=== PATIENT | male | born 2000 | race Caucasian/White ===

== ENCOUNTER 2023-07-07 13:43 | Emergency (ER) | payer OTHER, SELFPAY ==
[2023-07-07 13:48] VITALS: BP 140/71; PULSE 85; RESP 16; TEMP 36.4; O2SAT 100
[2023-07-07 15:01] LABS: Appearance Urine Clear (Clear); Bacteria Urine None Seen /hpf; Bilirubin Urine Negative (Negative); Blood Urine Trace (Negative); Color Urine Yellow (Yellow); Glucose Urine UA Negative (Negative); Ketones Urine Trace mg/dL (Negative); Leukocyte Esterase Ur Negative LEU/UL (Negative); Nitrate Urine Negative (Negative); Non Pathogenic Casts 0-2; Protein Urine Negative (Negative); RBC Urine 0-2 /hpf (0-2); Specific Grav Ur 1.027 (1.001-1.035); Squamous Epithelial Cell Urine None seen /hpf (Few); Urobilinogen Urine 0.2 mg/dL (<2.0); WBC Urine 0-5 /hpf; pH Urine 5.5 (5.0-9.0)
[2023-07-07 15:03] LABS: Basophils Percent Auto 0.3 % (0.2-1.2); Eosinophils Absolute Auto 0.2 K/mm3 (0-0.3); Eosinophils Percent Auto 2.4 % (0-4.4); Hematocrit 49.1 % (42.0-52.0); Immature Granulocyte Absolute 0.03 K/mm3 (0.00-0.031); Immature Granulocyte Percent A 0.4 % (0-0.5); Lymphocytes Percent Auto 8.1 % (18.3-44.2); Mean Corpuscular HGB Conc 34.6 g/dl (32-36); Mean Corpuscular Hemoglobin 30.5 pg (26-34); Mean Platelet Volume 9.9 fl (7.4-10.4); Monocytes Absolute Auto 0.5 K/mm3 (0.1-0.6); Monocytes Percent Auto 7.3 % (2.6-8.5); Neutrophils Absolute Auto 6.1 K/mm3 (1.3-6.7); Neutrophils Percent Auto 81.5 % (45.5-73.1); Platelet Count Result 226 k/mm3 (150-375); Red Blood Count 5.58 M/mm3 (4.6-6.20); Red Cell Distribution Width 11.9 % (11.5-14.5); White Blood Count 7.4 K/mm3 (4.5-10.0)
[2023-07-07] MEDS: ONDANSETRON INJ 4 MG/2 ML VIAL IV PUSH (15:17)
[2023-07-07] MEDS: SODIUM CHLORIDE 0.9% IV 1,000 ML 999 ML IV CONT (15:17)
[2023-07-07 15:18] LABS: Add Urine Microscopic? YES
[2023-07-07 15:32] LABS: Alanine Aminotransferase 21 U/L (6-50); Albumin Level 4.4 g/dL (3.5-5.1); Alkaline Phosphatase 59 U/L (38-126); Anion Gap 8 mmol/L (8-16); Aspartate Amino Transferase 33 U/L (17-59); Bilirubin,Total 0.6 mg/dL (0.2-1.3); Blood Urea Nitrogen 14 mg/dL (9-20); Calcium 8.9 mg/dL (8.4-10.2); Carbon Dioxide 26 mmol/L (22-30); Chloride 104 mmol/L (98-107); Estimated CRCL calculation 137 ml/min; Estimated Glomerular Filt Rate > 60; Glucose 94 mg/dL (65-110); Lipase 71 U/L (23-300); Potassium 4.6 mmol/L (3.4-5.0); Sodium 138 mmol/L (137-145)
--- NOTE | 2023-07-07 16:40 | ED.GENADULT ---
HPI - General Adult General Chief complaint: Nausea/Vomiting/Diarrhea Stated complaint: nausea & vomiting Time Seen by Provider: 07/07/23 14:32 History of Present Illness HPI narrative: Patient is a 23-year-old male who presents ER with nausea vomiting and diarrhea. He has been having nausea and vomiting for last 3 days the morning when he wakes up. He gets upper abdominal cramping and discomfort. He has also had 5 loose stools a day. No known sick contacts. No fevers or chills or sweats. Symptoms worsened with eating and drinking. No alleviating factors. Related Data Allergies Allergy/AdvReac Type Severity Reaction Status Date / Time No Known Allergies Allergy Unknown Verified 07/07/23 13:44 Review of Systems Review of Systems: All systems reviewed & are unremarkable except as noted in HPI and below Constitutional: Constitutional: Reports no additional constitutional complaints ENT: Reports system reviewed and no additional complaints, except as documented Cardiovascular: Cardiovascular: Reports no additional cardiovascular complaints Respiratory: Respiratory: Reports no additional respiratory complaints Gastrointestinal: Gastrointestinal: Reports abdominal pain, Reports diarrhea, Reports nausea and Reports vomiting Genitourinary: Genitourinary: Reports no additional male genitourinary complaints [facility] Past Medical History Medical History (Updated 07/07/23 @ 16:44 by Peter Urban MD) Healthy adult male Surgical History Surgical History (Updated 07/07/23 @ 16:42 by Peter Urban MD) No history of previous surgery Exam Narrative: GENERAL: Well-appearing, well-nourished, and in no acute distress. HEAD: Normocephalic, atraumatic. ENT: Mucous membranes moist. CHEST: Clear to auscultation. No respiratory distress. HEART: Regular rate and rhythm. Normal peripheral pulses. ABDOMEN: Soft, nontender, nondistended. EXTREMITIES: Normal range of motion. No edema. SKIN: Warm, dry, no rash. NEURO: Alert and oriented x3. PSYCH: Normal mood and affect. Course Course Emergency Course: patient resting comfortably. Hydrated. Informed of results. Discharge home. Vital Signs Vital signs: Vital Signs Temperature 97.5 F L 07/07/23 13:48 Pulse Rate 85 07/07/23 13:48 Respiratory Rate 16 07/07/23 13:48 Blood Pressure 140/71 07/07/23 13:48 Pulse Oximetry 100 07/07/23 13:48 Temperature 97.5 F L 07/07/23 13:48 Pulse Rate 85 07/07/23 13:48 Respiratory Rate 16 07/07/23 13:48 Blood Pressure 140/71 07/07/23 13:48 Pulse Oximetry 07/07/23 13:48 Medical Decision Making Vital Signs Vital Signs: Vital Signs Temperature 97.5 F L 07/07/23 13:48 Pulse Rate 85 07/07/23 13:48 Respiratory Rate 16 07/07/23 13:48 Blood Pressure 140/71 07/07/23 13:48 Pulse Oximetry 07/07/23 13:48 Temperature 97.5 F L 07/07/23 13:48 Pulse Rate 85 07/07/23 13:48 Respiratory Rate 16 07/07/23 13:48 Blood Pressure 140/71 07/07/23 13:48 Pulse Oximetry 07/07/23 13:48 Lab Data 07/07/23 14:38 07/07/23 15:12 Labs: Lab Results 07/07/23 07/07/23 Range/Units 14:38 15:12 WBC 7.4 (4.5-10.0) K/mm3 RBC 5.58 (4.6-6.20) M/mm3 Hgb 17.0 (14.0-18.0) g/dL Hct 49.1 (42.0-52.0) % MCV 88.0 (80-100) fl MCH 30.5 (26-34) pg MCHC 34.6 (32-36) g/dl RDW 11.9 (11.5-14.5) % Plt Count 226 (150-375) k/mm3 MPV 9.9 (7.4-10.4) fl Immature Gran % (Auto) 0.4 (0-0.5) % Neut % (Auto) 81.5 H (45.5-73.1) % Lymph % (Auto) 8.1 L (18.3-44.2) % [place] % (Auto) 7.3 (2.6-8.5) % Eos % (Auto) 2.4 (0-4.4) % Baso % (Auto) 0.3 (0.2-1.2) % Lymph # (Auto) 0.60 L (0.9-3.2) K/mm3 Radford # (Auto) 0.5 (0.1-0.6) K/mm3 Eos # (Auto) 0.2 (0-0.3) K/mm3 Baso # (Auto) 0.0 (0.0-0.1) K/mm3 Abs Immat Gran (auto) 0.03 (0.00-0.031) K/mm3 Absolute Neuts (auto) 6.1 (
[2023-07-07 16:59] VITALS: BP 111/69; PULSE 68; RESP 18; TEMP 36.5; O2SAT 98
== END 2023-07-07 17:02 | disposition home or self-care (01) ==
PROVIDERS: Emergency Provider Emergency Medicine
DX: K52.9 Noninfective gastroenteritis and colitis, unspecified (principal)
CPT/HCPCS: 36415; 80053; 81001; 83690; 85025; 96361; 96374; 99284; J2405; J7030

== ENCOUNTER 2024-06-28 11:16 | Emergency (ER) | payer SELFPAY ==
--- NOTE | ~2024-06-28 | XR_ITS ---
EXAMINATION: XR sacrum coccyx min 2V DATE: 06/28/2024 14:13 INDICATION: Sacrococcygeal pain. Fall. TECHNIQUE: 3 views of the sacrum and coccyx were obtained. COMPARISON: None. FINDINGS: Alignment is normal. No fracture. The sacroiliac joints are normal. IMPRESSION: 1. No fracture. Reviewed, dictated and finalized at location B. TESTING TECHNICIAN IMPRESSION: 1. No fracture.
--- NOTE | ~2024-06-28 | XR_ITS ---
EXAMINATION: XR lumbar spine 2-3V DATE: 06/28/2024 14:13 INDICATION: Low back pain. Fall. TECHNIQUE: 3 views of lumbar spine were obtained. COMPARISON: None. FINDINGS: Alignment is normal. There is mild chronic anterior wedging of T12 vertebral body. Interver tebral disc heights are normal. The facet joints are unremarkable. IMPRESSION: 1. Normal lumbar spine. Reviewed, dictated and finalized at location B. FACTURING PLANT MANAGER IMPRESSION: 1. Normal lumbar spine.
--- NOTE | ~2024-06-28 | XR_ITS ---
EXAMINATION: XR thoracic spine 3V DATE: 06/28/2024 14:14 INDICATION: Back pain. Fall. TECHNIQUE: 3 views of thoracic spine on 4 radiographs were obtained. COMPARISON: None. FINDINGS: There is 8 degrees dextrocurvature of thoracic spine. Vertebral body heights and interverte bral disc heights are normal. There are endplate osteophytes at multiple levels. IMPRESSION: 1. No fracture. Reviewed, dictated and finalized at location B. TENANCE SCHEDULER IMPRESSION: 1. No fracture.
[2024-06-28 11:28] VITALS: BP 141/102; PULSE 83; RESP 18; TEMP 36.2; O2SAT 98
--- NOTE | 2024-06-28 13:22 | ED.BACK ---
HPI - Back Pain/Injury General Chief Complaint: Back Pain/Injury Stated Complaint: recent fall,lower back pain Time Seen by Provider: 06/28/24 13:19 Source: patient Mode of arrival: ambulatory Limitations: no limitations History of Present Illness HPI Narrative: PATIENT WAS IN STANDING POSITION AT THE SIDE OF THE BED ON THE FLOOR HAVING 6 ACCIDENTALLY FELL ON HIS BOTTOM 2 DAYS AGO, COMPLAINING OF SEVERE PAIN ACROSS THE LUMBAR AREA. DENIES OTHER INJURIES. DENIES TINGLING NUMBNESS OR WEAKNESS OF THE LOWER EXTREMITIES. NO RADIATION OF PAIN. Related Data Allergies Allergy/AdvReac Type Severity Reaction Status Date / Time ibuprofen AdvReac Unknown Verified 06/28/24 11:17 Review of Systems Review of Systems: All systems reviewed & are unremarkable except as noted in HPI and below PMFSH Past Medical History Medical History Healthy adult male Surgical History Surgical History No history of previous surgery Exam Narrative: GENERAL APPEARANCE: WELL-DEVELOPED, WELL-NOURISHED SKIN: NORMAL COLOR HEAD: NORMOCEPHALIC, NONTRAUMATIC EYES: CLEAR CONJUNCTIVA NECK: SUPPLE, NONTENDER CHEST AND RESPIRATORY: AIRWAY PATENT, NO RESPIRATORY DISTRESS, NO ACCESSORY MUSCLE USE HEART: REGULAR RATE/RHYTHM VASCULAR: NORMAL PERIPHERAL PULSES, NORMAL CAPILLARY REFILL. MUSCULOSKELETAL: DIFFUSE TENDERNESS ALONG THE LUMBAR AREA, NO BRUISES, NO SWELLING OR RASH, SEVERE LIMITED RANGE OF MOTION OF THE LUMBAR AREA. NEUROLOGIC: ALERT AND ORIENTED ?3, EMPLOYMENT SERVICES DIRECTOR IS NORMAL TESTED, NO GROSS MOTOR DEFICIT Course Vital Signs Vital signs: Vital Signs Temperature 36.2 C L 06/28/24 11:28 Pulse Rate 83 06/28/24 11:28 Respiratory Rate 18 06/28/24 11:28 Blood Pressure 141/102 H 06/28/24 11:28 Pulse Oximetry 98 06/28/24 11:28 Oxygen Delivery Room Air 06/28/24 11:28 Temperature 36.2 C L 06/28/24 11:28 Pulse Rate 71 06/28/24 14:20 Respiratory Rate 15 06/28/24 14:20 Blood Pressure 143/85 H 06/28/24 14:20 Pulse Oximetry 98 06/28/24 14:20 Oxygen Delivery Room Air 06/28/24 11:28 MDM - Back Pain/Injury Imaging Data Radiologist's impression: Impressions Lumbar Spine X-Ray 06/28/24 14:21 IMPRESSION: 1. Normal lumbar spine. Sacrum and Coccyx X-Ray 06/28/24 14:22 IMPRESSION: 1. No fracture. Thoracic Spine X-Ray 06/28/24 14:23 IMPRESSION: 1. No fracture. Discharge Plan Discharge Clinical Impression: Lower back pain Patient Disposition: Home, Self-Care Condition: Stable Instructions: Acute Low Back Pain (ED) Additional Instructions: RETURN IF SYMPTOMS ARE WORSENING , CALL YOUR FAMILY PHYSICIAN FOR APPOINTMENT, TAKE TYLENOL, IBUPROFEN NEEDED FOR ACHES AND PAIN, CONTINUE HOME MEDICATIONS. Patient Language: Lao Prescriptions: New cyclobenzaprine 10 mg tablet 10 mg PO TID PRN (Reason: muscle spasm) Qty: 20 0RF No Action simethicone 125 mg capsule 125 mg PO QID Qty: 20 0RF Rx Instructions: administer after meals and at bedtime ondansetron 4 mg tablet,disintegrating 4 mg PO Q6H PRN (Reason: nausea and vomiting) Qty: 10 0RF Follow-up/Referrals: Nesha,Sarai Li MD [Non-Staff] - Renard Durant MD [Physician] - 07/03/24 UNKNOWN,DOCTOR [Primary Care Provider] - Stand Alone Forms: Work/School Release IP
[2024-06-28] MEDS: HYDROcodone/acetaminophen (*CRX) 5-325 MG TABLET 1 TAB PO (14:18)
[2024-06-28 14:20] VITALS: BP 143/85; PULSE 71; RESP 15; O2SAT 98
--- OUTSIDE RECORDS SUMMARY | 2024-06-29 04:29 | XMS_ITS | Clinical Summary ---
Author Organization [facility] Address [address] [place] [address] Phone Care Team Providers Care Mechanic/Welder Name Role Phone Unavailable Unavailable Unavailable Reason for Visit and Chief Complaint [Patient Encounter] Problems Includes: Problems addressed during this encounter and other active Problems All Visits Onset Date Resolved Date Provider Condition S tatus Depression 08/04/2020 Active Last Documented On 3 5:53PM ; [facility] Bipolar I Disorder 07/03/2020 Active Last Documented On 3 5:53PM ; [facility] Generalized Anxiety Disorder 07/03/2020 Active Last Documented On 3 5:53PM ; [facility] Psychophysiological Insomnia 07/03/2020 Active Last Documented On 3 5:53PM ; [facility] Major Depression 07/03/2020 Active Last Documented On 3 5:53PM ; [facility] Plan of Treatment No Plan of Treatment Recorded Assessments Includes: Assessments from this encounter No Assessments Recorded Medical Equipment - Implanted Devices Includes: Current Devices No Medical Equipment Recorded Medications Includes: Medications discussed during this encounter and other current Medications Current Medications (continue as prescribed) SEROquel XR 200 MG OR TB24 10/03/2020 Provider: ANNI CORTES MD Diagnosis: Bipolar disorder , unspecified as directed -- 1 tab at bedtime Last Documented On 10/02/2022 5:39PM By Fifi Cortes MD ; [facility] LORazepam 0.5 MG TABS 09/22/2020 Provider: BHAVANA CORTES MD Diagnosis: Panic disorder [ episodic paroxysmal anxiety] as directed -- 1 tab a day a s needed for anxiety Last Documented On 10/02/2022 5:39PM By Fifi Cortes MD ; [facility] QUEtiapine Fumarate 100 MG OR TABS 08/08/2020 Provider: ANNI CORTES MD Diagnosis: Bipolar disorder , unspecified as directed -- 1 tab at bedtime Last Documented On 10/02/2022 5:39PM By Fifi Cortes MD ; [facility] QUEtiapine Fumarate 25 MG OR TABS 08/08/2020 Provider: ANNI CORTES MD Diagnosis: Generalized anxi ety disorder as directed -- 1 tab in am a nd 1 tab at noon for anxiety Last Documented On 10/02/2022 5:39PM By Fifi Cortes MD ; [facility] QUEtiapine Fumarate 50 MG OR TABS 07/03/2020 Provider: ANNI CORTES MD Diagnosis: Bipolar disorder , unspecified One tablet at bed time Last Documented On 10/02/2022 5:39PM By Fifi Cortes MD ; [facility] Albuterol Sulfate HFA 108 (90 Base) MCG/ACT IN AERS Provider: Diagnosis: 1 -2 puffs q 4-6 hours allison Tilley NP Last Documented On 10/02/2022 5:39PM By DIANE BOWENS ; [facility] Medications Administered Includes: Administered Medications from this encounter No Administered Medications Recorded Vital Signs Includes: Vital Signs from this encounter Vital Name 07/03/2020 02:32P Blood Pressure Sitting (mmHg) 114/70 BP Cuff Size Regular Pulse Rate-Sitting (bpm) 84 Pulse Rhythm Regular Temp-Oral (F) 98.1 Height (in) 71 Weight (lb) 217 Body Mass Index (kg/m2) 30.3 Body Surface Area (m2) 2.2 Last Documented: On 10/02/2022 5:58PM ; [facility] Results Includes: Results discussed during this encounter No Results Recorded For Specified Dates History of Present Illness Includes: History of Present Illness from this encounter No History of Present Illness Recorded Social History No Social History Recorded - Smoking Status Unknown Medical History Includes: Medical History addressed during this encounter No Medical History Recorded Family History Includes: Family History addressed during this encounter No Family History Recorded Review of Systems Includes: Review of Systems from this encounter No Review of Systems Recorded Mental Status Includes: Mental Status from this encounter No Mental Status Recorded Functional Status Includes: Functional Status from this encounter No Functional Status Recorded Physical Exam Includes: Physical Exam from this encounter No Physical Exam Recorded Allergies Includes: Active Allergies Substance Type Reaction Onset Date Resolved Date Statu s NSAIDs Allergy kidney failure 07/03/2020 Acti ve Last Documented On 10/02/2022 5:39PM ; [facility] Note: Imported from external source. Encounters Encounter Provider Location Date Check-In Time Check-Out Time Diagnosis [Patient Encounter] 07/03/2020 12:00AM 11:59PM Insurance Includes: Active Insurance Policies Plan Name Member ID Group # Subscriber Relationship Effect kathy Dates 1 - [facility] [id number] PATRICIA MORALES JR Self Clinical Notes Includes: Clinical Notes from this encounter No Clinical Notes Recorded
--- OUTSIDE RECORDS SUMMARY | 2024-06-29 04:29 | XMS_ITS | Clinical Summary ---
Author Organization [facility] Address [address] [place] [address] Phone Care Team Providers Care Film And Video Editor Name Role Phone Unavailable Unavailable Unavailable Reason for Visit and Chief Complaint [Patient Encounter] Problems Includes: Problems addressed during this encounter and other active Problems All Visits Onset Date Resolved Date Provider Condition S tatus Depression 08/04/2020 Active Last Documented On 3 5:53PM ; [facility] Bipolar I Disorder 07/03/2020 Active Last Documented On 3 5:53PM ; [facility] Generalized Anxiety Disorder 07/03/2020 Active Last Documented On 3 5:53PM ; [facility] Psychophysiological Insomnia 07/03/2020 Active Last Documented On 3 5:53PM ; [facility] Major Depression 07/03/2020 Active Last Documented On 3 5:53PM ; [facility] Plan of Treatment No Plan of Treatment Recorded Assessments Includes: Assessments from this encounter No Assessments Recorded Medical Equipment - Implanted Devices Includes: Current Devices No Medical Equipment Recorded Medications Includes: Medications discussed during this encounter and other current Medications Discontinued / Stopped on this date on 06/20/2020 Escitalopram Oxalate 10 MG OR TABS Provid er: Diagnosis: Last Documented On 10/02/2022 5:39PM By DIANE BOWENS ; [facility] Current Medications (continue as prescribed) SEROquel XR 200 MG OR TB24 10/03/2020 Provider: ANNI CORTES MD Diagnosis: Bipolar disorder , unspecified as directed -- 1 tab at bedtime Last Documented On 10/02/2022 5:39PM By Fifi Cortes MD ; [facility] LORazepam 0.5 MG TABS 09/22/2020 Provider: BHAVANA CORTES MD Diagnosis: Panic disorder [ episodic paroxysmal anxiety] as directed -- 1 tab a day a s needed for anxiety Last Documented On 10/02/2022 5:39PM By Fifi Cortes MD ; [facility] QUEtiapine Fumarate 100 MG OR TABS 08/08/2020 Provider: ANNI CORTES MD Diagnosis: Bipolar disorder , unspecified as directed -- 1 tab at bedtime Last Documented On 10/02/2022 5:39PM By Fifi Cortes MD ; [facility] QUEtiapine Fumarate 25 MG OR TABS 08/08/2020 Provider: ANNI CORTES MD Diagnosis: Generalized anxi ety disorder as directed -- 1 tab in am a nd 1 tab at noon for anxiety Last Documented On 10/02/2022 5:39PM By Fifi Cortes MD ; [facility] QUEtiapine Fumarate 50 MG OR TABS 07/03/2020 Provider: ANNI CORTES MD Diagnosis: Bipolar disorder , unspecified One tablet at bed time Last Documented On 10/02/2022 5:39PM By Fifi Cortes MD ; [facility] Albuterol Sulfate HFA 108 (90 Base) MCG/ACT IN AERS Provider: Diagnosis: 1 -2 puffs q 4-6 hours allison Tilley NP Last Documented On 10/02/2022 5:39PM By DIANE BOWENS ; [facility] Medications Administered Includes: Administered Medications from this encounter No Administered Medications Recorded Vital Signs Includes: Vital Signs from this encounter Vital Name 10/03/2020 09:21A Blood Pressure Sitting (mmHg) 116/80 BP Cuff Size Regular Pulse Rate-Sitting (bpm) 71 Pulse Rhythm Regular Height (in) 71 Weight (lb) 220 Body Mass Index (kg/m2) 30.7 Body Surface Area (m2) 2.2 Last Documented: On 10/02/2022 5:58PM ; [facility] Results Includes: Results discussed during this encounter [...] ve Last Documented On 10/02/2022 5:39PM ; [facility] Note: Imported from external source. Encounters Encounter Provider Location Date Check-In Time Check-Out Time Diagnosis [Patient Encounter] 10/03/2020 12:00AM 11:59PM Insurance Includes: Active Insurance Policies Plan Name Member ID Group # Subscriber Relationship Effect kathy Dates - [facility] [id number] PATRICIA MORALES JR Self Clinical Notes Includes: Clinical Notes from this encounter No Clinical Notes Recorded
--- OUTSIDE RECORDS SUMMARY | 2024-06-29 04:29 | XMS_ITS ---
Care Plan - [facility] Created on: June 29, 2024 PATRICIA MORALES JR : 2000 Sex: Male Author Organization [facility] Address [address] [place] [address] Phone Care Team Providers Care Principal Engineer Name Role Phone Unavailable Unavailable Unavailable
--- OUTSIDE RECORDS SUMMARY | 2024-06-29 04:29 | XMS_ITS ---
Author Organization [facility] Address [address] [place] [address] Phone Care Team Providers Care Site Leasing Agent Name Role Phone Unavailable Unavailable Unavailable Problems Includes: Active, inactive, and resolved Problems All Visits Onset Date Resolved Date Provider Condition S tatus Depression 08/04/2020 Active Last Documented On 3 5:53PM ; [facility] Bipolar I Disorder 07/03/2020 Active Last Documented On 3 5:53PM ; [facility] Generalized Anxiety Disorder 07/03/2020 Active Last Documented On 3 5:53PM ; [facility] Psychophysiological Insomnia 07/03/2020 Active Last Documented On 3 5:53PM ; [facility] Major Depression 07/03/2020 Active Last Documented On 3 5:53PM ; [facility] Plan of Treatment No Plan of Treatment Recorded Assessments Includes: Assessments for all patient encounters No Assessments Recorded Medical Equipment - Implanted Devices Includes: Current and historical Devices No Medical Equipment Recorded Medications Includes: Current and historical Medications Current Medications (continue as prescribed) SEROquel XR 200 MG OR TB24 10/03/2020 Provider: ANNI CORTES MD Diagnosis: Bipolar disorder , unspecified as directed -- 1 tab at bedtime Last Documented On 10/02/2022 5:39PM By Fifi Cortes MD ; [facility] LORazepam 0.5 MG TABS 09/22/2020 Provider: BHAVANA CORTES MD Diagnosis: Panic disorder [ episodic paroxysmal anxiety] as directed -- 1 tab a day a s needed for anxiety Last Documented On 10/02/2022 5:39PM By Fifi Cortes MD ; [facility] QUEtiapine Fumarate 100 MG OR TABS 08/08/2020 Provider: ANNI CORTES MD Diagnosis: Bipolar disorder , unspecified as directed -- 1 tab at bedtime Last Documented On 10/02/2022 5:39PM By Fifi Cortes MD ; [facility] QUEtiapine Fumarate 25 MG OR TABS 08/08/2020 Provider: ANNI CORTES MD Diagnosis: Generalized anxi ety disorder as directed -- 1 tab in am a nd 1 tab at noon for anxiety Last Documented On 10/02/2022 5:39PM By Fifi Cortes MD ; [facility] QUEtiapine Fumarate 50 MG OR TABS 07/03/2020 Provider: ANNI CORTES MD Diagnosis: Bipolar disorder , unspecified One tablet at bed time Last Documented On 10/02/2022 5:39PM By Fifi Cortes MD ; [facility] Albuterol Sulfate HFA 108 (90 Base) MCG/ACT IN AERS Provider: Diagnosis: 1 -2 puffs q 4-6 hours allison Tilley NP Last Documented On 10/02/2022 5:39PM By DIANE BOWENS ; [facility] Past Medications on file Focalin 10 MG OR TABS 10/03/2020 - 11/02/2020 Provider: ANNI CORTES MD Diagnosis: Attention-defici t hyperactivity disorder, combined type 1 tablet every morning Last Documented On 10/02/2022 5:39PM By Fifi Cortes MD ; [facility] LORazepam 0.5 MG TABS 08/11/2020 - 09/22/2020 Provider: ANNI CORTES MD Diagnosis: Panic disorder [episodic paroxysmal anxiety] as directed -- 1 tab a day a s needed for anxiety Last Documented On 10/02/2022 5:39PM By Fifi Cortes MD ; [facility] Escitalopram Oxalate 10 MG OR TABS 06/20/2020 - 2020 Provider: Diagnosis: 1 tab daily Xin Tilley NP Last Documented On 10/02/2022 5:39PM By DIANE BOWENS ; [facility] Medications Administered Includes: Administered Medications in patient's chart No Administered Medications Recorded Results Includes: Results from 06/29/2023 through 06/29/2024 No Results Recorded For Specified Dates History of Present Illness History of Present Illness not supported for this document type No History of Present Illness Recorded Social History No Social History Recorded - Smoking Status Unknown Medical History Includes: Medical History in patient's chart No Medical History Recorded Family History Includes: Family History in patient's chart No Family History Recorded Review of Systems Review of Systems not supported for this document type No Review of Systems Recorded Mental Status No Mental Status Recorded Functional Status No Functional Status Recorded Physical Exam Physical Exam not supported for this document type No Physical Exam Recorded Allergies Includes: Active, inactive, and resolved Allergies Substance Type Reaction Onset Date Resolved Date Statu s NSAIDs Allergy kidney failure 07/03/2020 Acti ve Last Documented On 10/02/2022 5:39PM ; [facility] Note: Imported from external source. Insurance Includes: Active Insurance Policies Plan Name Member ID Group # Subscriber Relationship Effect kathy Dates 1 - [facility] [id number] PATRICIA MORALES JR Self Clinical Notes Includes: Signed Clinical Notes starting from 06/25/2022 No Clinical Notes Recorded
--- OUTSIDE RECORDS SUMMARY | 2024-06-29 04:30 | XMS_ITS ---
Care Plan - [facility] Created on: June 29, 2024 PATRICIA MORALES JR : 2000 Sex: Male Author Organization [facility] Address [address] [place] [phone] Phone Care Team Providers Care Local Government Legislator Name Role Phone Unavailable Unavailable Unavailable
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
--- OUTSIDE RECORDS SUMMARY | 2024-06-29 04:30 | XMS_ITS | Clinical Summary ---
Author Organization [facility] Address [address] [place] [phone] Phone Care Team Providers Care Wire Frame Lampshade Maker Name Role Phone Unavailable Unavailable Unavailable Reason for Visit and Chief Complaint NO SHOW Problems Includes: Problems addressed during this encounter and other active Problems All Visits Onset Date Resolved Date Provider Condition S tatus Depression 08/04/2020 ANNI CORTES MD Ac tive Last Documented On 1 8:56AM ; [facility] Bipolar I Disorder 07/03/2020 ANNI ABEBE MD Active Last Documented On 1 2:16PM ; [facility] Generalized Anxiety Disorder 07/03/2020 ANNI CORTES MD Active Last Documented On 1 2:16PM ; [facility] Psychophysiological Insomnia 07/03/2020 ANNI CORTES MD Active Last Documented On 1 2:17PM ; [facility] Major Depression 07/03/2020 ANNI CORTES MD Active Last Documented On 1 2:16PM ; [facility] Plan of Treatment No Plan of Treatment [...] 10/03/2020 9:49AM By Fifi Cortes MD ; [facility] LORazepam 0.5 MG Oral Tablet 09/22/2020 Provider: ANNI CORTES MD Diagnosis: Panic disorder [ episodic paroxysmal anxiety] as directed -- 1 tab a day a s needed for anxiety Last Documented On 09/22/2020 6:31PM By Fifi Cortes MD ; [facility] QUEtiapine Fumarate 100 MG Oral Tablet 08/08/2020 Provider: ANNI CORTES MD Diagnosis: Bipolar disorder , unspecified as directed -- 1 tab at bedtime Last Documented On 1 10:36AM By Fifi Cortes MD ; [facility] QUEtiapine Fumarate 25 MG Oral Tablet 08/08/2020 Provider: ANNI CORTES MD Diagnosis: Generalized anxi ety disorder as directed -- 1 tab in am a nd 1 tab at noon for anxiety Last Documented On 10:44AM By Fifi Cortes MD ; [facility] QUEtiapine Fumarate 50 MG Oral Tablet 07/03/2020 Provider: ANNI CORTES MD Diagnosis: Bipolar disorder , unspecified One tablet at bed time Last Documented On 07/03/2020 3:17PM By Fifi Cortes MD ; [facility] Albuterol Sulfate HFA 108 (9 0 Base) MCG/ACT Inhalation Aerosol Solution 06/20/2020 Provider: Diagnosis: 1 -2 puffs q 4-6 hours allison Tilley NP Last Documented On 07/03/2020 1:52PM By DIANE BOWENS ; [facility] Medications Administered Includes: Administered Medications from this encounter No Administered Medications Recorded Results Includes: Results discussed during this encounter [...] ve Last Documented On 10/02/2022 5:39PM ; [facility] Note: Imported from external source. Encounters Encounter Provider Location Date Check-In Time Check-Out Time Diagnosis NO SHOW ANNI CORTES MD [facility] 11/14/2020 3:30PM 11:59PM Insurance Includes: Active Insurance Policies Plan Name Member ID Group # Subscriber Relationship Effect kathy Dates 1 - [facility] [id number] PATRICIA MORALES Self Clinical Notes Includes: Clinical Notes from this encounter No Clinical Notes Recorded
--- OUTSIDE RECORDS SUMMARY | 2024-06-29 04:30 | XMS_ITS | Clinical Summary ---
Author Organization [facility] Address [address] [place] [phone] Phone Care Team Providers Care Junior Business Analyst Name Role Phone Unavailable Unavailable Unavailable Reason for Visit and Chief Complaint NO SHOW Problems Includes: Problems addressed during this encounter and other active Problems All Visits Onset Date Resolved Date Provider Condition S tatus Depression 08/04/2020 ANNI CORTES MD Ac tive Last Documented On 1 8:56AM ; [facility] Bipolar I Disorder 07/03/2020 ANNI ABEBE MD Active Last Documented On 1 2:16PM ; [facility] Generalized Anxiety Disorder 07/03/2020 ANNI CORTES MD Active Last Documented On 1 2:16PM ; [facility] Psychophysiological Insomnia 07/03/2020 ANNI CORTES MD Active Last Documented On 1 2:17PM ; [facility] Major Depression 07/03/2020 ANNI CORTES MD Active Last Documented On 1 2:16PM ; [facility] Plan of Treatment No Plan of Treatment [...] 10/03/2020 9:49AM By Fifi Cortes MD ; [facility] LORazepam 0.5 MG Oral Tablet 09/22/2020 Provider: ANNI CORTES MD Diagnosis: Panic disorder [ episodic paroxysmal anxiety] as directed -- 1 tab a day a s needed for anxiety Last Documented On 09/22/2020 6:31PM By Fifi Cortes MD ; [facility] QUEtiapine Fumarate 100 MG Oral Tablet 08/08/2020 Provider: ANNI CORTES MD Diagnosis: Bipolar disorder , unspecified as directed -- 1 tab at bedtime Last Documented On 1 10:36AM By Fifi Cortes MD ; [facility] QUEtiapine Fumarate 25 MG Oral Tablet 08/08/2020 Provider: ANNI CORTES MD Diagnosis: Generalized anxi ety disorder as directed -- 1 tab in am a nd 1 tab at noon for anxiety Last Documented On 10:44AM By Fifi Cortes MD ; [facility] QUEtiapine Fumarate 50 MG Oral Tablet 07/03/2020 Provider: ANNI CORTES MD Diagnosis: Bipolar disorder , unspecified One tablet at bed time Last Documented On 07/03/2020 3:17PM By Fifi Cortes MD ; [facility] Albuterol Sulfate HFA 108 (9 0 Base) MCG/ACT Inhalation Aerosol Solution 06/20/2020 Provider: Diagnosis: 1 -2 puffs q 4-6 hours allison Tilley NP Last Documented On 07/03/2020 1:52PM By DIANE BOWENS ; [facility] Medications Administered Includes: Administered Medications from this [...] ve Last Documented On 10/02/2022 5:39PM ; [facility] Note: Imported from external source. Encounters Encounter Provider Location Date Check-In Time Check-Out Time Diagnosis NO SHOW ANNI CORTES MD [facility] 01/16/2021 2:30PM 11:59PM Insurance Includes: Active Insurance Policies Plan Name Member ID Group # Subscriber Relationship Effect kathy Dates 1 - [facility] [id number] PATRICIA MORALES Self Clinical Notes Includes: Clinical Notes from this encounter No Clinical Notes Recorded
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
--- OUTSIDE RECORDS SUMMARY | 2024-06-29 04:31 | XMS_ITS | Clinical Summary ---
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 would like to discuss switching medication Problems Includes: Problems addressed during this encounter and other active Problems Current Visit Onset Date Resolved Date Provider Conditio n Status Generalized Anxiety Disorder 04/27/2022 EARLENE CASTELLANO PA-C Active Last Documented On 04/27/2022 8:42PM ; [facility] Note: Unchanged Past Visits Onset Date Resolved Date Provider Condition Status Asthma Mild Intermittent with Exacerbation 04/27/2022 EARLENE CASTELLANO PA-C Active Last Documented On 04/27/2022 8:42PM ; [facility] Note: Unchanged Plan of Treatment - Return to the clinic if condition worsens or new symptoms arise - Last Documented On 05/23/2023 9:28AM ; [facility] - Follow-up visit in 1 month - Last Documented On 05/23/2023 9:28AM ; [facility] Assessments Includes: Assessments from this encounter Findings - [F39 - Unspecified mood [affective] disorder] Mood disorders, NOS --possible dx, will continue to monitor - Last Documented On 05/23/2023 9:28AM ; [facility] - [F32.A - Depression, unspecified] Depression - Last Documented On 05/23/2023 9:28AM ; [facility] - [G47.00 - Insomnia, unspecified] Insomnia due to stress - Last Documented On 05/23/2023 9:28AM ; [facility] - [F41.1 - Generalized anxiety disorder] Generalized anxiety disorder - Last Documented On 05/23/2023 9:28AM ; [facility] - [F41.0 - Panic disorder [episodic paroxysmal anxiety]] Panic disorder - Last Documented On 05/23/2023 9:28AM ; [facility] - [F43.10 - Post-traumatic stress disorder, unspecified] Post-traumatic stress disorder - Last Documented On 05/23/2023 9:28AM ; [facility] Medical Equipment - Implanted Devices Includes: Current Devices No Medical Equipment Recorded Medications Includes: Medications discussed during this encounter and other current Medications Discontinued / Stopped on this date AYDE RASCON [facility] on 04/05/2023 QUEtiapine Fumarate ER 50 MG Oral Tablet Extended Release 24 Hour Provider: AYDE RASCON [facility]- Diagnosis: Generalized anxi ety disorder Last Documented On 3 9:17AM By AYDE RASCON [facility] ; [facility] Sertraline HCl 100 MG Oral Tablet Provider: AYDE RASCON [facility]- Diagnosis: Post-traumatic s tress disorder, unspecified Last Documented On 3 9:17AM By AYDE RASCON [facility] ; [facility] New / Renewed during this visit AYDE RASCON [facility]- on 05/23/2023 QUEtiapine Fumarate 100 MG Oral Tablet Provider: AYDE RASCON [facility]- 30 day supply: 30 tablet, 1 refills Diagnosis: Insomnia, unspecified One tablet daily---dose increase Pharmacy: [facility] [id number] [facility], [address] - Last Documented On 06/01/2023 2:06PM By VICENTE BOWENS ; [facility] Wellbutrin XL 150 MG Oral Tablet Extended Release 24 Hour Provider: AYDE RASCON [facility]- 30 day supply: 30 tablet, 1 refills Diagnosis: Depression, unspecified One tablet daily Pharmacy: [facility] [facility], [address] - Last Documented On 06/21/2023 10:01AM By VICENTE BOWENS ; [facility] Current Medications (continue as prescribed) Albuterol Sulfate HFA 108 (9 0 Base) MCG/ACT Inhalation Aerosol Solution 06/02/2023 Provider: CHARLIE CASTELLANO PA-C Diagnosis: INHALE 2 PUFFS BY MOUTH EVERY 4 HOURS NEEDED Last Documented On 3 2:42PM By Earlene Castellano PA-C ; [facility] Advair Diskus 250-50 MCG/ACT Inhalation Aerosol Powder Breath Activated 06/22/2022 Provider: EARLENE Luque Diagnosis: Mild intermitten t asthma with (acute) exacerbation INHALE 1 PUFF BY MOUTH TWICE DAILY. RINSE MOUTH AFTER USE Last Documented On 3 8:11AM By Earlene Castellano PA-C ; [facility] Past Medications on file Sertraline HCl 100 MG Oral Tablet 06/28/2023 - 09/26/2023 Provider: AYDE VIDES [facility]- Diagnosis: Take 2 tabs PO daily (200mg) dose Last Documented On 4 12:06PM By AYDE RASCON [facility] ; [facility] Wellbutrin XL 300 MG Oral Tablet Extended Release 24 Hour 06/28/2023 - 08/27/2023 Provider: AYDE RASCON [facility] Diagnosis: Depression, unspecified One tablet daily--dose increase Last Documented On 4 12:06PM By AYDE RASCON [facility] ; [facility] hydrOXYzine Pamoate 25 MG Oral Capsule 06/28/2023 - 07/28/2023 Provider: AYDE RASCON [facility] Diagnosis: Panic disorder [episodic paroxysmal anxiety] 1 capsule PO TID PRN anxiety Last Documented On 4 12:06PM By AYDE RASCON [facility] ; [facility] QUEtiapine Fumarate 150 MG Oral Tablet 06/28/2023 - 08/27/2023 Provider: AYDE RASCON [facility] Diagnosis: Insomnia, unspec ified One tablet daily--dose increase Last Documented On 4 12:06PM By AYDE RASCON [facility] ; [facility] Medications Administered Includes: Administered Medications from this encounter No Administered Medications Recorded Results Includes: Results discussed during this encounter No Results Recorded For Specified Dates History of Present Illness Includes: History of Present Illness from this encounter VICENTE MORALES is a 23 year old male. - Allergy list reviewed - Allergy list reviewed - Feeling bad about yourself or you are a failure. - Problem list reviewed - Medication reconciliation performed - Medication list reviewed - Medication list reviewed - Does not [...] behavior - Fidgety, unable to sit still One month f/u since increasing sertraline to 200mg daily and starting Quetiapine 50mg at night. He reports that his sleep has improved. He continues to feel anxious but does feel that it is improving. Still has trouble relaxing at times. Issues with concentrating when anxious is severe. When anxious will get really red, face will start sweating, will start stuttering. When in social setting he reports that he is still awkward but he doesn't feel like everyone is staring at him anymore. He feels like he is not as worried that something bad is going to happen and has noticed that he doesn't always have an escape plan anymore. He continues to only like even numbers such as TV volume but this is not as big of an issue anymore. He also is not as bothered/scared by touching door knobs, being around someone that sneezes, or getting AIDS, Hepatitis C, and STD's. He doesn't feel as irritable. Racing thoughts have improved. Anger is better. Other day he was wrapping presents and someone told him how to do it and he didn't ask for help which upset him and he walked off otherwise he has not had any physical or verbal outbursts. He reports that others have noticed that he has not been getting mad like he use to. He denies feeling depressed. He is not feeling as bad about himself. He has more motivation. Has not been sleeping more. Has not been struggling to get out of bed. Denies any issues with hygiene. Denies any issues with appetite. Using edibles before bed instead of smoking but has cut back. He has not drank alcohol in 4 months. Denies any urges to drink alcohol. He continues going to anger management at [facility] which he finds helpful. He also is in parenting classes on Tuesdays. He hasn't been able to see his daughter as he has to file an appear for order of protection but plans on doing that soon. Denies SI, SH, HI, A/VH, delusions, or paranoia. Childhood: Was held back Sophomore year. Dropped out 11th grade. When your mother was with you, were there any complications during the , or developmental in the first few years of life: Denies Childhood temperament: Hyperactive Important family events (/separation/divorce/adoption): Father when he was age 13. Grandmother Ramya when he was age 16. Cultural/Restoration Influences: Denies Past psych DX: LYNDSEY, MDD, Bipolar, PTSD Psych HX: Inpatient HX for mental health: Denies Previous PHP/IOP: Denies ER visits HX for mental health: [facility] ER 01/2023 anxiety Rehab HX: Denies Outpatient Psychiatrist/PMHNP HX: Dr. Cortes in the past Counseling HX: Yudith Pierre in the past but not currently. Is in anger management at [facility] in [place] and parenting classes currently. Previous psych meds: [...] an addict and in and out of care home. Father when he was age 13. His father had just gotten out of fdc but was still using drugs. Father said [...] Living Arrangements: Lives with Friend Chance in [place] and his 4-year-old daughter Marital status: Single. Children: Daughter Shayy (04/21/21) Education HX: 11th grade Occupation: Currently unemployed. Hx: Denies Access to Weapons: Denies Legal HX: Arrested carrying a pistol and didn't have a conceal and carry-is currently on probation for this. Family psych HX: Maternal grandmother-attempted suicide after grandfather Father- AURY-heroin Maternal grandfather-AUD. Paternal grandfather-AURY heroin This visit today was conducted with the use of interactive audio and video telecommunication system with real time communication between the patient and the provider. Patient consent for virtual visit obtained when scheduled. Originating site: [facility] Distant Site: Patient's Home Visit included: Ayde Rascon SLIP COVER SEWER-BC, PMHNP-BC and patient Vital signs self-reported by patient: None Social History Description Last Updated 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 11/18/2022 Last Documented On 3 9:03AM ; [facility] Not recovering from substance abuse 11/04 Last Documented On 3 9:03AM ; [facility] Tobacco non-user 10/25/2022 Last Documented On 3 9:03AM ; [facility] Using marijuana 02/22/2022 Last Documented On 3 9:03AM ; [facility] Alcohol 07/20/2021 Last Documented On 3 9:03AM ; [facility] Amount of alcohol per day: N ot everyday but about 5 to 7 shots when i drink 07/20/2021 Last Documented On 3 9:03AM ; [facility] Drug use 07/20/2021 Last Documented On 3 9:03AM ; [facility] Frequency: Most days 07/20/2021 Last Documented On 3 9:03AM ; [facility] Type: Marijuana 07/20/2021 Last Documented On 3 9:03AM ; [facility] Smoking Status Unknown Procedures and Surgical History Includes: Procedures from this encounter Procedures Code Diagnosis Performing Provider Service L ocation Service Date regular exercise Last Documented On 3 9:03AM ; [facility] standardized depression screening: negative for symptoms 3351F Last Documented On 3 8:54AM ; [facility] review of medications documented 1160F Last Documented On 3 9:03AM ; [facility] assessment of suicide risk performed Last Documented On 3 8:54AM ; [facility] screening for adult depression: impressi on and score five Last Documented On 3 8:54AM ; [facility] Clinical summary provided to patient Last Documented On 3 9:03AM ; [facility] Medical History Includes: Medical History addressed during this encounter Description Last Updated No Vaccine history 01/04/2023 Last Documented On 3 9:03AM ; [facility] Not taking OTC medications 10/25/2022 Last Documented On 3 9:03AM ; [facility] Family History Includes: Family History addressed during this encounter Description Last Updated Maternal grandfather's history of alcoho lism 04/06/2023 Last Documented On 3 9:03AM ; [facility] Maternal grandmother's history of depres nathan 04/06/2023 Last Documented On 3 9:03AM ; [facility] Maternal grandfather's history of alcoho l use 04/06/2023 Last Documented On 3 9:03AM ; [facility] Paternal grandfather's history of substa nce use disorders 04/06/2023 Last Documented On 3 9:03AM ; [facility] Paternal history of substance use disord ers 04/06/2023 Last Documented On 3 9:03AM ; [facility] Maternal history of substance use disord ers 04/06/2023 Last Documented On 3 9:03AM ; [facility] Family history of stroke/paralysis 07/20 Last Documented On 3 9:03AM ; [facility] Maternal history of Arthritis 07/20/2021 Last Documented On 3 9:03AM ; [facility] Review of Systems Includes: Review of Systems [...] Location Date Check-In Time Check-Out Time Diagnosis TELEHEALTH AYDE RASCON PMHNP-BC [facility] 05/23/20 23 8:53AM 9:22AM Generalized Anxiety Disorder,Depre ssion,Insomnia Due To Stress,Post-tr aumatic Stress Disorder,Panic Disorder,Mood Disorders, Nos Insurance Includes: Active Insurance Policies Plan Name Member ID Group # Subscriber Relationship Effect kathy Dates 1 - [facility] [id number] PATRICIA MORALES JR Self Clinical Notes Includes: Clinical Notes from this encounter * Progress note Date Encounter Last Documented by 05/23/2023 TELEHEALTH Last documented on 05/23/2023; 9:28 AM, AYDE RASCON PMHNP-BC [facility]; [facility] Active Problems & Conditions - J45.21 - Asthma Mild Intermittent with Exacerbation - F41.1 - Generalized Anxiety Disorder Chief Complaint The Chief Complaint is: Medication check up. would like to discuss switching medication. History of Present Illness PATRICIA MORALES is a 23 year old male. - Allergy list reviewed - Allergy list reviewed - Feeling bad about yourself or you are a failure. - Problem list reviewed - Medication reconciliation performed - Medication list reviewed - Medication list reviewed - Does not [...] behavior - Fidgety, unable to sit still One month f/u since increasing sertraline to 200mg daily and starting Quetiapine 50mg at night. He reports that his sleep has improved. He continues to feel anxious but does feel that it is improving. Still has trouble relaxing at times. Issues with concentrating when anxious is severe. When anxious will get really red, face will start sweating, will start stuttering. When in social setting he reports that he is still awkward but he doesn't feel like everyone is staring at him anymore. He feels like he is not as worried that something bad is going to happen and has noticed that he doesn't always have an escape plan anymore. He continues to only like even numbers such as TV volume but this is not as big of an issue anymore. He also is not as bothered/scared by touching door knobs, being around someone that sneezes, or getting AIDS, Hepatitis C, and STD's. He doesn't feel as irritable. Racing thoughts have improved. Anger is better. Other day he was wrapping presents and someone told him how to do it and he didn't ask for help which upset him and he walked off otherwise he has not had any physical or verbal outbursts. He reports that others have noticed that he has not been getting mad like he use to. He denies feeling depressed. He is not feeling as bad about himself. He has more motivation. Has not been sleeping more. Has not been struggling to get out of bed. Denies any issues with hygiene. Denies any issues with appetite. Using edibles before bed instead of smoking but has cut back. He has not drank alcohol in 4 months. Denies any urges to drink alcohol. He continues going to anger management at [facility] which he finds helpful. He also is in parenting classes on Tuesdays. He hasn't been able to see his daughter as he has to file an appear for order of protection but plans on doing that soon. Denies SI, SH, HI, A/VH, delusions, or paranoia. Childhood: Was held back Sophomore year. Dropped out 11th grade. When your mother was with you, were there any complications during the , or developmental in the first few years of life: Denies Childhood temperament: Hyperactive Important family events (/separation/divorce/adoption): Father when he was age 13. Grandmother Ramya when he was age 16. Cultural/Restoration Influences: Denies Past psych DX: LYNDSEY, MDD, Bipolar, PTSD Psych HX: Inpatient HX for mental health: Denies Previous PHP/IOP: Denies ER visits HX for mental health: [facility] ER 01/2023 anxiety Rehab HX: Denies Outpatient Psychiatrist/PMHNP HX: Dr. Cortes in the past Counseling HX: Yudith Pierre in the past but not currently. Is in anger management at [facility] in [place] and parenting classes currently. Previous psych meds: [...] an addict and in and out of care home. Father when he was age 13. His father had just gotten out of fdc but was still using drugs. Father said [...] Living Arrangements: Lives with Friend Chance in [place] and his 4-year-old daughter Marital status: Single. Children: Daughter Shayy (04/21/21) Education HX: 11th grade Occupation: Currently unemployed. Hx: Denies Access to Weapons: Denies Legal HX: Arrested carrying a pistol and didn't have a conceal and carry-is currently on probation for this. Family psych HX: Maternal grandmother-attempted suicide after grandfather Father- AURY-heroin Maternal grandfather-AUD. Paternal grandfather-AURY heroin This visit today was conducted with the use of interactive audio and video telecommunication system with real time communication between the patient and the provider. Patient consent for virtual visit obtained when scheduled. Originating site: [facility] Distant Site: Patient's Home Visit included: Ayde Rascon SLIP COVER SEWER-BC, PMHNP-BC and patient Vital signs self-reported by patient: None Current Medication - Advair Diskus 250-50 MCG/ACT [...] 4 HOURS NEEDED, 16 days, 5 refills - Sertraline HCl 100 MG Oral Tablet Take 2 tabs PO daily (200mg) dose, 90 days, 0 refills Past Medical/Surgical History Reported: Medical: No Vaccine history. Medications: Not taking OTC medications. Social History Behavioral: Amount of alcohol per day: Not everyday but about 5 to 7 shots when i drink. Tobacco use: Tobacco non-user. Alcohol: Alcohol. Not [...] No dizziness. Skin: No rash. Physical Findings General Appearance: - Well developed. - Well [...] was normal. Psychiatric: Psychiatric: Value PHQ9 score: 5 LYNDSEY 7 score: 16 - Mood normal. Appearance: - Normal. - [...] General appearance was normal. - No rash. Assessment - [F39 - Unspecified mood [affective] [...] stress disorder Therapy - Regular exercise. - Assessment of suicide risk performed - Clinical summary provided to patient. Vaccinations - Did not receive dose of influenza virus vaccine - Did not receive dose of pneumococcal vaccine Discussed Due to the COVID 19 public health emergency, this visit was a two-way video telehealth with audio. The HPI was self reported by the patient. Certain physical exam findings were exemt/not assessed during this visit due to COVID 19 pandemic. Medication can increase thoughts of suicidal/homicidal ideation. [...] Prevention Lifeline Call/Text 988 Available 24 hours Continue Sertraline 200mg daily INCREASE Quetiapine 100mg at night START Wellbutrin XL 150mg daily Discussed ongoing cannabis use and explained alf effect that psychoactive drugs have on brain [...] pressure, sweating, and tachycardia. Plan StartCited - Depression, unspecified Wellbutrin XL 150 MG tablet One tablet daily, 30 days, 1 refills EndCited StartCited - Insomnia, unspecified QUEtiapine Fumarate 100 MG tablet One tablet daily---dose increase, 30 days, 1 refills EndCited - Return to the clinic if condition worsens or new symptoms arise - Follow-up visit in 1 month Practice Management Review of medications documented; Standardized depression screening: negative for symptoms and for adult impression and score five. Collective Time Spent caring for patient today: I personally spent a total of 30 minutes in medical discussion, documentation, and/or chart review as described in this note.
--- OUTSIDE RECORDS SUMMARY | 2024-06-29 04:31 | XMS_ITS ---
Care Plan - [facility] Created on: June 29, 2024 PATRICIA MORALES JR : [id number] Sex: Male Author Organization [facility] Address [address] [place] [address] Phone Care Team Providers Care Director Cpg Name Role Phone VIRGINIE CARDONA MD Primary Care Provider
--- OUTSIDE RECORDS SUMMARY | 2024-06-29 04:31 | XMS_ITS | Clinical Summary ---
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 Name Role Phone VIRGINIE CARDONA MD Primary Care Provider Reason for Visit and Chief Complaint NO SHOW Problems Includes: Problems addressed during this encounter and other active Problems All Visits Onset Date Resolved Date Provider Condition S tatus Asthma Mild Intermittent with Exacerbation 04/27/2022 PAPI CASTELLANO PA-C Active Last Documented On 04/27/2022 8:42PM ; [facility] Note: Unchanged Generalized Anxiety Disorder 04/27/2022 PAPI CASTELLANO PA-C Active Last Documented On 04/27/2022 8:42PM ; [facility] Note: Unchanged Plan of Treatment No Plan of Treatment Recorded Assessments Includes: Assessments from this encounter No Assessments Recorded Medical Equipment - Implanted Devices Includes: Current Devices No Medical Equipment Recorded Medications Includes: Medications discussed during this encounter and other current Medications Current Medications (continue as prescribed) Albuterol Sulfate HFA 108 (9 0 Base) MCG/ACT Inhalation Aerosol Solution 06/02/2023 Provider: CHARLIE CASTELLANO PA-C Diagnosis: INHALE 2 PUFFS BY MOUTH EVERY 4 HOURS NEEDED Last Documented On 3 2:42PM By Papi Castellano PA-C ; [facility] Advair Diskus 250-50 MCG/ACT Inhalation Aerosol Powder Breath Activated 06/22/2022 Provider: PAPI Luque Diagnosis: Mild intermitten t asthma with (acute) exacerbation INHALE 1 PUFF BY MOUTH TWICE DAILY. RINSE MOUTH AFTER USE Last Documented On 3 8:11AM By Papi Castellano PA-C ; [facility] Medications Administered Includes: Administered Medications [...] Physical Exam Recorded Allergies Includes: Active Allergies No Known Allergies Encounters Encounter Provider Location Date Check-In Time Check-Out Time Diagnosis NO SHOW FARTUN GIL [facility] 4 11:30AM 11:59PM Insurance Includes: Active Insurance Policies Plan Name Member ID Group # Subscriber Relationship Effect kathy Dates 1 - [facility] [id number] PATRICIA MORALES Self Clinical Notes Includes: Clinical Notes from this encounter No Clinical Notes Recorded
--- OUTSIDE RECORDS SUMMARY | 2024-06-29 04:31 | XMS_ITS | Clinical Summary ---
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 Name Role Phone VIRGINIE CARDONA MD Primary Care Provider Reason for Visit and Chief Complaint The Chief Complaint is: Pt states that he has been in the ER 3 times in the last 2 weeks due to panic attacks that lead to asthma attacks and trouble breathing Problems Includes: Problems addressed during this encounter and other active Problems Current Visit Onset Date Resolved Date Provider Milagros armijo Status Asthma Mild Intermittent with Exacerbation 04/27/2022 EARLENE CASTELLANO PA-C Active Last Documented On 04/27/2022 8:42PM ; [facility] Note: Unchanged Generalized Anxiety Disorder 04/27/2022 EARLENE CASTELLANO PA-C Active Last Documented On 04/27/2022 8:42PM ; [facility] Note: Unchanged Plan of Treatment Increase zoloft to 100mg daily. Monitor for side effects. Will also refer to psych as patient has extensive medication history. Continue current asthma regimen. Adding zpak today due to wheezing. RTC 6 months, sooner if needed. - Last Documented On 01/05/2023 8:42AM ; [facility] Pending Tests Order Diagnosis Results Due Ordering [facility] THYROID PANEL (TSH & FREE T4) 11/13/22 EARLENE Luque Last Documented On 4 3:18PM ; [facility] Lab VITAMIN B12 11/13/22 EARLENE JI PA-C Last Documented On 4 3:18PM ; [facility] Lab LIPID PANEL 11/13/22 EARLENE JI PA-C Last Documented On 4 3:18PM ; [facility] Lab CMP 11/13/22 EARLENE LU PA-C Last Documented On 4 3:18PM ; [facility] Lab CBC WITH DIFF 11/13/22 EARLENE DODGE PA-C Last Documented On 4 3:18PM ; [facility] Referrals To Diagnosis Psychiatrist FARTUN GIL [facility] [employer]- Generalized anxiety disorder Note: panic attacks triggeri ng asthma attacks Last Documented On 3 4:15PM ; [facility] Instructions to patient Intervention and counseling on cessation of tobacco use Last Documented On 3 2:31PM ; [facility] Assessments Includes: Assessments from this encounter Findings - [J45.21 - Mild intermittent asthma with (acute) exacerbation] Mild intermittent asthma with exacerbation - Last Documented On 01/05/2023 8:42AM ; [facility] - [F41.1 - Generalized anxiety disorder] Generalized anxiety disorder - Last Documented On 01/05/2023 8:42AM ; [facility] Instructions Includes: Instructions from this encounter Instructions to patient Intervention and counseling on cessation of tobacco use Last Documented On 3 2:31PM ; [facility] Medical Equipment - Implanted Devices Includes: Current Devices No Medical Equipment Recorded Medications Includes: Medications discussed during this encounter and other current Medications New / Renewed during this visit EARLENE CATSELLANO PA-C on 01/04/2023 Sertraline HCl 100 MG Oral Tablet Provider: EARLENE Luque 30 day supply: 30 tablet, 0 refills Diagnosis: Generalized anxiety disorder One tablet daily Pharmacy: [address], [id number] - Last Documented On 3 8:03AM By Earlene Castellano PA-C ; [facility] Azithromycin 250 MG Oral Tablet Provider: EARLENE CASTELLANO PA-C 5 day supply: 6 tablet, 0 refills Diagnosis: Mild intermittent asthma with (acute) exacerbation take 2 tablets on day 1, the n 1 tablet on days 2-5 Pharmacy: [address], [id number] - Last Documented On 04/05/2023 2:52PM By DANIEL BOWENS ; [facility] Current Medications (continue as prescribed) Albuterol Sulfate HFA 108 (9 0 Base) MCG/ACT Inhalation Aerosol Solution 06/02/2023 Provider: CHARLIE CASTELLANO PA-C Diagnosis: INHALE 2 PUFFS BY MOUTH EVERY 4 HOURS NEEDED Last Documented On 3 2:42PM By Earlene Castellano PA-C ; [facility] Advair Diskus 250-50 MCG/ACT Inhalation Aerosol Powder Breath Activated 06/22/2022 Provider: EARLENE Luque Diagnosis: Mild intermitten t asthma with (acute) exacerbation INHALE 1 PUFF BY MOUTH TWICE DAILY. RINSE MOUTH AFTER USE Last Documented On 3 8:11AM By Earlene Castellano PA-C ; [facility] Past Medications on file Sertraline HCl 100 MG Oral Tablet 06/28/2023 - 09/26/2023 Provider: FARTUN VIDES [facility]- Diagnosis: Take 2 tabs PO daily (200mg) dose Last Documented On 4 12:06PM By FARTUN GIL [facility] ; [facility] Wellbutrin XL 300 MG Oral Tablet Extended Release 24 Hour 06/28/2023 - 08/27/2023 Provider: FARTUN GIL [facility] Diagnosis: Depression, unspecified One tablet daily--dose increase Last Documented On 4 12:06PM By FARTUN GIL [facility] ; [facility] hydrOXYzine Pamoate 25 MG Oral Capsule 06/28/2023 - 07/28/2023 Provider: FARTUN GIL [facility] Diagnosis: Panic disorder [episodic paroxysmal anxiety] 1 capsule PO TID PRN anxiety Last Documented On 4 12:06PM By FARTUN GIL [facility] ; [facility] QUEtiapine Fumarate 150 MG Oral Tablet 06/28/2023 - 08/27/2023 Provider: FARTUN GIL [facility] Diagnosis: Insomnia, unspec ified One tablet daily--dose increase Last Documented On 4 12:06PM By FARTUN SUN ; [facility] Medications Administered Includes: Administered Medications from this encounter No Administered Medications Recorded Vital Signs Includes: Vital Signs from this encounter Vital Name 01/04/2023 02:22P Blood Pressure Sitting L 110/80 Pulse Rate-Sitting (bpm) 74 Respiration Rate (breaths/min) 18 Height (in) 71.25 Weight (lb) 201 Body Mass Index 27.8 Body Surface Area 2.1 Oxygen Saturation (%) 99 Last Documented: On 01/04/2023 2:30PM ; [facility] Results Includes: Results discussed during this encounter No Results Recorded For Specified Dates History of Present Illness Includes: History of Present Illness from this encounter VICENTE MORALES is a 22 year old male. - Allergy list reviewed - Medication list reviewed - No systemic symptoms - No head symptoms - No otolaryngeal symptoms - No cardiovascular symptoms - Pulmonary symptoms - No gastrointestinal symptoms - No genitourinary symptoms - No musculoskeletal symptoms - Psychological symptoms Patient in clinic for problem visit. He has been to the ER 3 times in the past 2 weeks due to panic attacks causing him to have asthma attacks. Visits to the ER are typically at or around midnight. He states he wakes up in middle of night in panic. Overall his asthma is controlled with advair and albuterol, until he has panic. Patient currently taking zoloft 50mg daily and does not feel it is working for his anxiety. Has been seen by Dr. Cortes in the past and has been on many different meds. He does not recall any really helping. Patient is willing to see psych again. He denies tobacco use and no more alcohol use. Patient does occasionally smoke weed to help with anxiety. Social History Description Last Updated Tobacco non-user 10/25/2022 Last Documented On 3 2:20PM ; [facility] Using marijuana 02/22/2022 Last Documented On 3 2:20PM ; [facility] [PHQ-2] Patient Health Questionnaire 2 i tem total score: 1 (Scale: 0-6) 07/20/2021 Last Documented On 3 2:20PM ; [facility] Alcohol 07/20/2021 Last Documented On 3 2:20PM ; [facility] Drug use 07/20/2021 Last Documented On 3 2:20PM ; [facility] Type: Marijuana 07/20/2021 Last Documented On 3 2:20PM ; [facility] Smoking Status Unknown Procedures and Surgical History Includes: Procedures from this encounter Procedures Code Diagnosis Performing Provider Service L ocation Service Date intervention and counseling on cessation of tobacco use 4000F Last Documented On 3 2:31PM ; [facility] use of tobacco assessment performed 1000F Last Documented On 3 2:31PM ; [facility] review of medications documented 1160F Last Documented On 3 2:31PM ; [facility] Medical History Includes: Medical History addressed during this encounter Description Last Updated No Vaccine history 01/04/2023 Last Documented On 3 8:42AM ; [facility] Exercise 07/20/2021 Last Documented On 3 2:20PM ; [facility] Family History Includes: Family History addressed during this encounter Description Last Updated Family history of stroke/paralysis 07/20 Last Documented On 3 2:20PM ; [facility] Maternal history of Arthritis 07/20/2021 Last Documented On 3 2:20PM ; [facility] Review of Systems Includes: Review of Systems from this encounter Systemic: No fever, no chills, and no recent weight change. Head: No headache and no sinus pain. Neck: No neck pain. Otolaryngeal: No earache, no nasal discharge, and no sore throat. Cardiovascular: No chest pain or discomfort and no palpitations. Pulmonary: Dyspnea. No cough. Gastrointestinal: No nausea, no vomiting, no abdominal pain, and no melena. No diarrhea. Musculoskeletal: No localized joint pain. Neurological: No dizziness. Psychological: Anxiety. No depression. Mental Status Includes: Mental Status from this encounter Description Anxiety Functional Status Includes: Functional Status from this encounter No Functional Status Recorded Physical Exam Includes: Physical Exam from this encounter Allergies Includes: Active Allergies No Known Allergies Encounters Encounter Provider Location Date Check-In Time Check-Out Time Diagnosis PROBLEM VISIT EARLENE CASTELLANO PA-C [facility] 01/05/20 23 2:00PM 2:51PM Generalized Anxiety Disorder,Asthma Mild Intermittent with Exacerbation Insurance Includes: Active Insurance Policies Plan Name Member ID Group # Subscriber Relationship Effect kathy Dates 1 - [facility] [id number] PATRICIA MORALES JR Self Clinical Notes Includes: Clinical Notes from this encounter * Progress note Date Encounter Last Documented by 01/04/2023 PROBLEM VISIT Last documented on 01/05/2023; 8:42 AM, EARLENE CASTELLANO PA-C; [facility] Active Problems & Conditions - J45.21 - Asthma Mild Intermittent with Exacerbation - F41.1 - Generalized Anxiety Disorder Chief Complaint The Chief Complaint is: Pt states that he has been in the ER 3 times in the last 2 weeks due to panic attacks that lead to asthma attacks and trouble breathing. History of Present Illness PATRICIA MORALES is a 22 year old male. - Allergy list reviewed - Medication list reviewed - No systemic symptoms - No head symptoms - No otolaryngeal symptoms - No cardiovascular symptoms - Pulmonary symptoms - No gastrointestinal symptoms - No genitourinary symptoms - No musculoskeletal symptoms - Psychological symptoms Patient in clinic for problem visit. He has been to the ER 3 times in the past 2 weeks due to panic attacks causing him to have asthma attacks. Visits to the ER are typically at or around midnight. He states he wakes up in middle of night in panic. Overall his asthma is controlled with advair and albuterol, until he has panic. Patient currently taking zoloft 50mg daily and does not feel it is working for his anxiety. Has been seen by Dr. Cortes in the past and has been on many different meds. He does not recall any really helping. Patient is willing to see psych again. He denies tobacco use and no more alcohol use. Patient does occasionally smoke weed to help with anxiety. Current Medication - Advair Diskus 250-50 MCG/ACT Inhalation Aerosol Powder Breath Activated INHALE 1 PUFF BY MOUTH TWICE DAILY. RINSE MOUTH AFTER USE, 30 days, 5 refills - Albuterol Sulfate HFA 108 (90 Base) MCG/ACT Inhalation Aerosol Solution INHALE 1 TO 2 PUFFS BY MOUTH EVERY 4 TO 6 HOURS NEEDED, 30 days, 11 refills - Sertraline HCl 50 MG Oral Tablet One tablet daily, 30 days, 2 refills Past Medical/Surgical History Reported: Exercise. Medical: No Vaccine history. Social History Tobacco use: Tobacco non-user. Alcohol: Alcohol. Drug Use: Drug use using marijuana and Type: Marijuana. Functional: [PHQ-2] Patient Health Questionnaire 2 item total score: 1 (Scale: 0-6). Allergies - No Known Allergies Family History Stroke/paralysis Maternal: Arthritis Review Of Systems Systemic: No fever, no chills, and no recent weight change. Head: No headache and no sinus pain. Neck: No neck pain. Otolaryngeal: No earache, no nasal discharge, and no sore throat. Cardiovascular: No chest pain or discomfort and no palpitations. Pulmonary: Dyspnea. No cough. Gastrointestinal: No nausea, no vomiting, no abdominal pain, and no melena. No diarrhea. Musculoskeletal: No localized joint pain. Neurological: No dizziness. Psychological: Anxiety. No depression. Physical Findings - Vitals taken 01/04/2023 02:22 pm BP-Sitting L 110/80 mmHg Pulse Rate-Sitting 74 bpm Respiration Rate 18 per min Height 71.25 in Weight 201 lbs Body Mass Index 27.8 kg/m2 Body Surface Area 2.1 m2 Oxygen Saturation 99 % General Appearance: - Well developed. - Well nourished. - In no acute distress. Ears: General/bilateral: External Auditory Canal: - External auditory meatus normal. Tympanic Membrane: - Normal. Nose: General/bilateral: Discharge: - No nasal discharge. Sinus Tenderness: - No sinus tenderness. Pharynx: Oropharynx: - Normal. - Tonsils showed no abnormalities. Lungs: - Wheezing was heard diffuse wheezing in right lung lujan. - Normal breath sounds/voice sounds. Cardiovascular: Heart Rate And Rhythm: - Normal. Murmurs: - No murmurs were heard. Abdomen: Auscultation: - Bowel sounds were normal. Palpation: - Abdominal non-tender. Psychiatric: Psychiatric: Value PHQ9 score: 5 Assessment - [J45.21 - Mild intermittent asthma with (acute) exacerbation] Mild intermittent asthma with exacerbation - [F41.1 - Generalized anxiety disorder] Generalized anxiety disorder Therapy - Intervention and counseling on cessation of tobacco use. Vaccinations - Did not receive dose of influenza virus vaccine - Did not receive dose of pneumococcal vaccine Plan StartCited - Generalized anxiety disorder Referral: Psychiatrist Instructions: panic attacks triggering asthma attacks Sertraline HCl 100 MG tablet One tablet daily, 30 days, 0 refills EndCited StartCited - Mild intermittent asthma with (acute) exacerbation Azithromycin 250 MG tablet take 2 tablets on day 1, then 1 tablet on days 2-5, 5 days, 0 refills EndCited Increase zoloft to 100mg daily. Monitor for side effects. Will also refer to psych as patient has extensive medication history. Continue current asthma regimen. Adding zpak today due to wheezing. RTC 6 months, sooner if needed. Practice Management Use of tobacco assessment performed Review of medications documented. Health Reminders - Assess BMI satisfied 01/04/2023. - Assess Tobacco Use satisfied 01/04/2023. - Follow up plan for Depression Screening satisfied 01/04/2023.
--- OUTSIDE RECORDS SUMMARY | 2024-06-29 04:31 | XMS_ITS | Clinical Summary ---
Author Organization [facility] Address [address] [place] [address] Phone Care Team Providers Care Analytics Specialist Name Role Phone VIRGINIE CARDONA MD Primary Care Provider Reason for Visit and Chief Complaint The Chief Complaint is: medication check up. states everything is getting better, states he got to see his daughter yesterday and he has not seen her in about 4 months. states his anxiety is still anissue Problems Includes: Problems addressed during this encounter and other active Problems Current Visit Onset Date Resolved Date Provider Milagros n Status Generalized Anxiety Disorder 04/27/2022 EARLENE CASTELLANO PA-C Active Last Documented On 04/27/2022 8:42PM ; [facility] Note: Unchanged Past Visits Onset Date Resolved Date Provider Condition Status Asthma Mild Intermittent with Exacerbation 04/27/2022 EARLENE CASTELLANO PA-C Active Last Documented On 04/27/2022 8:42PM ; [facility] Note: Unchanged Plan of Treatment - Return to the clinic if condition worsens or new symptoms arise - Last Documented On 06/28/2023 12:07PM ; [facility] - Follow-up visit in 1 month - Last Documented On 06/28/2023 12:07PM ; [facility] Assessments Includes: Assessments from this encounter Findings - [F39 - Unspecified mood [affective] disorder] Mood disorders, NOS --possible dx, will continue to monitor - Last Documented On 06/28/2023 12:07PM ; [facility] - [F32.A - Depression, unspecified] Depression - Last Documented On 06/28/2023 12:07PM ; [facility] - [G47.00 - Insomnia, unspecified] Insomnia due to stress - Last Documented On 06/28/2023 12:07PM ; [facility] - [F41.1 - Generalized anxiety disorder] Generalized anxiety disorder - Last Documented On 06/28/2023 12:07PM ; [facility] - [F41.0 - Panic disorder [episodic paroxysmal anxiety]] Panic disorder - Last Documented On 06/28/2023 12:07PM ; [facility] - [F43.10 - Post-traumatic stress disorder, unspecified] Post-traumatic stress disorder - Last Documented On 06/28/2023 12:07PM ; [facility] Medical Equipment - Implanted Devices Includes: Current Devices No Medical Equipment Recorded Medications Includes: Medications discussed during this encounter and other current Medications Discontinued / Stopped on this date AYDE RASCON [facility]- on 06/21/2023 Wellbutrin XL 150 MG Oral Tablet Extended Release 24 Hour [facility] Diagnosis: Depression, unsp ecified Last Documented On 4 11:56AM By AYDE RASCON [facility] ; [facility] QUEtiapine Fumarate 100 MG Oral Tablet Provider: AYDE RASCON [facility]- Diagnosis: Insomnia, unspec ified Last Documented On 4 11:59AM By AYDE RASCON [facility] ; [facility] Sertraline HCl 100 MG Oral Tablet [facility] r[facility] Diagnosis: Last Documented On 4 11:44AM By AYDE STUARTPMARY ; [facility] New / Renewed during this visit AYDE RASCON [facility]- on 06/28/2023 Sertraline HCl 100 MG Oral Tablet Provider: AYDE RASCON [facility] 90 day supply: 180 tablet, 0 refills Diagnosis: Take 2 tabs PO daily (200mg) dose Pharmacy: [facility] - [address] [facility], [id number] - Last Documented On 4 12:06PM By AYDE RASCON [facility] ; [facility] Wellbutrin XL 300 MG Oral Tablet Extended Release 24 Hour Provider: AYDE RASCON [facility] 30 day supply: 30 tablet, 1 refills Diagnosis: Depression, unspecified One tablet daily--dose increase Pharmacy: [facility]) - [address] [address], [id number] - Last Documented On 4 12:06PM By AYDE RASCON [facility] ; [facility] hydrOXYzine Pamoate 25 MG Oral Capsule Provider: AYDE RASCON [facility] 30 day supply: 45 capsule, 0 refills Diagnosis: Panic disorder [episodic paroxysmal anxiety] 1 capsule PO TID PRN anxiety Pharmacy: [facility]) - [address] [address], [id number] - Last Documented On 4 12:06PM By AYDE RASCON [facility] ; [facility] QUEtiapine Fumarate 150 MG Oral Tablet Provider: AYDE RASCON [facility] 30 day supply: 30 tablet, 1 refills Diagnosis: Insomnia, unspecified One tablet daily--dose increase Pharmacy: [facility]) - [address] [facility], [id number] - Last Documented On 4 12:06PM By AYDE RASCON [facility] ; [facility] Current Medications (continue as prescribed) Albuterol Sulfate HFA 108 (9 0 Base) MCG/ACT Inhalation Aerosol Solution 06/02/2023 Provider: CHARLIE CASTELLANO PA-C Diagnosis: INHALE 2 PUFFS BY MOUTH EVERY 4 HOURS NEEDED Last Documented On 3 2:42PM By Earlene Castellano PA-C ; [facility] Advair Diskus 250-50 MCG/ACT Inhalation Aerosol Powder Breath Activated 06/22/2022 Provider: EARLENE Luque Diagnosis: Mild intermitten t asthma with (acute) exacerbation INHALE 1 PUFF BY MOUTH TWICE DAILY. RINSE MOUTH AFTER USE Last Documented On 3 8:11AM By Earlene Castellano PA-C ; [facility] Medications Administered Includes: Administered [...] sit still One month f/u since increasing quetiapine to 100mg at HS, starting wellbutrin XL 150mg daily, and continuing sertraline 200mg daily. He reports that depression is better but anxiety is still an issue. He reports that he will get anxiety and panic attacks out of no where while at work (started working at [employer]). Overwhelming when interacting with a bunch of people. 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 He reports that when his anxiety is severe he feels that everyone is staring at him. When anxious will get really red, face will start sweating, will start stuttering. Still has trouble relaxing at times. Issues with concentrating when anxious is severe. He feels like he is not as worried that something bad is going to happen and has noticed that he doesn't always have an escape plan anymore. When anxious he is more anxious about numbers being even such as TV volume. He also is not as bothered/scared by touching door knobs, being around someone that sneezes, or getting AIDS, Hepatitis C, and STD's. He doesn't feel as irritable or angry. No longer has racing thoughts. Is able to let things go easier. Has not had any physical or verbal outbursts. He continues going to anger management at [facility] which he finds helpful. He also is in parenting classes on Tuesdays and mesha is his last class. Had his daughter Shayy for 4 days as her mother dropped the OP and had not seen her for 4 months. He reports that seeing her was awesome. He is not feeling as bad about himself. Denies any issues with motivation or energy. Denies any issues with sleep and is now sleeping through the night. Has not been struggling to get out of bed. Denies any issues with hygiene. Denies any issues with appetite. Using edibles before bed instead of smoking but has cut back. He has not drank alcohol in 5 months. Denies any urges to drink alcohol. Denies SI, SH, HI, A/VH, delusions, or paranoia. Childhood: Was held back Sophomore year. Dropped out 11th grade. When your mother was with you, were there any complications during the , or developmental in the first few years of life: Denies Childhood temperament: Hyperactive Important family events (/separation/divorce/adoption): Father when he was age 13. Grandmother Ramya when he was age 16. Cultural/Hoahaoism Influences: Denies Past psych DX: LYNDSEY, MDD, Bipolar, PTSD Psych HX: Inpatient HX for mental health: Denies Previous PHP/IOP: Denies ER visits HX for mental health: [facility] ER 01/2023 anxiety Rehab HX: Denies Outpatient Psychiatrist/PMHNP HX: Dr. Cortes in the past Counseling HX: Yudith Pierre in the past but not currently. Is in anger management at [facility] in [place] and parenting classes currently. Previous psych meds: Sertraline, Buspirone, Lexapro, Prozac, Seroquel, hydroxyzine, Wellbutrin Substance HX: Started using THC age 14 [...] an addict and in and out of long term. Father when he was age 13. His father had just gotten out of senior living but was still using drugs. Father said [...] Living Arrangements: Lives with Friend Chance in [place] and his 4-year-old daughter Marital status: Single. Children: Daughter Shayy (04/21/21) Education HX: 11th grade Occupation: Working at [employer] in [place] [employer] Hx: Denies Access to Weapons: Denies Legal [...] virtual visit obtained when scheduled. 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 11/18/2022 Last Documented On 4 11:28AM ; [facility] Not recovering from substance abuse 11/04 Last Documented On 4 11:28AM ; [facility] Tobacco non-user 10/25/2022 Last Documented On 4 11:28AM ; [facility] Using marijuana 02/22/2022 Last Documented On 4 11:28AM ; [facility] Alcohol 07/20/2021 Last Documented On 4 11:28AM ; [facility] Amount of alcohol per day: N ot everyday but about 5 to 7 shots when i drink 07/20/2021 Last Documented On 4 11:28AM ; [facility] Drug use 07/20/2021 Last Documented On 4 11:28AM ; [facility] Frequency: Most days 07/20/2021 Last Documented On 4 11:28AM ; [facility] Type: Marijuana 07/20/2021 Last Documented On 4 11:28AM ; [facility] Smoking Status Unknown Procedures and Surgical History Includes: Procedures from this encounter Procedures Code Diagnosis Performing Provider Service L ocation Service Date regular exercise Last Documented On 4 11:40AM ; [facility] standardized depression screening: negative for symptoms 3351F Last Documented On 4 11:40AM ; [facility] review of medications documented 1160F Last Documented On 4 11:40AM ; [facility] assessment of suicide risk performed Last Documented On 4 11:28AM ; [facility] screening for adult depression: impressi on and score five Last Documented On 4 11:28AM ; [facility] standardized depression screening: posit kathy for symptoms Last Documented On 4 11:28AM ; [facility] Clinical summary provided to patient Last Documented On 4 11:40AM ; [facility] Medical History Includes: Medical History addressed during this encounter Description Last Updated No Vaccine history 01/04/2023 Last Documented On 4 11:28AM ; [facility] Not taking OTC medications 10/25/2022 Last Documented On 4 11:28AM ; [facility] Family History Includes: Family History addressed during this encounter Description Last Updated Maternal grandfather's history of alcoho lism 04/06/2023 Last Documented On 4 11:28AM ; [facility] Maternal grandmother's history of depres nathan 04/06/2023 Last Documented On 4 11:28AM ; [facility] Maternal grandfather's history of alcoho l use 04/06/2023 Last Documented On 4 11:28AM ; [facility] Paternal grandfather's history of substa nce use disorders 04/06/2023 Last Documented On 4 11:28AM ; [facility] Paternal history of substance use disord ers 04/06/2023 Last Documented On 4 11:28AM ; [facility] Maternal history of substance use disord ers 04/06/2023 Last Documented On 4 11:28AM ; [facility] Family history of stroke/paralysis 07/20 Last Documented On 4 11:28AM ; [facility] Maternal history of Arthritis 07/20/2021 Last Documented On 4 11:28AM ; [facility] Review of Systems Includes: Review of [...] Time Check-Out Time Diagnosis TELEHEALTH AYDE RASCON [facility] 06/28/19 24 11:26AM 12:10PM Generalized Anxiety Disorder,Depre ssion,Insomnia Due To Stress,Post-tr aumatic Stress Disorder,Panic Disorder,Mood Disorders, Nos Insurance Includes: Active Insurance Policies Plan Name Member ID Group # Subscriber Relationship Effect kathy Dates 1 - [facility] [id number] PATRICIA MORALES JR Self Clinical Notes Includes: Clinical Notes from this encounter * Progress note Date Encounter Last Documented by 06/28/2023 TELEHEALTH Last documented on 06/28/2023; 12:07 PM, AYDE RASCON PMHNP- [employer]ADER-; [facility] Active Problems & Conditions - J45.21 - Asthma Mild Intermittent with Exacerbation - F41.1 - Generalized Anxiety Disorder Chief Complaint The Chief Complaint is: Medication check up. states everything is getting better, states he got to see his daughter yesterday and he has not seen her in about 4 months. states his anxiety is still an issue. History of Present Illness PATRICIA MORALES is [...] sit still One month f/u since increasing quetiapine to 100mg at HS, starting wellbutrin XL 150mg daily, and continuing sertraline 200mg daily. He reports that depression is better but anxiety is still an issue. He reports that he will get anxiety and panic attacks out of no where while at work (started working at [employer]). Overwhelming when interacting with a bunch of people. 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 He reports that when his anxiety is severe he feels that everyone is staring at him. When anxious will get really red, face will start sweating, will start stuttering. Still has trouble relaxing at times. Issues with concentrating when anxious is severe. He feels like he is not as worried that something bad is going to happen and has noticed that he doesn't always have an escape plan anymore. When anxious he is more anxious about numbers being even such as TV volume. He also is not as bothered/scared by touching door knobs, being around someone that sneezes, or getting AIDS, Hepatitis C, and STD's. He doesn't feel as irritable or angry. No longer has racing thoughts. Is able to let things go easier. Has not had any physical or verbal outbursts. He continues going to anger management at [facility] which he finds helpful. He also is in parenting classes on Tuesdays and mesha is his last class. Had his daughter Shayy for 4 days as her mother dropped the OP and had not seen her for 4 months. He reports that seeing her was awesome. He is not feeling as bad about himself. Denies any issues with motivation or energy. Denies any issues with sleep and is now sleeping through the night. Has not been struggling to get out of bed. Denies any issues with hygiene. Denies any issues with appetite. Using edibles before bed instead of smoking but has cut back. He has not drank alcohol in 5 months. Denies any urges to drink alcohol. Denies SI, SH, HI, A/VH, delusions, or paranoia. Childhood: Was held back Sophomore year. Dropped out 11th grade. When your mother was with you, were there any complications during the , or developmental in the first few years of life: Denies Childhood temperament: Hyperactive Important family events (/separation/divorce/adoption): Father when he was age 13. Grandmother Ramya when he was age 16. Cultural/Hoahaoism Influences: Denies Past psych DX: LYNDSEY, MDD, Bipolar, PTSD Psych HX: Inpatient HX for mental health: Denies Previous PHP/IOP: Denies ER visits HX for mental health: [facility] ER 01/2023 anxiety Rehab HX: Denies Outpatient Psychiatrist/PMHNP HX: Dr. Cortes in the past Counseling HX: Yudith Pierre in the past but not currently. Is in anger management at [facility] in [place] and parenting classes currently. Previous psych meds: Sertraline, Buspirone, Lexapro, Prozac, Seroquel, hydroxyzine, Wellbutrin Substance HX: Started using THC age 14 [...] an addict and in and out of long term. Father when he was age 13. His father had just gotten out of senior living but was still using drugs. Father said [...] Living Arrangements: Lives with Friend Chance in [place] and his 4-year-old daughter Marital status: Single. Children: Daughter Shayy (04/21/21) Education HX: 11th grade Occupation: Working at [employer] in [place] Hx: Denies Access to Weapons: Denies Legal [...] virtual visit obtained when scheduled. Originating site: [facility] Distant Site: Patient's Home Visit included: Ayde Rascon [employer] GRADER-BC, PMHNP-BC and patient Vital signs self-reported by [...] performed - Clinical summary provided to patient. Discussed Due to the COVID 19 public [...] hours Continue Sertraline 200mg daily INCREASE Quetiapine 150mg at night INCREASE Wellbutrin XL 300mg daily START hydroxyzine 25mg---take up to three times per day as needed for anxiety Discussed ongoing cannabis use and explained snf effect that psychoactive drugs have on brain [...] Plan StartCited - Depression, unspecified Wellbutrin XL 300 MG tablet One tablet daily--dose increase, 30 days, 1 refills Wellbutrin XL 300 MG tablet One tablet daily--dose increase, 30 days, 1 refills EndCited StartCited - Insomnia, unspecified QUEtiapine Fumarate 150 MG tablet One tablet daily--dose increase, 30 days, 1 refills QUEtiapine Fumarate 150 MG tablet One tablet daily--dose increase, 30 days, 1 refills EndCited StartCited - Other Sertraline HCl 100 MG tablet Take 2 tabs PO daily (200mg) dose, 90 days, 0 refills EndCited StartCited - Panic disorder [episodic paroxysmal anxiety] hydrOXYzine Pamoate 25 MG capsule 1 capsule PO TID PRN anxiety, 30 days, 0 refills hydrOXYzine Pamoate 25 MG capsule 1 capsule PO TID PRN anxiety, 30 days, 0 refills EndCited - Return to the clinic if condition worsens or new symptoms arise - Follow-up visit in 1 month Practice Management Review of medications documented; Standardized depression screening: negative for symptoms, positive for symptoms, and for adult impression and score five. Collective Time Spent caring for patient today: I personally spent a total of 30 minutes in medical discussion, documentation, and/or chart review as described in this note.
--- OUTSIDE RECORDS SUMMARY | 2024-06-29 04:31 | XMS_ITS ---
Author Organization [facility] Address [address] [place] [address] Phone Care Team Providers Care [employer] Name Role Phone VIRGINIE CARDONA MD Primary Care Provider Problems Includes: Active, inactive, and resolved Problems All Visits Onset Date Resolved Date Provider Condition S tatus Asthma Mild Intermittent with Exacerbation 04/27/2022 EARLENE MIKE PA-C Active Last Documented On 04/27/2022 8:42PM ; [facility] Note: Unchanged Generalized Anxiety Disorder 04/27/2022 EARLENE BROWNINGC Active Last Documented On 04/27/2022 8:42PM ; [facility] Note: Unchanged Plan of Treatment Findings Encounter Date Ordered follow-up visit in 1 month TELE EALTH with FARTUN GIL PMHNP-BC AVAYA ENGINEER-BC 06/28/2023 Last Documented On 4 12:07PM ; [facility] Ordered return to the clinic if condition worsens or new symptoms arise TELEHEALTH with FARTUN GIL PMHNP-BC AVAYA ENGINEER-BC 06/28/2023 Last Documented On 4 12:07PM ; [facility] Ordered follow-up visit in 1 month TELE EALTH with FARTUN GIL PMHNP-BC AVAYA ENGINEER-BC 05/23/2023 Last Documented On 3 9:28AM ; [facility] Ordered return to the clinic if condition worsens or new symptoms arise TELEHEALTH with FARTUN GIL PMHNP-BC AVAYA ENGINEER-BC 05/23/2023 Last Documented On 3 9:28AM ; [facility] Ordered follow-up visit in 1 month PSYCH NEW PATIENT EXAM 18 YEARS AND OLDER with FARTUN GIL PMHNP-BC AVAYA ENGINEER-BC 04/05/2023 Last Documented On 3 9:35AM ; [facility] Ordered return to the clinic if condition worsens or new symptoms arise PSYCH NEW PATIENT EXAM 18 YEARS AND OLDER with FARTUN GIL PMHNP-BC AVAYA ENGINEER-BC 04/05/2023 Last Documented On 3 9:35AM ; [facility] Pt to use prescription as or dered. Purpose of and use of medication discussed. COVID SICK VISIT- ESTABLISHED PATIENT with MERCED COOPER AVAYA ENGINEER-C 10/25/2022 Last Documented On 3 7:18PM ; [facility] The options include close observation CO VID SICK VISIT- ESTABLISHED PATIENT with MERCED COOPER AVAYA ENGINEER-C 10/25/2022 Last Documented On 3 7:18PM ; [facility] Watch for signs/symptoms of infection, return to the clinic if seen COVID SICK VISIT- ESTABLISHED PATIENT with MERCED COOPER AVAYA ENGINEER-C 10/25/2022 Last Documented On 3 7:18PM ; [facility] Ordered follow-up visit in 1 -2 weeks with an office visit or sooner if symptoms persist or worsen COVID SICK VISIT- ESTABLISHED PATIENT with CARLOS A MANRIQUE AVAYA ENGINEER-BC 10/08/2022 Last Documented On 3 11:46AM ; [facility] Ordered patient to call if p roblem develops COVID SICK VISIT- ESTABLISHED PATIENT with CARLOS A MANRIQUE AVAYA ENGINEER-BC 10/08/2022 Last Documented On 3 11:46AM ; [facility] Ordered return to the clinic if condition worsens or new symptoms arise COVID SICK VISIT- ESTABLISHED PATIENT with CARLOS A MANRIQUE AVAYA ENGINEER-BC 10/08/2022 Last Documented On 3 11:46AM ; [facility] Pending Tests Order Diagnosis Results Due Ordering [facility] THYROID PANEL (TSH & FREE T4) 11/13/22 EARLENE Luque Last Documented On 4 3:18PM ; [facility] Lab VITAMIN B12 11/13/[address] VELY PA-C Last Documented On 4 3:18PM ; [facility] Lab LIPID PANEL 11/13/22 EARLENE SHERMAN VELY PA-C Last Documented On 4 3:18PM ; [facility] Lab CMP 11/13/22 EARLENE AHMADI ALY PA-C Last Documented On 4 3:18PM ; [facility] Lab CBC WITH DIFF 11/13/22 EARLENE LUNAELY PA-C Last Documented On 4 3:18PM ; [facility] Referrals To Diagnosis Psychiatrist [facility] [place] depressive disorder, recurrent, mild Last Documented On 3 2:06PM ; [facility] Counselor DELICIA RAY [employer] Generalize tejinder anxiety disorder Last Documented On 2 2:28PM ; [facility] Psychiatrist FARTUN GIL PMHNP-BC AVAYA ENGINEER-BC Generalized anxiety disorder Note: panic attacks triggeri ng asthma attacks Last Documented On 3 4:15PM ; [facility] Instructions to patient Intervention and counseling on cessation of tobacco use Last Documented On 3 2:31PM ; [facility] Intervention and counseling on cessation of tobacco use Last Documented On 3 1:23PM ; [facility] Watch for signs/symptoms of infection, return to the clinic if seen Last Documented On 3 7:17PM ; [facility] Intervention and counseling on cessation of tobacco use Last Documented On 3 2:21PM ; [facility] Go to the emergency room if condition worsens Last Documented On 3 11:41AM ; [facility] Watch for signs/symptoms of infection Last Documented On 3 11:41AM ; [facility] Watch for signs/symptoms of infection, return to the clinic if seen Last Documented On 3 11:41AM ; [facility] Intervention and counseling on cessation of tobacco use Last Documented On 2 1:34PM ; [facility] Intervention and counseling on cessation of tobacco use Last Documented On 2 1:25PM ; [facility] Education and Decision Aids were provided during visit for: Patient education about anti biotics: need to finish even if feeling better Last Documented On 3 11:41AM ; [facility] Assessments Includes: Assessments for all patient encounters Findings Encounter Date [F39 - Unspecified mood [aff ective] disorder] mood disorders, NOS --possible dx, will continue to monitor TELEHEALTH with FARTUN Andrea ARCHERJEFFERY PMHNP-BC AVAYA ENGINEER-BC 06/28/2023 Last Documented On 4 12:07PM ; [facility] Depression TELEHEALTH with FARTUN Andrea [address] PMHNP-BC AVAYA ENGINEER-BC 06/28/2023 Last Documented On 4 12:07PM ; [facility] Generalized anxiety disorder TELEHEALTH with FARTUN A JEFFERY PMHNP-BC AVAYA ENGINEER-BC 06/28/2023 Last Documented On 4 12:07PM ; [facility] Insomnia due to stress TELEHEALTH with FARTUN Andrea JEFFERY PMHNP-BC AVAYA ENGINEER-BC 06/28/2023 Last Documented On 4 12:07PM ; [facility] Panic disorder TELEHEALTH with FARTUN Andrea [address] PMHNP-BC AVAYA ENGINEER-BC 06/28/2023 Last Documented On 4 12:07PM ; [facility] Post-traumatic stress disorder TELEHEALT H with FARTUN Andrea JEFFERY PMHNP-BC AVAYA ENGINEER-BC 06/28/2023 Last Documented On 4 12:07PM ; [facility] [F39 - Unspecified mood [aff ective] disorder] mood disorders, NOS --possible dx, will continue to monitor TELEHEALTH with FARTUN Andrea JEFFERY PMHNP-BC AVAYA ENGINEER-BC 05/23/2023 Last Documented On 3 9:28AM ; [facility] Depression TELEHEALTH with FARTUN Andrea [address] PMHNP-BC AVAYA ENGINEER-BC 05/23/2023 Last Documented On 3 9:28AM ; [facility] Generalized anxiety disorder TELEHEALTH with FARTUN A JEFFERY PMHNP-BC AVAYA ENGINEER-BC 05/23/2023 Last Documented On 3 9:28AM ; [facility] Insomnia due to stress TELEHEALTH with FARTUN GIL PMHNP-BC AVAYA ENGINEER-BC 05/23/2023 Last Documented On 3 9:28AM ; [facility] Panic disorder TELEHEALTH with FARTUN VIDES PMHNP-BC AVAYA ENGINEER- 05/23/2023 Last Documented On 3 9:28AM ; [facility] Post-traumatic stress disorder TELEHEALT H with FARTUN GIL PMHNP-BC [facility]- 05/23/2023 Last Documented On 3 9:28AM ; [facility] [F39 - Unspecified mood [aff ective] disorder] mood disorders, NOS --possible dx, will continue to monitor PSYCH NEW PATIENT EXAM 18 YEARS AND OLDER with FARTUN ARCHERGRAVE PMHNP-BC [facility] 04/05/2023 Last Documented On 3 9:35AM ; [facility] Depression PSYCH NEW PATIENT EX AM 18 YEARS AND OLDER with FARTUN ARCHERGRAVE PMHNP-BC [facility]- 04/05/2023 Last Documented On 3 9:35AM ; [facility] Generalized anxiety disorder PSYCH NEW P ATIENT EXAM 18 YEARS AND OLDER with FARTUN ARCHERGRAVE PMHNP-BC [facility]-BC 04/05/2023 Last Documented On 3 9:35AM ; [facility] Insomnia due to stress PSYCH NEW PATIENT EXAM 18 YEARS AND OLDER with FARTUN Mendez JEFFERY PMHNP-BC [facility]- 04/05/2023 Last Documented On 3 9:35AM ; [facility] Panic disorder PSYCH NEW PATIENT EX AM 18 YEARS AND OLDER with FARTUN Mendez JEFFERY PMHNP-BC [facility]- 04/05/2023 Last Documented On 3 9:35AM ; [facility] Post-traumatic stress disorder PSYCH NEW PATIENT EXAM 18 YEARS AND OLDER with FARTUN Andrea JEFFERY PMHNP-BC [facility]-BC 04/05/2023 Last Documented On 3 9:35AM ; [facility] Generalized anxiety disorder PROBLEM VISIT with EARLENE MIKE PA-C 01/04/2023 Last Documented On 3 8:42AM ; [facility] Mild intermittent asthma wit h exacerbation PROBLEM VISIT with EARLENE MIKE PA-C 01/04/2023 Last Documented On 3 8:42AM ; [facility] Generalized anxiety disorder CHECK UP with SHAE MIKE PA-C 11/18/2022 Last Documented On 3 1:39PM ; [facility] Mild intermittent asthma wit h exacerbation CHECK UP with EARLENE MIKE PA-C 11/18/2022 Last Documented On 3 1:39PM ; [facility] [S01.81XA - Laceration witho ut foreign body of other part of head, initial encounter] laceration of head without foreign body WALK IN PATIENT - ESTABLISHED PT with MAYA JACOBS [facility] 10/26/2022 Last Documented On 3 3:56PM ; [facility] [Viral intestinal infection, unspecified] gastroenteritis COVID SICK VISIT- ESTABLISHED PATIENT with MERCED COOPER AVAYA ENGINEER-C 10/25/2022 Last Documented On 3 7:18PM ; [facility] Generalized anxiety disorder CHECK UP with SHAE MIKE PA-C 10/14/2022 Last Documented On 3 4:25PM ; [facility] Mild intermittent asthma wit h exacerbation CHECK UP with EARLENE MIKE PA-C 10/14/2022 Last Documented On 3 4:25PM ; [facility] Bronchitis COVID SICK VISIT- ES TABLISHED PATIENT with CARLOS A MANRIQUE [facility] 10/08/2022 Last Documented On 3 11:46AM ; [facility] [Other specified anxiety dis orders] depression with anxiety [facility] FOLLOW UP with DELICIA RAY LCSW 04/22/2022 Last Documented On 2 2:45PM ; [facility] Generalized anxiety disorder CHECK UP with SHAE MIKE PA-C 04/21/2022 Last Documented On 2 8:43PM ; [facility] Mild intermittent asthma wit h exacerbation CHECK UP with EARLENE MIKE PA-C 04/21/2022 Last Documented On 2 8:43PM ; [facility] [Other specified anxiety dis orders] depression with anxiety [facility] ESTABLISHED with DELICIA RAY LCSW 03/31/2022 Last Documented On 2 2:09PM ; [facility] Instructions Includes: Instructions for all patient encounters Instructions to patient Intervention and counseling on cessation of tobacco use Last Documented On 3 2:31PM ; [facility] Intervention and counseling on cessation of tobacco use Last Documented On 3 1:23PM ; [facility] Watch for signs/symptoms of infection, return to the clinic if seen Last Documented On 3 7:17PM ; [facility] Intervention and counseling on cessation of tobacco use Last Documented On 3 2:21PM ; [facility] Go to the emergency room if condition worsens Last Documented On 3 11:41AM ; [facility] Watch for signs/symptoms of infection Last Documented On 3 11:41AM ; [facility] Watch for signs/symptoms of infection, return to the clinic if seen Last Documented On 3 11:41AM ; [facility] Intervention and counseling on cessation of tobacco use Last Documented On 2 1:34PM ; [facility] Intervention and counseling on cessation of tobacco use Last Documented On 2 1:25PM ; [facility] Education and Decision Aids were provided during visit for: Patient education about anti biotics: need to finish even if feeling better Last Documented On 3 11:41AM ; [facility] Medical Equipment - Implanted Devices Includes: Current and historical Devices No Medical Equipment Recorded Medications Includes: Current and historical Medications Current Medications (continue as prescribed) Albuterol Sulfate HFA 108 (9 0 Base) MCG/ACT Inhalation Aerosol Solution 06/02/2023 Provider: CHARLIE MIKE PA-C Diagnosis: INHALE 2 PUFFS BY MOUTH EVERY 4 HOURS NEEDED Last Documented On 3 2:42PM By Earlene Mike PA-C ; [facility] Advair Diskus 250-50 MCG/ACT Inhalation Aerosol Powder Breath Activated 06/22/2022 Provider: EARLENE Luque Diagnosis: Mild intermitten t asthma with (acute) exacerbation INHALE 1 PUFF BY MOUTH TWICE DAILY. RINSE MOUTH AFTER USE Last Documented On 3 8:11AM By Earlene Mike PA-C ; [facility] Past Medications on file hydrOXYzine Pamoate 25 MG Oral Capsule 06/28/2023 - 06/28/2023 Provider: FARTUN GIL [facility] Diagnosis: Panic disorder [episodic paroxysmal anxiety] 1 capsule PO TID PRN anxiety Last Documented On 4 12:00PM By FARTUN GIL [facility] ; [facility] Wellbutrin XL 300 MG Oral Tablet Extended Release 24 Hour 06/28/2023 - 06/28/2023 Provider: FARTUN GIL [facility] Diagnosis: Depression, unspecified One tablet daily--dose increase Last Documented On 4 12:00PM By FARTUN GIL [facility] ; [facility] Sertraline HCl 100 MG Oral Tablet 06/28/2023 - 09/26/2023 Provider: FARTUN VIDES [facility] Diagnosis: Take 2 tabs PO daily (200mg) dose Last Documented On 4 12:06PM By FARTUN GIL [facility] ; [facility] Wellbutrin XL 300 MG Oral Tablet Extended Release 24 Hour 06/28/2023 - 08/27/2023 Provider: FARTUN GIL [facility] Diagnosis: Depression, unspecified One tablet daily--dose increase Last Documented On 4 12:06PM By FARTUN GIL [facility] ; [facility] hydrOXYzine Pamoate 25 MG Oral Capsule 06/28/2023 - 07/28/2023 Provider: FARTUN GIL [facility] Diagnosis: Panic disorder [episodic paroxysmal anxiety] 1 capsule PO TID PRN anxiety Last Documented On 4 12:06PM By FARTUN GIL [facility] ; [facility] QUEtiapine Fumarate 150 MG Oral Tablet 06/28/2023 - 08/27/2023 Provider: FARTUN GIL [facility] Diagnosis: Insomnia, unspec ified One tablet daily--dose increase Last Documented On 4 12:06PM By FARTUN GIL [facility] ; [facility] QUEtiapine Fumarate 150 MG Oral Tablet 06/28/2023 - 06/28/2023 Provider: FARTUN GIL [facility]- Diagnosis: Insomnia, unspec ified One tablet daily--dose increase Last Documented On 4 12:00PM By FARTUN GIL [facility] ; [facility] Wellbutrin XL 150 MG Oral Tablet Extended Release 24 Hour 06/21/2023 - 06/28/2023 Provider: FARTUN GIL [facility]- Diagnosis: Depression, unspecified One tablet daily Last Documented On 4 11:56AM By FARTUN GIL [facility] ; [facility] QUEtiapine Fumarate 100 MG Oral Tablet 06/01/2023 - 06/28/2023 Provider: FARTUN GIL [facility]- Diagnosis: Insomnia, unspec ified One tablet daily Last Documented On 4 11:59AM By FARTUN GIL [facility] ; [facility] Sertraline HCl 100 MG Oral Tablet 06/01/2023 - 06/28/2023 Provider: FARTUN VIDES [facility]- Diagnosis: TAKE 1 TABLET BY MOUTH DAILY Last Documented On 4 11:44AM By FARTUN GIL [facility] ; [facility] QUEtiapine Fumarate 100 MG Oral Tablet 05/23/2023 - 06/01/2023 Provider: FARTUN GIL [facility]- Diagnosis: Insomnia, unspec ified One tablet daily---dose increase Last Documented On 06/01/2023 2:06PM By VICENTE BOWENS ; [facility] Wellbutrin XL 150 MG Oral Tablet Extended Release 24 Hour 05/23/2023 - 06/21/2023 Provider: FARTUN GIL [facility]- Diagnosis: Depression, unspecified One tablet daily Last Documented On 06/21/2023 10:01AM By VICENTE BOWENS ; [facility] Sertraline HCl 100 MG Oral Tablet 05/04/2023 - 06/28/2023 Provider: FARTUN VIDES [facility] Diagnosis: Take 2 tabs PO daily (200mg) dose Last Documented On 4 11:59AM By FARTUN GIL [facility] ; [facility] QUEtiapine Fumarate ER 50 MG Oral Tablet Extended Release 24 Hour 04/05/2023 - 05/23/2023 Provider: FARTUN GIL [facility] Diagnosis: Generalized anxi ety disorder One tablet at bed time Last Documented On 3 9:17AM By FARTUN GIL [facility] ; [facility] Sertraline HCl 100 MG Oral Tablet 04/05/2023 - 05/23/2023 Provider: FARTUN GIL [facility] Diagnosis: Post-traumatic s tress disorder, unspecified Take 2 tabs PO once daily (2 00mg dose)---dose increase Last Documented On 3 9:17AM By FARTUN GIL [facility] ; [facility] Albuterol Sulfate HFA 108 (90 Base) MCG/ACT Inhalation Aerosol Solution 03/21/2023 - 06/02/2023 Provider: EARLENE Walker PA-C Diagnosis: INHALE 2 PUFFS BY MOUTH EVERY 4 HOURS NEEDED Last Documented On 3 2:36PM By Earlene Mike PA-C ; [facility] Sertraline HCl 100 MG Oral Tablet 01/05/2023 - 04/05/2023 Provider: EARLENE MIKE PA-C Diagnosis: Generalized anxi ety disorder TAKE 1 TABLET BY MOUTH DAILY Last Documented On 3 3:48PM By FARTUN GIL [facility] ; [facility] Sertraline HCl 100 MG Oral Tablet 01/04/2023 - 01/05/2023 Provider: EARLENE MIKE PA-C Diagnosis: Generalized anxi ety disorder One tablet daily Last Documented On 3 8:03AM By Earlene Mike PA-C ; [facility] Azithromycin 250 MG Oral Tablet 01/04/2023 - 04/05/2023 Provider: EARLENE MIKE PA-C Diagnosis: Mild intermitten t asthma with (acute) exacerbation take 2 tablets on day 1, the n 1 tablet on days 2-5 Last Documented On 04/05/2023 2:52PM By DANIEL BOWENS ; [facility] Sertraline HCl 50 MG Oral Tablet 11/18/2022 - 04/05/2023 Provider: EARLENE MIKE PA-C Diagnosis: Generalized anxi ety disorder One tablet daily Last Documented On 3 2:56PM By FARTUN GIL [facility] ; [facility] Ondansetron 4 MG Oral Tablet Disintegrating 10/25/2022 - 11/18/2022 Provider: MERCED SUNC Diagnosis: Viral intestinal infection, unspecified 1 every 6 hours as needed Last Documented On 3 1:37PM By Earlene Mike PA-C ; [facility] Sertraline HCl 25 MG Oral Tablet 10/14/2022 - 11/18/2022 Provider: EARLENE MIKE PA-C Diagnosis: Generalized anxi ety disorder One tablet daily Last Documented On 3 1:37PM By Earlene Mike PA-C ; [facility] Medrol 4 MG Oral Tablet Therapy Pack 10/08/2022 - 10/14/2022 Provider: CARLOS A MANRIQUE [facility] Diagnosis: Acute bronchitis , unspecified as directed Last Documented On 10/14/2022 2:16PM By Samantha BOWENS ; [facility] Zithromax Z-Valente 250 MG Oral Tablet 10/08/2022 - 10/14/2022 Provider: CARLOS A MANRIQUE [facility] Diagnosis: Acute bronchitis , unspecified as directed Last Documented On 10/14/2022 2:16PM By Samantha BOWENS ; [facility] Albuterol Sulfate HFA 108 (90 Base) MCG/ACT Inhalation Aerosol Solution 08/17/2022 - 06/02/2023 Provider: EARLENE MIKE PA-C Diagnosis: Mild intermitten t asthma with (acute) exacerbation INHALE 1 TO 2 PUFFS BY MOUTH EVERY 4 TO 6 HOURS NEEDED Last Documented On 06/02/2023 2:31PM By Kayla BOWENS ; [facility] Albuterol Sulfate HFA 108 (90 Base) MCG/ACT Inhalation Aerosol Solution 05/31/2022 - 08/17/2022 Provider: EARLENE MIKE PA-C Diagnosis: Mild intermitten t asthma with (acute) exacerbation INHALE 1 TO 2 PUFFS BY MOUTH EVERY 4 TO 6 HOURS NEEDED Last Documented On 08/17/2022 4:39PM By Mahendra BOWENS ; [facility] Lexapro 5 MG Oral Tablet 04/21/2022 - 10/14/2022 Provider: EARLENE Walker PA-C Diagnosis: Generalized anxi ety disorder One tablet daily Last Documented On 10/14/2022 2:20PM By Samantha BOWENS ; [facility] Advair Diskus 250-50 MCG/ACT Inhalation Aerosol Powder Breath Activated 04/21/2022 - 06/22/2022 Provider: EARLENE MIKE PA-C Diagnosis: Mild intermitten t asthma with (acute) exacerbation 1 inhalation twice daily. rinse mouth after Last Documented On 3 8:10AM By Earlene Mike PA-C ; [facility] busPIRone HCl 5 MG Oral Tablet 04/21/2022 - 10/14/2022 Provider: EARLENE MIKE PA-C Diagnosis: Generalized anxi ety disorder 1 tab twice daily Last Documented On 10/14/2022 2:20PM By Samantha BOWENS ; [facility] busPIRone HCl 5 MG Oral Tablet 03/24/2022 - 04/21/2022 Provider: EARLENE MIKE PA-C Diagnosis: Generalized anxi ety disorder 1 tab twice daily Last Documented On 2 4:34PM By Earlene Mike PA-C ; [facility] Albuterol Sulfate HFA 108 (90 Base) MCG/ACT Inhalation Aerosol Solution 03/24/2022 - 05/31/2022 Provider: EARLENE MIKE PA-C Diagnosis: Mild intermitten t asthma with (acute) exacerbation INHALE 1 TO 2 PUFFS BY MOUTH EVERY 4 TO 6 HOURS NEEDED Last Documented On 2 11:00PM By Earlene Mike PA-C ; [facility] Sertraline HCl 25 MG Oral Tablet 03/22/2022 - 03/24/2022 Provider: EARLENE MIKE PA-C Diagnosis: Generalized anxi ety disorder TAKE 1 TABLET BY MOUTH DAILY Last Documented On 2 1:29PM By Earlene Mike PA-C ; [facility] Sertraline HCl 25 MG Oral Tablet 02/22/2022 - 03/22/2022 Provider: EARLENE MIKE PA-C Diagnosis: Generalized anxi ety disorder One tablet daily Last Documented On 2 8:24AM By Earlene Mike PA-C ; [facility] Advair Diskus 250-50 MCG/ACT Inhalation Aerosol Powder Breath Activated 02/22/2022 - 04/21/2022 Provider: EARLENE MIKE PA-C Diagnosis: Mild intermitten t asthma with (acute) exacerbation 1 inhalation twice daily. rinse mouth after Last Documented On 2 4:34PM By Earlene Mike PA-C ; [facility] Azithromycin 250 MG Oral Tablet 02/22/2022 - 03/24/2022 Provider: EARLENE MIKE PA-C Diagnosis: Mild intermitten t asthma with (acute) exacerbation take 2 tablets on day 1, the n 1 tablet on days 2-5 Last Documented On 03/24/2022 1:16PM By Camila BOWENS ; [facility] Albuterol Sulfate (2.5 MG/3ML) 0.083% Inhalation Nebulization solution 02/22/2022 - 10/14/2022 Provider: EARLENE MIKE PA-C Diagnosis: Mild intermitten t asthma with (acute) exacerbation 3mL every 4-6 hours as needed Last Documented On 10/14/2022 2:16PM By Samantha BOWENS ; [facility] Albuterol Sulfate HFA 108 (90 Base) MCG/ACT Inhalation Aerosol Solution 02/22/2022 - 03/24/2022 Provider: EARLENE MIKE PA-C Diagnosis: Mild intermitten t asthma with (acute) exacerbation INHALE 1 TO 2 PUFFS BY MOUTH EVERY 4 TO 6 HOURS NEEDED Last Documented On 2 1:34PM By Earlene Mike PA-C ; [facility] Albuterol Sulfate HFA 108 (90 Base) MCG/ACT Inhalation Aerosol Solution 01/26/2022 - 02/22/2022 Provider: EARLENE MIKE PA-C Diagnosis: Mild intermitten t asthma with (acute) exacerbation INHALE 1 TO 2 PUFFS BY MOUTH EVERY 4 TO 6 HOURS NEEDED Last Documented On 2 1:49PM By Earlene Mike PA-C ; [facility] Albuterol Sulfate HFA 108 (90 Base) MCG/ACT Inhalation Aerosol Solution 11/24/2021 - 01/26/2022 Provider: CARLOS A TALBERT Diagnosis: Mild intermitten t asthma with (acute) exacerbation INHALE 1 TO 2 PUFFS BY MOUTH EVERY 4 TO 6 HOURS NEEDED Last Documented On 2 1:09PM By Earlene Mike PA-C ; [facility] Albuterol Sulfate HFA 108 (90 Base) MCG/ACT Inhalation Aerosol Solution 07/20/2021 - 11/24/2021 Provider: EARLENE MIKE PA-C Diagnosis: Mild intermitten t asthma with (acute) exacerbation inhale 1-2 puffs every 4-6 hours as needed Last Documented On 2 6:38AM By Carlos A TALBERT ; [facility] Medications Administered Includes: Administered Medications in patient's chart No Administered Medications Recorded Results Includes: Results from 06/29/2023 through 06/29/2024 No Results Recorded For Specified Dates History of Present Illness History of Present Illness not supported for this document type No History of Present Illness Recorded Social History Description Last Updated 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 11/18/2022 Last Documented On 3 1:39PM ; [facility] Not recovering from substance abuse 11/04 Last Documented On 3 1:39PM ; [facility] Tobacco non-user 10/25/2022 Last Documented On 3 7:18PM ; [facility] Using marijuana 02/22/2022 Last Documented On 2 3:39PM ; [facility] Alcohol 07/20/2021 Last Documented On 2 10:30AM ; [facility] Amount of alcohol per day: N ot everyday but about 5 to 7 shots when i drink 07/20/2021 Last Documented On 2 10:30AM ; [facility] Drug use 07/20/2021 Last Documented On 2 10:30AM ; [facility] Frequency: Most days 07/20/2021 Last Documented On 2 10:30AM ; [facility] Type: Marijuana 07/20/2021 Last Documented On 2 10:30AM ; [facility] Smoking Status Unknown Medical History Includes: Medical History in patient's chart Description Last Updated No Vaccine history 01/04/2023 Last Documented On 3 8:42AM ; [facility] Not taking OTC medications 10/25/2022 Last Documented On 3 7:18PM ; [facility] Family History Includes: Family History in patient's chart Description Last Updated Maternal grandfather's history of alcoho lism 04/06/2023 Last Documented On 3 9:35AM ; [facility] Maternal grandmother's history of depres nathan 04/06/2023 Last Documented On 3 9:35AM ; [facility] Maternal grandfather's history of alcoho l use 04/06/2023 Last Documented On 3 9:35AM ; [facility] Paternal grandfather's history of substa nce use disorders 04/06/2023 Last Documented On 3 9:35AM ; [facility] Paternal history of substance use disord ers 04/06/2023 Last Documented On 3 9:35AM ; [facility] Maternal history of substance use disord ers 04/06/2023 Last Documented On 3 9:35AM ; [facility] Family history of stroke/paralysis 07/20 Last Documented On 2 10:30AM ; [facility] Maternal history of Arthritis 07/20/2021 Last Documented On 2 10:30AM ; [facility] Review of Systems Review of Systems not supported for this document type No Review of Systems Recorded Mental Status No Mental Status Recorded Functional Status No Functional Status Recorded Physical Exam Physical Exam not supported for this document type No Physical Exam Recorded Allergies Includes: Active, inactive, and resolved Allergies No Known Allergies Encounters Includes: Encounters from 06/29/2023 through 06/29/2024 Encounter Provider Location Date Check-In Time Check-Out Time Diagnosis NO SHOW FARTUN ARCHERGRAVE PMHNP-BC [facility] 4 06/28/2023 11:30AM 06/28/2023 11:59PM Insurance Includes: Active Insurance Policies Plan Name Member ID Group # Subscriber Relationship Effect kathy Dates 1 - [facility] [id number] PATRICIA MORALES Self Clinical Notes Includes: Signed Clinical Notes starting from 06/25/2022 No Clinical Notes Recorded
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
--- OUTSIDE RECORDS SUMMARY | 2024-06-29 05:15 | XMS_ITS ---
Care Plan - [facility] Created on: June 29, 2024 PATRICIA MORALES JR : 2000 Sex: Male Author Organization [facility] Address [address] [place] [phone] Phone Care Team Providers Care Airport Ramp Agent Name Role Phone Unavailable Unavailable Unavailable
--- OUTSIDE RECORDS SUMMARY | 2024-06-29 05:15 | XMS_ITS ---
Care Plan - [facility] Created on: June 29, 2024 PATRICIA MORALES JR : 2000 Sex: Male Author Organization [facility] Address [address] [place] [phone] Phone Care Team Providers Care Nuclear Monitoring Technician Name Role Phone Unavailable Unavailable Unavailable
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
--- OUTSIDE RECORDS SUMMARY | 2024-06-29 05:15 | XMS_ITS | Clinical Summary ---
Author Organization [facility] Address [address] [place] [address] Phone Care Team Providers Care Millinery Designer Name Role Phone Unavailable Unavailable Unavailable Reason for Visit and Chief Complaint [Patient Encounter] Problems Includes: Problems addressed during this encounter and other active Problems All Visits Onset Date Resolved Date Provider Condition S tatus Depression 08/04/2020 Active Last Documented On 3 5:53PM ; [facility] Bipolar I Disorder 07/03/2020 Active Last Documented On 3 5:53PM ; [facility] Generalized Anxiety Disorder 07/03/2020 Active Last Documented On 3 5:53PM ; [facility] Psychophysiological Insomnia 07/03/2020 Active Last Documented On 3 5:53PM ; [facility] Major Depression 07/03/2020 Active Last Documented On 3 5:53PM ; [facility] Plan of Treatment No Plan of [...] 10/02/2022 5:39PM By Fifi Cortes MD ; [facility] LORazepam 0.5 MG TABS 09/22/2020 Provider: BHAVANA CORTES MD Diagnosis: Panic disorder [ episodic paroxysmal anxiety] as directed -- 1 tab a day a s needed for anxiety Last Documented On 10/02/2022 5:39PM By Fifi Cortes MD ; [facility] QUEtiapine Fumarate 100 MG OR TABS 08/08/2020 Provider: ANNI CORTES MD Diagnosis: Bipolar disorder , unspecified as directed -- 1 tab at bedtime Last Documented On 10/02/2022 5:39PM By Fifi Cortes MD ; [facility] QUEtiapine Fumarate 25 MG OR TABS 08/08/2020 Provider: ANNI CORTES MD Diagnosis: Generalized anxi ety disorder as directed -- 1 tab in am a nd 1 tab at noon for anxiety Last Documented On 10/02/2022 5:39PM By Fifi Cortes MD ; [facility] QUEtiapine Fumarate 50 MG OR TABS 07/03/2020 Provider: ANNI CORTES MD Diagnosis: Bipolar disorder , unspecified One tablet at bed time Last Documented On 10/02/2022 5:39PM By Fifi Cortes MD ; [facility] Albuterol Sulfate HFA 108 (90 Base) MCG/ACT IN AERS Provider: Diagnosis: 1 -2 puffs q 4-6 hours allison Tilley NP Last Documented On 10/02/2022 5:39PM By DIANE BOWENS ; [facility] Medications Administered Includes: Administered Medications from this encounter No Administered Medications Recorded Vital Signs Includes: Vital Signs from this encounter Vital Name 08/08/2020 09:31A Blood Pressure Sitting (mmHg) 116/64 BP Cuff Size Regular Pulse Rate-Sitting (bpm) 75 Pulse Rhythm Regular Temp-Oral (F) 97.2 Height (in) 71 Weight (lb) 217 Body Mass Index (kg/m2) 30.3 Body Surface Area (m2) 2.2 Last Documented: On 10/02/2022 5:58PM ; [facility] Results Includes: Results discussed during this [...] ve Last Documented On 10/02/2022 5:39PM ; [facility] Note: Imported from external source. Encounters Encounter Provider Location Date Check-In Time Check-Out Time Diagnosis [Patient Encounter] 08/08/2020 12:00AM 11:59PM Insurance Includes: Active Insurance Policies Plan Name Member ID Group # Subscriber Relationship Effect kathy Dates 1 - [facility] [id number] PATRICIA MORALES JR Self Clinical Notes Includes: Clinical Notes from this encounter No Clinical Notes Recorded
--- OUTSIDE RECORDS SUMMARY | 2024-06-29 05:15 | XMS_ITS | Clinical Summary ---
Author Organization [facility] Address [address] [place] [phone] Phone Care Team Providers Care Transcript Evaluator Name Role Phone Unavailable Unavailable Unavailable Reason for Visit and Chief Complaint NO SHOW Problems Includes: Problems addressed during this encounter and other active Problems All Visits Onset Date Resolved Date Provider Condition S tatus Depression 08/04/2020 ANNI CORTES MD Ac tive Last Documented On 1 8:56AM ; [facility] Bipolar I Disorder 07/03/2020 ANNI ABEBE MD Active Last Documented On 1 2:16PM ; [facility] Generalized Anxiety Disorder 07/03/2020 ANNI CORTES MD Active Last Documented On 1 2:16PM ; [facility] Psychophysiological Insomnia 07/03/2020 ANNI CORTES MD Active Last Documented On 1 2:17PM ; [facility] Major Depression 07/03/2020 ANNI CORTES MD Active Last Documented On 1 2:16PM ; [facility] Plan of Treatment No Plan of Treatment [...] 10/03/2020 9:49AM By Fifi Cortes MD ; [facility] LORazepam 0.5 MG Oral Tablet 09/22/2020 Provider: ANNI CORTES MD Diagnosis: Panic disorder [ episodic paroxysmal anxiety] as directed -- 1 tab a day a s needed for anxiety Last Documented On 09/22/2020 6:31PM By Fifi Cortes MD ; [facility] QUEtiapine Fumarate 100 MG Oral Tablet 08/08/2020 Provider: ANNI CORTES MD Diagnosis: Bipolar disorder , unspecified as directed -- 1 tab at bedtime Last Documented On 1 10:36AM By Fifi Cortes MD ; [facility] QUEtiapine Fumarate 25 MG Oral Tablet 08/08/2020 Provider: ANNI CORTES MD Diagnosis: Generalized anxi ety disorder as directed -- 1 tab in am a nd 1 tab at noon for anxiety Last Documented On 10:44AM By Fifi Cortes MD ; [facility] QUEtiapine Fumarate 50 MG Oral Tablet 07/03/2020 Provider: ANNI CORTES MD Diagnosis: Bipolar disorder , unspecified One tablet at bed time Last Documented On 07/03/2020 3:17PM By Fifi Cortes MD ; [facility] Albuterol Sulfate HFA 108 (9 0 Base) MCG/ACT Inhalation Aerosol Solution 06/20/2020 Provider: Diagnosis: 1 -2 puffs q 4-6 hours allison Tilley NP Last Documented On 07/03/2020 1:52PM By DIANE BOWENS ; [facility] Medications Administered Includes: Administered Medications from [...] ve Last Documented On 10/02/2022 5:39PM ; [facility] Note: Imported from external source. Encounters Encounter Provider Location Date Check-In Time Check-Out Time Diagnosis NO SHOW ANNI CORTES MD [facility] 01/16/2021 2:30PM 11:59PM Insurance Includes: Active Insurance Policies Plan Name Member ID Group # Subscriber Relationship Effect kathy Dates 1 - [facility] [id number] PATRICIA MORALES Self Clinical Notes Includes: Clinical Notes from this encounter No Clinical Notes Recorded
--- OUTSIDE RECORDS SUMMARY | 2024-06-29 05:15 | XMS_ITS | Clinical Summary ---
Author Organization [facility] Address [address] [place] [address] Phone Care Team Providers Care Basin Finish Operator Tig Welder Name Role Phone Unavailable Unavailable Unavailable Reason for Visit and Chief Complaint [Patient Encounter] Problems Includes: Problems addressed during this encounter and other active Problems All Visits Onset Date Resolved Date Provider Condition S tatus Depression 08/04/2020 Active Last Documented On 3 5:53PM ; [facility] Bipolar I Disorder 07/03/2020 Active Last Documented On 3 5:53PM ; [facility] Generalized Anxiety Disorder 07/03/2020 Active Last Documented On 3 5:53PM ; [facility] Psychophysiological Insomnia 07/03/2020 Active Last Documented On 3 5:53PM ; [facility] Major Depression 07/03/2020 Active Last Documented On 3 5:53PM ; [facility] Plan of Treatment No Plan of Treatment [...] On 10/02/2022 5:39PM By DIANE BOWENS ; [facility] Current Medications (continue as prescribed) SEROquel XR [...] 10/02/2022 5:39PM By Fifi Cortes MD ; [facility] QUEtiapine Fumarate 100 MG OR TABS 08/08/2020 Provider: ANNI CORTES MD Diagnosis: Bipolar disorder , unspecified as directed -- 1 tab at bedtime Last Documented On 10/02/2022 5:39PM By Fifi Cortes MD ; [facility] QUEtiapine Fumarate 25 MG OR TABS 08/08/2020 Provider: ANNI CORTES MD Diagnosis: Generalized anxi ety disorder as directed -- 1 tab in am a nd 1 tab at noon for anxiety Last Documented On 10/02/2022 5:39PM By Fifi Cortes MD ; [facility] QUEtiapine Fumarate 50 MG OR TABS 07/03/2020 Provider: ANNI CORTES MD Diagnosis: Bipolar disorder , unspecified One tablet at bed time Last Documented On 10/02/2022 5:39PM By Fifi Cortes MD ; [facility] Albuterol Sulfate HFA 108 (90 Base) MCG/ACT IN AERS Provider: Diagnosis: 1 -2 puffs q 4-6 hours allison Tilley NP Last Documented On 10/02/2022 5:39PM By DIANE BOWENS ; [facility] Medications Administered Includes: Administered Medications from this encounter No Administered Medications Recorded Vital Signs Includes: Vital Signs from this encounter Vital Name 10/03/2020 09:21A Blood Pressure Sitting (mmHg) 116/80 BP Cuff Size Regular Pulse Rate-Sitting (bpm) 71 Pulse Rhythm Regular Height (in) 71 Weight (lb) 220 Body Mass Index (kg/m2) 30.7 Body Surface Area (m2) 2.2 Last Documented: On 10/02/2022 5:58PM ; [facility] Results Includes: Results discussed during this encounter [...] ve Last Documented On 10/02/2022 5:39PM ; [facility] Note: Imported from external source. Encounters Encounter Provider Location Date Check-In Time Check-Out Time Diagnosis [Patient Encounter] 10/03/2020 12:00AM 11:59PM Insurance Includes: Active Insurance Policies Plan Name Member ID Group # Subscriber Relationship Effect kathy Dates - [facility] [id number] PATRICIA MORALES JR Self Clinical Notes Includes: Clinical Notes from this encounter No Clinical Notes Recorded
--- OUTSIDE RECORDS SUMMARY | 2024-06-29 05:15 | XMS_ITS | Clinical Summary ---
Author Organization [facility] Address [address] [place] [address] Phone Care Team Providers Care Bpo Specialist Name Role Phone Unavailable Unavailable Unavailable Reason for Visit and Chief Complaint [Patient Encounter] Problems Includes: Problems addressed during this encounter and other active Problems All Visits Onset Date Resolved Date Provider Condition S tatus Depression 08/04/2020 Active Last Documented On 3 5:53PM ; [facility] Bipolar I Disorder 07/03/2020 Active Last Documented On 3 5:53PM ; [facility] Generalized Anxiety Disorder 07/03/2020 Active Last Documented On 3 5:53PM ; [facility] Psychophysiological Insomnia 07/03/2020 Active Last Documented On 3 5:53PM ; [facility] Major Depression 07/03/2020 Active Last Documented On 3 5:53PM ; [facility] Plan of Treatment No Plan [...] 10/02/2022 5:39PM By Fifi Cortes MD ; [facility] LORazepam 0.5 MG TABS 09/22/2020 Provider: BHAVANA CORTES MD Diagnosis: Panic disorder [ episodic paroxysmal anxiety] as directed -- 1 tab a day a s needed for anxiety Last Documented On 10/02/2022 5:39PM By Fifi Cortes MD ; [facility] QUEtiapine Fumarate 100 MG OR TABS 08/08/2020 Provider: ANNI CORTES MD Diagnosis: Bipolar disorder , unspecified as directed -- 1 tab at bedtime Last Documented On 10/02/2022 5:39PM By Fifi Cortes MD ; [facility] QUEtiapine Fumarate 25 MG OR TABS 08/08/2020 Provider: ANNI CORTES MD Diagnosis: Generalized anxi ety disorder as directed -- 1 tab in am a nd 1 tab at noon for anxiety Last Documented On 10/02/2022 5:39PM By Fifi Cortes MD ; [facility] QUEtiapine Fumarate 50 MG OR TABS 07/03/2020 Provider: ANNI CORTES MD Diagnosis: Bipolar disorder , unspecified One tablet at bed time Last Documented On 10/02/2022 5:39PM By Fifi Cortes MD ; [facility] Albuterol Sulfate HFA 108 (90 Base) MCG/ACT IN AERS Provider: Diagnosis: 1 -2 puffs q 4-6 hours allison Tilley NP Last Documented On 10/02/2022 5:39PM By DIANE BOWENS ; [facility] Medications Administered Includes: Administered Medications [...] 2.2 Last Documented: On 10/02/2022 5:58PM ; [facility] Results Includes: Results discussed [...] ve Last Documented On 10/02/2022 5:39PM ; [facility] Note: Imported from external source. Encounters Encounter Provider Location Date Check-In Time Check-Out Time Diagnosis [Patient Encounter] 07/03/2020 12:00AM 11:59PM Insurance Includes: Active Insurance Policies Plan Name Member ID Group # Subscriber Relationship Effect kathy Dates 1 - [facility] [id number] PATRICIA MORALES JR Self Clinical Notes Includes: Clinical Notes from this encounter No Clinical Notes Recorded
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
--- OUTSIDE RECORDS SUMMARY | 2024-06-29 05:15 | XMS_ITS ---
Author Organization [facility] Address [address] [place] [address] Phone Care Team Providers Care Clearance Rep Name Role Phone Unavailable Unavailable Unavailable Problems Includes: Active, inactive, and resolved Problems All Visits Onset Date Resolved Date Provider Condition S tatus Depression 08/04/2020 Active Last Documented On 3 5:53PM ; [facility] Bipolar I Disorder 07/03/2020 Active Last Documented On 3 5:53PM ; [facility] Generalized Anxiety Disorder 07/03/2020 Active Last Documented On 3 5:53PM ; [facility] Psychophysiological Insomnia 07/03/2020 Active Last Documented On 3 5:53PM ; [facility] Major Depression 07/03/2020 Active Last Documented On 3 5:53PM ; [facility] Plan of Treatment No Plan of Treatment [...] By Fifi Cortes MD ; [facility] LORazepam 0.5 MG TABS 09/22/2020 Provider: BHAVANA CORTES MD Diagnosis: Panic disorder [ episodic paroxysmal anxiety] as directed -- 1 tab a day a s needed for anxiety Last Documented On 10/02/2022 5:39PM By Fifi Cortes MD ; [facility] QUEtiapine Fumarate 100 MG OR TABS 08/08/2020 Provider: ANNI CORTES MD Diagnosis: Bipolar disorder , unspecified as directed -- 1 tab at bedtime Last Documented On 10/02/2022 5:39PM By Fifi Cortes MD ; [facility] QUEtiapine Fumarate 25 MG OR TABS 08/08/2020 Provider: ANNI CORTES MD Diagnosis: Generalized anxi ety disorder as directed -- 1 tab in am a nd 1 tab at noon for anxiety Last Documented On 10/02/2022 5:39PM By Fifi Cortes MD ; [facility] QUEtiapine Fumarate 50 MG OR TABS 07/03/2020 Provider: ANNI CORTES MD Diagnosis: Bipolar disorder , unspecified One tablet at bed time Last Documented On 10/02/2022 5:39PM By Fifi Cortes MD ; [facility] Albuterol Sulfate HFA 108 (90 Base) MCG/ACT IN AERS Provider: Diagnosis: 1 -2 puffs q 4-6 hours allison Tilley NP Last Documented On 10/02/2022 5:39PM By DIANE BOWENS ; [facility] Past Medications on file Focalin 10 MG OR TABS 10/03/2020 - 11/02/2020 Provider: ANNI CORTES MD Diagnosis: Attention-defici t hyperactivity disorder, combined type 1 tablet every morning Last Documented On 10/02/2022 5:39PM By Fifi Cortes MD ; [facility] LORazepam 0.5 MG TABS 08/11/2020 - 09/22/2020 Provider: ANNI CORTES MD Diagnosis: Panic disorder [episodic paroxysmal anxiety] as directed -- 1 tab a day a s needed for anxiety Last Documented On 10/02/2022 5:39PM By Fifi Cortes MD ; [facility] Escitalopram Oxalate 10 MG OR TABS 06/20/2020 - 2020 Provider: Diagnosis: 1 tab daily Xin Tilley NP Last Documented On 10/02/2022 5:39PM By DIANE BOWENS ; [facility] Medications Administered Includes: Administered Medications in patient's [...] ve Last Documented On 10/02/2022 5:39PM ; [facility] Note: Imported from external source. Insurance Includes: Active Insurance Policies Plan Name Member ID Group # Subscriber Relationship Effect kathy Dates 1 - [facility] [id number] PATRICIA MORALES JR Self Clinical Notes Includes: Signed Clinical Notes starting from 06/25/2022 No Clinical Notes Recorded
--- OUTSIDE RECORDS SUMMARY | 2024-06-29 05:15 | XMS_ITS | Clinical Summary ---
Author Organization [facility] Address [address] [place] [phone] Phone Care Team Providers Care Refuge Worker Name Role Phone Unavailable Unavailable Unavailable Reason for Visit and Chief Complaint NO SHOW Problems Includes: Problems addressed during this encounter and other active Problems All Visits Onset Date Resolved Date Provider Condition S tatus Depression 08/04/2020 ANNI CORTES MD Ac tive Last Documented On 1 8:56AM ; [facility] Bipolar I Disorder 07/03/2020 ANNI ABEBE MD Active Last Documented On 1 2:16PM ; [facility] Generalized Anxiety Disorder 07/03/2020 ANNI CORTES MD Active Last Documented On 1 2:16PM ; [facility] Psychophysiological Insomnia 07/03/2020 ANNI CORTES MD Active Last Documented On 1 2:17PM ; [facility] Major Depression 07/03/2020 ANNI CORTES MD Active Last Documented On 1 2:16PM ; [facility] Plan of Treatment No Plan [...] 10/03/2020 9:49AM By Fifi Cortes MD ; [facility] LORazepam 0.5 MG Oral Tablet 09/22/2020 Provider: ANNI CORTES MD Diagnosis: Panic disorder [ episodic paroxysmal anxiety] as directed -- 1 tab a day a s needed for anxiety Last Documented On 09/22/2020 6:31PM By Fifi Cortes MD ; [facility] QUEtiapine Fumarate 100 MG Oral Tablet 08/08/2020 Provider: ANNI CORTES MD Diagnosis: Bipolar disorder , unspecified as directed -- 1 tab at bedtime Last Documented On 1 10:36AM By Fifi Cortes MD ; [facility] QUEtiapine Fumarate 25 MG Oral Tablet 08/08/2020 Provider: ANNI CORTES MD Diagnosis: Generalized anxi ety disorder as directed -- 1 tab in am a nd 1 tab at noon for anxiety Last Documented On 10:44AM By Fifi Cortes MD ; [facility] QUEtiapine Fumarate 50 MG Oral Tablet 07/03/2020 Provider: ANNI CORTES MD Diagnosis: Bipolar disorder , unspecified One tablet at bed time Last Documented On 07/03/2020 3:17PM By Fifi Cortes MD ; [facility] Albuterol Sulfate HFA 108 (9 0 Base) MCG/ACT Inhalation Aerosol Solution 06/20/2020 Provider: Diagnosis: 1 -2 puffs q 4-6 hours allison Tilley NP Last Documented On 07/03/2020 1:52PM By DIANE BOWENS ; [facility] Medications Administered Includes: Administered Medications [...] ve Last Documented On 10/02/2022 5:39PM ; [facility] Note: Imported from external source. Encounters Encounter Provider Location Date Check-In Time Check-Out Time Diagnosis NO SHOW ANNI CORTES MD [facility] 11/14/2020 3:30PM 11:59PM Insurance Includes: Active Insurance Policies Plan Name Member ID Group # Subscriber Relationship Effect kathy Dates 1 - [facility] [id number] PATRICIA MORALES Self Clinical Notes Includes: Clinical Notes from this encounter No Clinical Notes Recorded
--- OUTSIDE RECORDS SUMMARY | 2024-06-29 05:16 | XMS_ITS | Clinical Summary ---
Author Organization [facility] Address [address] [place] [address] Phone Care Team Providers Care Wellhead Pumper Name Role Phone VIRGINIE CARDONA MD Primary Care Provider Reason for Visit and Chief Complaint NO SHOW Problems Includes: Problems addressed during this encounter and other active Problems All Visits Onset Date Resolved Date Provider Condition S tatus Asthma Mild Intermittent with Exacerbation 04/27/2022 PAPI CASTELLANO PA-C Active Last Documented On 04/27/2022 8:42PM ; [facility] Note: Unchanged Generalized Anxiety Disorder 04/27/2022 PAPI CASTELLANO PA-C Active Last Documented On 04/27/2022 8:42PM ; [facility] Note: Unchanged Plan of Treatment No Plan [...] 3 2:42PM By Papi Castellano PA-C ; [facility] Advair Diskus 250-50 MCG/ACT Inhalation Aerosol Powder Breath Activated 06/22/2022 Provider: PAPI Luque Diagnosis: Mild intermitten t asthma with (acute) exacerbation INHALE 1 PUFF BY MOUTH TWICE DAILY. RINSE MOUTH AFTER USE Last Documented On 3 8:11AM By Papi Castellano PA-C ; [facility] Medications Administered Includes: Administered [...] Time Check-Out Time Diagnosis NO SHOW FARTUN GLI HN-BC POST FORM [facility]OVER[facility] 4 11:30AM 11:59PM Insurance Includes: Active Insurance Policies Plan Name Member ID Group # Subscriber Relationship Effect kathy Dates 1 - [facility] [id number] PATRICIA MORALES Self Clinical Notes Includes: Clinical Notes from this encounter No Clinical Notes Recorded
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
--- OUTSIDE RECORDS SUMMARY | 2024-06-29 05:16 | XMS_ITS | Clinical Summary ---
Author Organization [facility] Address [address] [place] [address] Phone Care Team Providers Care Nursing Clinical Director Name Role Phone VIRGINIE CARDONA MD Primary [...] Active Last Documented On 04/27/2022 8:42PM ; [facility] Note: Unchanged Past Visits Onset Date Resolved Date Provider Condition Status Asthma Mild Intermittent with Exacerbation 04/27/2022 EARLENE CASTELLANO PA-C Active Last Documented On 04/27/2022 8:42PM ; [facility] Note: Unchanged Plan of Treatment - Return to the clinic if condition worsens or new symptoms arise - Last Documented On 06/28/2023 12:07PM ; [facility] - Follow-up visit in 1 month - Last Documented On 06/28/2023 12:07PM ; [facility] Assessments Includes: Assessments from this encounter Findings - [F39 - Unspecified mood [affective] disorder] Mood disorders, NOS --possible dx, will continue to monitor - Last Documented On 06/28/2023 12:07PM ; [facility] - [F32.A - Depression, unspecified] Depression - Last Documented On 06/28/2023 12:07PM ; [facility] - [G47.00 - Insomnia, unspecified] Insomnia due to stress - Last Documented On 06/28/2023 12:07PM ; [facility] - [F41.1 - Generalized anxiety disorder] Generalized anxiety disorder - Last Documented On 06/28/2023 12:07PM ; [facility] - [F41.0 - Panic disorder [episodic paroxysmal anxiety]] Panic disorder - Last Documented On 06/28/2023 12:07PM ; [facility] - [F43.10 - Post-traumatic stress disorder, unspecified] Post-traumatic stress disorder - Last Documented On 06/28/2023 12:07PM ; [facility] Medical Equipment - Implanted Devices Includes: Current Devices No Medical Equipment Recorded Medications Includes: Medications discussed during this encounter and other current Medications Discontinued / Stopped on this date AYDE RASCON [facility]- on 06/21/2023 Wellbutrin XL 150 MG Oral Tablet Extended Release 24 Hour [facility] Diagnosis: Depression, unsp ecified Last Documented On 4 11:56AM By AYDE RASCON [facility] ; [facility] QUEtiapine Fumarate 100 MG Oral Tablet Provider: AYDE RASCON [facility]- Diagnosis: Insomnia, unspec ified Last Documented On 4 11:59AM By AYDE RASCON [facility] ; [facility] Sertraline HCl 100 MG Oral Tablet [facility] r: [facility] Diagnosis: Last Documented On 4 11:44AM By AYDE STUARTPMARY ; [facility] New / Renewed during this visit AYDE RASCON [facility]- on 06/28/2023 Sertraline HCl 100 MG Oral Tablet Provider: AYDE RASCON [facility] 90 day supply: 180 tablet, 0 refills Diagnosis: Take 2 tabs PO daily (200mg) dose Pharmacy: [facility] - [address] [facility], [id number] - Last Documented On 4 12:06PM By AYDE RASCON [facility] ; [facility] Wellbutrin XL 300 MG Oral Tablet Extended Release 24 Hour Provider: AYDE RASCON [facility] 30 day supply: 30 tablet, 1 refills Diagnosis: Depression, unspecified One tablet daily--dose increase Pharmacy: [facility]) - [address] [facility], [id number] - Last Documented On 4 12:06PM By AYDE RASCON [facility] ; [facility] hydrOXYzine Pamoate 25 MG Oral Capsule Provider: AYDE RASCON [facility] 30 day supply: 45 capsule, 0 refills Diagnosis: Panic disorder [episodic paroxysmal anxiety] 1 capsule PO TID PRN anxiety Pharmacy: [facility]) - [address] [facility], [id number] - Last Documented On 4 12:06PM By AYDE RASCON [facility] ; [facility] QUEtiapine Fumarate 150 MG Oral Tablet Provider: AYDE RASCON [facility] 30 day supply: 30 tablet, 1 refills Diagnosis: Insomnia, unspecified One tablet daily--dose increase Pharmacy: [facility]) - [address] [facility], [id number] - Last Documented On 4 12:06PM By AYDE RASCON [facility] ; [facility] Current Medications (continue as prescribed) Albuterol Sulfate HFA 108 (9 0 Base) MCG/ACT Inhalation Aerosol Solution 06/02/2023 Provider: CHARLIE CASTELLANO PA-C Diagnosis: INHALE 2 PUFFS BY MOUTH EVERY 4 HOURS NEEDED Last Documented On 3 2:42PM By Earlene Castellano PA-C ; [facility] Advair Diskus 250-50 MCG/ACT Inhalation Aerosol Powder Breath Activated 06/22/2022 Provider: EARLENE Luque Diagnosis: Mild intermitten t asthma with (acute) exacerbation INHALE 1 PUFF BY MOUTH TWICE DAILY. RINSE MOUTH AFTER USE Last Documented On 3 8:11AM By Earlene Castellano PA-C ; [facility] Medications Administered Includes: Administered Medications [...] where while at work (started working at [employer]). Overwhelming when interacting with a bunch of [...] He continues going to anger management at [facility] which he finds helpful. He also [...] Grandmother Ramya when he was age 16. Cultural/Sabianist Influences: Denies Past psych DX: LYNDSEY, MDD, Bipolar, PTSD Psych HX: Inpatient HX for mental health: Denies Previous PHP/IOP: Denies ER visits HX for mental health: [facility] ER 01/2023 anxiety Rehab HX: Denies Outpatient Psychiatrist/PMHNP HX: Dr. Cortes in the past Counseling HX: Yudith Pierre in the past but not currently. Is in anger management at [facility] in [place] and parenting classes currently. Previous psych meds: [...] an addict and in and out of assisted. Father when he was age 13. His father had just gotten out of fpc but was still using drugs. Father said [...] Living Arrangements: Lives with Friend Chance in [place] and his 4-year-old daughter Marital status: Single. Children: Daughter Shayy (04/21/21) Education HX: 11th grade Occupation: Working at [employer] in [place] Hx: Denies Access to Weapons: Denies Legal [...] virtual visit obtained when scheduled. 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 11/18/2022 Last Documented On 4 11:28AM ; [facility] Not recovering from substance abuse 11/04 Last Documented On 4 11:28AM ; [facility] Tobacco non-user 10/25/2022 Last Documented On 4 11:28AM ; [facility] Using marijuana 02/22/2022 Last Documented On 4 11:28AM ; [facility] Alcohol 07/20/2021 Last Documented On 4 11:28AM ; [facility] Amount of alcohol per day: N ot everyday but about 5 to 7 shots when i drink 07/20/2021 Last Documented On 4 11:28AM ; [facility] Drug use 07/20/2021 Last Documented On 4 11:28AM ; [facility] Frequency: Most days 07/20/2021 Last Documented On 4 11:28AM ; [facility] Type: Marijuana 07/20/2021 Last Documented On 4 11:28AM ; [facility] Smoking Status Unknown Procedures and Surgical History Includes: Procedures from this encounter Procedures Code Diagnosis Performing Provider Service L ocation Service Date regular exercise Last Documented On 4 11:40AM ; [facility] standardized depression screening: negative for symptoms 3351F Last Documented On 4 11:40AM ; [facility] review of medications documented 1160F Last Documented On 4 11:40AM ; [facility] assessment of suicide risk performed Last Documented On 4 11:28AM ; [facility] screening for adult depression: impressi on and score five Last Documented On 4 11:28AM ; [facility] standardized depression screening: posit kathy for symptoms Last Documented On 4 11:28AM ; [facility] Clinical summary provided to patient Last Documented On 4 11:40AM ; [facility] Medical History Includes: Medical History addressed during this encounter Description Last Updated No Vaccine history 01/04/2023 Last Documented On 4 11:28AM ; [facility] Not taking OTC medications 10/25/2022 Last Documented On 4 11:28AM ; [facility] Family History Includes: Family History addressed during this encounter Description Last Updated Maternal grandfather's history of alcoho lism 04/06/2023 Last Documented On 4 11:28AM ; [facility] Maternal grandmother's history of depres nathan 04/06/2023 Last Documented On 4 11:28AM ; [facility] Maternal grandfather's history of alcoho l use 04/06/2023 Last Documented On 4 11:28AM ; [facility] Paternal grandfather's history of substa nce use disorders 04/06/2023 Last Documented On 4 11:28AM ; [facility] Paternal history of substance use disord ers 04/06/2023 Last Documented On 4 11:28AM ; [facility] Maternal history of substance use disord ers 04/06/2023 Last Documented On 4 11:28AM ; [facility] Family history of stroke/paralysis 07/20 Last Documented On 4 11:28AM ; [facility] Maternal history of Arthritis 07/20/2021 Last Documented On 4 11:28AM ; [facility] Review of Systems Includes: Review of Systems [...] Time Check-Out Time Diagnosis TELEHEALTH AYDE RASCON [facility] 06/28/19 24 11:26AM 12:10PM Generalized Anxiety Disorder,Depre ssion,Insomnia Due To Stress,Post-tr aumatic Stress Disorder,Panic Disorder,Mood Disorders, Nos Insurance Includes: Active Insurance Policies Plan Name Member ID Group # Subscriber Relationship Effect kathy Dates 1 - [facility] [id number] PATRICIA MORALES JR Self Clinical Notes Includes: Clinical Notes from this encounter * Progress note Date Encounter Last Documented by 06/28/2023 TELEHEALTH Last documented on 06/28/2023; 12:07 PM, AYDE RASCON PMHNP- CLAY PREPARATION SUPERVISOR-; [facility] Active Problems & Conditions - [...] where while at work (started working at [employer]). Overwhelming when interacting with a bunch of [...] He continues going to anger management at [facility] which he finds helpful. He also [...] Grandmother Ramya when he was age 16. Cultural/Sabianist Influences: Denies Past psych DX: LYNDSEY, MDD, Bipolar, PTSD Psych HX: Inpatient HX for mental health: Denies Previous PHP/IOP: Denies ER visits HX for mental health: [facility] ER 01/2023 anxiety Rehab HX: Denies Outpatient Psychiatrist/PMHNP HX: Dr. Cortes in the past Counseling HX: Yudith Pierre in the past but not currently. Is in anger management at [facility] in [place] and parenting classes currently. Previous psych meds: [...] an addict and in and out of assisted. Father when he was age 13. His father had just gotten out of fpc but was still using drugs. Father said [...] Living Arrangements: Lives with Friend Chance in [place] and his 4-year-old daughter Marital status: Single. Children: Daughter Shayy (04/21/21) Education HX: 11th grade Occupation: Working at [employer] in [place] Hx: Denies Access to Weapons: Denies Legal [...] virtual visit obtained when scheduled. Originating site: [facility] Distant Site: Patient's Home Visit included: Ayde Rascon CLAY PREPARATION SUPERVISOR-BC, PMHNP-BC and patient Vital signs self-reported by [...] anxiety Discussed ongoing cannabis use and explained intermediate effect that psychoactive drugs have on brain [...]
--- OUTSIDE RECORDS SUMMARY | 2024-06-29 05:16 | XMS_ITS | Clinical Summary ---
Author Organization [facility] Address [address] [place] [address] Phone Care Team Providers Care Ordnance Engineering Technician Name Role Phone VIRGINIE CARDONA MD Primary [...] Active Last Documented On 04/27/2022 8:42PM ; [facility] Note: Unchanged Generalized Anxiety Disorder 04/27/2022 EARLENE CASTELLANO PA-C Active Last Documented On 04/27/2022 8:42PM ; [facility] Note: Unchanged Plan of Treatment Increase zoloft to 100mg daily. Monitor for side effects. Will also refer to psych as patient has extensive medication history. Continue current asthma regimen. Adding zpak today due to wheezing. RTC 6 months, sooner if needed. - Last Documented On 01/05/2023 8:42AM ; [facility] Pending Tests Order Diagnosis Results Due Ordering [facility] THYROID PANEL (TSH & FREE T4) 11/13/22 EARLENE Luque Last Documented On 4 3:18PM ; [facility] Lab VITAMIN B12 11/13/22 EARLENE JI PA-C Last Documented On 4 3:18PM ; [facility] Lab LIPID PANEL 11/13/22 EARLENE JI PA-C Last Documented On 4 3:18PM ; [facility] Lab CMP 11/13/22 EARLENE LU PA-C Last Documented On 4 3:18PM ; [facility] Lab CBC WITH DIFF 11/13/22 EARLENE DODGE PA-C Last Documented On 4 3:18PM ; [facility] Referrals To Diagnosis Psychiatrist FARTUN GIL [facility]- Generalized anxiety disorder Note: panic attacks triggeri ng asthma attacks Last Documented On 3 4:15PM ; [facility] Instructions to patient Intervention and counseling on cessation of tobacco use Last Documented On 3 2:31PM ; [facility] Assessments Includes: Assessments from this encounter Findings - [J45.21 - Mild intermittent asthma with (acute) exacerbation] Mild intermittent asthma with exacerbation - Last Documented On 01/05/2023 8:42AM ; [facility] - [F41.1 - Generalized anxiety disorder] Generalized anxiety disorder - Last Documented On 01/05/2023 8:42AM ; [facility] Instructions Includes: Instructions from this encounter Instructions to patient Intervention and counseling on cessation of tobacco use Last Documented On 3 2:31PM ; [facility] Medical Equipment - Implanted Devices Includes: Current Devices No Medical Equipment Recorded Medications Includes: Medications discussed during this encounter and other current Medications New / Renewed during this visit EARLENE CASTELLANO PA-C on 01/04/2023 Sertraline HCl 100 MG Oral Tablet Provider: EARLENE Luque 30 day supply: 30 tablet, 0 refills Diagnosis: Generalized anxiety disorder One tablet daily Pharmacy: [address], [id number] - Last Documented On 3 8:03AM By Earlene Castellano PA-C ; [facility] Azithromycin 250 MG Oral Tablet Provider: EARLENE CASTELLANO PA-C 5 day supply: 6 tablet, 0 refills Diagnosis: Mild intermittent asthma with (acute) exacerbation take 2 tablets on day 1, the n 1 tablet on days 2-5 Pharmacy: [address], [id number] - Last Documented On 04/05/2023 2:52PM By DANIEL BOWENS ; [facility] Current Medications (continue as prescribed) Albuterol Sulfate HFA 108 (9 0 Base) MCG/ACT Inhalation Aerosol Solution 06/02/2023 Provider: CHARLIE CASTELLANO PA-C Diagnosis: INHALE 2 PUFFS BY MOUTH EVERY 4 HOURS NEEDED Last Documented On 3 2:42PM By Earlene Castellano PA-C ; [facility] Advair Diskus 250-50 MCG/ACT Inhalation Aerosol Powder Breath Activated 06/22/2022 Provider: EARLENE Luque Diagnosis: Mild intermitten t asthma with (acute) exacerbation INHALE 1 PUFF BY MOUTH TWICE DAILY. RINSE MOUTH AFTER USE Last Documented On 3 8:11AM By Earlene Castellano PA-C ; [facility] Past Medications on file Sertraline HCl 100 MG Oral Tablet 06/28/2023 - 09/26/2023 Provider: FARTUN VIDES [facility]- Diagnosis: Take 2 tabs PO daily (200mg) dose Last Documented On 4 12:06PM By FARTUN [facility] ; [facility] Wellbutrin XL 300 MG Oral Tablet Extended Release 24 Hour 06/28/2023 - 08/27/2023 Provider: FARTUN GIL [facility] Diagnosis: Depression, unspecified One tablet daily--dose increase Last Documented On 4 12:06PM By F[facility]UN [facility] ; [facility] hydrOXYzine Pamoate 25 MG Oral Capsule 06/28/2023 - 07/28/2023 Provider: FARTUN GIL [facility] Diagnosis: Panic disorder [episodic paroxysmal anxiety] 1 capsule PO TID PRN anxiety Last Documented On 4 12:06PM By FARTUN [facility]IL [facility] ; [facility] QUEtiapine Fumarate 150 MG Oral Tablet 06/28/2023 - 08/27/2023 Provider: FARTUN GIL [facility] Diagnosis: Insomnia, unspec ified One tablet daily--dose increase Last Documented On 4 12:06PM By FARTUN SUN ; [facility] Medications Administered Includes: Administered [...] 99 Last Documented: On 01/04/2023 2:30PM ; [facility] Results Includes: Results discussed [...] 10/25/2022 Last Documented On 3 2:20PM ; [facility] Using marijuana 02/22/2022 Last Documented On 3 2:20PM ; [facility] [PHQ-2] Patient Health Questionnaire 2 i tem total score: 1 (Scale: 0-6) 07/20/2021 Last Documented On 3 2:20PM ; [facility] Alcohol 07/20/2021 Last Documented On 3 2:20PM ; [facility] Drug use 07/20/2021 Last Documented On 3 2:20PM ; [facility] Type: Marijuana 07/20/2021 Last Documented On 3 2:20PM ; [facility] Smoking Status Unknown Procedures and Surgical History Includes: Procedures from this encounter Procedures Code Diagnosis Performing Provider Service L ocation Service Date intervention and counseling on cessation of tobacco use 4000F Last Documented On 3 2:31PM ; [facility] use of tobacco assessment performed 1000F Last Documented On 3 2:31PM ; [facility] review of medications documented 1160F Last Documented On 3 2:31PM ; [facility] Medical History Includes: Medical History addressed during this encounter Description Last Updated No Vaccine history 01/04/2023 Last Documented On 3 8:42AM ; [facility] Exercise 07/20/2021 Last Documented On 3 2:20PM ; [facility] Family History Includes: Family History addressed during this encounter Description Last Updated Family history of stroke/paralysis 07/20 Last Documented On 3 2:20PM ; [facility] Maternal history of Arthritis 07/20/2021 Last Documented On 3 2:20PM ; [facility] Review of Systems Includes: Review [...] Time Diagnosis PROBLEM VISIT EARLENE CASTELLANO PA-C [facility] 01[facility] 23 2:00PM 2:51PM Generalized Anxiety Disorder,Asthma Mild Intermittent with Exacerbation Insurance Includes: Active Insurance Policies Plan Name Member ID Group # Subscriber Relationship Effect kathy Dates 1 - [facility] [id number] PATRICIA MORALES JR Self Clinical Notes Includes: Clinical Notes from this encounter * Progress note Date Encounter Last Documented by 01/04/2023 PROBLEM VISIT Last documented on 01/05/2023; 8:42 AM, EARLENE CASTELLANO PA-C; [facility] Active Problems & Conditions [...]
--- OUTSIDE RECORDS SUMMARY | 2024-06-29 05:16 | XMS_ITS | Clinical Summary ---
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 would like to discuss switching medication Problems Includes: Problems addressed during this encounter and other active Problems Current Visit Onset Date Resolved Date Provider Conditio n Status Generalized Anxiety Disorder 04/27/2022 EARLENE CASTELLANO PA-C Active Last Documented On 04/27/2022 8:42PM ; [facility] Note: Unchanged Past Visits Onset Date Resolved Date Provider Condition Status Asthma Mild Intermittent with Exacerbation 04/27/2022 EARLENE CASTELLANO PA-C Active Last Documented On 04/27/2022 8:42PM ; [facility] Note: Unchanged Plan of Treatment - Return to the clinic if condition worsens or new symptoms arise - Last Documented On 05/23/2023 9:28AM ; [facility] - Follow-up visit in 1 month - Last Documented On 05/23/2023 9:28AM ; [facility] Assessments Includes: Assessments from this encounter Findings - [F39 - Unspecified mood [affective] disorder] Mood disorders, NOS --possible dx, will continue to monitor - Last Documented On 05/23/2023 9:28AM ; [facility] - [F32.A - Depression, unspecified] Depression - Last Documented On 05/23/2023 9:28AM ; [facility] - [G47.00 - Insomnia, unspecified] Insomnia due to stress - Last Documented On 05/23/2023 9:28AM ; [facility] - [F41.1 - Generalized anxiety disorder] Generalized anxiety disorder - Last Documented On 05/23/2023 9:28AM ; [facility] - [F41.0 - Panic disorder [episodic paroxysmal anxiety]] Panic disorder - Last Documented On 05/23/2023 9:28AM ; [facility] - [F43.10 - Post-traumatic stress disorder, unspecified] Post-traumatic stress disorder - Last Documented On 05/23/2023 9:28AM ; [facility] Medical Equipment - Implanted Devices Includes: Current Devices No Medical Equipment Recorded Medications Includes: Medications discussed during this encounter and other current Medications Discontinued / Stopped on this date AYDE RASCON [facility] on 04/05/2023 QUEtiapine Fumarate ER 50 MG Oral Tablet Extended Release 24 Hour Provider: AYDE RASCON [facility]- Diagnosis: Generalized anxi ety disorder Last Documented On 3 9:17AM By AYDE RASCON [facility] ; [facility] Sertraline HCl 100 MG Oral Tablet Provider: AYDE RASCON [facility]- Diagnosis: Post-traumatic s tress disorder, unspecified Last Documented On 3 9:17AM By AYDE RASCON [facility] ; [facility] New / Renewed during this visit AYDE RASCON [facility]- on 05/23/2023 QUEtiapine Fumarate 100 MG Oral Tablet Provider: AYDE RASCON [facility]- 30 day supply: 30 tablet, 1 refills Diagnosis: Insomnia, unspecified One tablet daily---dose increase Pharmacy: [facility] [id number] [facility], [address] - Last Documented On 06/01/2023 2:06PM By VICENTE BOWENS ; [facility] Wellbutrin XL 150 MG Oral Tablet Extended Release 24 Hour Provider: AYDE RASCON [facility]- 30 day supply: 30 tablet, 1 refills Diagnosis: Depression, unspecified One tablet daily Pharmacy: [facility] [facility], [address] - Last Documented On 06/21/2023 10:01AM By VICENTE BOWENS ; [facility] Current Medications (continue as prescribed) Albuterol Sulfate HFA 108 (9 0 Base) MCG/ACT Inhalation Aerosol Solution 06/02/2023 Provider: CHARLIE CASTELLANO PA-C Diagnosis: INHALE 2 PUFFS BY MOUTH EVERY 4 HOURS NEEDED Last Documented On 3 2:42PM By Earlene Castellano PA-C ; [facility] Advair Diskus 250-50 MCG/ACT Inhalation Aerosol Powder Breath Activated 06/22/2022 Provider: EARLENE Luque Diagnosis: Mild intermitten t asthma with (acute) exacerbation INHALE 1 PUFF BY MOUTH TWICE DAILY. RINSE MOUTH AFTER USE Last Documented On 3 8:11AM By Earlene Castellano PA-C ; [facility] Past Medications on file Sertraline HCl 100 MG Oral Tablet 06/28/2023 - 09/26/2023 Provider: AYDE VIDES [facility]- Diagnosis: Take 2 tabs PO daily (200mg) dose Last Documented On 4 12:06PM By AYDE RASCON [facility] ; [facility] Wellbutrin XL 300 MG Oral Tablet Extended Release 24 Hour 06/28/2023 - 08/27/2023 Provider: AYDE RASCON [facility] Diagnosis: Depression, unspecified One tablet daily--dose increase Last Documented On 4 12:06PM By AYDE RASCON [facility] ; [facility] hydrOXYzine Pamoate 25 MG Oral Capsule 06/28/2023 - 07/28/2023 Provider: AYDE RASCON [facility] Diagnosis: Panic disorder [episodic paroxysmal anxiety] 1 capsule PO TID PRN anxiety Last Documented On 4 12:06PM By AYDE RASCON [facility] ; [facility] QUEtiapine Fumarate 150 MG Oral Tablet 06/28/2023 - 08/27/2023 Provider: AYDE RASCON [facility] Diagnosis: Insomnia, unspec ified One tablet daily--dose increase Last Documented On 4 12:06PM By AYDE RASCON [facility] ; [facility] Medications Administered Includes: [...] He continues going to anger management at [facility] which he finds helpful. He also [...] Grandmother Ramya when he was age 16. Cultural/Judaism Influences: Denies Past psych DX: LYNDSEY, MDD, Bipolar, PTSD Psych HX: Inpatient HX for mental health: Denies Previous PHP/IOP: Denies ER visits HX for mental health: [facility] ER 01/2023 anxiety Rehab HX: Denies Outpatient Psychiatrist/PMHNP HX: Dr. Cortes in the past Counseling HX: Yudith Pierre in the past but not currently. Is in anger management at [facility] in [place] and parenting classes currently. Previous psych meds: [...] Living Arrangements: Lives with Friend Chance in [place] and his 4-year-old daughter Marital status: Single. [...] virtual visit obtained when scheduled. 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 11/18/2022 Last Documented On 3 9:03AM ; [facility] Not recovering from substance abuse 11/04 Last Documented On 3 9:03AM ; [facility] Tobacco non-user 10/25/2022 Last Documented On 3 9:03AM ; [facility] Using marijuana 02/22/2022 Last Documented On 3 9:03AM ; [facility] Alcohol 07/20/2021 Last Documented On 3 9:03AM ; [facility] Amount of alcohol per day: N ot everyday but about 5 to 7 shots when i drink 07/20/2021 Last Documented On 3 9:03AM ; [facility] Drug use 07/20/2021 Last Documented On 3 9:03AM ; [facility] Frequency: Most days 07/20/2021 Last Documented On 3 9:03AM ; [facility] Type: Marijuana 07/20/2021 Last Documented On 3 9:03AM ; [facility] Smoking Status Unknown Procedures and Surgical History Includes: Procedures from this encounter Procedures Code Diagnosis Performing Provider Service L ocation Service Date regular exercise Last Documented On 3 9:03AM ; [facility] standardized depression screening: negative for symptoms 3351F Last Documented On 3 8:54AM ; [facility] review of medications documented 1160F Last Documented On 3 9:03AM ; [facility] assessment of suicide risk performed Last Documented On 3 8:54AM ; [facility] screening for adult depression: impressi on and score five Last Documented On 3 8:54AM ; [facility] Clinical summary provided to patient Last Documented On 3 9:03AM ; [facility] Medical History Includes: Medical History addressed during this encounter Description Last Updated No Vaccine history 01/04/2023 Last Documented On 3 9:03AM ; [facility] Not taking OTC medications 10/25/2022 Last Documented On 3 9:03AM ; [facility] Family History Includes: Family History addressed during this encounter Description Last Updated Maternal grandfather's history of alcoho lism 04/06/2023 Last Documented On 3 9:03AM ; [facility] Maternal grandmother's history of depres nathan 04/06/2023 Last Documented On 3 9:03AM ; [facility] Maternal grandfather's history of alcoho l use 04/06/2023 Last Documented On 3 9:03AM ; [facility] Paternal grandfather's history of substa nce use disorders 04/06/2023 Last Documented On 3 9:03AM ; [facility] Paternal history of substance use disord ers 04/06/2023 Last Documented On 3 9:03AM ; [facility] Maternal history of substance use disord ers 04/06/2023 Last Documented On 3 9:03AM ; [facility] Family history of stroke/paralysis 07/20 Last Documented On 3 9:03AM ; [facility] Maternal history of Arthritis 07/20/2021 Last Documented On 3 9:03AM ; [facility] Review of Systems Includes: Review [...] Check-Out Time Diagnosis [employer]LE[employer] AYDE RASCON PMHNP-BC [facility] 05/23/20 23 8:53AM 9:22AM Generalized Anxiety Disorder,Depre ssion,Insomnia Due To Stress,Post-tr aumatic Stress Disorder,Panic Disorder,Mood Disorders, Nos Insurance Includes: Active Insurance Policies Plan Name Member ID Group # Subscriber Relationship Effect kathy Dates 1 - [facility] [id number] PATRICIA MORALES JR Self Clinical Notes Includes: Clinical Notes from this encounter * Progress note Date Encounter Last Documented by 05/23/2023 TELEHEALTH Last documented on 05/23/2023; 9:28 AM, AYDE RASCON PMHNP-[facility]; [facility] Active Problems & [...] He continues going to anger management at [facility] which he finds helpful. He also [...] Grandmother Ramya when he was age 16. Cultural/Judaism Influences: Denies Past psych DX: LYNDSEY, MDD, Bipolar, PTSD Psych HX: Inpatient HX for mental health: Denies Previous PHP/IOP: Denies ER visits HX for mental health: [facility] ER 01/2023 anxiety Rehab HX: Denies Outpatient Psychiatrist/PMHNP HX: Dr. Cortes in the past Counseling HX: Yudith Pierre in the past but not currently. Is in anger management at [facility] in [place] and parenting classes currently. Previous psych meds: [...] Living Arrangements: Lives with Friend Chance in [place] and his 4-year-old daughter Marital status: Single. [...] virtual visit obtained when scheduled. Originating site: [facility] Site: Patient's Home Visit included: Ayde Rascon [facility], PMHNP-BC and patient Vital signs self-reported by [...] daily Discussed ongoing cannabis use and explained intermediate [...]
--- OUTSIDE RECORDS SUMMARY | 2024-06-29 05:16 | XMS_ITS | Clinical Summary ---
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 Name Role Phone VIRGINIE CARDONA MD Primary [...] Active Last Documented On 04/27/2022 8:42PM ; [facility] Note: Unchanged Past Visits Onset Date Resolved Date Provider Condition Status Asthma Mild Intermittent with Exacerbation 04/27/2022 EARLENE CASTELLANO PA-C Active Last Documented On 04/27/2022 8:42PM ; [facility] Note: Unchanged Plan of Treatment - Return to the clinic if condition worsens or new symptoms arise - Last Documented On 04/06/2023 9:35AM ; [facility] - Follow-up visit in 1 month - Last Documented On 04/06/2023 9:35AM ; [facility] Collective Time Spent caring for patient today: I personally spent a total of 70 minutes in medical discussion, documentation, and/or chart review as described in this note. - Last Documented On 04/06/2023 9:35AM ; [facility] Pending Tests Order Diagnosis Results Due Ordering Mc gutierrez In office procedures - *Clia Waived Labs Urine Drug Screen Encounter for therapeutic drug level monitoring 04/19/23 FARTUN GIL PMHNP-BC SLAB TRIPPER-BC Last Documented On 9:35AM ; [facility] Assessments Includes: Assessments from this encounter Findings - [F39 - Unspecified mood [affective] disorder] Mood disorders, NOS --possible dx, will continue to monitor - Last Documented On 04/06/2023 9:35AM ; [facility] - [F32.A - Depression, unspecified] Depression - Last Documented On 04/06/2023 9:35AM ; [facility] - [G47.00 - Insomnia, unspecified] Insomnia due to stress - Last Documented On 04/06/2023 9:35AM ; [facility] - [F41.1 - Generalized anxiety disorder] Generalized anxiety disorder - Last Documented On 04/06/2023 9:35AM ; [facility] - [F41.0 - Panic disorder [episodic paroxysmal anxiety]] Panic disorder - Last Documented On 04/06/2023 9:35AM ; [facility] - [F43.10 - Post-traumatic stress disorder, unspecified] Post-traumatic stress disorder - Last Documented On 04/06/2023 9:35AM ; [facility] Medical Equipment - Implanted Devices Includes: Current Devices No Medical Equipment Recorded Medications Includes: Medications discussed during this encounter and other current Medications Discontinued / Stopped on this date EARLENE CASTELLANO PA-C on 01/05/2023 Sertraline HCl 100 MG Oral Tablet Provider: EARLENE Luque Diagnosis: Generalized anxi ety disorder Last Documented On 3 3:48PM By FARTUN ARIASROWENA ; [facility] Azithromycin 250 MG Oral Tablet Provider: EARLENE CASTELLANO PA-C Diagnosis: Mild intermitten t asthma with (acute) exacerbation Last Documented On 04/05/2023 2:52PM By DANIEL BOWENS ; [facility] Sertraline HCl 50 MG Oral Tablet Provider: EARLENE Luque Diagnosis: Generalized anxi ety disorder Last Documented On 3 2:56PM By FARTUN GUARDADO ; [facility] New / Renewed during this visit FARTUN GIL [facility] on 04/05/2023 QUEtiapine Fumarate ER 50 MG Oral Tablet Extended Release 24 Hour Provider: FARTUN LAZAROROWENA [facility] 30 day supply: 30 tablet, 1 refills Diagnosis: Generalized anxiety disorder One tablet at bed time Pharmacy: [facility] [place] [facility] - [address] , [facility], [phone] - Last Documented On 3 9:17AM By FARTUN ARIAS-ROWENA ; [facility] Sertraline HCl 100 MG Oral Tablet Provider: FARTUN KAT [facility]- 30 day supply: 60 tablet, 1 refills Diagnosis: Post-traumatic stress disorder, unspecified Take 2 tabs PO once daily (2 00mg dose)---dose increase Pharmacy: [facility] [place] - [address] , [facility], [address] - Last Documented On 3 9:17AM By FARTUN GUARDADO ; [facility] Current Medications (continue as prescribed) Albuterol Sulfate HFA 108 (9 0 Base) MCG/ACT Inhalation Aerosol Solution 06/02/2023 Provider: CHARLIE CASTELLANO PA-C Diagnosis: INHALE 2 PUFFS BY MOUTH EVERY 4 HOURS NEEDED Last Documented On 3 2:42PM By Earlene Castellano PA-C ; [facility] Advair Diskus 250-50 MCG/ACT Inhalation Aerosol Powder Breath Activated 06/22/2022 Provider: EARLENE Luque Diagnosis: Mild intermitten t asthma with (acute) exacerbation INHALE 1 PUFF BY MOUTH TWICE DAILY. RINSE MOUTH AFTER USE Last Documented On 3 8:11AM By Earlene Castellano PA-C ; [facility] Past Medications on file Sertraline HCl 100 MG Oral Tablet 06/28/2023 - 09/26/2023 Provider: FARTUN VIDES [facility]- [facility]- Diagnosis: Take 2 tabs PO daily (200mg) dose Last Documented On 4 12:06PM By FARTUN ARIAS-ROWENA ; [facility] Wellbutrin XL 300 MG Oral Tablet Extended Release 24 Hour 06/28/2023 - 08/27/2023 Provider: FARTUN KAT [facility]-BC Diagnosis: Depression, unspecified One tablet daily--dose increase Last Documented On 4 12:06PM By FARTUN GIL [facility] ; [facility] hydrOXYzine Pamoate 25 MG Oral Capsule 06/28/2023 - 07/28/2023 Provider: FARTUN GIL [facility] Diagnosis: Panic disorder [episodic paroxysmal anxiety] 1 capsule PO TID PRN anxiety Last Documented On 4 12:06PM By FARTUN JEFFERY [facility] ; [facility] QUEtiapine Fumarate 150 MG Oral Tablet 06/28/2023 - 08/27/2023 Provider: FARTUN GIL [facility] Diagnosis: Insomnia, unspec ified One tablet daily--dose increase Last Documented On 4 12:06PM By FARTUN JEFFERY [facility] ; [facility] Medications Administered Includes: Administered Medications [...] 100 Last Documented: On 04/05/2023 2:55PM ; [facility] Results Includes: Results discussed during this encounter Drugs of abuse screen [facility] Ordered by FARTUN GIL [facility] on 04/05/2023 Collected: Reported: 04/05/2023 15:11 Last Documented On 3 3:12PM ; [facility] Reviewed on 04/05/2023; All test results are final unless otherwise noted. Internal QC Acceptable YES N (Normal) Last Documented On 3 3:12PM ; [facility] Lot # & Exp. Date [id number] 04-27-24 N (Normal) Last Documented On 3 3:12PM ; [facility] Amphetamines NEGATIVE (NEG) N (Normal) Last Documented On 3 3:12PM ; [facility] Barbiturates NEGATIVE (neg) N (Normal) Last Documented On 3 3:12PM ; [facility] Benzodiazepines NEGATIVE (neg) N (Normal) Last Documented On 3 3:12PM ; [facility] Cocaine NEGATIVE (neg) N (Normal) Last Documented On 3 3:12PM ; [facility] Ecstasy NEGATIVE (Neg) N (Normal) Last Documented On 3 3:12PM ; [facility] Methamphetamines NEGATIVE (neg) N (Normal) Last Documented On 3 3:12PM ; [facility] Methadone NEGATIVE (Neg) N (Normal) Last Documented On 3 3:12PM ; [facility] Morphine NEGATIVE (Neg) N (Normal) Last Documented On 3 3:12PM ; [facility] Oxycodone NEGATIVE (Neg) N (Normal) Last Documented On 3 3:12PM ; [facility] Phencyclidine NEGATIVE (NEG) N (Normal) Last Documented On 3 3:12PM ; [facility] TCA/Tricyclic Antidepressants NEGATIVE (neg) N (Normal) Last Documented On 3 3:12PM ; [facility] Cannabis POSITIVE (neg) A (Abnormal) Last Documented On 3 3:12PM ; [facility] History of Present Illness Includes: History [...] a tissue to use 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 Father when he was age 13. His father had just gotten out of longterm but was still using drugs. Father said [...] Grandmother Ramya when he was age 16. Cultural/Pentecostalism Influences: Denies Past psych DX: LYNDSEY, MDD, Bipolar, PTSD Psych HX: Inpatient HX for mental health: Denies Previous PHP/IOP: Denies ER visits HX for mental health: [facility] ER 01/2023 anxiety Rehab HX: Denies Outpatient Psychiatrist/PMHNP HX: Dr. Cortes in the past Counseling HX: Yudith Pierre in the past but not currently. Is in anger management at [facility] in [place] and parenting classes currently. Previous psych meds: [...] an addict and in and out of long-term. Father when he was age 13. His father had just gotten out of longterm but was still using drugs. Father said [...] Living Arrangements: Lives with Friend Chance in [place] and his 4-year-old daughter Marital status: Single. [...] 11/18/2022 Last Documented On 3 2:47PM ; [facility] Not recovering from substance abuse 11/04 Last Documented On 3 2:47PM ; [facility] Tobacco non-user 10/25/2022 Last Documented On 3 2:47PM ; [facility] Using marijuana 02/22/2022 Last Documented On 3 2:47PM ; [facility] Alcohol 07/20/2021 Last Documented On 3 2:47PM ; [facility] Drug use 07/20/2021 Last Documented On 3 2:47PM ; [facility] Frequency: Most days 07/20/2021 Last Documented On 3 2:47PM ; [facility] Type: Marijuana 07/20/2021 Last Documented On 3 2:47PM ; [facility] Smoking Status Unknown Procedures and Surgical History Includes: Procedures from this encounter Procedures Code Diagnosis Performing Provider Service L ocation Service Date regular exercise Last Documented On 3 2:57PM ; [facility] review of medications documented 1160F Last Documented On 3 2:55PM ; [facility] Clinical summary provided to patient Last Documented On 3 2:57PM ; [facility] Mood Disorder Questionnaire -NEGATIVE 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 Last Documented On 3 4:13PM ; [facility] Medical History Includes: Medical History addressed during this encounter Description Last Updated Not taking OTC medications 10/25/2022 Last Documented On 3 2:47PM ; [facility] Family History Includes: Family History addressed during this encounter Description Last Updated Maternal grandfather's history of alcoho lism 04/06/2023 Last Documented On 3 9:35AM ; [facility] Maternal grandmother's history of depres nathan 04/06/2023 Last Documented On 3 9:35AM ; [facility] Maternal grandfather's history of alcoho l use 04/06/2023 Last Documented On 3 9:35AM ; [facility] Paternal grandfather's history of substa nce use disorders 04/06/2023 Last Documented On 3 9:35AM ; [facility] Paternal history of substance use disord ers 04/06/2023 Last Documented On 3 9:35AM ; [facility] Maternal history of substance use disord ers 04/06/2023 Last Documented On 3 9:35AM ; [facility] Family history of stroke/paralysis 07/20 Last Documented On 3 2:47PM ; [facility] Maternal history of Arthritis 07/20/2021 Last Documented On 3 2:47PM ; [facility] Review of Systems Includes: Review of [...] EXAM 18 YEARS AND OLDER FARTUN GIL [facility] 04/05/20 23 2:35PM 3:56PM Generalized Anxiety Disorder,Depre ssion,Post-tra umatic Stress Disorder,Mood Disorders, Nos,Panic Disorder,Insom sheron Due To Stress Insurance Includes: Active Insurance Policies Plan Name Member ID Group # Subscriber Relationship Effect kathy Dates 1 - [facility] [id number] PATRICIA MORALES Self Clinical Notes Includes: Clinical Notes from this encounter * Progress note Date Encounter Last Documented by 04/05/2023 PSYCH NEW PATIENT EX AM 18 YEARS AND OLDER Last documented on 04/06/2023; 9:35 AM, FARTUN GIL [facility]; [facility] Active Problems & [...] a tissue to use 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 Father when he was age 13. His father had just gotten out of longterm but was still using drugs. Father said [...] Grandmother Ramya when he was age 16. Cultural/Pentecostalism Influences: Denies Past psych DX: LYNDSEY, MDD, Bipolar, PTSD Psych HX: Inpatient HX for mental health: Denies Previous PHP/IOP: Denies ER visits HX for mental health: [facility] ER 01/2023 anxiety Rehab HX: Denies Outpatient Psychiatrist/PMHNP HX: Dr. Cortes in the past Counseling HX: Yudith Pierre in the past but not currently. Is in anger management at [facility] in [place] and parenting classes currently. Previous psych meds: [...] an addict and in and out of long-term. Father when he was age 13. His father had just gotten out of longterm but was still using drugs. Father said [...] Living Arrangements: Lives with Friend Chance in [place] and his 4-year-old daughter Marital status: Single. [...] YES Normal Lot # & Exp. 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
--- OUTSIDE RECORDS SUMMARY | 2024-06-29 05:16 | XMS_ITS ---
Care Plan - [facility] Created on: June 29, 2024 PATRICIA MORALES JR : [id number] Sex: Male Author Organization [facility] Address [address] [place] [address] Phone Care Team Providers Care Professor Of Communication And Writing Name Role Phone VIRGINIE CARDONA MD Primary Care Provider
--- OUTSIDE RECORDS SUMMARY | 2024-06-29 05:16 | XMS_ITS ---
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 Financial Analyst Name Role Phone VIRGINIE CARDONA MD Primary Care Provider Problems Includes: Active, inactive, and resolved Problems All Visits Onset Date Resolved Date Provider Condition S tatus Asthma Mild Intermittent with Exacerbation 04/27/2022 EARLENE MIKE PA-C Active Last Documented On 04/27/2022 8:42PM ; [facility] Note: Unchanged Generalized Anxiety Disorder 04/27/2022 EARLENE BROWNINGC Active Last Documented On 04/27/2022 8:42PM ; [facility] Note: Unchanged Plan of Treatment Findings Encounter Date Ordered follow-up visit in 1 month TELE EALTH with FARTUN GIL PMHNP-BC CHEFS-BC 06/28/2023 Last Documented On 4 12:07PM ; [facility] Ordered return to the clinic if condition worsens or new symptoms arise TELEHEALTH with FARTUN GIL PMHNP-BC CHEFS-BC 06/28/2023 Last Documented On 4 12:07PM ; [facility] Ordered follow-up visit in 1 month TELE EALTH with FARTUN GIL PMHNP-BC CHEFS-BC 05/23/2023 Last Documented On 3 9:28AM ; [facility] Ordered return to the clinic if condition worsens or new symptoms arise TELEHEALTH with FARTUN GIL PMHNP-BC CHEFS-BC 05/23/2023 Last Documented On 3 9:28AM ; [facility] Ordered follow-up visit in 1 month PSYCH NEW PATIENT EXAM 18 YEARS AND OLDER with FARTUN GIL PMHNP-BC CHEFS-BC 04/05/2023 Last Documented On 3 9:35AM ; [facility] Ordered return to the clinic if condition worsens or new symptoms arise PSYCH NEW PATIENT EXAM 18 YEARS AND OLDER with FARTUN GIL PMHNP-BC CHEFS-BC 04/05/2023 Last Documented On 3 9:35AM ; [facility] Pt to use prescription as or dered. Purpose of and use of medication discussed. COVID SICK VISIT- ESTABLISHED PATIENT with MERCED COOPER CHEFS-C 10/25/2022 Last Documented On 3 7:18PM ; [facility] The options include close observation CO VID SICK VISIT- ESTABLISHED PATIENT with MERCED COOPER CHEFS-C 10/25/2022 Last Documented On 3 7:18PM ; [facility] Watch for signs/symptoms of infection, return to the clinic if seen COVID SICK VISIT- ESTABLISHED PATIENT with MERCED COOPER CHEFS-C 10/25/2022 Last Documented On 3 7:18PM ; [facility] Ordered follow-up visit in 1 -2 weeks with an office visit or sooner if symptoms persist or worsen COVID SICK VISIT- ESTABLISHED PATIENT with CARLOS A MANRIQUE CHEFS-BC 10/08/2022 Last Documented On 3 11:46AM ; [facility] Ordered patient to call if p roblem develops COVID SICK VISIT- ESTABLISHED PATIENT with CARLOS A MANRIQUE CHEFS-BC 10/08/2022 Last Documented On 3 11:46AM ; [facility] Ordered return to the clinic if condition worsens or new symptoms arise COVID SICK VISIT- ESTABLISHED PATIENT with CARLOS A MANRIQUE CHEFS-BC 10/08/2022 Last Documented On 3 11:46AM ; [facility] Pending Tests Order Diagnosis Results Due Ordering [facility] THYROID PANEL (TSH & FREE T4) 11/13/22 EARLENE Luque Last Documented On 4 3:18PM ; [facility] Lab VITAMIN B12 11/13/[address] V[address] PA-C Last Documented On 4 3:18PM ; [facility] Lab LIPID PANEL 11/13/22 EARLENE SHERMAN VELY PA-C Last Documented On 4 3:18PM ; [facility] Lab CMP 11/13/22 EARLENE AHMADI ALY PA-C Last Documented On 4 3:18PM ; [facility] Lab CBC WITH DIFF 11/13/22 EARLENE LUNAELY PA-C Last Documented On 4 3:18PM ; [facility] Referrals To Diagnosis Psychiatrist [facility] [place] depressive disorder, recurrent, mild Last Documented On 3 2:06PM ; [facility] Counselor DELICIA RAY SALVAGE ENGINEER Generalize tejinder anxiety disorder Last Documented On 2 2:28PM ; [facility] Psychiatrist FARTUN GIL PMHNP-BC CHEFS-BC Generalized anxiety disorder Note: panic attacks triggeri ng asthma attacks Last Documented On 3 4:15PM ; [facility] Instructions to patient Intervention and counseling on cessation of tobacco use Last Documented On 3 2:31PM ; [facility] Intervention and counseling on cessation of tobacco use Last Documented On 3 1:23PM ; [facility] Watch for signs/symptoms of infection, return to the clinic if seen Last Documented On 3 7:17PM ; [facility] Intervention and counseling on cessation of tobacco use Last Documented On 3 2:21PM ; [facility] Go to the emergency room if condition worsens Last Documented On 3 11:41AM ; [facility] Watch for signs/symptoms of infection Last Documented On 3 11:41AM ; [facility] Watch for signs/symptoms of infection, return to the clinic if seen Last Documented On 3 11:41AM ; [facility] Intervention and counseling on cessation of tobacco use Last Documented On 2 1:34PM ; [facility] Intervention and counseling on cessation of tobacco use Last Documented On 2 1:25PM ; [facility] Education and Decision Aids were provided during visit for: Patient education about anti biotics: need to finish even if feeling better Last Documented On 3 11:41AM ; [facility] Assessments Includes: Assessments for all patient encounters Findings Encounter Date [F39 - Unspecified mood [aff ective] disorder] mood disorders, NOS --possible dx, will continue to monitor TELEHEALTH with FARTUN Andrea ARCHERJEFFERY PMHNP-BC CHEFS-BC 06/28/2023 Last Documented On 4 12:07PM ; [facility] Depression TELEHEALTH with FARTUN Andrea [address] PMHNP-BC CHEFS-BC 06/28/2023 Last Documented On 4 12:07PM ; [facility] Generalized anxiety disorder TELEHEALTH with FARTUN A JEFFERY PMHNP-BC CHEFS-BC 06/28/2023 Last Documented On 4 12:07PM ; [facility] Insomnia due to stress TELEHEALTH with FARTUN Andrea JEFFERY PMHNP-BC CHEFS-BC 06/28/2023 Last Documented On 4 12:07PM ; [facility] Panic disorder TELEHEALTH with FARTUN Andrea [address] PMHNP-BC CHEFS-BC 06/28/2023 Last Documented On 4 12:07PM ; [facility] Post-traumatic stress disorder TELEHEALT H with FARTUN Andrea JEFFERY PMHNP-BC CHEFS-BC 06/28/2023 Last Documented On 4 12:07PM ; [facility] [F39 - Unspecified mood [aff ective] disorder] mood disorders, NOS --possible dx, will continue to monitor TELEHEALTH with FARTUN Andrea JEFFERY PMHNP-BC CHEFS-BC 05/23/2023 Last Documented On 3 9:28AM ; [facility] Depression TELEHEALTH with FARTUN Andrea [address] PMHNP-BC CHEFS-BC 05/23/2023 Last Documented On 3 9:28AM ; [facility] Generalized anxiety disorder TELEHEALTH with FARTUN A JEFFERY PMHNP-BC CHEFS-BC 05/23/2023 Last Documented On 3 9:28AM ; [facility] Insomnia due to stress TELEHEALTH with FARTUN GIL PMHNP-BC CHEFS-BC 05/23/2023 Last Documented On 3 9:28AM ; [facility] Panic disorder TELEHEALTH with FARTUN VIDES PMHNP-BC CHEFS- 05/23/2023 Last Documented On 3 9:28AM ; [facility] Post-traumatic stress disorder TELEHEALT H with FARTUN GIL PMHNP-BC [facility]- 05/23/2023 Last Documented On 3 9:28AM ; [facility] [F39 - Unspecified mood [aff ective] disorder] mood disorders, NOS --possible dx, will continue to monitor PSYCH NEW PATIENT EXAM 18 YEARS AND OLDER with FARTUN ARCHERGRAVE PMHNP-BC [facility]-BC 04/05/2023 Last Documented On 3 9:35AM ; [facility] Depression PSYCH NEW PATIENT EX AM 18 YEARS AND OLDER with FARTUN ARCHERGRAVE PMHNP-BC [facility]- 04/05/2023 Last Documented On 3 9:35AM ; [facility] Generalized anxiety disorder PSYCH NEW P ATIENT EXAM 18 YEARS AND OLDER with FARTUN ARCHERGRAVE PMHNP-BC [facility]-BC 04/05/2023 Last Documented On 3 9:35AM ; [facility] Insomnia due to stress PSYCH NEW PATIENT EXAM 18 YEARS AND OLDER with FARTUN Mendez JEFFERY PMHNP-BC [facility]- 04/05/2023 Last Documented On 3 9:35AM ; [facility] Panic disorder PSYCH NEW PATIENT EX AM 18 YEARS AND OLDER with FARTUN Mendez JEFFERY PMHNP-BC [facility]- 04/05/2023 Last Documented On 3 9:35AM ; [facility] Post-traumatic stress disorder PSYCH NEW PATIENT EXAM 18 YEARS AND OLDER with FARTUN Andrea JEFFERY PMHNP-BC [facility]-BC 04/05/2023 Last Documented On 3 9:35AM ; [facility] Generalized anxiety disorder PROBLEM VISIT with EARLENE MIKE PA-C 01/04/2023 Last Documented On 3 8:42AM ; [facility] Mild intermittent asthma wit h exacerbation PROBLEM VISIT with EARLENE MIKE PA-C 01/04/2023 Last Documented On 3 8:42AM ; [facility] Generalized anxiety disorder CHECK UP with SHAE MIKE PA-C 11/18/2022 Last Documented On 3 1:39PM ; [facility] Mild intermittent asthma wit h exacerbation CHECK UP with EARLENE MIKE PA-C 11/18/2022 Last Documented On 3 1:39PM ; [facility] [S01.81XA - Laceration witho ut foreign body of other part of head, initial encounter] laceration of head without foreign body WALK IN PATIENT - ESTABLISHED PT with MAYA JACOBS [facility]-BC 10/26/2022 Last Documented On 3 3:56PM ; [facility] [Viral intestinal infection, unspecified] gastroenteritis COVID SICK VISIT- ESTABLISHED PATIENT with MERCED COOPER CHEFS-C 10/25/2022 Last Documented On 3 7:18PM ; [facility] Generalized anxiety disorder CHECK UP with SHAE MIKE PA-C 10/14/2022 Last Documented On 3 4:25PM ; [facility] Mild intermittent asthma wit h exacerbation CHECK UP with EARLENE MIKE PA-C 10/14/2022 Last Documented On 3 4:25PM ; [facility] Bronchitis COVID SICK VISIT- ES TABLISHED PATIENT with CARLOS A MANRIQUE [facility]-BC 10/08/2022 Last Documented On 3 11:46AM ; [facility] [Other specified anxiety dis orders] depression with anxiety [facility] FOLLOW UP with DELICIA RAY LCSW 04/22/2022 Last Documented On 2 2:45PM ; [facility] Generalized anxiety disorder CHECK UP with SHAE MIKE PA-C 04/21/2022 Last Documented On 2 8:43PM ; [facility] Mild intermittent asthma wit h exacerbation CHECK UP with EARLENE MIKE PA-C 04/21/2022 Last Documented On 2 8:43PM ; [facility] [Other specified anxiety dis orders] depression with anxiety [facility] ESTABLISHED with DELICIA RAY LCSW 03/31/2022 Last Documented On 2 2:09PM ; [facility] Instructions Includes: Instructions for all patient encounters Instructions to patient Intervention and counseling on cessation of tobacco use Last Documented On 3 2:31PM ; [facility] Intervention and counseling on cessation of tobacco use Last Documented On 3 1:23PM ; [facility] Watch for signs/symptoms of infection, return to the clinic if seen Last Documented On 3 7:17PM ; [facility] Intervention and counseling on cessation of tobacco use Last Documented On 3 2:21PM ; [facility] Go to the emergency room if condition worsens Last Documented On 3 11:41AM ; [facility] Watch for signs/symptoms of infection Last Documented On 3 11:41AM ; [facility] Watch for signs/symptoms of infection, return to the clinic if seen Last Documented On 3 11:41AM ; [facility] Intervention and counseling on cessation of tobacco use Last Documented On 2 1:34PM ; [facility] Intervention and counseling on cessation of tobacco use Last Documented On 2 1:25PM ; [facility] Education and Decision Aids were provided during visit for: Patient education about anti biotics: need to finish even if feeling better Last Documented On 3 11:41AM ; [facility] Medical Equipment - Implanted Devices Includes: Current and historical Devices No Medical Equipment Recorded Medications Includes: Current and historical Medications Current Medications (continue as prescribed) Albuterol Sulfate HFA 108 (9 0 Base) MCG/ACT Inhalation Aerosol Solution 06/02/2023 Provider: CHARLIE MIKE PA-C Diagnosis: INHALE 2 PUFFS BY MOUTH EVERY 4 HOURS NEEDED Last Documented On 3 2:42PM By Earlene Mike PA-C ; [facility] Advair Diskus 250-50 MCG/ACT Inhalation Aerosol Powder Breath Activated 06/22/2022 Provider: EARLENE Luque Diagnosis: Mild intermitten t asthma with (acute) exacerbation INHALE 1 PUFF BY MOUTH TWICE DAILY. RINSE MOUTH AFTER USE Last Documented On 3 8:11AM By Earlene Mike PA-C ; [facility] Past Medications on file hydrOXYzine Pamoate 25 MG Oral Capsule 06/28/2023 - 06/28/2023 Provider: FARTUN GIL [facility] Diagnosis: Panic disorder [episodic paroxysmal anxiety] 1 capsule PO TID PRN anxiety Last Documented On 4 12:00PM By FARTUN GIL [facility] ; [facility] Wellbutrin XL 300 MG Oral Tablet Extended Release 24 Hour 06/28/2023 - 06/28/2023 Provider: FARTUN GIL [facility] Diagnosis: Depression, unspecified One tablet daily--dose increase Last Documented On 4 12:00PM By FARTUN GIL [facility] ; [facility] Sertraline HCl 100 MG Oral Tablet 06/28/2023 - 09/26/2023 Provider: FARTUN VIDES [facility] Diagnosis: Take 2 tabs PO daily (200mg) dose Last Documented On 4 12:06PM By FARTUN GIL [facility] ; [facility] Wellbutrin XL 300 MG Oral Tablet Extended Release 24 Hour 06/28/2023 - 08/27/2023 Provider: FARTUN GIL [facility] Diagnosis: Depression, unspecified One tablet daily--dose increase Last Documented On 4 12:06PM By FARTUN GIL [facility] ; [facility] hydrOXYzine Pamoate 25 MG Oral Capsule 06/28/2023 - 07/28/2023 Provider: FARTUN GIL [facility] Diagnosis: Panic disorder [episodic paroxysmal anxiety] 1 capsule PO TID PRN anxiety Last Documented On 4 12:06PM By FARTUN GIL [facility] ; [facility] QUEtiapine Fumarate 150 MG Oral Tablet 06/28/2023 - 08/27/2023 Provider: FARTUN GIL [facility] Diagnosis: Insomnia, unspec ified One tablet daily--dose increase Last Documented On 4 12:06PM By FARTUN GIL [facility] ; [facility] QUEtiapine Fumarate 150 MG Oral Tablet 06/28/2023 - 06/28/2023 Provider: FARTUN GIL [facility]- Diagnosis: Insomnia, unspec ified One tablet daily--dose increase Last Documented On 4 12:00PM By FARTUN GIL [facility] ; [facility] Wellbutrin XL 150 MG Oral Tablet Extended Release 24 Hour 06/21/2023 - 06/28/2023 Provider: FARTUN GIL [facility]- Diagnosis: Depression, unspecified One tablet daily Last Documented On 4 11:56AM By FARTUN GIL [facility] ; [facility] QUEtiapine Fumarate 100 MG Oral Tablet 06/01/2023 - 06/28/2023 Provider: FARTUN GIL [facility]- Diagnosis: Insomnia, unspec ified One tablet daily Last Documented On 4 11:59AM By FARTUN GIL [facility] ; [facility] Sertraline HCl 100 MG Oral Tablet 06/01/2023 - 06/28/2023 Provider: FARTUN VIDES [facility]- Diagnosis: TAKE 1 TABLET BY MOUTH DAILY Last Documented On 4 11:44AM By FARTUN GIL [facility] ; [facility] QUEtiapine Fumarate 100 MG Oral Tablet 05/23/2023 - 06/01/2023 Provider: FARTUN GIL [facility]- Diagnosis: Insomnia, unspec ified One tablet daily---dose increase Last Documented On 06/01/2023 2:06PM By VICENTE BOWENS ; [facility] Wellbutrin XL 150 MG Oral Tablet Extended Release 24 Hour 05/23/2023 - 06/21/2023 Provider: FARTUN GIL [facility]- Diagnosis: Depression, unspecified One tablet daily Last Documented On 06/21/2023 10:01AM By VICENTE BOWENS ; [facility] Sertraline HCl 100 MG Oral Tablet 05/04/2023 - 06/28/2023 Provider: FARTUN VIDES [facility] Diagnosis: Take 2 tabs PO daily (200mg) dose Last Documented On 4 11:59AM By FARTUN GIL [facility] ; [facility] QUEtiapine Fumarate ER 50 MG Oral Tablet Extended Release 24 Hour 04/05/2023 - 05/23/2023 Provider: FARTUN GIL [facility] Diagnosis: Generalized anxi ety disorder One tablet at bed time Last Documented On 3 9:17AM By FARTUN GIL [facility] ; [facility] Sertraline HCl 100 MG Oral Tablet 04/05/2023 - 05/23/2023 Provider: FARTUN GIL [facility] Diagnosis: Post-traumatic s tress disorder, unspecified Take 2 tabs PO once daily (2 00mg dose)---dose increase Last Documented On 3 9:17AM By FARTUN GIL [facility] ; [facility] Albuterol Sulfate HFA 108 (90 Base) MCG/ACT Inhalation Aerosol Solution 03/21/2023 - 06/02/2023 Provider: EARLENE Walker PA-C Diagnosis: INHALE 2 PUFFS BY MOUTH EVERY 4 HOURS NEEDED Last Documented On 3 2:36PM By Earlene Mike PA-C ; [facility] Sertraline HCl 100 MG Oral Tablet 01/05/2023 - 04/05/2023 Provider: EARLENE MIKE PA-C Diagnosis: Generalized anxi ety disorder TAKE 1 TABLET BY MOUTH DAILY Last Documented On 3 3:48PM By FARTUN GIL [facility] ; [facility] Sertraline HCl 100 MG Oral Tablet 01/04/2023 - 01/05/2023 Provider: EARLENE MIKE PA-C Diagnosis: Generalized anxi ety disorder One tablet daily Last Documented On 3 8:03AM By Earlene Mike PA-C ; [facility] Azithromycin 250 MG Oral Tablet 01/04/2023 - 04/05/2023 Provider: EARLENE MIKE PA-C Diagnosis: Mild intermitten t asthma with (acute) exacerbation take 2 tablets on day 1, the n 1 tablet on days 2-5 Last Documented On 04/05/2023 2:52PM By DANIEL BOWENS ; [facility] Sertraline HCl 50 MG Oral Tablet 11/18/2022 - 04/05/2023 Provider: EARLENE MIKE PA-C Diagnosis: Generalized anxi ety disorder One tablet daily Last Documented On 3 2:56PM By FARTUN GIL [facility] ; [facility] Ondansetron 4 MG Oral Tablet Disintegrating 10/25/2022 - 11/18/2022 Provider: MERCED SUNC Diagnosis: Viral intestinal infection, unspecified 1 every 6 hours as needed Last Documented On 3 1:37PM By Earlene Mike PA-C ; [facility] Sertraline HCl 25 MG Oral Tablet 10/14/2022 - 11/18/2022 Provider: EARLENE MIKE PA-C Diagnosis: Generalized anxi ety disorder One tablet daily Last Documented On 3 1:37PM By Earlene Mike PA-C ; [facility] Medrol 4 MG Oral Tablet Therapy Pack 10/08/2022 - 10/14/2022 Provider: CARLOS A MANRIQUE [facility] Diagnosis: Acute bronchitis , unspecified as directed Last Documented On 10/14/2022 2:16PM By Samantha BOWENS ; [facility] Zithromax Z-Valente 250 MG Oral Tablet 10/08/2022 - 10/14/2022 Provider: CARLOS A MANRIQUE [facility] Diagnosis: Acute bronchitis , unspecified as directed Last Documented On 10/14/2022 2:16PM By Samantha BOWENS ; [facility] Albuterol Sulfate HFA 108 (90 Base) MCG/ACT Inhalation Aerosol Solution 08/17/2022 - 06/02/2023 Provider: EARLENE MIKE PA-C Diagnosis: Mild intermitten t asthma with (acute) exacerbation INHALE 1 TO 2 PUFFS BY MOUTH EVERY 4 TO 6 HOURS NEEDED Last Documented On 06/02/2023 2:31PM By Kayla BOWENS ; [facility] Albuterol Sulfate HFA 108 (90 Base) MCG/ACT Inhalation Aerosol Solution 05/31/2022 - 08/17/2022 Provider: EARLENE MIKE PA-C Diagnosis: Mild intermitten t asthma with (acute) exacerbation INHALE 1 TO 2 PUFFS BY MOUTH EVERY 4 TO 6 HOURS NEEDED Last Documented On 08/17/2022 4:39PM By Mahendra BOWENS ; [facility] Lexapro 5 MG Oral Tablet 04/21/2022 - 10/14/2022 Provider: EARLENE Walker PA-C Diagnosis: Generalized anxi ety disorder One tablet daily Last Documented On 10/14/2022 2:20PM By Samantha BOWENS ; [facility] Advair Diskus 250-50 MCG/ACT Inhalation Aerosol Powder Breath Activated 04/21/2022 - 06/22/2022 Provider: EARLENE MIKE PA-C Diagnosis: Mild intermitten t asthma with (acute) exacerbation 1 inhalation twice daily. rinse mouth after Last Documented On 3 8:10AM By Earlene iMke PA-C ; [facility] busPIRone HCl 5 MG Oral Tablet 04/21/2022 - 10/14/2022 Provider: EARLENE MIKE PA-C Diagnosis: Generalized anxi ety disorder 1 tab twice daily Last Documented On 10/14/2022 2:20PM By Samantha BOWENS ; [facility] busPIRone HCl 5 MG Oral Tablet 03/24/2022 - 04/21/2022 Provider: EARLENE MIKE PA-C Diagnosis: Generalized anxi ety disorder 1 tab twice daily Last Documented On 2 4:34PM By Earlene Mike PA-C ; [facility] Albuterol Sulfate HFA 108 (90 Base) MCG/ACT Inhalation Aerosol Solution 03/24/2022 - 05/31/2022 Provider: EARLENE MIKE PA-C Diagnosis: Mild intermitten t asthma with (acute) exacerbation INHALE 1 TO 2 PUFFS BY MOUTH EVERY 4 TO 6 HOURS NEEDED Last Documented On 2 11:00PM By Earlene Mike PA-C ; [facility] Sertraline HCl 25 MG Oral Tablet 03/22/2022 - 03/24/2022 Provider: EARLENE MIKE PA-C Diagnosis: Generalized anxi ety disorder TAKE 1 TABLET BY MOUTH DAILY Last Documented On 2 1:29PM By Earlene Mike PA-C ; [facility] Sertraline HCl 25 MG Oral Tablet 02/22/2022 - 03/22/2022 Provider: EARLENE MIKE PA-C Diagnosis: Generalized anxi ety disorder One tablet daily Last Documented On 2 8:24AM By Earlene Mike PA-C ; [facility] Advair Diskus 250-50 MCG/ACT Inhalation Aerosol Powder Breath Activated 02/22/2022 - 04/21/2022 Provider: EARLENE MIKE PA-C Diagnosis: Mild intermitten t asthma with (acute) exacerbation 1 inhalation twice daily. rinse mouth after Last Documented On 2 4:34PM By Earlene Mike PA-C ; [facility] Azithromycin 250 MG Oral Tablet 02/22/2022 - 03/24/2022 Provider: EARLENE MIKE PA-C Diagnosis: Mild intermitten t asthma with (acute) exacerbation take 2 tablets on day 1, the n 1 tablet on days 2-5 Last Documented On 03/24/2022 1:16PM By Camila BOWENS ; [facility] Albuterol Sulfate (2.5 MG/3ML) 0.083% Inhalation Nebulization solution 02/22/2022 - 10/14/2022 Provider: EARLENE MIKE PA-C Diagnosis: Mild intermitten t asthma with (acute) exacerbation 3mL every 4-6 hours as needed Last Documented On 10/14/2022 2:16PM By Samantha BOWENS ; [facility] Albuterol Sulfate HFA 108 (90 Base) MCG/ACT Inhalation Aerosol Solution 02/22/2022 - 03/24/2022 Provider: EARLENE MIKE PA-C Diagnosis: Mild intermitten t asthma with (acute) exacerbation INHALE 1 TO 2 PUFFS BY MOUTH EVERY 4 TO 6 HOURS NEEDED Last Documented On 2 1:34PM By Earlene Mike PA-C ; [facility] Albuterol Sulfate HFA 108 (90 Base) MCG/ACT Inhalation Aerosol Solution 01/26/2022 - 02/22/2022 Provider: EARLENE MIKE PA-C Diagnosis: Mild intermitten t asthma with (acute) exacerbation INHALE 1 TO 2 PUFFS BY MOUTH EVERY 4 TO 6 HOURS NEEDED Last Documented On 2 1:49PM By Earlene Mike PA-C ; [facility] Albuterol Sulfate HFA 108 (90 Base) MCG/ACT Inhalation Aerosol Solution 11/24/2021 - 01/26/2022 Provider: CARLOS A TALBERT Diagnosis: Mild intermitten t asthma with (acute) exacerbation INHALE 1 TO 2 PUFFS BY MOUTH EVERY 4 TO 6 HOURS NEEDED Last Documented On 2 1:09PM By Earlene Mike PA-C ; [facility] Albuterol Sulfate HFA 108 (90 Base) MCG/ACT Inhalation Aerosol Solution 07/20/2021 - 11/24/2021 Provider: EARLENE MIKE PA-C Diagnosis: Mild intermitten t asthma with (acute) exacerbation inhale 1-2 puffs every 4-6 hours as needed Last Documented On 2 6:38AM By Carlos A TALBERT ; [facility] [...] 11/18/2022 Last Documented On 3 1:39PM ; [facility] Not recovering from substance abuse 11/04 Last Documented On 3 1:39PM ; [facility] Tobacco non-user 10/25/2022 Last Documented On 3 7:18PM ; [facility] Using marijuana 02/22/2022 Last Documented On 2 3:39PM ; [facility] Alcohol 07/20/2021 Last Documented On 2 10:30AM ; [facility] Amount of alcohol per day: N ot everyday but about 5 to 7 shots when i drink 07/20/2021 Last Documented On 2 10:30AM ; [facility] Drug use 07/20/2021 Last Documented On 2 10:30AM ; [facility] Frequency: Most days 07/20/2021 Last Documented On 2 10:30AM ; [facility] Type: Marijuana 07/20/2021 Last Documented On 2 10:30AM ; [facility] Smoking Status Unknown Medical History Includes: Medical History in patient's chart Description Last Updated No Vaccine history 01/04/2023 Last Documented On 3 8:42AM ; [facility] Not taking OTC medications 10/25/2022 Last Documented On 3 7:18PM ; [facility] Family History Includes: Family History in patient's chart Description Last Updated Maternal grandfather's history of alcoho lism 04/06/2023 Last Documented On 3 9:35AM ; [facility] Maternal grandmother's history of depres nathan 04/06/2023 Last Documented On 3 9:35AM ; [facility] Maternal grandfather's history of alcoho l use 04/06/2023 Last Documented On 3 9:35AM ; [facility] Paternal grandfather's history of substa nce use disorders 04/06/2023 Last Documented On 3 9:35AM ; [facility] Paternal history of substance use disord ers 04/06/2023 Last Documented On 3 9:35AM ; [facility] Maternal history of substance use disord ers 04/06/2023 Last Documented On 3 9:35AM ; [facility] Family history of stroke/paralysis 07/20 Last Documented On 2 10:30AM ; [facility] Maternal history of Arthritis 07/20/2021 Last Documented On 2 10:30AM ; [facility] Review of Systems Review of Systems not [...] Time Diagnosis NO SHOW FARTUN ARCHERGRAVE PMHNP-BC [facility] 4 06/28/2023 11:30AM 06/28/2023 11:59PM Insurance Includes: Active Insurance Policies Plan Name Member ID Group # Subscriber Relationship Effect kathy Dates 1 - [facility] [id number] PATRICIA MORALES Self Clinical Notes Includes: Signed Clinical Notes starting from 06/25/2022 No Clinical Notes Recorded
== END 2024-06-28 14:58 | disposition home or self-care (01) ==
PROVIDERS: Emergency Provider Emergency Medicine
DX: M54.50 Low back pain, unspecified (principal); W19.XXXA Unspecified fall, initial encounter
CPT/HCPCS: 72072; 72100; 72220; 99284; A9270

== ENCOUNTER 2024-07-10 15:39 | Emergency (ER) | payer SELFPAY ==
--- OUTSIDE RECORDS SUMMARY | 2024-07-10 15:42 | XMS_ITS | Clinical Summary ---
Author Organization [facility] Address [address] [place] [address] Phone Care Team Providers Care Database Marketing Analyst Name Role Phone VIRGINIE CARDONA MD [...] Active Last Documented On 04/27/2022 8:42PM ; [facility] Note: Unchanged Past Visits Onset Date Resolved Date Provider Condition Status Asthma Mild Intermittent with Exacerbation 04/27/2022 EARLENE CASTELLANO PA-C Active Last Documented On 04/27/2022 8:42PM ; [facility] Note: Unchanged Plan of Treatment - Return to the clinic if condition worsens or new symptoms arise - Last Documented On 06/28/2023 12:07PM ; [facility] - Follow-up visit in 1 month - Last Documented On 06/28/2023 12:07PM ; [facility] Assessments Includes: Assessments from this encounter Findings - [F39 - Unspecified mood [affective] disorder] Mood disorders, NOS --possible dx, will continue to monitor - Last Documented On 06/28/2023 12:07PM ; [facility] - [F32.A - Depression, unspecified] Depression - Last Documented On 06/28/2023 12:07PM ; [facility] - [G47.00 - Insomnia, unspecified] Insomnia due to stress - Last Documented On 06/28/2023 12:07PM ; [facility] - [F41.1 - Generalized anxiety disorder] Generalized anxiety disorder - Last Documented On 06/28/2023 12:07PM ; [facility] - [F41.0 - Panic disorder [episodic paroxysmal anxiety]] Panic disorder - Last Documented On 06/28/2023 12:07PM ; [facility] - [F43.10 - Post-traumatic stress disorder, unspecified] Post-traumatic stress disorder - Last Documented On 06/28/2023 12:07PM ; [facility] Medical Equipment - Implanted Devices Includes: Current Devices No Medical Equipment Recorded Medications Includes: Medications discussed during this encounter and other current Medications Discontinued / Stopped on this date AYDE RASCON [facility]- on 06/21/2023 Wellbutrin XL 150 MG Oral Tablet Extended Release 24 Hour [facility] Diagnosis: Depression, unsp ecified Last Documented On 4 11:56AM By AYDE RASCON [facility] ; [facility] QUEtiapine Fumarate 100 MG Oral Tablet Provider: AYDE RASCON [facility]- Diagnosis: Insomnia, unspec ified Last Documented On 4 11:59AM By AYDE RASCON [facility] ; [facility] Sertraline HCl 100 MG Oral Tablet [facility]ide r: [facility] Diagnosis: Last Documented On 4 11:44AM By AYDE STUARTPMARY ; [facility] New / Renewed during this visit AYDE RASCON [facility]- on 06/28/2023 Sertraline HCl 100 MG Oral Tablet Provider: AYDE RASCON [facility] 90 day supply: 180 tablet, 0 refills Diagnosis: Take 2 tabs PO daily (200mg) dose Pharmacy: [facility] - [address] [facility], [id number] - Last Documented On 4 12:06PM By AYDE RASCON [facility] ; [facility] Wellbutrin XL 300 MG Oral Tablet Extended Release 24 Hour Provider: AYDE RASCON [facility] 30 day supply: 30 tablet, 1 refills Diagnosis: Depression, unspecified One tablet daily--dose increase Pharmacy: [facility]) - [address] [facility] [facility], [id number] - Last Documented On 4 12:06PM By AYDE RASCON [facility] ; [facility] hydrOXYzine Pamoate 25 MG Oral Capsule Provider: AYDE RASCON [facility] 30 day supply: 45 capsule, 0 refills Diagnosis: Panic disorder [episodic paroxysmal anxiety] 1 capsule PO TID PRN anxiety Pharmacy: [facility]) - [address] [facility], [id number] - Last Documented On 4 12:06PM By AYDE RASCON [facility] ; [facility] QUEtiapine Fumarate 150 MG Oral Tablet Provider: AYDE RASCON [facility] 30 day supply: 30 tablet, 1 refills Diagnosis: Insomnia, unspecified One tablet daily--dose increase Pharmacy: [facility]) - [address] [facility], [id number] - Last Documented On 4 12:06PM By AYDE RASCON [facility] ; [facility] Current Medications (continue as prescribed) Albuterol Sulfate HFA 108 (9 0 Base) MCG/ACT Inhalation Aerosol Solution 06/02/2023 Provider: CHARLIE CASTELLANO PA-C Diagnosis: INHALE 2 PUFFS BY MOUTH EVERY 4 HOURS NEEDED Last Documented On 3 2:42PM By Earlene Castellano PA-C ; [facility] Advair Diskus 250-50 MCG/ACT Inhalation Aerosol Powder Breath Activated 06/22/2022 Provider: EARLENE Luque Diagnosis: Mild intermitten t asthma with (acute) exacerbation INHALE 1 PUFF BY MOUTH TWICE DAILY. RINSE MOUTH AFTER USE Last Documented On 3 8:11AM By Earlene Castellano PA-C ; [facility] Medications Administered Includes: [...] where while at work (started working at [employer]). Overwhelming when interacting with a bunch of [...] He continues going to anger management at [facility] which he finds helpful. He also [...] Grandmother Ramya when he was age 16. Cultural/Lutheran Influences: Denies Past psych DX: LYNDSEY, MDD, Bipolar, PTSD Psych HX: Inpatient HX for mental health: Denies Previous PHP/IOP: Denies ER visits HX for mental health: [facility] ER 01/2023 anxiety Rehab HX: Denies Outpatient Psychiatrist/PMHNP HX: Dr. Cortes in the past Counseling HX: Yudith Pierre in the past but not currently. Is in anger management at [facility] in [place] and parenting classes currently. Previous psych meds: [...] an addict and in and out of detention. Father when he was age 13. His father had just gotten out of half-way but was still using drugs. Father said [...] Living Arrangements: Lives with Friend Chance in [place] and his 4-year-old daughter Marital status: Single. Children: Daughter Shayy (04/21/21) Education HX: 11th grade Occupation: Working at [employer] in [place] Hx: Denies Access to Weapons: Denies Legal [...] virtual visit obtained when scheduled. 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 11/18/2022 Last Documented On 4 11:28AM ; [facility] Not recovering from substance abuse 11/04 Last Documented On 4 11:28AM ; [facility] Tobacco non-user 10/25/2022 Last Documented On 4 11:28AM ; [facility] Using marijuana 02/22/2022 Last Documented On 4 11:28AM ; [facility] Alcohol 07/20/2021 Last Documented On 4 11:28AM ; [facility] Amount of alcohol per day: N ot everyday but about 5 to 7 shots when i drink 07/20/2021 Last Documented On 4 11:28AM ; [facility] Drug use 07/20/2021 Last Documented On 4 11:28AM ; [facility] Frequency: Most days 07/20/2021 Last Documented On 4 11:28AM ; [facility] Type: Marijuana 07/20/2021 Last Documented On 4 11:28AM ; [facility] Smoking Status Unknown Procedures and Surgical History Includes: Procedures from this encounter Procedures Code Diagnosis Performing Provider Service L ocation Service Date regular exercise Last Documented On 4 11:40AM ; [facility] standardized depression screening: negative for symptoms 3351F Last Documented On 4 11:40AM ; [facility] review of medications documented [id number] Last Documented On 4 11:40AM ; [facility] assessment of suicide risk performed Last Documented On 4 11:28AM ; [facility] screening for adult depression: impressi on and score five Last Documented On 4 11:28AM ; [facility] standardized depression screening: posit kathy for symptoms Last Documented On 4 11:28AM ; [facility] Clinical summary provided to patient Last Documented On 4 11:40AM ; [facility] Medical History Includes: Medical History addressed during this encounter Description Last Updated No Vaccine history 01/04/2023 Last Documented On 4 11:28AM ; [facility] Not taking OTC medications 10/25/2022 Last Documented On 4 11:28AM ; [facility] Family History Includes: Family History addressed during this encounter Description Last Updated Maternal grandfather's history of alcoho lism 04/06/2023 Last Documented On 4 11:28AM ; [facility] Maternal grandmother's history of depres nathan 04/06/2023 Last Documented On 4 11:28AM ; [facility] Maternal grandfather's history of alcoho l use 04/06/2023 Last Documented On 4 11:28AM ; [facility] Paternal grandfather's history of substa nce use disorders 04/06/2023 Last Documented On 4 11:28AM ; [facility] Paternal history of substance use disord ers 04/06/2023 Last Documented On 4 11:28AM ; [facility] Maternal history of substance use disord ers 04/06/2023 Last Documented On 4 11:28AM ; [facility] Family history of stroke/paralysis 07/20 Last Documented On 4 11:28AM ; [facility] Maternal history of Arthritis 07/20/2021 Last Documented On 4 11:28AM ; [facility] Review of Systems Includes: Review of [...] Time Check-Out Time Diagnosis TELEHEALTH AYDE RASCON [facility] 06/28/19 24 11:26AM 12:10PM Generalized Anxiety Disorder,Depre ssion,Insomnia Due To Stress,Post-tr aumatic Stress Disorder,Panic Disorder,Mood Disorders, Nos Insurance Includes: Active Insurance Policies Plan Name Member ID Group # Subscriber Relationship Effect kathy Dates 1 - [facility] [id number] PATRICIA MORALES JR Self Clinical Notes Includes: Clinical Notes from this encounter * Progress note Date Encounter Last Documented by 06/28/2023 TELEHEALTH Last documented on 06/28/2023; 12:07 PM, AYDE RASCON PMHNP- [employer]-; [facility] Active Problems & [...] where while at work (started working at [employer]). Overwhelming when interacting with a bunch of [...] He continues going to anger management at [facility] which he finds helpful. He also [...] Grandmother Ramya when he was age 16. Cultural/Lutheran Influences: Denies Past psych DX: LYNDSEY, MDD, Bipolar, PTSD Psych HX: Inpatient HX for mental health: Denies Previous PHP/IOP: Denies ER visits HX for mental health: [facility] ER 01/2023 anxiety Rehab HX: Denies Outpatient Psychiatrist/PMHNP HX: Dr. Cortes in the past Counseling HX: Yudith Pierre in the past but not currently. Is in anger management at [facility] in [place] and parenting classes currently. Previous psych meds: [...] an addict and in and out of detention. Father when he was age 13. His father had just gotten out of half-way but was still using drugs. Father said [...] Living Arrangements: Lives with Friend Chance in [place] and his 4-year-old daughter Marital status: Single. Children: Daughter Shayy (04/21/21) Education HX: 11th grade Occupation: Working at [employer] in [place] Hx: Denies Access to Weapons: Denies Legal [...] virtual visit obtained when scheduled. Originating site: [facility] Distant Site: Patient's Home Visit included: Ayde Rascon [employer]-BC, PMHNP-BC and patient Vital signs self-reported by [...] anxiety Discussed ongoing cannabis use and explained senior living effect that psychoactive drugs have on brain [...]
--- OUTSIDE RECORDS SUMMARY | 2024-07-10 15:42 | XMS_ITS | Clinical Summary ---
Author Organization [facility] Address [address] [place] [id number] Phone Care Team Providers Care Hand Clerical Verifier Name Role Phone Unavailable Unavailable Unavailable Reason for Visit and Chief Complaint The Chief Complaint is: follow up for depression, anxiety, PTSD Problems Includes: Problems addressed during this encounter and other active Problems Current Visit Onset Date Resolved Date Provider Condmastero n Status Depression 08/04/2020 ANNI CORTES MD Ac tive Last Documented On 1 8:56AM ; [facility] Bipolar I Disorder 07/03/2020 ANNI ABEBE MD Active Last Documented On 1 2:16PM ; [facility] Generalized Anxiety Disorder 07/03/2020 ANNI CORTES MD Active Last Documented On 1 2:16PM ; [facility] Psychophysiological Insomnia 07/03/2020 ANNI CORTES MD Active Last Documented On 1 2:17PM ; [facility] Major Depression 07/03/2020 ANNI CORTES MD Active Last Documented On 1 2:16PM ; [facility] Plan of Treatment Instructions to patient Lose weight Last Documented On 1 9:28AM ; [facility] Education and Decision Aids were provided during visit for: Patient education about medi cation --- I educated patient on medication(s) and diagnosis. I reviewed the risks, benefits and side effects of patient's medications Last Documented On 1 9:06AM ; [facility] Discussed calming techniques such as breathing exercises and other relaxation techniques Last Documented On 9:06AM ; [facility] Counseling for nutrition/daniel ght management provided Last Documented On 9:28AM ; [facility] Assessments Includes: Assessments from this encounter Findings - Bipolar I disorder - Last Documented On 09/15/2020 8:57AM ; [facility] - Depression - Last Documented On 09/15/2020 8:57AM ; [facility] - Major depressive disorder - Last Documented On 09/15/2020 8:57AM ; [facility] - Psychophysiological insomnia - Last Documented On 09/15/2020 8:57AM ; [facility] - Generalized anxiety disorder - Last Documented On 09/15/2020 8:57AM ; [facility] Instructions Includes: Instructions from this encounter Instructions to patient Lose weight Last Documented On 9:28AM ; [facility] Education and Decision Aids were provided during visit for: Patient education about medi cation --- I educated patient on medication(s) and diagnosis. I reviewed the risks, benefits and side effects of patient's medications Last Documented On 9:06AM ; [facility] Discussed calming techniques such as breathing exercises and other relaxation techniques Last Documented On 9:06AM ; [facility] Counseling for nutrition/daniel ght management provided Last Documented On 9:28AM ; [facility] Medical Equipment - Implanted Devices Includes: [...] directed -- 1 tab at bedtime Pharmacy: [facility] - [address] [facility] [facility] [address] , [facility], [id number] - Last Documented On 10:36AM By Fifi Cortes MD ; [facility] QUEtiapine Fumarate 25 MG Oral Tablet Provider: ANNI CORTES MD 30 day supply: 60 tablet, 3 refills Diagnosis: Generalized anxiety disorder as directed -- 1 tab in am a nd 1 tab at noon for anxiety Pharmacy: [facility] - [address] [facility] [facility], [id number] - Last Documented On 10:44AM By Fifi Cortes MD ; [facility] Current Medications (continue as prescribed) SEROquel XR 200 MG Oral Tablet Extended Release 24 Hour 10/03/2020 Provider: ANNI CORTES MD Diagnosis: Bipolar disorder , unspecified as directed -- 1 tab at bedtime Last Documented On 10/03/2020 9:49AM By Fifi Cortes MD ; [facility] LORazepam 0.5 MG Oral Tablet 09/22/2020 Provider: ANNI CORTES MD Diagnosis: Panic disorder [ episodic paroxysmal anxiety] as directed -- 1 tab a day a s needed for anxiety Last Documented On 09/22/2020 6:31PM By Fifi Cortes MD ; [facility] QUEtiapine Fumarate 50 MG Oral Tablet 07/03/2020 Provider: ANNI CORTES MD Diagnosis: Bipolar disorder , unspecified One tablet at bed time Last Documented On 07/03/2020 3:17PM By Fifi Cortes MD ; [facility] Albuterol Sulfate HFA 108 (9 0 Base) MCG/ACT Inhalation Aerosol Solution 06/20/2020 Provider: Diagnosis: 1 -2 puffs q 4-6 hours allison Tilley NP Last Documented On 07/03/2020 1:52PM By DIANE BOWENS ; [facility] Past Medications on file Focalin 10 MG Oral Tablet 10/03/2020 - 11/02/2020 Provider: ANNI CORTES MD Diagnosis: Attention-defici t hyperactivity disorder, combined type 1 tablet every morning Last Documented On 10:32AM By Fifi Cortes MD ; [facility] Medications Administered Includes: Administered Medications from [...] 2.2 Last Documented: On 08/08/2020 9:31AM ; [facility] Results Includes: [...] 08/08/2020 Last Documented On 1 8:57AM ; [facility] Current nonsmoker 08/08/2020 Last Documented On 1 8:57AM ; [facility] Patient was born and raised in [place], [place]. He reported a complicated relationship with [...] sexual dysfunction. [facility]. He enjoys video games and basketball. He is changing his nutritional habits due to recent kidney failure 07/03/2020 Last Documented On 1 9:05AM ; [facility] Single 07/03/2020 Last Documented On 1 9:05AM ; [facility] Non-smoker 07/03/2020 Last Documented On 1 9:05AM ; [facility] Drug use (Illicit)history of marijuana u se and dropping acid 07/03/2020 Last Documented On 1 9:05AM ; [facility] No tobacco use 07/03/2020 Last Documented On 9:05AM ; [facility] No work history reported - previoiusly w orked for [employer] 07/03/2020 Last Documented On 9:05AM ; [facility] Not using alcohol 07/03/2020 Last Documented On 9:05AM ; [facility] Occupation - currently works in a [employer] use 07/03/2020 Last Documented On 9:05AM ; [facility] The living environment is sa tisfactory - currently lives with [place], An[place], sisters, and his girlfriend, Xin 07/03/2020 Last Documented On 9:05AM ; [facility] Smoking status : Never smoker 07/03/2020 Last Documented On 9:05AM ; [facility] Procedures and Surgical History Includes: Procedures from this encounter Procedures Code Diagnosis Performing Provider Service L ocation Service Date education and instructions Last Documented On 9:06AM ; [facility] I discussed the risks, benef its and side effects of Quetiapine to the patient including the possibility of metabolic and motor side effects such as tardive dyskinesia Last Documented On 9:28AM ; [facility] I explained the rationale fo r [...] treatment plan Last Documented On 9:06AM ; [facility] use of tobacco assessment performed 1000F Last Documented On 9:29AM ; [facility] patient screened for future fall risk - no recen t falls 3288F Last Documented On 9:29AM ; [facility] review of medications documented 1160F Last Documented On 9:28AM ; [facility] assessment of suicide risk performed - n ot suicidal Last Documented On 9:31AM ; [facility] screening for adult depressi on: impression and score - please see above treatment and PHQ score Last Documented On 9:29AM ; [facility] standardized depression screening: posit kathy for symptoms Last Documented On 9:29AM ; [facility] encouragement to exercise Last Documented On 9:28AM ; [facility] Clinical summary provided to patient Last Documented On 9:28AM ; [facility] PHQ-9: total score Last Documented On 9:28AM ; [facility] Surgical History Last Updated History of ear pressure equalization tub e - age 5 07/04/2020 Last Documented On 9:05AM ; [facility] Medical History Includes: Medical History addressed during this encounter Description Last Updated Primary Care Provider: Xin Tilley NP 10/03/2020 Last Documented On 9:05AM ; [facility] History of renal failure - 03/2020 -- du e to excessive use of Ibuprofen 07/04/2020 Last Documented On 9:05AM ; [facility] History of eczema - reaction to metal fr om button on blue jeans 07/03/2020 Last Documented On 9:05AM ; [facility] History of asthma - since age 5 07/03/19 21 Last Documented On 9:05AM ; [facility] Family History Includes: Family History addressed during this encounter Description Last Updated Maternal grandfather's history of combin ed drug and alcohol abuse 07/03/2020 Last Documented On 1 9:05AM ; [facility] Maternal history of drug abuse 1 Last Documented On 1 9:05AM ; [facility] Paternal uncle's history of combined narendra g and alcohol abuse 07/03/2020 Last Documented On 1 9:05AM ; [facility] Paternal aunt's history of combined drug and alcohol abuse 07/03/2020 Last Documented On 1 9:05AM ; [facility] Paternal grandfather's history of combin ed drug and alcohol abuse 07/03/2020 Last Documented On 1 9:05AM ; [facility] Paternal history of drug abuse - father overdosed 07/03/2020 Last Documented On 1 9:05AM ; [facility] Paternal grandfather's history of suicid e attempt 07/03/2020 Last Documented On 1 9:05AM ; [facility] Maternal grandmother's history of suicid e attempt 07/03/2020 Last Documented On 1 9:05AM ; [facility] Maternal grandmother's history of depres nathan 07/03/2020 Last Documented On 1 9:05AM ; [facility] Review of Systems Includes: Review of [...] ve Last Documented On 10/02/2022 5:39PM ; [facility] Note: Imported from external source. Encounters Encounter Provider Location Date Check-In Time Check-Out Time Diagnosis GENERAL OFFICE VISIT ANNI CORTES MD [facility] 08/09/19 21 9:01AM 11:59PM Generalized Anxiety Disorder,Psycho physiological Insomnia,Major Depression,Bipo lar I Disorder,Depres nathan Insurance Includes: Active Insurance Policies Plan Name Member ID Group # Subscriber Relationship Effect kathy Dates - [facility] [id number] JAYSON MORALES JR Self Clinical Notes Includes: Clinical Notes from this encounter No Clinical Notes Recorded
--- OUTSIDE RECORDS SUMMARY | 2024-07-10 15:42 | XMS_ITS ---
Care Plan - [facility] S Created on: July 10, 2024 PATRICIA MORALES JR : [id number] Sex: Male Author Organization [facility] Medical [facility] S Address [address] [place] [phone] Phone Care Team Providers Care Director Of Leadership Development Name Role Phone Unavailable Unavailable Unavailable
--- OUTSIDE RECORDS SUMMARY | 2024-07-10 15:42 | XMS_ITS | Clinical Summary ---
Author Organization [facility] Address [address] [place] [address] Phone Care Team Providers Care Plastic And Reconstructive Surgeon Name Role Phone Unavailable Unavailable Unavailable Reason for Visit and Chief Complaint [Patient Encounter] Problems Includes: Problems addressed during this encounter and other active Problems All Visits Onset Date Resolved Date Provider Condition S tatus Depression 08/04/2020 Active Last Documented On 3 5:53PM ; [facility] Bipolar I Disorder 07/03/2020 Active Last Documented On 3 5:53PM ; [facility] Generalized Anxiety Disorder 07/03/2020 Active Last Documented On 3 5:53PM ; [facility] Psychophysiological Insomnia 07/03/2020 Active Last Documented On 3 5:53PM ; [facility] Major Depression 07/03/2020 Active Last Documented On 3 5:53PM ; [facility] Plan of Treatment No Plan of [...] 10/02/2022 5:39PM By Fifi Cortes MD ; [facility] LORazepam 0.5 MG TABS 09/22/2020 Provider: BHAVANA CORTES MD Diagnosis: Panic disorder [ episodic paroxysmal anxiety] as directed -- 1 tab a day a s needed for anxiety Last Documented On 10/02/2022 5:39PM By Fifi Cortes MD ; [facility] QUEtiapine Fumarate 100 MG OR TABS 08/08/2020 Provider: ANNI CORTES MD Diagnosis: Bipolar disorder , unspecified as directed -- 1 tab at bedtime Last Documented On 10/02/2022 5:39PM By Fifi Cortes MD ; [facility] QUEtiapine Fumarate 25 MG OR TABS 08/08/2020 Provider: ANNI CORTES MD Diagnosis: Generalized anxi ety disorder as directed -- 1 tab in am a nd 1 tab at noon for anxiety Last Documented On 10/02/2022 5:39PM By Fifi Cortes MD ; [facility] QUEtiapine Fumarate 50 MG OR TABS 07/03/2020 Provider: ANNI CORTES MD Diagnosis: Bipolar disorder , unspecified One tablet at bed time Last Documented On 10/02/2022 5:39PM By Fifi Cortes MD ; [facility] Albuterol Sulfate HFA 108 (90 Base) MCG/ACT IN AERS Provider: Diagnosis: 1 -2 puffs q 4-6 hours allison Tilley NP Last Documented On 10/02/2022 5:39PM By DIANE BOWENS ; [facility] Medications Administered Includes: Administered Medications from [...] 2.2 Last Documented: On 10/02/2022 5:58PM ; [facility] Results Includes: Results discussed during this [...] ve Last Documented On 10/02/2022 5:39PM ; [facility] Note: Imported from external source. Encounters Encounter Provider Location Date Check-In Time Check-Out Time Diagnosis [Patient Encounter] 08/08/2020 12:00AM 11:59PM Insurance Includes: Active Insurance Policies Plan Name Member ID Group # Subscriber Relationship Effect kathy Dates 1 - [facility] [id number] PATRICIA MORALES JR Self Clinical Notes Includes: Clinical Notes from this encounter No Clinical Notes Recorded
--- OUTSIDE RECORDS SUMMARY | 2024-07-10 15:42 | XMS_ITS | Clinical Summary ---
Author Organization [facility] Address [address] [place] [address] Phone Care Team Providers Care Res Counselor Name Role Phone VIRGINIE CARDONA MD Primary Care Provider Reason for Visit and Chief Complaint NO SHOW Problems Includes: Problems addressed during this encounter and other active Problems All Visits Onset Date Resolved Date Provider Condition S tatus Asthma Mild Intermittent with Exacerbation 04/27/2022 PAPI CASTELLANO PA-C Active Last Documented On 04/27/2022 8:42PM ; [facility] Note: Unchanged Generalized Anxiety Disorder 04/27/2022 PAPI CASTELLANO PA-C Active Last Documented On 04/27/2022 8:42PM ; [facility] Note: Unchanged Plan of Treatment No Plan [...] 3 2:42PM By Papi Castellano PA-C ; [facility] Advair Diskus 250-50 MCG/ACT Inhalation Aerosol Powder Breath Activated 06/22/2022 Provider: PAPI Luque Diagnosis: Mild intermitten t asthma with (acute) exacerbation INHALE 1 PUFF BY MOUTH TWICE DAILY. RINSE MOUTH AFTER USE Last Documented On 3 8:11AM By Papi Castellano PA-C ; [facility] Medications Administered Includes: Administered [...] Time Diagnosis NO SHOW FARTUN GIL [facility]PA[facility] 4 11:30AM 11:59PM Insurance Includes: Active Insurance Policies Plan Name Member ID Group # Subscriber Relationship Effect kathy Dates 1 - [facility] [id number] PATRICIA MORALES Self Clinical Notes Includes: Clinical Notes from this encounter No Clinical Notes Recorded
--- OUTSIDE RECORDS SUMMARY | 2024-07-10 15:42 | XMS_ITS ---
Author Organization [facility] Address [address] [place] [address] Phone Care Team Providers Care Auto Wash Buffer Name Role Phone Unavailable Unavailable Unavailable Problems Includes: Active, inactive, and resolved Problems All Visits Onset Date Resolved Date Provider Condition S tatus Depression 08/04/2020 Active Last Documented On 3 5:53PM ; [facility] Bipolar I Disorder 07/03/2020 Active Last Documented On 3 5:53PM ; [facility] Generalized Anxiety Disorder 07/03/2020 Active Last Documented On 3 5:53PM ; [facility] Psychophysiological Insomnia 07/03/2020 Active Last Documented On 3 5:53PM ; [facility] Major Depression 07/03/2020 Active Last Documented On 3 5:53PM ; [facility] Plan of Treatment No Plan [...] 10/02/2022 5:39PM By Fifi Cortes MD ; [facility] LORazepam 0.5 MG TABS 09/22/2020 Provider: BHAVANA CORTES MD Diagnosis: Panic disorder [ episodic paroxysmal anxiety] as directed -- 1 tab a day a s needed for anxiety Last Documented On 10/02/2022 5:39PM By Fifi Cortes MD ; [facility] QUEtiapine Fumarate 100 MG OR TABS 08/08/2020 Provider: ANIN CORTES MD Diagnosis: Bipolar disorder , unspecified as directed -- 1 tab at bedtime Last Documented On 10/02/2022 5:39PM By Fifi Cortes MD ; [facility] QUEtiapine Fumarate 25 MG OR TABS 08/08/2020 Provider: ANNI CORTES MD Diagnosis: Generalized anxi ety disorder as directed -- 1 tab in am a nd 1 tab at noon for anxiety Last Documented On 10/02/2022 5:39PM By Fifi Cortes MD ; [facility] QUEtiapine Fumarate 50 MG OR TABS 07/03/2020 Provider: ANNI CORTES MD Diagnosis: Bipolar disorder , unspecified One tablet at bed time Last Documented On 10/02/2022 5:39PM By Fifi Cortes MD ; [facility] Albuterol Sulfate HFA 108 (90 Base) MCG/ACT IN AERS Provider: Diagnosis: 1 -2 puffs q 4-6 hours allison Tilley NP Last Documented On 10/02/2022 5:39PM By DIANE BOWENS ; [facility] Past Medications on file Focalin 10 MG OR TABS 10/03/2020 - 11/02/2020 Provider: ANNI CORTES MD Diagnosis: Attention-defici t hyperactivity disorder, combined type 1 tablet every morning Last Documented On 10/02/2022 5:39PM By Fifi Cortes MD ; [facility] LORazepam 0.5 MG TABS 08/11/2020 - 09/22/2020 Provider: ANNI CORTES MD Diagnosis: Panic disorder [episodic paroxysmal anxiety] as directed -- 1 tab a day a s needed for anxiety Last Documented On 10/02/2022 5:39PM By Fifi Cortes MD ; [facility] Escitalopram Oxalate 10 MG OR TABS 06/20/2020 - 2020 Provider: Diagnosis: 1 tab daily Xin Tilley NP Last Documented On 10/02/2022 5:39PM By DIANE BOWENS ; [facility] Medications Administered Includes: Administered Medications in patient's chart No Administered Medications Recorded Results Includes: Results from 07/10/2023 through 07/10/2024 No Results Recorded For Specified Dates History [...] ve Last Documented On 10/02/2022 5:39PM ; [facility] Note: Imported from external source. Insurance Includes: Active Insurance Policies Plan Name Member ID Group # Subscriber Relationship Effect kathy Dates 1 - [facility] [id number] PATRICIA MORALES JR Self Clinical Notes Includes: Signed Clinical Notes starting from 06/25/2022 No Clinical Notes Recorded
--- OUTSIDE RECORDS SUMMARY | 2024-07-10 15:43 | XMS_ITS | Clinical Summary ---
Author Organization [facility] Address [address] [place] [address] Phone Care Team Providers Care Supervisor Grips Name Role Phone Unavailable Unavailable Unavailable Reason for Visit and Chief Complaint [Patient Encounter] Problems Includes: Problems addressed during this encounter and other active Problems All Visits Onset Date Resolved Date Provider Condition S tatus Depression 08/04/2020 Active Last Documented On 3 5:53PM ; [facility] Bipolar I Disorder 07/03/2020 Active Last Documented On 3 5:53PM ; [facility] Generalized Anxiety Disorder 07/03/2020 Active Last Documented On 3 5:53PM ; [facility] Psychophysiological Insomnia 07/03/2020 Active Last Documented On 3 5:53PM ; [facility] Major Depression 07/03/2020 Active Last Documented On 3 5:53PM ; [facility] Plan of Treatment No Plan [...] 10/02/2022 5:39PM By Fifi Cortes MD ; [facility] LORazepam 0.5 MG TABS 09/22/2020 Provider: BHAVANA CORTES MD Diagnosis: Panic disorder [ episodic paroxysmal anxiety] as directed -- 1 tab a day a s needed for anxiety Last Documented On 10/02/2022 5:39PM By Fifi Cortes MD ; [facility] QUEtiapine Fumarate 100 MG OR TABS 08/08/2020 Provider: ANNI CORTES MD Diagnosis: Bipolar disorder , unspecified as directed -- 1 tab at bedtime Last Documented On 10/02/2022 5:39PM By Fifi Cortes MD ; [facility] QUEtiapine Fumarate 25 MG OR TABS 08/08/2020 Provider: ANNI CORTES MD Diagnosis: Generalized anxi ety disorder as directed -- 1 tab in am a nd 1 tab at noon for anxiety Last Documented On 10/02/2022 5:39PM By Fifi Cortes MD ; [facility] QUEtiapine Fumarate 50 MG OR TABS 07/03/2020 Provider: ANNI CORTES MD Diagnosis: Bipolar disorder , unspecified One tablet at bed time Last Documented On 10/02/2022 5:39PM By Fifi Cortes MD ; [facility] Albuterol Sulfate HFA 108 (90 Base) MCG/ACT IN AERS Provider: Diagnosis: 1 -2 puffs q 4-6 hours allison Tilley NP Last Documented On 10/02/2022 5:39PM By DIANE BOWENS ; [facility] Medications Administered Includes: Administered Medications from [...] 2.2 Last Documented: On 10/02/2022 5:58PM ; [facility] Results Includes: Results discussed during [...] ve Last Documented On 10/02/2022 5:39PM ; [facility] Note: Imported from external source. Encounters Encounter Provider Location Date Check-In Time Check-Out Time Diagnosis [Patient Encounter] 07/03/2020 12:00AM 11:59PM Insurance Includes: Active Insurance Policies Plan Name Member ID Group # Subscriber Relationship Effect kathy Dates 1 - [facility] [id number] PATRICIA MORALES JR Self Clinical Notes Includes: Clinical Notes from this encounter No Clinical Notes Recorded
--- OUTSIDE RECORDS SUMMARY | 2024-07-10 15:43 | XMS_ITS | Clinical Summary ---
Author Organization [facility] Address [address] [place] [phone] Phone Care Team Providers Care Sales And Production Manager Name Role Phone Unavailable Unavailable Unavailable Reason for Visit and Chief Complaint The Chief Complaint is: depression, anxiety, PTSD Problems Includes: Problems addressed during this encounter and other active Problems Current Visit Onset Date Resolved Date Provider Conditio n Status Bipolar I Disorder 07/03/2020 ANNI ABEBE MD Active Last Documented On 1 2:16PM ; [facility] Generalized Anxiety Disorder 07/03/2020 ANNI CORTES MD Active Last Documented On 1 2:16PM ; [facility] Psychophysiological Insomnia 07/03/2020 ANNI CORTES MD Active Last Documented On 1 2:17PM ; [facility] Major Depression 07/03/2020 ANNI CORTES MD Active Last Documented On 1 2:16PM ; [facility] Past Visits Onset Date Resolved Date Provider Condition Status Depression 08/04/2020 ANNI CORTES MD Ac tive Last Documented On 1 8:56AM ; [facility] Plan of Treatment Instructions to patient Lose weight Last Documented On 1 2:31PM ; [facility] Education and Decision Aids were provided during visit for: Patient education about medi cation --- I educated patient on medication(s) and diagnosis. I reviewed the risks, benefits and side effects of patient's medications Last Documented On 1 1:49PM ; [facility] Discussed calming techniques such as breathing exercises and other relaxation techniques Last Documented On 1 1:49PM ; [facility] Counseling for nutrition/daniel ght management provided Last Documented On 1 2:31PM ; [facility] Assessments Includes: Assessments from this encounter Findings - Bipolar I disorder - Last Documented On 07/23/2020 9:10AM ; [facility] - Major depressive disorder - Last Documented On 07/23/2020 9:10AM ; [facility] - Psychophysiological insomnia - Last Documented On 07/23/2020 9:10AM ; [facility] - Generalized anxiety disorder - Last Documented On 07/23/2020 9:10AM ; [facility] AXIS I: Bipolar Disorder, most recent episode depressed, generalized anxiety disorder, panic disorder - Last Documented On 07/23/2020 9:10AM ; [facility] AXIS II: none - Last Documented On 07/23/2020 9:10AM ; [facility] AXIS III: Asthma - Last Documented On 07/23/2020 9:10AM ; [facility] AXIS IV: problems related to social environment - Last Documented On 07/23/2020 9:10AM ; [facility] AXIS V: 50 - Last Documented On 07/23/2020 9:10AM ; [facility] Instructions Includes: Instructions from this encounter Instructions to patient Lose weight Last Documented On 1 2:31PM ; [facility] Education and Decision Aids were provided during visit for: Patient education about medi cation --- I educated patient on medication(s) and diagnosis. I reviewed the risks, benefits and side effects of patient's medications Last Documented On 1 1:49PM ; [facility] Discussed calming techniques such as breathing exercises and other relaxation techniques Last Documented On 1 1:49PM ; [facility] Counseling for nutrition/daniel ght management provided Last Documented On 1 2:31PM ; [facility] Medical Equipment - Implanted Devices Includes: Current Devices No Medical Equipment Recorded Medications Includes: Medications discussed during this encounter and other current Medications New / Renewed during this visit ANNI CORTES MD on 07/03/2020 QUEtiapine Fumarate 50 MG Oral Tablet Provider: ANNI CORTES MD 30 day supply: 30 tablet, 1 refills Diagnosis: Bipolar disorder, unspecified One tablet at bed time [facility] - [id number] [place] [place] [facility], [id number] - Last Documented On 07/03/2020 3:17PM By Fifi Cortes MD ; [facility] Current Medications (continue as prescribed) SEROquel XR 200 MG Oral Tablet Extended Release 24 Hour 10/03/2020 Provider: ANNI CORTES MD Diagnosis: Bipolar disorder , unspecified as directed -- 1 tab at bedtime Last Documented On 10/03/2020 9:49AM By Fifi Cortes MD ; [facility] LORazepam 0.5 MG Oral Tablet 09/22/2020 Provider: ANNI CORTES MD Diagnosis: Panic disorder [ episodic paroxysmal anxiety] as directed -- 1 tab a day a s needed for anxiety Last Documented On 09/22/2020 6:31PM By Fifi oCrtes MD ; [facility] QUEtiapine Fumarate 100 MG Oral Tablet 08/08/2020 Provider: ANNI CORTES MD Diagnosis: Bipolar disorder , unspecified as directed -- 1 tab at bedtime Last Documented On 1 10:36AM By Fifi Cortes MD ; [facility] QUEtiapine Fumarate 25 MG Oral Tablet 08/08/2020 Provider: ANNI CORTES MD Diagnosis: Generalized anxi ety disorder as directed -- 1 tab in am a nd 1 tab at noon for anxiety Last Documented On 1 10:44AM By Fifi Cortes MD ; [facility] Albuterol Sulfate HFA 108 (9 0 Base) MCG/ACT Inhalation Aerosol Solution 06/20/2020 Provider: Diagnosis: 1 -2 puffs q 4-6 hours allison Tilley NP Last Documented On 07/03/2020 1:52PM By DIANE BOWENS ; [facility] Past Medications on file Focalin 10 MG Oral Tablet 10/03/2020 - 11/02/2020 Provider: ANNI CORTES MD Diagnosis: Attention-defici t hyperactivity disorder, combined type 1 tablet every morning Last Documented On 10:32AM By Fifi Cortes MD ; [facility] Medications Administered Includes: Administered Medications [...] 2.2 Last Documented: On 07/03/2020 2:32PM ; [facility] Results Includes: Results discussed during [...] 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 Some type [...] Updated Patient was born and raised in [place], [place]. He reported a complicated relationship with [...] sexual dysfunction. [facility] [place]. He enjoys video games and basketball. He is changing his nutritional habits due to recent kidney failure 07/03/2020 Last Documented On 1 9:10AM ; [facility] Single 07/03/2020 Last Documented On 1 9:10AM ; [facility] Non-smoker 07/03/2020 Last Documented On 1 9:10AM ; [facility] Daily coffee consumption - n o coffee or tea, drinks 40 - 60 oz of soda daily 07/03/2020 Last Documented On 1 9:10AM ; [facility] Drug use (Illicit)history of marijuana u se and dropping acid 07/03/2020 Last Documented On 1 9:10AM ; [facility] No tobacco use 07/03/2020 Last Documented On 1 9:10AM ; [facility] No work history reported - previoiusly w orked for [employer] 07/03/2020 Last Documented On 1 9:10AM ; [facility] Not using alcohol 07/03/2020 Last Documented On 1 9:10AM ; [facility] Occupation - currently works in a [employer] use 07/03/2020 Last Documented On 1 9:10AM ; [facility] The living environment is sa tisfactory - currently lives with stepmamta, Anson, sisters, and his girlfriend, Xin 07/03/2020 Last Documented On 1 9:10AM ; [facility] Smoking status : Never smoker 07/03/2020 Last Documented On 1 9:10AM ; [facility] Procedures and Surgical History Includes: Procedures from this encounter Procedures Code Diagnosis Performing Provider Service L ocation Service Date education and instructions Last Documented On 1 1:49PM ; [facility] I explained the rationale fo r [...] plan Last Documented On 1 1:49PM ; [facility] use of tobacco assessment performed 1000F Last Documented On 1 2:31PM ; [facility] patient screened for future fall risk - no recen t falls 3288F Last Documented On 1 2:31PM ; [facility] review of medications documented 1160F Last Documented On 1 2:31PM ; [facility] screening for adult depressi on: impression and score - please see above for treatment and PHQ score Last Documented On 1 2:31PM ; [facility] standardized depression screening: posit kathy for symptoms Last Documented On 1 2:31PM ; [facility] encouragement to exercise Last Documented On 1 2:31PM ; [facility] Clinical summary provided to patient Last Documented On 1 2:31PM ; [facility] PHQ-9: total score Last Documented On 1 2:31PM ; [facility] Surgical History Last Updated History of ear pressure equalization tub e - age 5 07/04/2020 Last Documented On 1 9:10AM ; [facility] Medical History Includes: Medical History addressed during this encounter Description Last Updated History of renal failure - 03/2020 -- du e to excessive use of Ibuprofen 07/04/2020 Last Documented On 1 9:10AM ; [facility] History of eczema - reaction to metal fr om button on blue jeans 07/03/2020 Last Documented On 1 9:10AM ; [facility] History of asthma - since age 5 07/03/19 21 Last Documented On 1 9:10AM ; [facility] Primary Care Provider: Xin Tilley NP 07/03/2020 Last Documented On 1 9:10AM ; [facility] Family History Includes: Family History addressed during this encounter Description Last Updated Maternal grandfather's history of combin ed drug and alcohol abuse 07/03/2020 Last Documented On 1 9:10AM ; [facility] Maternal history of drug abuse 1 Last Documented On 1 9:10AM ; [facility] Paternal uncle's history of combined narendra g and alcohol abuse 07/03/2020 Last Documented On 1 9:10AM ; [facility] Paternal aunt's history of combined drug and alcohol abuse 07/03/2020 Last Documented On 1 9:10AM ; [facility] Paternal grandfather's history of combin ed drug and alcohol abuse 07/03/2020 Last Documented On 1 9:10AM ; [facility] Paternal history of drug abuse - father overdosed 07/03/2020 Last Documented On 1 9:10AM ; [facility] Paternal grandfather's history of suicid e attempt 07/03/2020 Last Documented On 1 9:10AM ; [facility] Maternal grandmother's history of suicid e attempt 07/03/2020 Last Documented On 1 9:10AM ; [facility] Maternal grandmother's history of depres nathan 07/03/2020 Last Documented On 1 9:10AM ; [facility] Review of Systems Includes: Review of [...] ve Last Documented On 10/02/2022 5:39PM ; [facility] Note: Imported from external source. Encounters Encounter Provider Location Date Check-In Time Check-Out Time Diagnosis NEW PATIENT VISIT ANNI CORTES MD [facility] 07/03/19 21 1:39PM 11:59PM Bipolar I Disorder,Gene ralized Anxiety Disorder,Kierra r Depression,Ps ychophysiolog ical Insomnia Insurance Includes: Active Insurance Policies Plan Name Member ID Group # Subscriber Relationship Effect kathy Dates 1 - [facility] [place] [id number] JAYSON MORALES JR Self Clinical Notes Includes: Clinical Notes from this encounter No Clinical Notes Recorded
--- OUTSIDE RECORDS SUMMARY | 2024-07-10 15:43 | XMS_ITS | Clinical Summary ---
Author Organization [facility] Address [address] [place] [phone] Phone Care Team Providers Care Commercial Sales Consultant Name Role Phone Unavailable Unavailable Unavailable Reason for Visit and Chief Complaint The Chief Complaint is: follow up for depression, anxiety, PTSD Problems Includes: Problems addressed during this encounter and other active Problems Current Visit Onset Date Resolved Date Provider Condmastero n Status Depression 08/04/2020 ANNI CORTES MD Ac tive Last Documented On 1 8:56AM ; [facility] Bipolar I Disorder 07/03/2020 ANNI ABEBE MD Active Last Documented On 1 2:16PM ; [facility] Generalized Anxiety Disorder 07/03/2020 ANNI CORTES MD Active Last Documented On 1 2:16PM ; [facility] Psychophysiological Insomnia 07/03/2020 ANNI CORTES MD Active Last Documented On 1 2:17PM ; [facility] Major Depression 07/03/2020 ANNI CORTES MD Active Last Documented On 1 2:16PM ; [facility] Plan of Treatment Instructions to patient Lose weight Last Documented On 1 9:15AM ; [facility] Education and Decision Aids were provided during visit for: Patient education about medi cation --- I educated patient on medication(s) and diagnosis. I reviewed the risks, benefits and side effects of patient's medications Last Documented On 1 9:05AM ; [facility] Discussed calming techniques such as breathing exercises and other relaxation techniques Last Documented On 9:05AM ; [facility] Counseling for nutrition/daniel ght management provided Last Documented On 9:15AM ; [facility] Discussed good sleep hygiene habits Last Documented On 9:15AM ; [facility] Assessments Includes: Assessments from this encounter Findings - Bipolar I disorder - Last Documented On 10/16/2020 8:33AM ; [facility] - Depression - Last Documented On 10/16/2020 8:33AM ; [facility] - Major depressive disorder - Last Documented On 10/16/2020 8:33AM ; [facility] - Psychophysiological insomnia - Last Documented On 10/16/2020 8:33AM ; [facility] - Generalized anxiety disorder - Last Documented On 10/16/2020 8:33AM ; [facility] Instructions Includes: Instructions from this encounter Instructions to patient Lose weight Last Documented On 9:15AM ; [facility] Education and Decision Aids were provided during visit for: Patient education about medi cation --- I educated patient on medication(s) and diagnosis. I reviewed the risks, benefits and side effects of patient's medications Last Documented On 9:05AM ; [facility] Discussed calming techniques such as breathing exercises and other relaxation techniques Last Documented On 9:05AM ; [facility] Counseling for nutrition/daniel ght management provided Last Documented On 9:15AM ; [facility] Discussed good sleep hygiene habits Last Documented On 9:15AM ; [facility] Medical Equipment - Implanted Devices Includes: Current Devices No Medical Equipment Recorded Medications Includes: Medications discussed during this encounter and other current Medications Discontinued / Stopped on this date on 06/20/2020 Escitalopram Oxalate 10 MG Oral Tablet Pr ovider: Diagnosis: Last Documented On 10/03/2020 7:58PM By Fifi Cortes MD ; [facility] New / Renewed during this visit ANNI CORTES MD on 10/03/2020 SEROquel XR 200 MG Oral Tablet Extended Release 24 Hour Provider: ANNI CORTES MD 30 day supply: 30 tablet, 3 refills Diagnosis: Bipolar disorder, unspecified as directed -- 1 tab at bedtime Pharmacy: [facility] - [address] [facility], [id number] - Last Documented On 10/03/2020 9:49AM By Fifi Cortes MD ; [facility] Focalin 10 MG Oral Tablet Provider: ANNI CORTES MD 30 day supply: 30 tablet, 0 refills Diagnosis: Attention-deficit hyperactivity disorder, combined type 1 tablet every morning Pharmacy: [address], [id number] - Last Documented On 10:32AM By Fifi Cortes MD ; [facility] Current Medications (continue as prescribed) LORazepam 0.5 MG Oral Tablet 09/22/2020 Provider: ANNI CORTES MD Diagnosis: Panic disorder [ episodic paroxysmal anxiety] as directed -- 1 tab a day a s needed for anxiety Last Documented On 09/22/2020 6:31PM By Fifi Cortes MD ; [facility] QUEtiapine Fumarate 100 MG Oral Tablet 08/08/2020 Provider: ANNI CORTES MD Diagnosis: Bipolar disorder , unspecified as directed -- 1 tab at bedtime Last Documented On 10:36AM By Fifi Cortes MD ; [facility] QUEtiapine Fumarate 25 MG Oral Tablet 08/08/2020 Provider: ANNI CORTES MD Diagnosis: Generalized anxi ety disorder as directed -- 1 tab in am a nd 1 tab at noon for anxiety Last Documented On 10:44AM By Fifi Cortes MD ; [facility] QUEtiapine Fumarate 50 MG Oral Tablet 07/03/2020 Provider: ANNI CORTES MD Diagnosis: Bipolar disorder , unspecified One tablet at bed time Last Documented On 07/03/2020 3:17PM By Fifi Cortes MD ; [facility] Albuterol Sulfate HFA 108 (9 0 Base) MCG/ACT Inhalation Aerosol Solution 06/20/2020 Provider: Diagnosis: 1 -2 puffs q 4-6 hours allison Tilley NP Last Documented On 07/03/2020 1:52PM By DIANE BOWENS ; [facility] Medications Administered Includes: [...] 2.2 Last Documented: On 10/03/2020 9:22AM ; [facility] Results Includes: Results [...] with his girlfriend and girlfriend's grandmother in [place]; however, he is in the process of [...] 10/03/2020 Last Documented On 1 8:33AM ; [facility] Current nonsmoker 08/08/2020 Last Documented On 1 9:05AM ; [facility] Patient was born and raised in [place], [place]. He reported a complicated relationship with [...] 07/03/2020 Last Documented On 1 9:05AM ; [facility] Single 07/03/2020 Last Documented On 1 9:05AM ; [facility] Non-smoker 07/03/2020 Last Documented On 1 9:05AM ; [facility] Drug use (Illicit)history of marijuana u se and dropping acid 07/03/2020 Last Documented On 1 9:05AM ; [facility] No tobacco use 07/03/2020 Last Documented On 1 9:05AM ; [facility] No work history reported - previoiusly w orked for [employer] 07/03/2020 Last Documented On 1 9:05AM ; [facility] Not using alcohol 07/03/2020 Last Documented On 9:05AM ; [facility] Occupation - currently works in a [employer] use 07/03/2020 Last Documented On 9:05AM ; [facility] The living environment is sa tisfactory - currently lives with [place], Anson, sisters, and his girlfriend, Xin 07/03/2020 Last Documented On 9:05AM ; [facility] Smoking status : Never smoker 07/03/2020 Last Documented On 9:05AM ; [facility] Procedures and Surgical History Includes: Procedures from this encounter Procedures Code Diagnosis Performing Provider Service L ocation Service Date education and instructions Last Documented On 9:05AM ; [facility] I discussed the risks, benef its and side effects of Quetiapine to the patient including the possibility of metabolic and motor side effects such as tardive dyskinesia Last Documented On 9:15AM ; [facility] I explained the rationale fo r [...] treatment plan Last Documented On 9:05AM ; [facility] use of tobacco assessment performed 1000F Last Documented On 9:15AM ; [facility] patient screened for future fall risk - no recen t falls 3288F Last Documented On 9:15AM ; [facility] review of medications documented 1160F Last Documented On 1 9:15AM ; [facility] assessment of suicide risk performed - n ot suicidal Last Documented On 1 9:21AM ; [facility] screening for adult depressi on: impression and score - please see above treatment and PHQ score Last Documented On 1 9:21AM ; [facility] standardized depression screening: posit kathy for symptoms Last Documented On 1 9:21AM ; [facility] encouragement to exercise Last Documented On 1 9:15AM ; [facility] Clinical summary provided to patient Last Documented On 9:15AM ; [facility] PHQ-9: total score Last Documented On 1 9:15AM ; [facility] Surgical History Last Updated History of ear pressure equalization tub e - age 5 07/04/2020 Last Documented On 1 9:05AM ; [facility] Medical History Includes: Medical History addressed during this encounter Description Last Updated Primary Care Provider: looking for new P CP as of 10/03/20 10/03/2020 Last Documented On 1 8:33AM ; [facility] History of herpes simplex - testing done for HSV I and II pending from 10/02/20 10/03/2020 Last Documented On 1 8:33AM ; [facility] No diagnosis of history of o bstructive sleep apnea - patient has never had a sleep study 10/03/2020 Last Documented On 1 8:33AM ; [facility] History of renal failure - 03/2020 -- du e to excessive use of Ibuprofen 07/04/2020 Last Documented On 1 9:05AM ; [facility] History of eczema - reaction to metal fr om button on blue jeans 07/03/2020 Last Documented On 1 9:05AM ; [facility] History of asthma - since age 5 07/03/19 Last Documented On 1 9:05AM ; [facility] Family History Includes: Family History addressed during this encounter Description Last Updated Maternal grandfather's history of combin ed drug and alcohol abuse 07/03/2020 Last Documented On 1 9:05AM ; [facility] Maternal history of drug abuse 1 Last Documented On 1 9:05AM ; [facility] Paternal uncle's history of combined narendra g and alcohol abuse 07/03/2020 Last Documented On 1 9:05AM ; [facility] Paternal aunt's history of combined drug and alcohol abuse 07/03/2020 Last Documented On 1 9:05AM ; [facility] Paternal grandfather's history of combin ed drug and alcohol abuse 07/03/2020 Last Documented On 1 9:05AM ; [facility] Paternal history of drug abuse - father overdosed 07/03/2020 Last Documented On 1 9:05AM ; [facility] Paternal grandfather's history of suicid e attempt 07/03/2020 Last Documented On 1 9:05AM ; [facility] Maternal grandmother's history of suicid e attempt 07/03/2020 Last Documented On 1 9:05AM ; [facility] Maternal grandmother's history of depres nathan 07/03/2020 Last Documented On 1 9:05AM ; [facility] Review of Systems Includes: Review of [...] ve Last Documented On 10/02/2022 5:39PM ; [facility] Note: Imported from external source. Encounters Encounter Provider Location Date Check-In Time Check-Out Time Diagnosis FOLLOW UP ANNI CORTES MD [facility] 8:51AM 11:59PM Generalized Anxiety Disorder,Depres nathan,Psychophys iological Insomnia,Major Depression,Bipo lar I Disorder Insurance Includes: Active Insurance Policies Plan Name Member ID Group # Subscriber Relationship Effect kathy Dates 1 - [facility] [id number] JAYSON MORALES JR Self Clinical Notes Includes: Clinical Notes from this encounter No Clinical Notes Recorded
--- OUTSIDE RECORDS SUMMARY | 2024-07-10 15:43 | XMS_ITS | Clinical Summary ---
Author Organization [facility] Address [address] [place] [address] Phone Care Team Providers Care Bundle Cutter Name Role Phone VIRGINIE CARDONA MD Primary [...] Active Last Documented On 04/27/2022 8:42PM ; [facility] Note: Unchanged Generalized Anxiety Disorder 04/27/2022 EARLENE CASTELLANO PA-C Active Last Documented On 04/27/2022 8:42PM ; [facility] Note: Unchanged Plan of Treatment Increase zoloft to 100mg daily. Monitor for side effects. Will also refer to psych as patient has extensive medication history. Continue current asthma regimen. Adding zpak today due to wheezing. RTC 6 months, sooner if needed. - Last Documented On 01/05/2023 8:42AM ; [facility] Pending Tests Order Diagnosis Results Due Ordering [facility] THYROID PANEL (TSH & FREE T4) 11/13/22 EARLENE Luque Last Documented On 4 3:18PM ; [facility] Lab VITAMIN B12 11/13/22 EARLENE JI PA-C Last Documented On 4 3:18PM ; [facility] Lab LIPID PANEL 11/13/22 EARLENE JI PA-C Last Documented On 4 3:18PM ; [facility] Lab CMP 11/13/22 EARLENE LU PA-C Last Documented On 4 3:18PM ; [facility] Lab CBC WITH DIFF 11/13/22 EARLENE DODGE PA-C Last Documented On 4 3:18PM ; [facility] Referrals To Diagnosis Psychiatrist FARTUN GIL [facility] [employer]PER[employer]- Generalized anxiety disorder Note: panic attacks triggeri ng asthma attacks Last Documented On 3 4:15PM ; [facility] Instructions to patient Intervention and counseling on cessation of tobacco use Last Documented On 3 2:31PM ; [facility] Assessments Includes: Assessments from this encounter Findings - [J45.21 - Mild intermittent asthma with (acute) exacerbation] Mild intermittent asthma with exacerbation - Last Documented On 01/05/2023 8:42AM ; [facility] - [F41.1 - Generalized anxiety disorder] Generalized anxiety disorder - Last Documented On 01/05/2023 8:42AM ; [facility] Instructions Includes: Instructions from this encounter Instructions to patient Intervention and counseling on cessation of tobacco use Last Documented On 3 2:31PM ; [facility] Medical Equipment - Implanted Devices Includes: Current Devices No Medical Equipment Recorded Medications Includes: Medications discussed during this encounter and other current Medications New / Renewed during this visit EARLENE CASTELLANO PA-C on 01/04/2023 Sertraline HCl 100 MG Oral Tablet Provider: EARLENE Luque 30 day supply: 30 tablet, 0 refills Diagnosis: Generalized anxiety disorder One tablet daily Pharmacy: [address], [phone] - Last Documented On 3 8:03AM By Earlene Castellano PA-C ; [facility] Azithromycin 250 MG Oral Tablet Provider: EARLENE CASTELLANO PA-C 5 day supply: 6 tablet, 0 refills Diagnosis: Mild intermittent asthma with (acute) exacerbation take 2 tablets on day 1, the n 1 tablet on days 2-5 Pharmacy: [address], [id number] - Last Documented On 04/05/2023 2:52PM By DANIEL BOWENS ; [facility] Current Medications (continue as prescribed) Albuterol Sulfate HFA 108 (9 0 Base) MCG/ACT Inhalation Aerosol Solution 06/02/2023 Provider: CHARLIE CASTELLANO PA-C Diagnosis: INHALE 2 PUFFS BY MOUTH EVERY 4 HOURS NEEDED Last Documented On 3 2:42PM By Earlene Castellano PA-C ; [facility] Advair Diskus 250-50 MCG/ACT Inhalation Aerosol Powder Breath Activated 06/22/2022 Provider: EARLENE Luque Diagnosis: Mild intermitten t asthma with (acute) exacerbation INHALE 1 PUFF BY MOUTH TWICE DAILY. RINSE MOUTH AFTER USE Last Documented On 3 8:11AM By Earlene Castellano PA-C ; [facility] Past Medications on file Sertraline HCl 100 MG Oral Tablet 06/28/2023 - 09/26/2023 Provider: FARTUN VIDES [facility]- Diagnosis: Take 2 tabs PO daily (200mg) dose Last Documented On 4 12:06PM By FARTUN GIL [facility] ; [facility] Wellbutrin XL 300 MG Oral Tablet Extended Release 24 Hour 06/28/2023 - 08/27/2023 Provider: FARTUN IGL [facility] Diagnosis: Depression, unspecified One tablet daily--dose increase Last Documented On 4 12:06PM By FARTUN GIL [facility] ; [facility] hydrOXYzine Pamoate 25 MG Oral Capsule 06/28/2023 - 07/28/2023 Provider: FARTUN GIL [facility] Diagnosis: Panic disorder [episodic paroxysmal anxiety] 1 capsule PO TID PRN anxiety Last Documented On 4 12:06PM By FARTUN GIL [facility] ; [facility] QUEtiapine Fumarate 150 MG Oral Tablet 06/28/2023 - 08/27/2023 Provider: FARTUN GIL [facility] Diagnosis: Insomnia, unspec ified One tablet daily--dose increase Last Documented On 4 12:06PM By FARTUN SUN ; [facility] Medications Administered Includes: [...] 99 Last Documented: On 01/04/2023 2:30PM ; [facility] Results Includes: Results discussed during [...] 10/25/2022 Last Documented On 3 2:20PM ; [facility] Using marijuana 02/22/2022 Last Documented On 3 2:20PM ; [facility] [PHQ-2] Patient Health Questionnaire 2 i tem total score: 1 (Scale: 0-6) 07/20/2021 Last Documented On 3 2:20PM ; [facility] Alcohol 07/20/2021 Last Documented On 3 2:20PM ; [facility] Drug use 07/20/2021 Last Documented On 3 2:20PM ; [facility] Type: Marijuana 07/20/2021 Last Documented On 3 2:20PM ; [facility] Smoking Status Unknown Procedures and Surgical History Includes: Procedures from this encounter Procedures Code Diagnosis Performing Provider Service L ocation Service Date intervention and counseling on cessation of tobacco use 4000F Last Documented On 3 2:31PM ; [facility] use of tobacco assessment performed 1000F Last Documented On 3 2:31PM ; [facility] review of medications documented 1160F Last Documented On 3 2:31PM ; [facility] Medical History Includes: Medical History addressed during this encounter Description Last Updated No Vaccine history 01/04/2023 Last Documented On 3 8:42AM ; [facility] Exercise 07/20/2021 Last Documented On 3 2:20PM ; [facility] Family History Includes: Family History addressed during this encounter Description Last Updated Family history of stroke/paralysis 07/20 Last Documented On 3 2:20PM ; [facility] Maternal history of Arthritis 07/20/2021 Last Documented On 3 2:20PM ; [facility] Review of Systems Includes: Review [...] Check-In Time Check-Out Time Diagnosis PROBLEM VISIT AERLENE CASTELLANO PA-C [facility] 01/05/20 23 2:00PM 2:51PM Generalized Anxiety Disorder,Asthma Mild Intermittent with Exacerbation Insurance Includes: Active Insurance Policies Plan Name Member ID Group # Subscriber Relationship Effect kathy Dates 1 - [facility] [id number] PATRICIA MORALES JR Self Clinical Notes Includes: Clinical Notes from this encounter * Progress note Date Encounter Last Documented by 01/04/2023 PROBLEM VISIT Last documented on 01/05/2023; 8:42 AM, EARLENE CASTELLANO PA-C; [facility] Active Problems & [...]
--- OUTSIDE RECORDS SUMMARY | 2024-07-10 15:43 | XMS_ITS ---
Care Plan - [facility] Created on: July 10, 2024 PATRICIA MORALES JR : 2000 Sex: Male Author Organization [facility] Address [address] [place] [address] Phone Care Team Providers Care Rag Cutting Machine Feeder Name Role Phone VIRGINIE CARDONA MD Primary Care Provider
--- OUTSIDE RECORDS SUMMARY | 2024-07-10 15:43 | XMS_ITS ---
Author Organization [facility] Address [address] [place] [address] Phone Care Team Providers Care Nib Finisher Name Role Phone VIRGINIE CARDONA MD Primary Care Provider Problems Includes: Active, inactive, and resolved Problems All Visits Onset Date Resolved Date Provider Condition S tatus Asthma Mild Intermittent with Exacerbation 04/27/2022 EARLENE MIKE PA-C Active Last Documented On 04/27/2022 8:42PM ; [facility] Note: Unchanged Generalized Anxiety Disorder 04/27/2022 EARLENE BROWNINGC Active Last Documented On 04/27/2022 8:42PM ; [facility] Note: Unchanged Plan of Treatment Findings Encounter Date Ordered follow-up visit in 1 month TELE EALTH with FARTUN GIL PMHNP-BC AGRICULTURAL EQUIPMENT TEST ENGINEER-BC 06/28/2023 Last Documented On 4 12:07PM ; [facility] Ordered return to the clinic if condition worsens or new symptoms arise TELEHEALTH with FARTUN GIL PMHNP-BC AGRICULTURAL EQUIPMENT TEST ENGINEER-BC 06/28/2023 Last Documented On 4 12:07PM ; [facility] Ordered follow-up visit in 1 month TELE EALTH with FARTUN GIL PMHNP-BC AGRICULTURAL EQUIPMENT TEST ENGINEER-BC 05/23/2023 Last Documented On 3 9:28AM ; [facility] Ordered return to the clinic if condition worsens or new symptoms arise TELEHEALTH with FARTUN GIL PMHNP-BC AGRICULTURAL EQUIPMENT TEST ENGINEER-BC 05/23/2023 Last Documented On 3 9:28AM ; [facility] Ordered follow-up visit in 1 month PSYCH NEW PATIENT EXAM 18 YEARS AND OLDER with FARTUN GIL PMHNP-BC AGRICULTURAL EQUIPMENT TEST ENGINEER-BC 04/05/2023 Last Documented On 3 9:35AM ; [facility] Ordered return to the clinic if condition worsens or new symptoms arise PSYCH NEW PATIENT EXAM 18 YEARS AND OLDER with FARTUN GIL PMHNP-BC AGRICULTURAL EQUIPMENT TEST ENGINEER-BC 04/05/2023 Last Documented On 3 9:35AM ; [facility] Pt to use prescription as or dered. Purpose of and use of medication discussed. COVID SICK VISIT- ESTABLISHED PATIENT with MERCED COOPER AGRICULTURAL EQUIPMENT TEST ENGINEER-C 10/25/2022 Last Documented On 3 7:18PM ; [facility] The options include close observation CO VID SICK VISIT- ESTABLISHED PATIENT with MERCED COOPER AGRICULTURAL EQUIPMENT TEST ENGINEER-C 10/25/2022 Last Documented On 3 7:18PM ; [facility] Watch for signs/symptoms of infection, return to the clinic if seen COVID SICK VISIT- ESTABLISHED PATIENT with MERCED COOPER AGRICULTURAL EQUIPMENT TEST ENGINEER-C 10/25/2022 Last Documented On 3 7:18PM ; [facility] Ordered follow-up visit in 1 -2 weeks with an office visit or sooner if symptoms persist or worsen COVID SICK VISIT- ESTABLISHED PATIENT with CARLOS A MANRIQUE AGRICULTURAL EQUIPMENT TEST ENGINEER-BC 10/08/2022 Last Documented On 3 11:46AM ; [facility] Ordered patient to call if p roblem develops COVID SICK VISIT- ESTABLISHED PATIENT with CARLOS A MANRIQUE AGRICULTURAL EQUIPMENT TEST ENGINEER-BC 10/08/2022 Last Documented On 3 11:46AM ; [facility] Ordered return to the clinic if condition worsens or new symptoms arise COVID SICK VISIT- ESTABLISHED PATIENT with CARLOS A MANRIQUE AGRICULTURAL EQUIPMENT TEST ENGINEER-BC 10/08/2022 Last Documented On 3 11:46AM ; [facility] Pending Tests Order Diagnosis Results Due Ordering [facility] THYROID PANEL (TSH & FREE T4) 11/13/22 EARLENE Luque Last Documented On 4 3:18PM ; [facility] Lab VITAMIN B12 11/13/[address] V[address] PA-C Last Documented On 4 3:18PM ; [facility] Lab LIPID PANEL 11/13/22 EARLENE SHERMAN VELY PA-C Last Documented On 4 3:18PM ; [facility] Lab CMP 11/13/22 EARLENE AHMADI ALY PA-C Last Documented On 4 3:18PM ; [facility] Lab CBC WITH DIFF 11/13/22 EARLENE LUNAELY PA-C Last Documented On 4 3:18PM ; [facility] Referrals To Diagnosis [facility]iatrist [facility] [place] depressive disorder, recurrent, mild Last Documented On 3 2:06PM ; [facility] Counselor DELICIA RAY DESILVERIZER Generalize tejinder anxiety disorder Last Documented On 2 2:28PM ; [facility] Psychiatrist FARTUN GIL PMHNP-BC AGRICULTURAL EQUIPMENT TEST ENGINEER-BC Generalized anxiety disorder Note: panic attacks triggeri ng asthma attacks Last Documented On 3 4:15PM ; [facility] Instructions to patient Intervention and counseling on cessation of tobacco use Last Documented On 3 2:31PM ; [facility] Intervention and counseling on cessation of tobacco use Last Documented On 3 1:23PM ; [facility] Watch for signs/symptoms of infection, return to the clinic if seen Last Documented On 3 7:17PM ; [facility] Intervention and counseling on cessation of tobacco use Last Documented On 3 2:21PM ; [facility] Go to the emergency room if condition worsens Last Documented On 3 11:41AM ; [facility] Watch for signs/symptoms of infection Last Documented On 3 11:41AM ; [facility] Watch for signs/symptoms of infection, return to the clinic if seen Last Documented On 3 11:41AM ; [facility] Intervention and counseling on cessation of tobacco use Last Documented On 2 1:34PM ; [facility] Intervention and counseling on cessation of tobacco use Last Documented On 2 1:25PM ; [facility] Education and Decision Aids were provided during visit for: Patient education about anti biotics: need to finish even if feeling better Last Documented On 3 11:41AM ; [facility] Assessments Includes: Assessments for all patient encounters Findings Encounter Date [F39 - Unspecified mood [aff ective] disorder] mood disorders, NOS --possible dx, will continue to monitor TELEHEALTH with FARTUN Andrea ARCHERJEFFERY PMHNP-BC AGRICULTURAL EQUIPMENT TEST ENGINEER-BC 06/28/2023 Last Documented On 4 12:07PM ; [facility] Depression TELEHEALTH with FARTUN Andrea [address] PMHNP-BC AGRICULTURAL EQUIPMENT TEST ENGINEER-BC 06/28/2023 Last Documented On 4 12:07PM ; [facility] Generalized anxiety disorder TELEHEALTH with FARTUN A JEFFERY PMHNP-BC AGRICULTURAL EQUIPMENT TEST ENGINEER-BC 06/28/2023 Last Documented On 4 12:07PM ; [facility] Insomnia due to stress TELEHEALTH with FARTUN Andrea JEFFERY PMHNP-BC AGRICULTURAL EQUIPMENT TEST ENGINEER-BC 06/28/2023 Last Documented On 4 12:07PM ; [facility] Panic disorder TELEHEALTH with FARTUN Andrea [address] PMHNP-BC AGRICULTURAL EQUIPMENT TEST ENGINEER-BC 06/28/2023 Last Documented On 4 12:07PM ; [facility] Post-traumatic stress disorder TELEHEALT H with FARTUN Andrea JEFFERY PMHNP-BC AGRICULTURAL EQUIPMENT TEST ENGINEER-BC 06/28/2023 Last Documented On 4 12:07PM ; [facility] [F39 - Unspecified mood [aff ective] disorder] mood disorders, NOS --possible dx, will continue to monitor TELEHEALTH with FARTUN Andrea JEFFERY PMHNP-BC AGRICULTURAL EQUIPMENT TEST ENGINEER-BC 05/23/2023 Last Documented On 3 9:28AM ; [facility] Depression TELEHEALTH with FARTUN Andrea [address] PMHNP-BC AGRICULTURAL EQUIPMENT TEST ENGINEER-BC 05/23/2023 Last Documented On 3 9:28AM ; [facility] Generalized anxiety disorder TELEHEALTH with FARTUN A JEFFERY PMHNP-BC AGRICULTURAL EQUIPMENT TEST ENGINEER-BC 05/23/2023 Last Documented On 3 9:28AM ; [facility] Insomnia due to stress TELEHEALTH with FARTUN GIL PMHNP-BC AGRICULTURAL EQUIPMENT TEST ENGINEER-BC 05/23/2023 Last Documented On 3 9:28AM ; [facility] Panic disorder TELEHEALTH with FARTUN VIDES PMHNP-BC AGRICULTURAL EQUIPMENT TEST ENGINEER- 05/23/2023 Last Documented On 3 9:28AM ; [facility] Post-traumatic stress disorder TELEHEALT H with FARTUN GIL PMHNP-BC [facility]- 05/23/2023 Last Documented On 3 9:28AM ; [facility] [F39 - Unspecified mood [aff ective] disorder] mood disorders, NOS --possible dx, will continue to monitor PSYCH NEW PATIENT EXAM 18 YEARS AND OLDER with FARTUN ARCHERGRAVE PMHNP-BC [facility]-BC 04/05/2023 Last Documented On 3 9:35AM ; [facility] Depression PSYCH NEW PATIENT EX AM 18 YEARS AND OLDER with FARTUN ARCHERGRAVE PMHNP-BC [facility]- 04/05/2023 Last Documented On 3 9:35AM ; [facility] Generalized anxiety disorder PSYCH NEW P ATIENT EXAM 18 YEARS AND OLDER with FARTUN ARCHERGRAVE PMHNP-BC [facility]-BC 04/05/2023 Last Documented On 3 9:35AM ; [facility] Insomnia due to stress PSYCH NEW PATIENT EXAM 18 YEARS AND OLDER with FARTUN Mendez JEFFERY PMHNP-BC [facility]- 04/05/2023 Last Documented On 3 9:35AM ; [facility] Panic disorder PSYCH NEW PATIENT EX AM 18 YEARS AND OLDER with FARTUN Mendez JEFFERY PMHNP-BC [facility]- 04/05/2023 Last Documented On 3 9:35AM ; [facility] Post-traumatic stress disorder PSYCH NEW PATIENT EXAM 18 YEARS AND OLDER with FARTUN Andrea JEFFERY PMHNP-BC [facility]-BC 04/05/2023 Last Documented On 3 9:35AM ; [facility] Generalized anxiety disorder PROBLEM VISIT with EARLENE MIKE PA-C 01/04/2023 Last Documented On 3 8:42AM ; [facility] Mild intermittent asthma wit h exacerbation PROBLEM VISIT with EARLENE MIKE PA-C 01/04/2023 Last Documented On 3 8:42AM ; [facility] Generalized anxiety disorder CHECK UP with SHAE MIKE PA-C 11/18/2022 Last Documented On 3 1:39PM ; [facility] Mild intermittent asthma wit h exacerbation CHECK UP with EARLENE MIKE PA-C 11/18/2022 Last Documented On 3 1:39PM ; [facility] [S01.81XA - Laceration witho ut foreign body of other part of head, initial encounter] laceration of head without foreign body WALK IN PATIENT - ESTABLISHED PT with MAYA JACOBS [facility] 10/26/2022 Last Documented On 3 3:56PM ; [facility] [Viral intestinal infection, unspecified] gastroenteritis COVID SICK VISIT- ESTABLISHED PATIENT with MERCED COOPER AGRICULTURAL EQUIPMENT TEST ENGINEER-C 10/25/2022 Last Documented On 3 7:18PM ; [facility] Generalized anxiety disorder CHECK UP with SHAE MIKE PA-C 10/14/2022 Last Documented On 3 4:25PM ; [facility] Mild intermittent asthma wit h exacerbation CHECK UP with EARLENE MIKE PA-C 10/14/2022 Last Documented On 3 4:25PM ; [facility] Bronchitis COVID SICK VISIT- ES TABLISHED PATIENT with CARLOS A MANRIQUE [facility] 10/08/2022 Last Documented On 3 11:46AM ; [facility] [Other specified anxiety dis orders] depression with anxiety [facility]IOR[facility] HE[facility] INTEGRATION FOLLOW UP with DELICIA RAY LCSW 04/22/2022 Last Documented On 2 2:45PM ; [facility] Generalized anxiety disorder CHECK UP with SHAE MIKE PA-C 04/21/2022 Last Documented On 2 8:43PM ; [facility] Mild intermittent asthma wit h exacerbation CHECK UP with EARLENE MIKE PA-C 04/21/2022 Last Documented On 2 8:43PM ; [facility] [Other specified anxiety dis orders] depression with anxiety BEHAVIORAL HEALTH INTEGRATION ESTABLISHED with DELICIA RAY LCSW 03/31/2022 Last Documented On 2 2:09PM ; [facility] Instructions Includes: Instructions for all patient encounters Instructions to patient Intervention and counseling on cessation of tobacco use Last Documented On 3 2:31PM ; [facility] Intervention and counseling on cessation of tobacco use Last Documented On 3 1:23PM ; [facility] Watch for signs/symptoms of infection, return to the clinic if seen Last Documented On 3 7:17PM ; [facility] Intervention and counseling on cessation of tobacco use Last Documented On 3 2:21PM ; [facility] Go to the emergency room if condition worsens Last Documented On 3 11:41AM ; [facility] Watch for signs/symptoms of infection Last Documented On 3 11:41AM ; [facility] Watch for signs/symptoms of infection, return to the clinic if seen Last Documented On 3 11:41AM ; [facility] Intervention and counseling on cessation of tobacco use Last Documented On 2 1:34PM ; [facility] Intervention and counseling on cessation of tobacco use Last Documented On 2 1:25PM ; [facility] Education and Decision Aids were provided during visit for: Patient education about anti biotics: need to finish even if feeling better Last Documented On 3 11:41AM ; [facility] Medical Equipment - Implanted [...] 3 2:42PM By Earlene Mike PA-C ; [facility] Advair Diskus 250-50 MCG/ACT Inhalation Aerosol Powder Breath Activated 06/22/2022 Provider: EARLENE Luque Diagnosis: Mild intermitten t asthma with (acute) exacerbation INHALE 1 PUFF BY MOUTH TWICE DAILY. RINSE MOUTH AFTER USE Last Documented On 3 8:11AM By Earlene Mike PA-C ; [facility] Past Medications on file hydrOXYzine Pamoate 25 MG Oral Capsule 06/28/2023 - 06/28/2023 Provider: FARTUN GIL [facility] Diagnosis: Panic disorder [episodic paroxysmal anxiety] 1 capsule PO TID PRN anxiety Last Documented On 4 12:00PM By FARTUN GIL [facility] ; [facility] Wellbutrin XL 300 MG Oral Tablet Extended Release 24 Hour 06/28/2023 - 06/28/2023 Provider: FARTUN GIL [facility] Diagnosis: Depression, unspecified One tablet daily--dose increase Last Documented On 4 12:00PM By FARTUN GIL [facility] ; [facility] Sertraline HCl 100 MG Oral Tablet 06/28/2023 - 09/26/2023 Provider: FARTUN VIDES [facility] Diagnosis: Take 2 tabs PO daily (200mg) dose Last Documented On 4 12:06PM By FARTUN GIL [facility] ; [facility] Wellbutrin XL 300 MG Oral Tablet Extended Release 24 Hour 06/28/2023 - 08/27/2023 Provider: FARTUN GIL [facility] Diagnosis: Depression, unspecified One tablet daily--dose increase Last Documented On 4 12:06PM By FARTUN GIL [facility] ; [facility] hydrOXYzine Pamoate 25 MG Oral Capsule 06/28/2023 - 07/28/2023 Provider: FARTUN GIL [facility] Diagnosis: Panic disorder [episodic paroxysmal anxiety] 1 capsule PO TID PRN anxiety Last Documented On 4 12:06PM By FARTUN GIL [facility] ; [facility] QUEtiapine Fumarate 150 MG Oral Tablet 06/28/2023 - 08/27/2023 Provider: FARTUN GIL [facility] Diagnosis: Insomnia, unspec ified One tablet daily--dose increase Last Documented On 4 12:06PM By FARTUN GIL [facility] ; [facility] QUEtiapine Fumarate 150 MG Oral Tablet 06/28/2023 - 06/28/2023 Provider: FARTUN GIL [facility]- Diagnosis: Insomnia, unspec ified One tablet daily--dose increase Last Documented On 4 12:00PM By FARTUN GIL [facility] ; [facility] Wellbutrin XL 150 MG Oral Tablet Extended Release 24 Hour 06/21/2023 - 06/28/2023 Provider: AFRTUN GIL [facility]- Diagnosis: Depression, unspecified One tablet daily Last Documented On 4 11:56AM By FARTUN GIL [facility] ; [facility] QUEtiapine Fumarate 100 MG Oral Tablet 06/01/2023 - 06/28/2023 Provider: FARTUN GIL [facility]- Diagnosis: Insomnia, unspec ified One tablet daily Last Documented On 4 11:59AM By FARTUN GIL [facility] ; [facility] Sertraline HCl 100 MG Oral Tablet 06/01/2023 - 06/28/2023 Provider: FARTUN VIDES [facility]- Diagnosis: TAKE 1 TABLET BY MOUTH DAILY Last Documented On 4 11:44AM By FARTUN GIL [facility] ; [facility] QUEtiapine Fumarate 100 MG Oral Tablet 05/23/2023 - 06/01/2023 Provider: FARTUN GIL [facility]- Diagnosis: Insomnia, unspec ified One tablet daily---dose increase Last Documented On 06/01/2023 2:06PM By VICENTE BOWENS ; [facility] Wellbutrin XL 150 MG Oral Tablet Extended Release 24 Hour 05/23/2023 - 06/21/2023 Provider: FARTUN GIL [facility]- Diagnosis: Depression, unspecified One tablet daily Last Documented On 06/21/2023 10:01AM By VICENTE BOWENS ; [facility] Sertraline HCl 100 MG Oral Tablet 05/04/2023 - 06/28/2023 Provider: FARTUN VIDES [facility] Diagnosis: Take 2 tabs PO daily (200mg) dose Last Documented On 4 11:59AM By FARTUN GIL [facility] ; [facility] QUEtiapine Fumarate ER 50 MG Oral Tablet Extended Release 24 Hour 04/05/2023 - 05/23/2023 Provider: FARTUN GIL [facility] Diagnosis: Generalized anxi ety disorder One tablet at bed time Last Documented On 3 9:17AM By FARTUN GIL [facility] ; [facility] Sertraline HCl 100 MG Oral Tablet 04/05/2023 - 05/23/2023 Provider: FARTUN GIL [facility] Diagnosis: Post-traumatic s tress disorder, unspecified Take 2 tabs PO once daily (2 00mg dose)---dose increase Last Documented On 3 9:17AM By FARTUN GIL [facility] ; [facility] Albuterol Sulfate HFA 108 (90 Base) MCG/ACT Inhalation Aerosol Solution 03/21/2023 - 06/02/2023 Provider: EARLENE Walker PA-C Diagnosis: INHALE 2 PUFFS BY MOUTH EVERY 4 HOURS NEEDED Last Documented On 3 2:36PM By Earlene Mike PA-C ; [facility] Sertraline HCl 100 MG Oral Tablet 01/05/2023 - 04/05/2023 Provider: EARLENE MIKE PA-C Diagnosis: Generalized anxi ety disorder TAKE 1 TABLET BY MOUTH DAILY Last Documented On 3 3:48PM By FARTUN GIL [facility] ; [facility] Sertraline HCl 100 MG Oral Tablet 01/04/2023 - 01/05/2023 Provider: EARLENE MIKE PA-C Diagnosis: Generalized anxi ety disorder One tablet daily Last Documented On 3 8:03AM By Earlene Mike PA-C ; [facility] Azithromycin 250 MG Oral Tablet 01/04/2023 - 04/05/2023 Provider: EARLENE MIKE PA-C Diagnosis: Mild intermitten t asthma with (acute) exacerbation take 2 tablets on day 1, the n 1 tablet on days 2-5 Last Documented On 04/05/2023 2:52PM By DANIEL BOWENS ; [facility] Sertraline HCl 50 MG Oral Tablet 11/18/2022 - 04/05/2023 Provider: EARLENE MIKE PA-C Diagnosis: Generalized anxi ety disorder One tablet daily Last Documented On 3 2:56PM By FARTUN GIL [facility] ; [facility] Ondansetron 4 MG Oral Tablet Disintegrating 10/25/2022 - 11/18/2022 Provider: MERCED SUNC Diagnosis: Viral intestinal infection, unspecified 1 every 6 hours as needed Last Documented On 3 1:37PM By Earlene Mike PA-C ; [facility] Sertraline HCl 25 MG Oral Tablet 10/14/2022 - 11/18/2022 Provider: EARLENE MIKE PA-C Diagnosis: Generalized anxi ety disorder One tablet daily Last Documented On 3 1:37PM By Earlene Mike PA-C ; [facility] Medrol 4 MG Oral Tablet Therapy Pack 10/08/2022 - 10/14/2022 Provider: CARLOS A MANRIQUE [facility] Diagnosis: Acute bronchitis , unspecified as directed Last Documented On 10/14/2022 2:16PM By Samantha BOWENS ; [facility] Zithromax Z-Valente 250 MG Oral Tablet 10/08/2022 - 10/14/2022 Provider: CARLOS A MANRIQUE [facility] Diagnosis: Acute bronchitis , unspecified as directed Last Documented On 10/14/2022 2:16PM By Samantha BOWENS ; [facility] Albuterol Sulfate HFA 108 (90 Base) MCG/ACT Inhalation Aerosol Solution 08/17/2022 - 06/02/2023 Provider: EARLENE MIKE PA-C Diagnosis: Mild intermitten t asthma with (acute) exacerbation INHALE 1 TO 2 PUFFS BY MOUTH EVERY 4 TO 6 HOURS NEEDED Last Documented On 06/02/2023 2:31PM By Kayla BOWENS ; [facility] Albuterol Sulfate HFA 108 (90 Base) MCG/ACT Inhalation Aerosol Solution 05/31/2022 - 08/17/2022 Provider: EARLENE MIKE PA-C Diagnosis: Mild intermitten t asthma with (acute) exacerbation INHALE 1 TO 2 PUFFS BY MOUTH EVERY 4 TO 6 HOURS NEEDED Last Documented On 08/17/2022 4:39PM By Mahendra BOWENS ; [facility] Lexapro 5 MG Oral Tablet 04/21/2022 - 10/14/2022 Provider: EARLENE Walker PA-C Diagnosis: Generalized anxi ety disorder One tablet daily Last Documented On 10/14/2022 2:20PM By Samantha BOWENS ; [facility] Advair Diskus 250-50 MCG/ACT Inhalation Aerosol Powder Breath Activated 04/21/2022 - 06/22/2022 Provider: EARLENE MIKE PA-C Diagnosis: Mild intermitten t asthma with (acute) exacerbation 1 inhalation twice daily. rinse mouth after Last Documented On 3 8:10AM By Earlene Mike PA-C ; [facility] busPIRone HCl 5 MG Oral Tablet 04/21/2022 - 10/14/2022 Provider: EARLENE MIKE PA-C Diagnosis: Generalized anxi ety disorder 1 tab twice daily Last Documented On 10/14/2022 2:20PM By Samantha BOWENS ; [facility] busPIRone HCl 5 MG Oral Tablet 03/24/2022 - 04/21/2022 Provider: EARLENE MIKE PA-C Diagnosis: Generalized anxi ety disorder 1 tab twice daily Last Documented On 2 4:34PM By Earlene Mike PA-C ; [facility] Albuterol Sulfate HFA 108 (90 Base) MCG/ACT Inhalation Aerosol Solution 03/24/2022 - 05/31/2022 Provider: EARLENE MIKE PA-C Diagnosis: Mild intermitten t asthma with (acute) exacerbation INHALE 1 TO 2 PUFFS BY MOUTH EVERY 4 TO 6 HOURS NEEDED Last Documented On 2 11:00PM By Earlene Mike PA-C ; [facility] Sertraline HCl 25 MG Oral Tablet 03/22/2022 - 03/24/2022 Provider: EARLENE MIKE PA-C Diagnosis: Generalized anxi ety disorder TAKE 1 TABLET BY MOUTH DAILY Last Documented On 2 1:29PM By Earlene Mike PA-C ; [facility] Sertraline HCl 25 MG Oral Tablet 02/22/2022 - 03/22/2022 Provider: EARLENE MIKE PA-C Diagnosis: Generalized anxi ety disorder One tablet daily Last Documented On 2 8:24AM By Earlene Mike PA-C ; [facility] Advair Diskus 250-50 MCG/ACT Inhalation Aerosol Powder Breath Activated 02/22/2022 - 04/21/2022 Provider: EARLENE MIKE PA-C Diagnosis: Mild intermitten t asthma with (acute) exacerbation 1 inhalation twice daily. rinse mouth after Last Documented On 2 4:34PM By Earlene Mike PA-C ; [facility] Azithromycin 250 MG Oral Tablet 02/22/2022 - 03/24/2022 Provider: EARLENE MIKE PA-C Diagnosis: Mild intermitten t asthma with (acute) exacerbation take 2 tablets on day 1, the n 1 tablet on days 2-5 Last Documented On 03/24/2022 1:16PM By Camila BOWENS ; [facility] Albuterol Sulfate (2.5 MG/3ML) 0.083% Inhalation Nebulization solution 02/22/2022 - 10/14/2022 Provider: EARLENE MIKE PA-C Diagnosis: Mild intermitten t asthma with (acute) exacerbation 3mL every 4-6 hours as needed Last Documented On 10/14/2022 2:16PM By Samantha BOWENS ; [facility] Albuterol Sulfate HFA 108 (90 Base) MCG/ACT Inhalation Aerosol Solution 02/22/2022 - 03/24/2022 Provider: EARLENE MIKE PA-C Diagnosis: Mild intermitten t asthma with (acute) exacerbation INHALE 1 TO 2 PUFFS BY MOUTH EVERY 4 TO 6 HOURS NEEDED Last Documented On 2 1:34PM By Earlene Mike PA-C ; [facility] Albuterol Sulfate HFA 108 (90 Base) MCG/ACT Inhalation Aerosol Solution 01/26/2022 - 02/22/2022 Provider: EARLENE MIKE PA-C Diagnosis: Mild intermitten t asthma with (acute) exacerbation INHALE 1 TO 2 PUFFS BY MOUTH EVERY 4 TO 6 HOURS NEEDED Last Documented On 2 1:49PM By Earlene Mike PA-C ; [facility] Albuterol Sulfate HFA 108 (90 Base) MCG/ACT Inhalation Aerosol Solution 11/24/2021 - 01/26/2022 Provider: CARLOS A TALBERT Diagnosis: Mild intermitten t asthma with (acute) exacerbation INHALE 1 TO 2 PUFFS BY MOUTH EVERY 4 TO 6 HOURS NEEDED Last Documented On 2 1:09PM By Earlene Mike PA-C ; [facility] Albuterol Sulfate HFA 108 (90 Base) MCG/ACT Inhalation Aerosol Solution 07/20/2021 - 11/24/2021 Provider: EARLENE MIKE PA-C Diagnosis: Mild intermitten t asthma with (acute) exacerbation inhale 1-2 puffs every 4-6 hours as needed Last Documented On 2 6:38AM By Carlos A TALBERT ; [facility] Medications Administered Includes: Administered Medications in patient's chart No Administered Medications Recorded Results Includes: Results from 07/10/2023 through 07/10/2024 No Results Recorded For Specified Dates History of Present Illness History of Present Illness not supported for this document type No History of Present Illness Recorded Social History Description Last Updated 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 11/18/2022 Last Documented On 3 1:39PM ; [facility] Not recovering from substance abuse 11/04 Last Documented On 3 1:39PM ; [facility] Tobacco non-user 10/25/2022 Last Documented On 3 7:18PM ; [facility] Using marijuana 02/22/2022 Last Documented On 2 3:39PM ; [facility] Alcohol 07/20/2021 Last Documented On 2 10:30AM ; [facility] Amount of alcohol per day: N ot everyday but about 5 to 7 shots when i drink 07/20/2021 Last Documented On 2 10:30AM ; [facility] Drug use 07/20/2021 Last Documented On 2 10:30AM ; [facility] Frequency: Most days 07/20/2021 Last Documented On 2 10:30AM ; [facility] Type: Marijuana 07/20/2021 Last Documented On 2 10:30AM ; [facility] Smoking Status Unknown Medical History Includes: Medical History in patient's chart Description Last Updated No Vaccine history 01/04/2023 Last Documented On 3 8:42AM ; [facility] Not taking OTC medications 10/25/2022 Last Documented On 3 7:18PM ; [facility] Family History Includes: Family History in patient's chart Description Last Updated Maternal grandfather's history of alcoho lism 04/06/2023 Last Documented On 3 9:35AM ; [facility] Maternal grandmother's history of depres nathan 04/06/2023 Last Documented On 3 9:35AM ; [facility] Maternal grandfather's history of alcoho l use 04/06/2023 Last Documented On 3 9:35AM ; [facility] Paternal grandfather's history of substa nce use disorders 04/06/2023 Last Documented On 3 9:35AM ; [facility] Paternal history of substance use disord ers 04/06/2023 Last Documented On 3 9:35AM ; [facility] Maternal history of substance use disord ers 04/06/2023 Last Documented On 3 9:35AM ; [facility] Family history of stroke/paralysis 07/20 Last Documented On 2 10:30AM ; [facility] Maternal history of Arthritis 07/20/2021 Last Documented On 2 10:30AM ; [facility] Review of Systems Review of Systems not supported for this document type No Review of Systems Recorded Mental Status No Mental Status Recorded Functional Status No Functional Status Recorded Physical Exam Physical Exam not supported for this document type No Physical Exam Recorded Allergies Includes: Active, inactive, and resolved Allergies No Known Allergies Encounters Includes: Encounters from 07/10/2023 through 07/10/2024 Encounter Provider Location Date Check-In Time Check-Out Time Diagnosis NO SHOW FARTUN ARCHERGRAVE PMHNP-BC [employer] 4 06/28/2023 11:30AM 06/28/2023 11:59PM Insurance Includes: Active Insurance Policies Plan Name Member ID Group # Subscriber Relationship Effect kathy Dates 1 - [facility] [id number] PATRICIA MORALES Self Clinical Notes Includes: Signed Clinical Notes starting from 06/25/2022 No Clinical Notes Recorded
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
--- OUTSIDE RECORDS SUMMARY | 2024-07-10 15:43 | XMS_ITS | Referral Summary ---
Author Organization [facility] Address [address] [place] [address] Care Team Providers Care Automatic Grinder Operator Name Role Phone Diego Mcleod MD Unavailable [phone] No, Physician Primary Care Provider [phone] Allergies Active Allergy Reactions Criticality Noted Date Comments Horse Blood Extract House Dust Mold Medications ipratropium-albut Doris (DUO-NEB) 0.5-2.5 mg/3 mL nebulizer solutionIndicatio ns:Chronic Obstructive Pulmonary Disease with Bronchospasms Take 3 mL by nebulization every 6 (six) hours 180 mL 04/22/20 20 Active escitalopram (LEXAPRO) 10 mg tablet Take 1 tablet (10 mg total) by mouth daily 30 tablet 5 06/20/19 21 Active budesonide-formot Doris (SYMBICORT) 80-4.5 mcg/actuation inhaler Inhale 2 puffs 2 (two) times a day Rinse mouth with water after use. Do not swallow. 1 Inhaler 5 06/20/19 21 Active albuterol HFA (PROVENTIL HFA,VENTOLIN HFA,PROAIR HFA) 90 mcg/actuation inhaler INHALE 2 PUFFS BY MOUTH EVERY 4 HOURS NEEDED FOR WHEEZING 18 g 3 09/09/19 21 Active chlorhexidine (PERIDEX) 0.12 % solution Swish 15 mL in mouth for 30 seconds then spit out twice a day after brushing teeth, 473 mL 11/01/19 21 Active HYDROcodone-aceta minophen (NORCO) 5-325 mg per tabletIndications :Pain Take 1-2 tablets by mouth every 6 (six) hours as needed for pain 6 tablet 01/16/20 Active ibuprofen (ADVIL,MOTRIN) 800 mg tablet Take 1 tablet (800 mg total) by mouth 3 (three) times a day 21 tablet 01/16/20 21 Active Active Problems Problem Noted Date Diagnosed Date COVID-19 05/08/2020 Assessment & Plan (05/08/2020 3:31 PM DISPATCHER REFINERY): Will continue with quarantine per health dept recommendations Will continue with prn inhaler Will report to office if not improving or if worsening Rib pain on right side 04/24/2020 Assessment & Plan (04/24/2020 1:53 PM DISPATCHER REFINERY): Will evaluate further with labs and imaginig Advised him to report to er if worsening Sleep disturbance 04/24/2020 Assessment & Plan (06/20/2020 10:48 AM DISPATCHER REFINERY): Refer for sleep study Discontinue tizanidine given 'muscle twitches'. Advised referral to neurology to evaluate further, but he wants to start with pulm/sleep study first and will let us know response. Assessment & Plan (04/24/2020 1:52 PM DISPATCHER REFINERY): Will refer for sleep study/evaluation RUQ abdominal pain 04/24/2020 Assessment & Plan (04/24/2020 1:53 PM DISPATCHER REFINERY): Will evaluate further with abdominal US and labs. He was advised to report to er if worsening or if developing fevers/chills or n/v/d. Muscle spasm 04/24/2020 Assessment & Plan (04/24/2020 1:52 PM DISPATCHER REFINERY): Will give temporary supply of tizanidine. Advised no driving for six hours after taking as it may make him drowsy. Advised further evaluation with labs Hyperkalemia 03/29/2020 Acute renal failure (ARF) 03/29/2020 Assessment & Plan (04/09/2020 4:30 PM DISPATCHER REFINERY): We reviewed recent labs. Advised no nsaids. Advised f/u with nephrology. Dehydration 03/29/2020 Positive urine drug screen 03/29/2020 Anemia 03/29/2020 Encounter to establish care 03/11/2020 Episode of recurrent major depressive disorder 1 Assessment & Plan (03/11/2020 1:59 PM CDT): Add celexa at hs, advised not stopping abruptly. Advised to er if having s/h ideations. Refer to psychiatry as he is desiring benzodiazepines. He refuses trial of atarax. Advised not using thc. F/u in 4w or sooner as needed Anxiety 03/08/2020 Assessment & Plan (06/20/2020 10:47 AM DISPATCHER REFINERY): Taper wellbutrin every other day x 5 days, then discontinue. Start lexapro when taper finished. Has appt pending with psychiatry that he will keep. Assessment & Plan (05/08/2020 3:32 PM DISPATCHER REFINERY): Will taper celexa as he isn't pleased with it - 10mg daily x 7 days, then 10mg every other day x 7 days, then discontinue. Will start wellbutrin when taper is finished. We discussed increasing at week 3 pending response. He makes pact to report to er if having s/h ideations. Assessment & Plan (04/09/2020 4:31 PM DISPATCHER REFINERY): Increase celexa. He missed appt with psychiatry while inpatient - will give him phone number to call and reschedule. He was advised to not buy street meds and rather allow providers to assist him in care. Assessment & Plan (03/11/2020 1:59 PM CDT): Add celexa at hs, advised not stopping abruptly. Advised to er if having s/h ideations. Refer to psychiatry as he is desiring benzodiazepines. He refuses trial of atarax. Advised not using thc. F/u in 4w or sooner as needed Mild intermittent asthma without complication Assessment & Plan (06/20/2020 10:48 AM DISPATCHER REFINERY): Add bid symbicort. Continue with prn proventil. Assessment & Plan (04/09/2020 4:30 PM DISPATCHER REFINERY): Refill inhaler as needed Assessment & Plan (03/11/2020 1:58 PM CDT): Continue with prn proventil. We discussed that anxiety is significantly contributing to his asthma exacerbations. He was advised to not use thc. Elevated hemoglobin (CMS/HCC) 05/24/2018 Non-seasonal allergic rhinitis 04/07/2011 Overview (03/11/2020): IgE 10/2017 Total IgE 395, + cat, dog, dust mites, and alternaria. Mild sensitivities to grass/weed and tree pollen. IgE 03/2011-- positive house dust mite, cat, dog, mold Severe persistent asthma 03/16/2011 Overview (03/11/2020): Hospitalization 03/16/11 Last Assessment & Plan: Remains poorly controlled with excessive albuterol use and several ED visits since last evaluation in November of last year (not hospitalized though). Despite extensive education at this last visit, he is still using incorrect dosing regimen of Advair (2 puffs daily) and his technique is suboptimal. His spirometry though is reassuring and I am happy to hear that the ETS exposure has finally been eliminated. Rec: Reviewed medications again, including technique and dosing Advair 500/50 1 inhalation bid Albuterol hopefully will become prn Refills provided School note provided Reviewed Aerochamber technique Reviewed inhaler technique Influenza vaccine has not been received-Mom indicates they are getting it in Dr. Vazquez's office F/U 2 months at [facility] Assessment & Plan (04/24/2020 1:51 PM DISPATCHER REFINERY): Add symbicort bid Continue with proventil hfa q6h prn wheezing/dyspnea Will brick picker prednisone today and start He was advisesd to report to er if worsening Immunizations Name Administration Dates Next Due DTaP 02/16/2006, 4,06/09/2001,08/26,2000,2000 H1N1 All Forms 05/27/2009 HPV, Quadrivalent 08/17/2012,04/17/2012,02/03/20 12 Hep A, Pediatric 02/08/2007,02/24/2005 Hep B, Adolescent or Pediatric 2,2000,2000,02/19 HiB 06/09/2001, 1,2000,04/27 IPV 02/16/2006, 4,06/09/2001,06/21,2000 Influenza, Quadrivalent, Spl it, Preservative Free, Intramuscular 06/11/2015 Influenza, Unspecified 04/17/2012,2010,03/04/2010,03/13 MMR 02/16/2006,04/14/2004,06/09/2001 Meningococcal Conjugate (Menveo) 09/16/2016 Meningococcal MCV4, Unspecified 02/19/2011 Pneumococcal Conjugate 7-Valent 02/22/20,2000,2000,06/21 Tdap 02/19/2011,02/16/2011 Varicella 02/08/2007,02/21/2001 Social History Tobacco Use Types Packs/Day Years Used Date Smoking Tobacco: Never Smokeless Tobacco: Never Alcohol Use Standard Drinks/Week Comments No 0 (1 standard drink = 0.6 oz pur e alcohol) PHQ-2 Answer Date Recorded PHQ-2 Total Score (If total score is 3 or more points, staff should administer the PHQ-9) 2 06/20/2020 Personal Safety Answer Date Recorded Have you ever been in or are you currently in a harmful physical or emotional relationship or is someone making you feel afraid or unsafe? Denies 02/16/2024 Sex and Gender Information Value Date Recorded Sex Assigned at Not on file Legal Sex Male 1:49 PM DISPATCHER REFINERY Gender Identity Not on file Sexual Orientation Not on file Last Filed Vital Signs Vital Sign Reading Time Taken Comments Blood Pressure 130/85 02/16/2024 6:11 PM CDT Pulse 84 02/16/2024 6:11 PM CDT Temperature 36.9 ??C (98.5 ??F) 02/16/2024 4:28 PM CD T Respiratory Rate 18 02/16/2024 6:11 PM CDT Oxygen Saturation 98% 02/16/2024 6:11 PM CDT Inhaled Oxygen Concentration - - Weight 93 kg (205 lb) 02/16/2024 4:28 PM CDT Height 182.9 cm (6') 02/16/2024 4:28 PM CDT Body Mass Index 27.8 02/16/2024 4:28 PM CDT Plan of Treatment Not on file Procedures Procedure Name Priority Date/Time Associated Diagnosis Comments HEPATITIS PANEL, ACUTE Routine 03/29/2020 10:19 AM CDT from Last 3 Months or Most Recently Relevant to Health Maintenance Results * Hepatitis panel, acute (03/29/2020 10:19 AM CDT) Hep A IgM Nonreactive Nonreactive [facility] ([facility]) Comment: Interpretive Data: If Hep A IgM Ab is reported as Equivocal, a new sample should be drawn in two weeks for testing. Current interpretive data was last revised on 19. Testing performed by: [address] [address] Hep B core IgM Nonreactive Nonreactive [facility] ([facility]) Comment: Interpretive Data If HepB Core IgM Ab is reported as Equivocal, a new sample should be drawn in two weeks for testing. Current interpretive data was last revised on 19. Testing performed by: [facility], [address] [place] [address]., [address] Hep C Ab Nonreactive Nonreactive [facility] ([facility]) Comment: Interpretive Data Nonreactive: Antibodies to HCV not detected. Does NOT exclude the possibility of recent exposure to HCV. Equivocal: Equivocal for HCV antibodies. Supplemental molecular testing will be automatically performed to determine infection status in accordance with current CDC screening recommendations. ?? Reactive: Positive for HCV antibodies. ??This may represent current or past HCV infection. Supplemental molecular testing will be automatically performed to determine ??current infection status in accordance with current CDC screening recommendations. Interpretive data was last revised on 2019. Testing performed by: [address] [place] [address] HepBsAg Nonreactive Nonreactive [facility] ([facility]) Comment:Testing performed by : [facility], [address] [place] [address], [place]., [address] Blood specimen (specimen) 03/29/2020 10:19 AM CDT 03/29/2020 1:26 PM CDT Diego Mcleod MD LAB MICROBIOLOGY - GENERAL OR DERABLES Final Result [facility] ([place]) [address] [facility] Department [place] [address] from Last 3 Months or Most Recently Relevant to Health Maintenance Insurance [facility] Advance Directives For more information, please contact: [phone] * Full Code (Latest Code Status on File) Date Activated Date Inactivated Comments 03/28/2020 8:31 PM 03/31/2020 5:29 PM Care Teams Automatic Grinder Operator Relationship Specialty Start Date End Date No, Physician PCP - General 10/31/20 Diego Mcleod MD Consulting Physician Nephrology 03/31/20
--- OUTSIDE RECORDS SUMMARY | 2024-07-10 15:43 | XMS_ITS | Clinical Summary ---
Author Organization [facility] Address [address] [place] [address] Phone Care Team Providers Care Orthopedic Designer Name Role Phone Mayur Raymond MD Primary Care Provider [phone] Allergies Active Allergy Reactions Criticality Noted Date Comments Horse Blood Extract Unknown 12/16/2023 Medications inhalational spacing device Spacer Use with albuterol inhaler 1 Each 4 Active Nebulizer & Compressor For Neb (Comp-Air Nebulizer Compressor) Device Use as directed with nebulizer solution 1 Each 12/17/2023 5:27 PM CDT 4 Active budesonide-form oteroL (SYMBICORT) 160-4.5 mcg/actuation HFA Aerosol Inhaler Take 2 Puffs by inhalation 2 times daily. (Rinse mouth after use) 10.2 Gram 3 12/17/2023 5:27 PM CDT 4 Active inhalational spacing device (BreatheRite MDI Spacer) Spacer Use as directed with Inhaler. 1 Each 12/17/2023 5:27 PM CDT 4 Active hydrOXYzine HCL (ATARAX) 25 mg tabletIndicatio ns:Anxiety Take 1 Tablet (25 mg) by mouth 3 times daily as needed for Anxiety. 100 Tablet 1 4 Active sertraline (Zoloft) 50 mg tabletIndicatio ns:Anxiety Take 1/2 tablet (25 mg) by mouth daily x 1 week. Then, take 1 Tablet (50 mg) by mouth daily. 100 Tablet 1 4 Active albuterol (PROVENTIL,VENT MARCIA) 2.5 mg /3 mL (0.083 %) Solution for NebulizationInd ications:Severe persistent allergic asthma with status asthmaticus (CMS/HCC) Take 3 mL (2.5 mg) by inhalation every 4 hours as needed for Shortness of Breath or Wheezing. Use nebulizer instead of albuterol inhaler during asthma exacerbation. Use at least 4 hours apart from albuterol inhaler. 150 mL 5 4 Active albuterol-budes onide (Airsupra) 90-80 mcg/actuation HFA Aerosol InhalerIndicati ons:Severe persistent allergic asthma with status asthmaticus (CMS/HCC) Take 2 Inhalations by inhalation every 4 hours as needed (shortness of breath, wheezing). 10.7 Gram 5 4 Active cetirizine (ZyrTEC) 10 mg tablet Take 1 Tablet (10 mg) by mouth daily. 100 Tablet 1 4 Active fluticasone propionate (FLONASE) 50 mcg/spray [place], Suspension nasal inhaler Administer 2 Sprays in each nostril daily. 16 Gram 1 4 Active predniSONE (DELTASONE) 50 mg tabletIndicatio ns:Mild asthma with exacerbation, unspecified whether persistent Take 1 Tablet (50 mg) by mouth daily for 5 days. 5 Tablet 5 06/22/19 25 Active Problems Problem Noted Date Diagnosed Date Anxiety 01/05/2024 Overview (01/05/2024): 01/05/24: Patient has been struggling with anxiety for several years, it is a daily problem which interrupts his lifestyle. He has tried therapy. He had previously been prescribed Adderall and ativan. Ativan helped previously. Will trial zoloft and atarax. Assessment & Plan (01/05/2024 8:34 AM CDT): Will trial zoloft and atarax. Severe persistent allergic asthma with status as thmaticus 12/16/2023 Overview (01/05/2024): 01/05/24: Patient went to ED multiple times for asthma exacerbations, most recently in December. Patient was not previously on daily inhaler. He is on albuterol as needed. He is currently on Symbicort, Singulair, albuterol as needed. Pt is still using albuterol inhaler qd and albuterol nebulizer bid. Will continue symbicort at this time, will switch albuterol to airsupra. Discussed side effects. Pt has follow up with pulmonology tomorrow, will wait to hop picker medications until pulm appointment. Pt does have intermittent wheezing, chest tightness, SOB, resolved w albuterol. Continue to follow with relevant specialist. Assessment & Plan (01/05/2024 3:50 PM CDT): Will continue symbicort at this time, will switch albuterol to airsupra. Discussed side effects. Pt has follow up with pulmonology tomorrow, will wait to hop picker medications until pulm appointment. Pt does have intermittent wheezing, chest tightness, SOB, resolved w albuterol. Continue to follow with relevant specialist. Signs and symptoms of severe respiratory distres s 12/16/2023 Acute hypoxemic respiratory failure 12/16/2023 Peripheral eosinophilia 12/16/2023 Elevated IgE level 12/16/2023 Overview (01/05/2024): 01/05/24: Pt was found to have elevated IgE. He tested positive for many allergies. Recommend continue Singulair, add on Zyrtec, daily Flonase. Assessment & Plan (01/05/2024 4:13 PM CDT): Recommend continue Singulair, add on Zyrtec, daily Flonase. Perennial allergic rhinitis with seasonal variat ion 12/16/2023 Chronic non-seasonal allergic rhinitis 1 Overview (01/05/2024): IgE 10/2017 Total IgE 395, + cat, dog, dust mites, and alternaria. Mild sensitivities to grass/weed and tree pollen. IgE 03/2011-- positive house dust mite, cat, dog, mold 01/05/24: Currently on Singulair. Recommend daily awoe-hgy-kwbgsft allergy medication (Josiane, Claritin, Zyrtec) and daily Flonase. Assessment & Plan (01/05/2024 4:12 PM CDT): Currently on Singulair. Recommend daily plnt-nan-zsepvgl allergy medication (Josiane, Claritin, Zyrtec) and daily Flonase. Resolved Problems Problem Noted Date Diagnosed Date Resolved Date COVID-19 05/08/2020 12/16/2023 Overview (12/16/2023): Last Assessment & Plan: Will continue with quarantine per health dept recommendations Will continue with prn inhaler Will report to office if not improving or if worsening Acute renal failure (ARF) 03/29/2020 Overview (12/16/2023): Last Assessment & Plan: We reviewed recent labs. Advised no nsaids. Advised f/u with nephrology. Encounters Date Type Department Care Team Description 07/03/2024 Patient Outreach [facility] [id number] [place] [phone] Divya Lynn Financial Assistance Program; Healthcare Access 06/28/2024 External Device Data [facility] ABSTRACTION Provider, Abstract 06/19/2024 External Device Data [facility] Provider, Abstract 06/19/2024 External Device Data [facility]CTION Provider, Abstract 06/18/2024 Patient Outreach [facility] [address] [place] [id number] Divya Lynn Financial Assistance Program; Insurance Coverage 06/18/2024 Patient Outreach [facility] [id number] [place] [address] Divya Lynn Referral 06/17/2024 9:03 PM TEST DESIGNER - 06/17/2024 10:34 PM TEST DESIGNER Emergency [facility] Emergency Department [address] [place] [address] Mild asthma with exacerbation, unspecified whether persistent (Primary Dx) Discharge Disposition: Home or Self Care 06/17/2024 Travel 05/08/2024 External Device Data [facility] ABSTRACTION Provider, Abstract from Last 3 Months Immunizations Immunization Administration Dates Next Due (ADACEL/BOOSTRIX)(10 YR UP) TDAP VACCINE, 0.5ML, IM 02/19/2011,02/16/2011 (GARDASIL)(9-45 YRS) HUMAN PAPILLOMAVIRUS VACCINE, TYPES 6, 11, 16, 18, QUADRIVALENT (4VHPV), 3 DOSE, IM 08/17/2012,04/17/2012,02/03/2012 (HAVRIX/VAQTA)(12 MO-18 YRS) HEPATITIS A VACCINE 0.5 ML PED/ADOL 2 DOSE, IM 02/08/2007,02/24/2005 (INFANRIX)(6 WKS-6 YRS) DIPT HERIA, TETANUS TOXOIDS, AND ACCELLULAR PERTUSSIS VACCINE (DTAP), 0.5 ML IM 02/16/2006,04/14/2004,06/09/2001,08/05,2000,2000 (IPOL)(6 WKS AND UP) POLIOVI KARIN VACCINE, INACTIVATED (IPV), 3 DOSE, SUBCUT OR IM 02/16/2006,04/14/2004,06/09/2001,06/06,2000 (M-M-R II/PRIORIX)(12 MO UP) MEASLES, MUMPS AND RUBELLA VIRUS VACCINE, 0.5 ML IM/SUBCUT 02/16/2006,04/14/2004,06/09/2001 (MENVEO)(1 VIAL/2 VIAL)(10-5 5 YRS/2 MOS-55 YRS) MENINGOCOCCAL ACYW OLIGOSACCHARIDE CONJUGATE VACCINE, (PF) IM 09/16/2016 (RECOMBIVAX HB/ENGERIX-B)(0- 19 YRS) HEPATITIS B VACCINE 5 MCG/0.5 ML OR 10 MCG/0.5 ML PED OR ADOL 3 DOSE (PF), IM 04/17/2012,2000,2000,02/04 (VARIVAX)(12 MOS UP)VARICELL A VIRUS VACCINE (PF) 0.5 ML, SUB CUT 02/08/2007,02/21/2001 HIB, Unspecified Formulation 06/09/2001, 2000,2000,04/07 INFLUENZA VACCINE QUADRIVALE NT 6 MOS UP PF IM 06/11/2015 Influenza, Unspecified Formulation 04/17,02/19/2011,03/04/2010,01/2008 Meningococcal MCV4, Unspecif ied Formulation 02/19/2011 Novel [id number], All Formulations 05/27/2009 Pneumococcal 7-valent conjug ate vaccine IM 02/21/2001,2000,2000,06/06 Social History Tobacco Use Types Packs/Day Years Used Date Smoking Tobacco: Never Passive Smoke Exposure: Never Smokeless Tobacco: Never Alcohol Use Standard Drinks/Week Comments Yes 0 (1 standard drink = 0.6 oz pur e alcohol) Feeling Safe Answer Date Recorded Are you in a relationship wi th someone who hurts you emotionally and/or physically? No 06/17/2024 Food Insecurity Answer Date Recorded Social/Environmental Concerns No concerns Transportation Needs Answer Date Record ed Social/Environmental Concerns No concerns Housing Stability Answer Date Recorded Social/Environmental Concerns No concerns Utility Needs Answer Date Recorded Social/Environmental Concerns No concerns Sex and Gender Information Value Date Recorded Sex Assigned at Not on file Legal Sex Male 11:35 PM CDT Gender Identity Not on file Sexual Orientation Not on file Last Filed Vital Signs Vital Sign Reading Time Taken Comments Blood Pressure 126/102 06/17/2024 9:10 PM TEST DESIGNER Pulse 92 06/17/2024 10:00 PM TEST DESIGNER Temperature 36.7 ??C (98.1 ??F) 06/17/2024 8:05 PM CS T Respiratory Rate 17 06/17/2024 10:00 PM TEST DESIGNER Oxygen Saturation 98% 06/17/2024 10:00 PM TEST DESIGNER Inhaled Oxygen Concentration - - Weight 99.8 kg (220 lb) 06/17/2024 8:05 PM TEST DESIGNER Height 182.9 cm (6') 06/17/2024 8:05 PM TEST DESIGNER Body Mass Index 29.84 06/17/2024 8:05 PM TEST DESIGNER Plan of Treatment Upcoming Encounters Date Type Department Care Team (Late st Contact Info) Description 07/17/2024 11:40 AM TEST DESIGNER Office Visit [facility] [address] [place] [address] Dwayne Vargas, [address] [facility] [address] [place] [address] Health Maintenance Due Date Last Done Comments DTAP/TDAP/TD VACCINES (8 - T d or Tdap) 02/19/2021 02/19/2011, 02/16/2011, 02/16/2006, Additional history exists INFLUENZA VACCINE (#1) 2024 06/11/2015 HEPATITIS B VACCINES Completed 04/17/2012, 2000, 2000, Additional history exists HPV VACCINES Completed 08/17/2012, 04/06, 02/03/2012 Procedures Procedure Name Priority Date/Time Associated Diagnosis Comments XR CHEST PA AND LATERAL 2 VW Stat 06/17/2024 10:08 PM TEST DESIGNER from Last 3 Months Results * XR CHEST PA AND LATERAL 2 VW (06/17/2024 10:08 PM TEST DESIGNER) Anatomical Region Laterality Modality Chest Computed Radiogr aphy 06/17/2024 10:0 9 PM TEST DESIGNER Impressions 06/17/2024 10:13 PM TEST DESIGNER IMPRESSION: ?? Chest within normal limits. ?? DICTATION LOCATION: Location [facility] 06/17/2024 10:13 PM TEST DESIGNER CHEST PA AND LATERAL VIEWS DATE: ??06/17/2024 10:08 PM HISTORY: Asthma ??See Reason for Exam COMPARISON: December 15, 2023 FINDINGS: Examination of the chest in PA and lateral projections does not reveal infiltrative or consolidative process in either lung field. ??There is no evidence of congestion or effusion. ??The cardiac and mediastinal structures appear normal. ??The visualized bony thorax is within normal limits. ?? INCIDENTAL FINDINGS: ??None. Procedure Note Alexey Henao MD - 06/17/2024 CHEST PA AND LATERAL VIEWS DATE: 06/17/2024 10:08 PM HISTORY: Asthma See Reason for Exam COMPARISON: December 15, 2023 FINDINGS: Examination of the chest in PA and lateral projections does not reveal infiltrative or consolidative process in either lung field. There is no evidence of congestion or effusion. The cardiac and mediastinal structures appear normal. The visualized bony thorax is within normal limits. INCIDENTAL FINDINGS: None. IMPRESSION: Chest within normal limits. DICTATION LOCATION: Location [address] [place] [address] Abdiel Luong SPEECH WRITER DIAGNOSTIC IMAGING ORDERABLES F inal Result from Last 3 Months Insurance RX [employer] (INTERNAL) [employer] RX [facility] CARE MANAGEMENT/CARE COORDINATION (INTERNAL) [employer] Commercial RX [employer] (INTERNAL) [employer] MEDICAID PENDING [place] Advance Directives For more information, please contact: [phone] * Full Code (Latest Code Status on File) Date Activated Date Inactivated Comments 12/16/2023 3:26 AM 12/17/2023 8:16 PM Care Teams Orthopedic Designer Relationship Specialty [place] [id number] [address] PCP - General Kaiako Kura Tuarua 01/05/24
--- OUTSIDE RECORDS SUMMARY | 2024-07-10 15:43 | XMS_ITS | Clinical Summary ---
Author Organization [facility] Address [address] [place] [id number] Phone Care Team Providers Care Nailing Machine Feeder Name Role Phone Unavailable Unavailable Unavailable Reason for Visit and Chief Complaint NO SHOW Problems Includes: Problems addressed during this encounter and other active Problems All Visits Onset Date Resolved Date Provider Condition S tatus Depression 08/04/2020 ANNI CORTES MD Ac tive Last Documented On 1 8:56AM ; [facility] Bipolar I Disorder 07/03/2020 ANNI ABEBE MD Active Last Documented On 1 2:16PM ; [facility] Generalized Anxiety Disorder 07/03/2020 ANNI CORTES MD Active Last Documented On 1 2:16PM ; [facility] Psychophysiological Insomnia 07/03/2020 ANNI CORTES MD Active Last Documented On 1 2:17PM ; [facility] Major Depression 07/03/2020 ANNI CORTES MD Active Last Documented On 1 2:16PM ; [facility] Plan of Treatment No Plan [...] 10/03/2020 9:49AM By Fifi Cortes MD ; [facility] LORazepam 0.5 MG Oral Tablet 09/22/2020 Provider: ANNI CORTES MD Diagnosis: Panic disorder [ episodic paroxysmal anxiety] as directed -- 1 tab a day a s needed for anxiety Last Documented On 09/22/2020 6:31PM By Fifi Cortes MD ; [facility] QUEtiapine Fumarate 100 MG Oral Tablet 08/08/2020 Provider: ANNI CORTES MD Diagnosis: Bipolar disorder , unspecified as directed -- 1 tab at bedtime Last Documented On 1 10:36AM By Fifi Cortes MD ; [facility] QUEtiapine Fumarate 25 MG Oral Tablet 08/08/2020 Provider: ANNI CORTES MD Diagnosis: Generalized anxi ety disorder as directed -- 1 tab in am a nd 1 tab at noon for anxiety Last Documented On 10:44AM By Fifi Cortes MD ; [facility] QUEtiapine Fumarate 50 MG Oral Tablet 07/03/2020 Provider: ANNI CORTES MD Diagnosis: Bipolar disorder , unspecified One tablet at bed time Last Documented On 07/03/2020 3:17PM By Fifi Cortes MD ; [facility] Albuterol Sulfate HFA 108 (9 0 Base) MCG/ACT Inhalation Aerosol Solution 06/20/2020 Provider: Diagnosis: 1 -2 puffs q 4-6 hours allison Tilley NP Last Documented On 07/03/2020 1:52PM By DIANE BOWENS ; [facility] Medications Administered Includes: Administered Medications [...] ve Last Documented On 10/02/2022 5:39PM ; [facility] Note: Imported from external source. Encounters Encounter Provider Location Date Check-In Time Check-Out Time Diagnosis NO SHOW ANNI CORTES MD [facility] 01/16/2021 2:30PM 11:59PM Insurance Includes: Active Insurance Policies Plan Name Member ID Group # Subscriber Relationship Effect kathy Dates 1 - [facility] [id number] PATRICIA MORALES Self Clinical Notes Includes: Clinical Notes from this encounter No Clinical Notes Recorded
--- OUTSIDE RECORDS SUMMARY | 2024-07-10 15:43 | XMS_ITS | Clinical Summary ---
Author Organization [facility] Address [address] [place] [address] Care Team Providers Care Slide Maker Name Role Phone Diego Mcleod MD Unavailable [phone] No, Physician Primary Care Provider [phone] Allergies Active Allergy Reactions Criticality Noted Date [...] 05/08/2020 Assessment & Plan (05/08/2020 3:31 PM ALL ROUND [employer]CHER): Will continue with quarantine per health dept recommendations Will continue with prn inhaler Will report to office if not improving or if worsening Rib pain on right side 04/24/2020 Assessment & Plan (04/24/2020 1:53 PM ALL ROUND BUTCHER): Will evaluate further with labs and imaginig Advised him to report to er if worsening Sleep disturbance 04/24/2020 Assessment & Plan (06/20/2020 10:48 AM [employer] R[employer]CHER): Refer for sleep study Discontinue tizanidine given 'muscle twitches'. Advised referral to neurology to evaluate further, but he wants to start with pulm/sleep study first and will let us know response. Assessment & Plan (04/24/2020 1:52 PM ALL ROUND BUTCHER): Will refer for sleep study/evaluation RUQ abdominal pain 04/24/2020 Assessment & Plan (04/24/2020 1:53 PM [employer] ROUND BUTCHER): Will evaluate further with abdominal US and labs. He was advised to report to er if worsening or if developing fevers/chills or n/v/d. Muscle spasm 04/24/2020 Assessment & Plan (04/24/2020 1:52 PM [employer] ROUND BUTCHER): Will give temporary supply of tizanidine. Advised no driving for six hours after taking as it may make him drowsy. Advised further evaluation with labs Hyperkalemia 03/29/2020 Acute renal failure (ARF) 03/29/2020 Assessment & Plan (04/09/2020 4:30 PM ALL ROUND BUTCHER): We reviewed recent labs. Advised no nsaids. [...] 03/08/2020 Assessment & Plan (06/20/2020 10:47 AM [employer] BUTCHER): Taper wellbutrin every other day x 5 days, then discontinue. Start lexapro when taper finished. Has appt pending with psychiatry that he will keep. Assessment & Plan (05/08/2020 3:32 PM [employer]CHER): Will taper celexa as he isn't pleased with it - 10mg daily x 7 days, then 10mg every other day x 7 days, then discontinue. Will start wellbutrin when taper is finished. We discussed increasing at week 3 pending response. He makes pact to report to er if having s/h ideations. Assessment & Plan (04/09/2020 4:31 PM ALL ROUND BUTCHER): Increase celexa. He missed appt with psychiatry [...] complication Assessment & Plan (06/20/2020 10:48 AM [employer] BUTCHER): Add bid symbicort. Continue with prn proventil. Assessment & Plan (04/09/2020 4:30 PM [employer] BUTCHER): Refill inhaler as needed Assessment & Plan [...] Dr. Vazquez's office F/U 2 months at [facility] Assessment & Plan (04/24/2020 1:51 PM ALL ROUND BUTCHER): Add symbicort bid Continue with proventil hfa q6h prn wheezing/dyspnea Will underground supervisor prednisone today and start He was advisesd [...] Conjugate 7-Valent 02/22/20,2000,2000,06/21 Tdap 02/19/2011,02/16/2011 Varicella 02/08/2007,02/21/2001 Medical History Medical History Date Comments Hx Other Medical Abnormal Heartb eat Hx Other Medical 2004 Tubes in ears Asthma Asthma Kidney failure Family History Medical History Relation Name Comments Diabetes Father's Brother Alcohol abuse Other 1 Family history of Alcoholism; Cancer Other 2 Family history of Cancer; Diabetes Other 3 Family history of Diabetes mellitus; Hypertension Other 4 Family history of Hypertension; Kidney disease Other 5 Family histor y of Renal disease; Seizures Other 6 Family history of Seizure disorder; Stroke Other 7 Family history of Stroke; Arthritis Other 8 Family history of Arthritis; Relation Name Status Comments Father Father's Brother Mother Alive Other 1 Other 2 Other 3 Other 4 Other 5 Other 6 Other 7 Other 8 Social History Tobacco Use Types Packs/Day Years [...] on file Legal Sex Male 1:49 PM [employer] Gender Identity Not on file Sexual Orientation Not on file Obstetrics History Last Filed Vital Signs Vital Sign Reading [...] 02/16/2024 4:28 PM CDT Plan of Treatment Health Maintenance Due Date Last Done Comments Pneumococcal vaccine <65 (1 of 1 - PPSV23 or PCV20) 02/19/2006 02/21/2001, 2000, 2000, Additional history exists Regular Well Visit/Exam 18-64 02/19/2018 DTaP/Tdap/Td Vaccine (8 - Td or Tdap) 02/19/2021 02/19/2011, 02/16/2011, 02/16/2006, Additional history exists Depression Screening 06/20/2021 06/20/2020, 05/08/2020, 04/24/2020, Additional history exists Varicella Vaccines Completed 02/08/2007, 02/21/2001 HPV Vaccines Completed 08/17/2012, 04/06, 02/03/2012 Influenza Vaccine Discontinued 06/11/2015, , 02/19/2011, Additional history exists Hepatitis C Screening Completed 03/29/2020 Procedures Procedure Name Priority Date/Time Associated Diagnosis Comments HEPATITIS PANEL, ACUTE Routine 03/29/2020 10:19 AM CDT from Last 3 Months or Most Recently Relevant to Health Maintenance Results * Hepatitis panel, acute (03/29/2020 10:19 AM CDT) Hep A IgM Nonreactive Nonreactive [facility] ESCOBEDO (JENN) Comment: Interpretive Data: If Hep A IgM Ab is reported as Equivocal, a new sample should be drawn in two weeks for testing. Current interpretive data was last revised on 19. Testing performed by: [address] [address] Hep B core IgM Nonreactive Nonreactive C SHAISTAER FANNY (JENN) Comment: Interpretive Data If HepB Core IgM Ab is reported as Equivocal, a new sample should be drawn in two weeks for testing. Current interpretive data was last revised on 19. Testing performed by: [facility], [address] [place] [address]., [id number] Hep C Ab Nonreactive Nonreactive AVNI ESCOBEDO (JENN) Comment: Interpretive Data Nonreactive: Antibodies to [...] last revised on 2019. Testing performed by: [facility], [address] [place] [address]., [address] HepBsAg Nonreactive Nonreactive AV[facility] ESCOBEDO (JENN) Comment:Testing performed by : [address] [address] Blood specimen (specimen) 03/29/2020 10:19 AM CDT 03/29/2020 1:26 PM CDT Diego Mcleod MD LAB MICROBIOLOGY - GENERAL OR DERABLES Final Result [facility] ESCOBEDO (JENN) 1 [facility] Department [place] [address] from Last 3 Months or Most Recently Relevant to Health Maintenance Insurance [facility] Advance Directives For more information, please contact: [phone] * Full Code (Latest Code Status on File) Date Activated Date Inactivated Comments 03/28/2020 8:31 PM 03/31/2020 5:29 PM Care Teams Slide Maker Relationship Specialty Start Date End Date No, Physician PCP - General 10/31/20 Diego Mcleod MD Consulting Physician Nephrology 03/31/20
--- OUTSIDE RECORDS SUMMARY | 2024-07-10 15:44 | XMS_ITS | Clinical Summary ---
Author Organization [facility] Address [address] [place] [address] Phone Care Team Providers Care Detail Technician Name Role Phone VIRGINIE CARDONA MD [...] Active Last Documented On 04/27/2022 8:42PM ; [facility] Note: Unchanged Past Visits Onset Date Resolved Date Provider Condition Status Asthma Mild Intermittent with Exacerbation 04/27/2022 EARLENE CASTELLANO PA-C Active Last Documented On 04/27/2022 8:42PM ; [facility] Note: Unchanged Plan of Treatment - Return to the clinic if condition worsens or new symptoms arise - Last Documented On 04/06/2023 9:35AM ; [facility] - Follow-up visit in 1 month - Last Documented On 04/06/2023 9:35AM ; [facility] Collective Time Spent caring for patient today: I personally spent a total of 70 minutes in medical discussion, documentation, and/or chart review as described in this note. - Last Documented On 04/06/2023 9:35AM ; [facility] Pending Tests Order Diagnosis Results Due Ordering Mc gutierrez In office procedures - *Clia Waived Labs Urine Drug Screen Encounter for therapeutic drug level monitoring 04/19/23 FARTUN GIL PMHNP-BC PREPARATOR-BC Last Documented On 9:35AM ; [facility] Assessments Includes: Assessments from this encounter Findings - [F39 - Unspecified mood [affective] disorder] Mood disorders, NOS --possible dx, will continue to monitor - Last Documented On 04/06/2023 9:35AM ; [facility] - [F32.A - Depression, unspecified] Depression - Last Documented On 04/06/2023 9:35AM ; [facility] - [G47.00 - Insomnia, unspecified] Insomnia due to stress - Last Documented On 04/06/2023 9:35AM ; [facility] - [F41.1 - Generalized anxiety disorder] Generalized anxiety disorder - Last Documented On 04/06/2023 9:35AM ; [facility] - [F41.0 - Panic disorder [episodic paroxysmal anxiety]] Panic disorder - Last Documented On 04/06/2023 9:35AM ; [facility] - [F43.10 - Post-traumatic stress disorder, unspecified] Post-traumatic stress disorder - Last Documented On 04/06/2023 9:35AM ; [facility] Medical Equipment - Implanted Devices Includes: Current Devices No Medical Equipment Recorded Medications Includes: Medications discussed during this encounter and other current Medications Discontinued / Stopped on this date EARLENE CASTELLANO PA-C on 01/05/2023 Sertraline HCl 100 MG Oral Tablet Provider: EARLENE Luque Diagnosis: Generalized anxi ety disorder Last Documented On 3 3:48PM By FARTUN ARIASROWENA ; [facility] Azithromycin 250 MG Oral Tablet Provider: EARLENE CASTELLANO PA-C Diagnosis: Mild intermitten t asthma with (acute) exacerbation Last Documented On 04/05/2023 2:52PM By DANIEL BOWENS ; [facility] Sertraline HCl 50 MG Oral Tablet Provider: EARLENE Luque Diagnosis: Generalized anxi ety disorder Last Documented On 3 2:56PM By FARTUN GUARDADO ; [facility] New / Renewed during this visit FARTUN GIL [facility] on 04/05/2023 QUEtiapine Fumarate ER 50 MG Oral Tablet Extended Release 24 Hour Provider: FARTUN LAZAROROWENA [facility] 30 day supply: 30 tablet, 1 refills Diagnosis: Generalized anxiety disorder One tablet at bed time Pharmacy: [facility] - [address] , [facility], [phone] - Last Documented On 3 9:17AM By FARTUN ARIAS-ROWENA ; [facility] Sertraline HCl 100 MG Oral Tablet Provider: FARTUN KAT PREPARATOR- 30 day supply: 60 tablet, 1 refills Diagnosis: Post-traumatic stress disorder, unspecified Take 2 tabs PO once daily (2 00mg dose)---dose increase Pharmacy: [facility] - [address] , [facility], [address] - Last Documented On 3 9:17AM By FARTUN GUARDADO ; [facility] Current Medications (continue as prescribed) Albuterol Sulfate HFA 108 (9 0 Base) MCG/ACT Inhalation Aerosol Solution 06/02/2023 Provider: CHARLIE CASTELLANO PA-C Diagnosis: INHALE 2 PUFFS BY MOUTH EVERY 4 HOURS NEEDED Last Documented On 3 2:42PM By Earlene Castellano PA-C ; [facility] Advair Diskus 250-50 MCG/ACT Inhalation Aerosol Powder Breath Activated 06/22/2022 Provider: EARLENE Luque Diagnosis: Mild intermitten t asthma with (acute) exacerbation INHALE 1 PUFF BY MOUTH TWICE DAILY. RINSE MOUTH AFTER USE Last Documented On 3 8:11AM By Earlene Castellano PA-C ; [facility] Past Medications on file Sertraline HCl 100 MG Oral Tablet 06/28/2023 - 09/26/2023 Provider: FARTUN VIDES [facility]- PREPARATOR- Diagnosis: Take 2 tabs PO daily (200mg) dose Last Documented On 4 12:06PM By FARTUN ARIAS-ROWENA ; [facility] Wellbutrin XL 300 MG Oral Tablet Extended Release 24 Hour 06/28/2023 - 08/27/2023 Provider: FARTUN KAT PREPARATOR-BC Diagnosis: Depression, unspecified One tablet daily--dose increase Last Documented On 4 12:06PM By FARTUN GIL [facility] ; [facility] hydrOXYzine Pamoate 25 MG Oral Capsule 06/28/2023 - 07/28/2023 Provider: FARTUN GIL [facility] Diagnosis: Panic disorder [episodic paroxysmal anxiety] 1 capsule PO TID PRN anxiety Last Documented On 4 12:06PM By FARTUN JEFFERY [facility] ; [facility] QUEtiapine Fumarate 150 MG Oral Tablet 06/28/2023 - 08/27/2023 Provider: FARTUN GIL [facility] Diagnosis: Insomnia, unspec ified One tablet daily--dose increase Last Documented On 4 12:06PM By FARTUN JEFFERY [facility] ; [facility] Medications Administered Includes: Administered Medications from [...] 100 Last Documented: On 04/05/2023 2:55PM ; [facility] Results Includes: Results discussed during this encounter Drugs of abuse screen [facility] Ordered by FARTUN GIL [facility] on 04/05/2023 Collected: Reported: 04/05/2023 15:11 Last Documented On 3 3:12PM ; [facility] Reviewed on 04/05/2023; All test results are final unless otherwise noted. Internal QC Acceptable YES N (Normal) Last Documented On 3 3:12PM ; [facility] Lot # & Exp. Date [id number] 04-27-24 N (Normal) Last Documented On 3 3:12PM ; [facility] Amphetamines NEGATIVE (NEG) N (Normal) Last Documented On 3 3:12PM ; [facility] Barbiturates NEGATIVE (neg) N (Normal) Last Documented On 3 3:12PM ; [facility] Benzodiazepines NEGATIVE (neg) N (Normal) Last Documented On 3 3:12PM ; [facility] Cocaine NEGATIVE (neg) N (Normal) Last Documented On 3 3:12PM ; [facility] Ecstasy NEGATIVE (Neg) N (Normal) Last Documented On 3 3:12PM ; [facility] Methamphetamines NEGATIVE (neg) N (Normal) Last Documented On 3 3:12PM ; [facility] Methadone NEGATIVE (Neg) N (Normal) Last Documented On 3 3:12PM ; [facility] Morphine NEGATIVE (Neg) N (Normal) Last Documented On 3 3:12PM ; [facility] Oxycodone NEGATIVE (Neg) N (Normal) Last Documented On 3 3:12PM ; [facility] Phencyclidine NEGATIVE (NEG) N (Normal) Last Documented On 3 3:12PM ; [facility] TCA/Tricyclic Antidepressants NEGATIVE (neg) N (Normal) Last Documented On 3 3:12PM ; [facility] Cannabis POSITIVE (neg) A (Abnormal) Last Documented On 3 3:12PM ; [facility] History of Present Illness Includes: History [...] a tissue to use will use hand shell molder or wash his hands as soon as [...] an addict and in and out of half-way. Father when he was age 13. His father had just gotten out of residential but was still using drugs. Father said [...] Grandmother Ramya when he was age 16. Cultural/Synagogue Influences: Denies Past psych DX: LYNDSEY, MDD, Bipolar, PTSD Psych HX: Inpatient HX for mental health: Denies Previous PHP/IOP: Denies ER visits HX for mental health: [facility] ER 01/2023 anxiety Rehab HX: Denies Outpatient Psychiatrist/PMHNP HX: Dr. Cortes in the past Counseling HX: Yudith Pierre in the past but not currently. Is in anger management at [facility] in [place] and parenting classes currently. Previous psych meds: [...] an addict and in and out of half-way. Father when he was age 13. His father had just gotten out of residential but was still using drugs. Father said [...] Living Arrangements: Lives with Friend Chance in [place] and his 4-year-old daughter Marital status: Single. Children: Daughter Shayy (04/21/21) Education HX: 11th grade Occupation: Currently unemployed. Hx: Denies Access to Weapons: Denies Legal HX: Arrested carrying a pistol and didn't have a conceal and carry-is currently on probation for this. Family psych HX: Maternal grandmother-attempted suicide after grandfather Father- AURY-heroin Maternal grandfather-AUD. 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 11/18/2022 Last Documented On 3 2:47PM ; [facility] Not recovering from substance abuse 11/04 Last Documented On 3 2:47PM ; [facility] Tobacco non-user 10/25/2022 Last Documented On 3 2:47PM ; [facility] Using marijuana 02/22/2022 Last Documented On 3 2:47PM ; [facility] Alcohol 07/20/2021 Last Documented On 3 2:47PM ; [facility] Drug use 07/20/2021 Last Documented On 3 2:47PM ; [facility] Frequency: Most days 07/20/2021 Last Documented On 3 2:47PM ; [facility] Type: Marijuana 07/20/2021 Last Documented On 3 2:47PM ; [facility] Smoking Status Unknown Procedures and Surgical History Includes: Procedures from this encounter Procedures Code Diagnosis Performing Provider Service L ocation Service Date regular exercise Last Documented On 3 2:57PM ; [facility] review of medications documented 1160F Last Documented On 3 2:55PM ; [facility] Clinical summary provided to patient Last Documented On 3 2:57PM ; [facility] Mood Disorder Questionnaire -NEGATIVE 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 Last Documented On 3 4:13PM ; [facility] Medical History Includes: Medical History addressed during this encounter Description Last Updated Not taking OTC medications 10/25/2022 Last Documented On 3 2:47PM ; [facility] Family History Includes: Family History addressed during this encounter Description Last Updated Maternal grandfather's history of alcoho lism 04/06/2023 Last Documented On 3 9:35AM ; [facility] Maternal grandmother's history of depres nathan 04/06/2023 Last Documented On 3 9:35AM ; [facility] Maternal grandfather's history of alcoho l use 04/06/2023 Last Documented On 3 9:35AM ; [facility] Paternal grandfather's history of substa nce use disorders 04/06/2023 Last Documented On 3 9:35AM ; [facility] Paternal history of substance use disord ers 04/06/2023 Last Documented On 3 9:35AM ; [facility] Maternal history of substance use disord ers 04/06/2023 Last Documented On 3 9:35AM ; [facility] Family history of stroke/paralysis 07/20 Last Documented On 3 2:47PM ; [facility] Maternal history of Arthritis 07/20/2021 Last Documented On 3 2:47PM ; [facility] Review of [...] EXAM 18 YEARS AND OLDER FARTUN GIL [facility] 04/05/20 23 2:35PM 3:56PM Generalized Anxiety Disorder,Depre ssion,Post-tra umatic Stress Disorder,Mood Disorders, Nos,Panic Disorder,Insom sheron Due To Stress Insurance Includes: Active Insurance Policies Plan Name Member ID Group # Subscriber Relationship Effect kathy Dates 1 - [facility] [id number] PATRICIA MORALES Self Clinical Notes Includes: Clinical Notes from this encounter * Progress note Date Encounter Last Documented by 04/05/2023 PSYCH NEW PATIENT EX AM 18 YEARS AND OLDER Last documented on 04/06/2023; 9:35 AM, FARTUN GIL [facility]; [facility] Active Problems & Conditions - [...] a tissue to use will use hand shell molder or wash his hands as soon as [...] an addict and in and out of half-way. Father when he was age 13. His father had just gotten out of residential but was still using drugs. Father said [...] Grandmother Ramya when he was age 16. Cultural/Synagogue Influences: Denies Past psych DX: LYNDSEY, MDD, Bipolar, PTSD Psych HX: Inpatient HX for mental health: Denies Previous PHP/IOP: Denies ER visits HX for mental health: [facility] ER 01/2023 anxiety Rehab HX: Denies Outpatient Psychiatrist/PMHNP HX: Dr. Cortes in the past Counseling HX: Yudtih Pierre in the past but not currently. Is in anger management at [facility] in [place] and parenting classes currently. Previous psych meds: [...] an addict and in and out of half-way. Father when he was age 13. His father had just gotten out of residential but was still using drugs. Father said [...] Living Arrangements: Lives with Friend Chance in [place] and his 4-year-old daughter Marital status: Single. [...] YES Normal Lot # & Exp. Date [id number] 04-27-24 Normal Amphetamines NEGATIVE Normal Barbiturates NEGATIVE [...] night Discussed ongoing cannabis use and explained intermediate designer effect that psychoactive drugs have on brain [...]
--- OUTSIDE RECORDS SUMMARY | 2024-07-10 15:44 | XMS_ITS | Clinical Summary ---
Author Organization [facility] Address [address] [place] [id number] Phone Care Team Providers Care Manager Cardiology Name Role Phone Unavailable Unavailable Unavailable Reason for Visit and Chief Complaint NO SHOW Problems Includes: Problems addressed during this encounter and other active Problems All Visits Onset Date Resolved Date Provider Condition S tatus Depression 08/04/2020 ANNI CORTES MD Ac tive Last Documented On 1 8:56AM ; [facility] Bipolar I Disorder 07/03/2020 ANNI ABEBE MD Active Last Documented On 1 2:16PM ; [facility] Generalized Anxiety Disorder 07/03/2020 ANNI CORTES MD Active Last Documented On 1 2:16PM ; [facility] Psychophysiological Insomnia 07/03/2020 ANNI CORTES MD Active Last Documented On 1 2:17PM ; [facility] Major Depression 07/03/2020 ANNI CORTES MD Active Last Documented On 1 2:16PM ; [facility] Plan of Treatment No Plan of [...] 10/03/2020 9:49AM By Fifi Cortes MD ; [facility] LORazepam 0.5 MG Oral Tablet 09/22/2020 Provider: ANNI CORTES MD Diagnosis: Panic disorder [ episodic paroxysmal anxiety] as directed -- 1 tab a day a s needed for anxiety Last Documented On 09/22/2020 6:31PM By Fifi Cortes MD ; [facility] QUEtiapine Fumarate 100 MG Oral Tablet 08/08/2020 Provider: ANNI CORTES MD Diagnosis: Bipolar disorder , unspecified as directed -- 1 tab at bedtime Last Documented On 1 10:36AM By Fifi Cortes MD ; [facility] QUEtiapine Fumarate 25 MG Oral Tablet 08/08/2020 Provider: ANNI CORTES MD Diagnosis: Generalized anxi ety disorder as directed -- 1 tab in am a nd 1 tab at noon for anxiety Last Documented On 10:44AM By Fifi Cortes MD ; [facility] QUEtiapine Fumarate 50 MG Oral Tablet 07/03/2020 Provider: ANNI CORTES MD Diagnosis: Bipolar disorder , unspecified One tablet at bed time Last Documented On 07/03/2020 3:17PM By Fifi Cortes MD ; [facility] Albuterol Sulfate HFA 108 (9 0 Base) MCG/ACT Inhalation Aerosol Solution 06/20/2020 Provider: Diagnosis: 1 -2 puffs q 4-6 hours allison Tilley NP Last Documented On 07/03/2020 1:52PM By DIANE BOWENS ; [facility] Medications Administered Includes: Administered Medications from [...] ve Last Documented On 10/02/2022 5:39PM ; [facility] Note: Imported from external source. Encounters Encounter Provider Location Date Check-In Time Check-Out Time Diagnosis NO SHOW ANNI CORTES MD [facility] 11/14/2020 3:30PM 11:59PM Insurance Includes: Active Insurance Policies Plan Name Member ID Group # Subscriber Relationship Effect kathy Dates 1 - [facility] [id number] PATRICIA MORALES Self Clinical Notes Includes: Clinical Notes from this encounter No Clinical Notes Recorded
--- OUTSIDE RECORDS SUMMARY | 2024-07-10 15:44 | XMS_ITS | Clinical Summary ---
Author Organization [facility] Address [address] [place] [address] Phone Care Team Providers Care L D Rn Name Role Phone VIRGINIE CARDONA MD Primary Care Provider Reason for Visit and Chief Complaint The Chief Complaint is: medication check up. would like to discuss switching medication Problems Includes: Problems addressed during this encounter and other active Problems Current Visit Onset Date Resolved Date Provider Conditio n Status Generalized Anxiety Disorder 04/27/2022 EARLENE CASTELLANO PA-C Active Last Documented On 04/27/2022 8:42PM ; [facility] Note: Unchanged Past Visits Onset Date Resolved Date Provider Condition Status Asthma Mild Intermittent with Exacerbation 04/27/2022 EARLENE CASTELLANO PA-C Active Last Documented On 04/27/2022 8:42PM ; [facility] Note: Unchanged Plan of Treatment - Return to the clinic if condition worsens or new symptoms arise - Last Documented On 05/23/2023 9:28AM ; [facility] - Follow-up visit in 1 month - Last Documented On 05/23/2023 9:28AM ; [facility] Assessments Includes: Assessments from this encounter Findings - [F39 - Unspecified mood [affective] disorder] Mood disorders, NOS --possible dx, will continue to monitor - Last Documented On 05/23/2023 9:28AM ; [facility] - [F32.A - Depression, unspecified] Depression - Last Documented On 05/23/2023 9:28AM ; [facility] - [G47.00 - Insomnia, unspecified] Insomnia due to stress - Last Documented On 05/23/2023 9:28AM ; [facility] - [F41.1 - Generalized anxiety disorder] Generalized anxiety disorder - Last Documented On 05/23/2023 9:28AM ; [facility] - [F41.0 - Panic disorder [episodic paroxysmal anxiety]] Panic disorder - Last Documented On 05/23/2023 9:28AM ; [facility] - [F43.10 - Post-traumatic stress disorder, unspecified] Post-traumatic stress disorder - Last Documented On 05/23/2023 9:28AM ; [facility] Medical Equipment - Implanted Devices Includes: Current Devices No Medical Equipment Recorded Medications Includes: Medications discussed during this encounter and other current Medications Discontinued / Stopped on this date AYDE RASCON [facility] on 04/05/2023 QUEtiapine Fumarate ER 50 MG Oral Tablet Extended Release 24 Hour Provider: AYDE RASCON [facility]- Diagnosis: Generalized anxi ety disorder Last Documented On 3 9:17AM By AYDE RASCON [facility] ; [facility] Sertraline HCl 100 MG Oral Tablet Provider: AYDE RASCON [facility]- Diagnosis: Post-traumatic s tress disorder, unspecified Last Documented On 3 9:17AM By AYDE RASCON [facility] ; [facility] New / Renewed during this visit AYDE RASCON [facility]- on 05/23/2023 QUEtiapine Fumarate 100 MG Oral Tablet Provider: AYDE RASCON [facility]- 30 day supply: 30 tablet, 1 refills Diagnosis: Insomnia, unspecified One tablet daily---dose increase Pharmacy: [facility] [address] [facility], [address] - Last Documented On 06/01/2023 2:06PM By VICENTE BOWENS ; [facility] Wellbutrin XL 150 MG Oral Tablet Extended Release 24 Hour Provider: AYDE RASCON [facility]- 30 day supply: 30 tablet, 1 refills Diagnosis: Depression, unspecified One tablet daily Pharmacy: [facility] [facility], [address] - Last Documented On 06/21/2023 10:01AM By VICENTE BOWENS ; [facility] Current [...] PA-C ; [facility] Past Medications on file Sertraline HCl 100 MG Oral Tablet 06/28/2023 - 09/26/2023 Provider: AYDE VIDES [facility]- Diagnosis: Take 2 tabs PO daily (200mg) dose Last Documented On 4 12:06PM By AYDE RASCON [facility] ; [facility] Wellbutrin XL 300 MG Oral Tablet Extended Release 24 Hour 06/28/2023 - 08/27/2023 Provider: AYDE RASCON [facility] Diagnosis: Depression, unspecified One tablet daily--dose increase Last Documented On 4 12:06PM By AYDE RASCON [facility] ; [facility] hydrOXYzine Pamoate 25 MG Oral Capsule 06/28/2023 - 07/28/2023 Provider: AYDE RASCON [facility] Diagnosis: Panic disorder [episodic paroxysmal anxiety] 1 capsule PO TID PRN anxiety Last Documented On 4 12:06PM By AYDE RASCON [facility] ; [facility] QUEtiapine Fumarate 150 MG Oral Tablet 06/28/2023 - 08/27/2023 Provider: AYDE RASCON [facility] Diagnosis: Insomnia, unspec ified One tablet daily--dose increase Last Documented On 4 12:06PM By AYDE RASCON [facility] ; [facility] Medications [...] continues going to anger management at [facility] which he finds helpful. He also [...] Grandmother Ramya when he was age 16. Cultural/Taoism Influences: Denies Past psych DX: LYNDSEY, MDD, Bipolar, PTSD Psych HX: Inpatient HX for mental health: Denies Previous PHP/IOP: Denies ER visits HX for mental health: [facility] ER 01/2023 anxiety Rehab HX: Denies Outpatient Psychiatrist/PMHNP HX: Dr. Cortes in the past Counseling HX: Yudith Pierre in the past but not currently. Is in anger management at [facility] in [place] and parenting classes currently. Previous psych meds: [...] an addict and in and out of [facility]. Father when he was age 13. His father had just gotten out of group home but was still using drugs. Father said [...] Living Arrangements: Lives with Friend Chance in [place] and his 4-year-old daughter Marital status: [...] visit obtained when scheduled. 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 11/18/2022 Last Documented On 3 9:03AM ; [facility] Not recovering from substance abuse 11/04 Last Documented On 3 9:03AM ; [facility] Tobacco non-user 10/25/2022 Last Documented On 3 9:03AM ; [facility] Using marijuana 02/22/2022 Last Documented On 3 9:03AM ; [facility] Alcohol 07/20/2021 Last Documented On 3 9:03AM ; [facility] Amount of alcohol per day: N ot everyday but about 5 to 7 shots when i drink 07/20/2021 Last Documented On 3 9:03AM ; [facility] Drug use 07/20/2021 Last Documented On 3 9:03AM ; [facility] Frequency: Most days 07/20/2021 Last Documented On 3 9:03AM ; [facility] Type: Marijuana 07/20/2021 Last Documented On 3 9:03AM ; [facility] Smoking Status Unknown Procedures and Surgical History Includes: Procedures from this encounter Procedures Code Diagnosis Performing Provider Service L ocation Service Date regular exercise Last Documented On 3 9:03AM ; [facility] standardized depression screening: negative for symptoms 3351F Last Documented On 3 8:54AM ; [facility] review of medications documented 1160F Last Documented On 3 9:03AM ; [facility] assessment of suicide risk performed Last Documented On 3 8:54AM ; [facility] screening for adult depression: impressi on and score five Last Documented On 3 8:54AM ; [facility] Clinical summary provided to patient Last Documented On 3 9:03AM ; [facility] Medical History Includes: Medical History addressed during this encounter Description Last Updated No Vaccine history 01/04/2023 Last Documented On 3 9:03AM ; [facility] Not taking OTC medications 10/25/2022 Last Documented On 3 9:03AM ; [facility] Family History Includes: Family History addressed during this encounter Description Last Updated Maternal grandfather's history of alcoho lism 04/06/2023 Last Documented On 3 9:03AM ; [facility] Maternal grandmother's history of depres nathan 04/06/2023 Last Documented On 3 9:03AM ; [facility] Maternal grandfather's history of alcoho l use 04/06/2023 Last Documented On 3 9:03AM ; [facility] Paternal grandfather's history of substa nce use disorders 04/06/2023 Last Documented On 3 9:03AM ; [facility] Paternal history of substance use disord ers 04/06/2023 Last Documented On 3 9:03AM ; [facility] Maternal history of substance use disord ers 04/06/2023 Last Documented On 3 9:03AM ; [facility] Family history of stroke/paralysis 07/20 Last Documented On 3 9:03AM ; [facility] Maternal history of Arthritis 07/20/2021 Last Documented On 3 9:03AM ; [facility] Review of Systems Includes: Review [...] Check-Out Time Diagnosis TELEHEALTH AYDE RASCON PMHNP-BC LITHOGRAPHER APPRENTICE-BC [facility] 05/23/20 23 8:53AM 9:22AM Generalized Anxiety Disorder,Depre ssion,Insomnia Due To Stress,Post-tr aumatic Stress Disorder,Panic Disorder,Mood Disorders, Nos Insurance Includes: Active Insurance Policies Plan Name Member ID Group # Subscriber Relationship Effect kathy Dates 1 - [facility] [id number] PATRICIA MORALES JR Self Clinical Notes Includes: Clinical Notes from this encounter * Progress note Date Encounter Last Documented by 05/23/2023 TELEHEALTH Last documented on 05/23/2023; 9:28 AM, AYDE RASCON PMHNP-BC LITHOGRAPHER APPRENTICE-BC; [facility] Active Problems [...] continues going to anger management at [facility] which he finds helpful. He also [...] Grandmother Ramya when he was age 16. Cultural/Taoism Influences: Denies Past psych DX: LYNDSEY, MDD, Bipolar, PTSD Psych HX: Inpatient HX for mental health: Denies Previous PHP/IOP: Denies ER visits HX for mental health: [facility] ER 01/2023 anxiety Rehab HX: Denies Outpatient Psychiatrist/PMHNP HX: Dr. Cortes in the past Counseling HX: Yudith Pierre in the past but not currently. Is in anger management at [facility] in [place] and parenting classes currently. Previous psych meds: [...] an addict and in and out of [facility]. Father when he was age 13. His father had just gotten out of group home but was still using drugs. Father said [...] Living Arrangements: Lives with Friend Chance in [place] and his 4-year-old daughter Marital status: [...] visit obtained when scheduled. Originating site: [facility] Distant Site: Patient's Home Visit included: Ayde Rascon LITHOGRAPHER APPRENTICE-BC, PMHNP-BC and patient Vital signs self-reported by [...] daily Discussed ongoing cannabis use and explained snf [...]
--- OUTSIDE RECORDS SUMMARY | 2024-07-10 15:44 | XMS_ITS | Clinical Summary ---
Author Organization [facility] Address [address] [place] [address] Phone Care Team Providers Care Lab Manager Name Role Phone Unavailable Unavailable Unavailable Reason for Visit and Chief Complaint [Patient Encounter] Problems Includes: Problems addressed during this encounter and other active Problems All Visits Onset Date Resolved Date Provider Condition S tatus Depression 08/04/2020 Active Last Documented On 3 5:53PM ; [facility] Bipolar I Disorder 07/03/2020 Active Last Documented On 3 5:53PM ; [facility] Generalized Anxiety Disorder 07/03/2020 Active Last Documented On 3 5:53PM ; [facility] Psychophysiological Insomnia 07/03/2020 Active Last Documented On 3 5:53PM ; [facility] Major Depression 07/03/2020 Active Last Documented On 3 5:53PM ; [facility] Plan of Treatment No Plan [...] On 10/02/2022 5:39PM By DIANE BOWENS ; [facility] Current Medications (continue as prescribed) [...] 10/02/2022 5:39PM By Fifi Cortes MD ; [facility] QUEtiapine Fumarate 100 MG OR TABS 08/08/2020 Provider: ANNI CORTES MD Diagnosis: Bipolar disorder , unspecified as directed -- 1 tab at bedtime Last Documented On 10/02/2022 5:39PM By Fifi Cortes MD ; [facility] QUEtiapine Fumarate 25 MG OR TABS 08/08/2020 Provider: ANNI CORTES MD Diagnosis: Generalized anxi ety disorder as directed -- 1 tab in am a nd 1 tab at noon for anxiety Last Documented On 10/02/2022 5:39PM By Fifi Cortes MD ; [facility] QUEtiapine Fumarate 50 MG OR TABS 07/03/2020 Provider: ANNI CORTES MD Diagnosis: Bipolar disorder , unspecified One tablet at bed time Last Documented On 10/02/2022 5:39PM By Fifi Cortes MD ; [facility] Albuterol Sulfate HFA 108 (90 Base) MCG/ACT IN AERS Provider: Diagnosis: 1 -2 puffs q 4-6 hours allison Tilley NP Last Documented On 10/02/2022 5:39PM By DIANE BOWENS ; [facility] Medications Administered Includes: Administered Medications [...] 2.2 Last Documented: On 10/02/2022 5:58PM ; [facility] Results Includes: Results discussed during [...] ve Last Documented On 10/02/2022 5:39PM ; [facility] Note: Imported from external source. Encounters Encounter Provider Location Date Check-In Time Check-Out Time Diagnosis [Patient Encounter] 10/03/2020 12:00AM 11:59PM Insurance Includes: Active Insurance Policies Plan Name Member ID Group # Subscriber Relationship Effect kathy Dates - [facility] [id number] PATRICIA MORALES JR Self Clinical Notes Includes: Clinical Notes from this encounter No Clinical Notes Recorded
--- OUTSIDE RECORDS SUMMARY | 2024-07-10 15:44 | XMS_ITS | Clinical Summary ---
Author Organization [facility] Address On license of [facility] [place] [address] Care Team Providers Care Fly Finisher Name Role Phone None, Provider MD Primary Care Provider Unavaila ble Allergies No known active allergies Medications ondansetron (ZOFRAN-ODT) 4 MG disintegrating tablet Take 1 tablet (4 mg total) by mouth every 8 (eight) hours as needed for Nausea. 20 tablet 3 Active famotidine (PEPCID) 20 MG tablet Take 1 tablet (20 mg total) by mouth 2 (two) times daily. 60 tablet 3 Active albuterol sulfate HFA 108 (90 Base) MCG/ACT inhaler Inhale 2 puffs into the lungs every 6 (six) hours as needed for Wheezing. 18 g 3 Active ADVAIR DISKUS 250-50 MCG/ACT inhaler INHALE 1 PUFF BY MOUTH TWICE DAILY. RINSE MOUTH AFTER USE 2 Active sertraline (ZOLOFT) 25 MG tablet Take 1 tablet (25 mg total) by mouth daily. 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 Gender Identity Not on file Sexual Orientation Not on file Last Filed Vital Signs Vital Sign Reading Time Taken Comments Blood Pressure 114/71 11/15/2022 3:30 AM CDT Pulse 79 11/15/2022 3:30 AM CDT Temperature 36.3 ??C (97.4 ??F) 11/15/2022 3:30 AM CD T Respiratory Rate 29 11/15/2022 3:30 AM CDT Oxygen Saturation 97% 11/15/2022 3:30 AM CDT Inhaled Oxygen Concentration - - Weight 95.3 kg (210 lb) 11/15/2022 2:24 AM CDT Height 182.9 cm (6') 11/15/2022 2:24 AM CDT Body Mass Index 28.48 11/15/2022 2:24 AM CDT Plan of Treatment Health Maintenance Due Date Last Done Comments Annual Physical 02/19/2003 Hepatitis C 02/19/2018 DTaP, Tdap and Td Vaccines (8 - Td or Tdap) 02/19/2021 02/19/2011, 02/16/2011, 02/16/2006, Additional history exists COVID-19 Vaccine ( season) 2024 Influenza Adult (#1) 2024 06/11/2015, 04/17/2012, 02/19/2011, Additional history exists Pneumococcal Vaccine: Pediatrics (0 to 5 Years) and At-Risk Patients (6 to 64 Years) Aged Out 02/21/2001, 2000, 2000, Additional history exists No longer eligible based on patient's age to complete this topic Hepatitis B Vaccines Completed 04/17/2012, 2000, 2000, Additional history exists HPV Vaccines Completed 08/17/2012, 04/06, 02/03/2012 Meningococcal Vaccine Completed 09/16/2016, 011 Meningococcal B Vaccine Aged Out No l onger eligible based on patient's age to complete this topic RSV Immunizations Under 20 Months Aged Out No longer eligible based on patient's age to complete this topic Insurance NAIF Care Teams Fly Finisher Relationship Specialty Start Date End Date None, Provider, PCP - General UNKNOWN PHYSICIAN SPECIALTY 06/21/22
--- OUTSIDE RECORDS SUMMARY | 2024-07-10 15:44 | XMS_ITS ---
Care Plan - [facility] Created on: July 10, 2024 PATRICIA MORALES JR : 2000 Sex: Male Author Organization [facility] Address [address] [place] [address] Phone Care Team Providers Care Board Stacker Name Role Phone Unavailable Unavailable Unavailable
--- OUTSIDE RECORDS SUMMARY | 2024-07-10 17:21 | XMS_ITS ---
Care Plan - [facility] Medical Group S Created on: July 10, 2024 PATRICIA MORALES JR : 2000 Sex: Male Author Organization [facility] Medical [facility] Address [address] [place] [phone] Phone Care Team Providers Care Wagon Washer Name Role Phone Unavailable Unavailable Unavailable
--- OUTSIDE RECORDS SUMMARY | 2024-07-10 17:21 | XMS_ITS | Clinical Summary ---
Author Organization [facility] Address [address] [place] [address] Phone Care Team Providers Care Tipping Machine Operator Automatic Name Role Phone VIRGINIE CARDONA MD Primary Care Provider Reason for Visit and Chief Complaint NO SHOW Problems Includes: Problems addressed during this encounter and other active Problems All Visits Onset Date Resolved Date Provider Condition S tatus Asthma Mild Intermittent with Exacerbation 04/27/2022 PAPI CASTELLANO PA-C Active Last Documented On 04/27/2022 8:42PM ; [facility] Note: Unchanged Generalized Anxiety Disorder 04/27/2022 PAPI CASTELLANO PA-C Active Last Documented On 04/27/2022 8:42PM ; [facility] Note: Unchanged Plan of Treatment No [...] 3 2:42PM By Papi Castellano PA-C ; [facility] Advair Diskus 250-50 MCG/ACT Inhalation Aerosol Powder Breath Activated 06/22/2022 Provider: PAPI Luque Diagnosis: Mild intermitten t asthma with (acute) exacerbation INHALE 1 PUFF BY MOUTH TWICE DAILY. RINSE MOUTH AFTER USE Last Documented On 3 8:11AM By Papi Castellano PA-C ; [facility] Medications Administered Includes: Administered [...] Time Diagnosis NO SHOW FARTUN GIL HN-BC SHIELD INSTALLER[facility] 4 11:30AM 11:59PM Insurance Includes: Active Insurance Policies Plan Name Member ID Group # Subscriber Relationship Effect kathy Dates 1 - [facility] [id number] PATRICIA MORALES Self Clinical Notes Includes: Clinical Notes from this encounter No Clinical Notes Recorded
--- OUTSIDE RECORDS SUMMARY | 2024-07-10 17:21 | XMS_ITS | Clinical Summary ---
Author Organization [facility] Address [address] [place] [address] Phone Care Team Providers Care Jig Grinder Set Up Operator Name Role Phone VIRGINIE CARDONA MD [...] Last Documented On 04/27/2022 8:42PM ; [facility] Note: Unchanged Past Visits Onset Date Resolved Date Provider Condition Status Asthma Mild Intermittent with Exacerbation 04/27/2022 EARLENE CASTELLANO PA-C Active Last Documented On 04/27/2022 8:42PM ; [facility] Note: Unchanged Plan of Treatment - Return to the clinic if condition worsens or new symptoms arise - Last Documented On 06/28/2023 12:07PM ; [facility] - Follow-up visit in 1 month - Last Documented On 06/28/2023 12:07PM ; [facility] Assessments Includes: Assessments from this encounter Findings - [F39 - Unspecified mood [affective] disorder] Mood disorders, NOS --possible dx, will continue to monitor - Last Documented On 06/28/2023 12:07PM ; [facility] - [F32.A - Depression, unspecified] Depression - Last Documented On 06/28/2023 12:07PM ; [facility] - [G47.00 - Insomnia, unspecified] Insomnia due to stress - Last Documented On 06/28/2023 12:07PM ; [facility] - [F41.1 - Generalized anxiety disorder] Generalized anxiety disorder - Last Documented On 06/28/2023 12:07PM ; [facility] - [F41.0 - Panic disorder [episodic paroxysmal anxiety]] Panic disorder - Last Documented On 06/28/2023 12:07PM ; [facility] - [F43.10 - Post-traumatic stress disorder, unspecified] Post-traumatic stress disorder - Last Documented On 06/28/2023 12:07PM ; [facility] Medical Equipment - Implanted Devices Includes: Current Devices No Medical Equipment Recorded Medications Includes: Medications discussed during this encounter and other current Medications Discontinued / Stopped on this date AYDE RASCON [facility]- on 06/21/2023 Wellbutrin XL 150 MG Oral Tablet Extended Release 24 Hour [facility] Diagnosis: Depression, unsp ecified Last Documented On 4 11:56AM By AYDE RASCON [facility] ; [facility] QUEtiapine Fumarate 100 MG Oral Tablet Provider: AYDE RASCON [facility]- Diagnosis: Insomnia, unspec ified Last Documented On 4 11:59AM By AYDE RASCON [facility] ; [facility] Sertraline HCl 100 MG Oral Tablet [facility] r[facility] Diagnosis: Last Documented On 4 11:44AM By AYDE STUARTPMARY ; [facility] New / Renewed during this visit AYDE RASCON [facility]- on 06/28/2023 Sertraline HCl 100 MG Oral Tablet Provider: AYDE RASCON [facility] 90 day supply: 180 tablet, 0 refills Diagnosis: Take 2 tabs PO daily (200mg) dose Pharmacy: [facility]) - [address], [id number] - Last Documented On 4 12:06PM By AYDE RASCON [facility] ; [facility] Wellbutrin XL 300 MG Oral Tablet Extended Release 24 Hour Provider: AYDE RASCON [facility] 30 day supply: 30 tablet, 1 refills Diagnosis: Depression, unspecified One tablet daily--dose increase Pharmacy: [facility]) - [address], [id number] - Last Documented On 4 12:06PM By AYDE RASCON [facility] ; [facility] hydrOXYzine Pamoate 25 MG Oral Capsule Provider: AYDE RASCON [facility] 30 day supply: 45 capsule, 0 refills Diagnosis: Panic disorder [episodic paroxysmal anxiety] 1 capsule PO TID PRN anxiety Pharm[facility]: [facility]) - [address] [id number] - Last Documented On 4 12:06PM By AYDE RASCON [facility] ; [facility] QUEtiapine Fumarate 150 MG Oral Tablet Provider: AYDE RASCON [facility] 30 day supply: 30 tablet, 1 refills Diagnosis: Insomnia, unspecified One tablet daily--dose increase Pharmacy: [facility]) - [address] [facility], [id number] - Last Documented On 4 12:06PM By AYDE RASCON [facility] ; [facility] Current Medications (continue as prescribed) Albuterol Sulfate HFA 108 (9 0 Base) MCG/ACT Inhalation Aerosol Solution 06/02/2023 Provider: CHARLIE CASTELLANO PA-C Diagnosis: INHALE 2 PUFFS BY MOUTH EVERY 4 HOURS NEEDED Last Documented On 3 2:42PM By Earlene Castellano PA-C ; [facility] Advair Diskus 250-50 MCG/ACT Inhalation Aerosol Powder Breath Activated 06/22/2022 Provider: EARLENE Luque Diagnosis: Mild intermitten t asthma with (acute) exacerbation INHALE 1 PUFF BY MOUTH TWICE DAILY. RINSE MOUTH AFTER USE Last Documented On 3 8:11AM By Earlene Castellano PA-C ; [facility] Medications Administered Includes: [...] where while at work (started working at [employer]). Overwhelming when interacting with a bunch of [...] He continues going to anger management at [facility] which he finds helpful. He also [...] Grandmother Ramya when he was age 16. Cultural/Episcopalian Influences: Denies Past psych DX: LYNDSEY, MDD, Bipolar, PTSD Psych HX: Inpatient HX for mental health: Denies Previous PHP/IOP: Denies ER visits HX for mental health: [facility] ER 01/2023 anxiety Rehab HX: Denies Outpatient Psychiatrist/PMHNP HX: Dr. Cortes in the past Counseling HX: Yudith Pierre in the past but not currently. Is in anger management at [facility] in [place] and parenting classes currently. Previous psych meds: [...] an addict and in and out of nursing home. Father when he was age 13. [...] Living Arrangements: Lives with Friend Chance in [place] and his 4-year-old daughter Marital status: Single. Children: Daughter Shayy (04/21/21) Education HX: 11th grade Occupation: Working at [employer] in [place] [employer] Hx: Denies Access to Weapons: Denies Legal [...] virtual visit obtained when scheduled. 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 11/18/2022 Last Documented On 4 11:28AM ; [facility] Not recovering from substance abuse 11/04 Last Documented On 4 11:28AM ; [facility] Tobacco non-user 10/25/2022 Last Documented On 4 11:28AM ; [facility] Using marijuana 02/22/2022 Last Documented On 4 11:28AM ; [facility] Alcohol 07/20/2021 Last Documented On 4 11:28AM ; [facility] Amount of alcohol per day: N ot everyday but about 5 to 7 shots when i drink 07/20/2021 Last Documented On 4 11:28AM ; [facility] Drug use 07/20/2021 Last Documented On 4 11:28AM ; [facility] Frequency: Most days 07/20/2021 Last Documented On 4 11:28AM ; [facility] Type: Marijuana 07/20/2021 Last Documented On 4 11:28AM ; [facility] Smoking Status Unknown Procedures and Surgical History Includes: Procedures from this encounter Procedures Code Diagnosis Performing Provider Service L ocation Service Date regular exercise Last Documented On 4 11:40AM ; [facility] standardized depression screening: negative for symptoms 3351F Last Documented On 4 11:40AM ; [facility] review of medications documented 1160F Last Documented On 4 11:40AM ; [facility] assessment of suicide risk performed Last Documented On 4 11:28AM ; [facility] screening for adult depression: impressi on and score five Last Documented On 4 11:28AM ; [facility] standardized depression screening: posit kathy for symptoms Last Documented On 4 11:28AM ; [facility] Clinical summary provided to patient Last Documented On 4 11:40AM ; [facility] Medical History Includes: Medical History addressed during this encounter Description Last Updated No Vaccine history 01/04/2023 Last Documented On 4 11:28AM ; [facility] Not taking OTC medications 10/25/2022 Last Documented On 4 11:28AM ; [facility] Family History Includes: Family History addressed during this encounter Description Last Updated Maternal grandfather's history of alcoho lism 04/06/2023 Last Documented On 4 11:28AM ; [facility] Maternal grandmother's history of depres nathan 04/06/2023 Last Documented On 4 11:28AM ; [facility] Maternal grandfather's history of alcoho l use 04/06/2023 Last Documented On 4 11:28AM ; [facility] Paternal grandfather's history of substa nce use disorders 04/06/2023 Last Documented On 4 11:28AM ; [facility] Paternal history of substance use disord ers 04/06/2023 Last Documented On 4 11:28AM ; [facility] Maternal history of substance use disord ers 04/06/2023 Last Documented On 4 11:28AM ; [facility] Family history of stroke/paralysis 07/20 Last Documented On 4 11:28AM ; [facility] Maternal history of Arthritis 07/20/2021 Last Documented On 4 11:28AM ; [facility] Review of Systems Includes: Review [...] Time Check-Out Time Diagnosis TELEHEALTH AYDE RASCON [facility] 06/28/19 24 11:26AM 12:10PM Generalized Anxiety Disorder,Depre ssion,Insomnia Due To Stress,Post-tr aumatic Stress Disorder,Panic Disorder,Mood Disorders, Nos Insurance Includes: Active Insurance Policies Plan Name Member ID Group # Subscriber Relationship Effect kathy Dates 1 - [facility] [id number] PATRICIA MORALES JR Self Clinical Notes Includes: Clinical Notes from this encounter * Progress note Date Encounter Last Documented by 06/28/2023 TELEHEALTH Last documented on 06/28/2023; 12:07 PM, AYDE RASCON PMHNP- DISPENSING OPTICIAN-; [facility] Active Problems & [...] where while at work (started working at [employer]). Overwhelming when interacting with a bunch of [...] He continues going to anger management at [facility] which he finds helpful. He also [...] Grandmother Ramya when he was age 16. Cultural/Episcopalian Influences: Denies Past psych DX: LYNDSEY, MDD, Bipolar, PTSD Psych HX: Inpatient HX for mental health: Denies Previous PHP/IOP: Denies ER visits HX for mental health: [facility] ER 01/2023 anxiety Rehab HX: Denies Outpatient Psychiatrist/PMHNP HX: Dr. Cortes in the past Counseling HX: Yudith Pierre in the past but not currently. Is in anger management at [facility] in [place] and parenting classes currently. Previous psych meds: [...] an addict and in and out of nursing home. Father when he was age 13. [...] Living Arrangements: Lives with Friend Chance in [place] and his 4-year-old daughter Marital status: Single. Children: Daughter Shayy (04/21/21) Education HX: 11th grade Occupation: Working at [employer] in [place] Hx: Denies Access to Weapons: Denies Legal [...] virtual visit obtained when scheduled. Originating site: [facility] Distant Site: Patient's Home Visit included: Ayde Rascon DISPENSING OPTICIAN-BC, PMHNP-BC and patient Vital signs self-reported by [...] anxiety Discussed ongoing cannabis use and explained halfway effect that psychoactive drugs have on brain [...]
--- OUTSIDE RECORDS SUMMARY | 2024-07-10 17:21 | XMS_ITS ---
Author Organization [facility] Address [address] [place] [address] Phone Care Team Providers Care Hand Straightener Name Role Phone Unavailable Unavailable Unavailable Problems Includes: Active, inactive, and resolved Problems All Visits Onset Date Resolved Date Provider Condition S tatus Depression 08/04/2020 Active Last Documented On 3 5:53PM ; [facility] Bipolar I Disorder 07/03/2020 Active Last Documented On 3 5:53PM ; [facility] Generalized Anxiety Disorder 07/03/2020 Active Last Documented On 3 5:53PM ; [facility] Psychophysiological Insomnia 07/03/2020 Active Last Documented On 3 5:53PM ; [facility] Major Depression 07/03/2020 Active Last Documented On 3 5:53PM ; [facility] Plan of Treatment No Plan of [...] 10/02/2022 5:39PM By Fifi Cortes MD ; [facility] LORazepam 0.5 MG TABS 09/22/2020 Provider: BHAVANA CORTES MD Diagnosis: Panic disorder [ episodic paroxysmal anxiety] as directed -- 1 tab a day a s needed for anxiety Last Documented On 10/02/2022 5:39PM By Fifi Cortes MD ; [facility] QUEtiapine Fumarate 100 MG OR TABS 08/08/2020 Provider: ANNI CORTES MD Diagnosis: Bipolar disorder , unspecified as directed -- 1 tab at bedtime Last Documented On 10/02/2022 5:39PM By Fifi Cortes MD ; [facility] QUEtiapine Fumarate 25 MG OR TABS 08/08/2020 Provider: ANNI CORTES MD Diagnosis: Generalized anxi ety disorder as directed -- 1 tab in am a nd 1 tab at noon for anxiety Last Documented On 10/02/2022 5:39PM By Fifi Cortes MD ; [facility] QUEtiapine Fumarate 50 MG OR TABS 07/03/2020 Provider: ANNI CORTES MD Diagnosis: Bipolar disorder , unspecified One tablet at bed time Last Documented On 10/02/2022 5:39PM By Fifi Cortes MD ; [facility] Albuterol Sulfate HFA 108 (90 Base) MCG/ACT IN AERS Provider: Diagnosis: 1 -2 puffs q 4-6 hours allison Tilley NP Last Documented On 10/02/2022 5:39PM By DIANE BOWENS ; [facility] Past Medications on file Focalin 10 MG OR TABS 10/03/2020 - 11/02/2020 Provider: ANNI CORTES MD Diagnosis: Attention-defici t hyperactivity disorder, combined type 1 tablet every morning Last Documented On 10/02/2022 5:39PM By Fifi Cortes MD ; [facility] LORazepam 0.5 MG TABS 08/11/2020 - 09/22/2020 Provider: ANNI CORTES MD Diagnosis: Panic disorder [episodic paroxysmal anxiety] as directed -- 1 tab a day a s needed for anxiety Last Documented On 10/02/2022 5:39PM By Fifi Cortes MD ; [facility] Escitalopram Oxalate 10 MG OR TABS 06/20/2020 - 2020 Provider: Diagnosis: 1 tab daily Xin Tilley NP Last Documented On 10/02/2022 5:39PM By DIANE BOWENS ; [facility] Medications Administered Includes: Administered Medications in [...] ve Last Documented On 10/02/2022 5:39PM ; [facility] Note: Imported from external source. Insurance Includes: Active Insurance Policies Plan Name Member ID Group # Subscriber Relationship Effect kathy Dates 1 - [facility] [id number] PATRICIA MORALES JR Self Clinical Notes Includes: Signed Clinical Notes starting from 06/25/2022 No Clinical Notes Recorded
--- OUTSIDE RECORDS SUMMARY | 2024-07-10 17:21 | XMS_ITS | Clinical Summary ---
Author Organization [facility] Address [address] [place] [phone] Phone Care Team Providers Care Administrative Support Associate Name Role Phone Unavailable Unavailable Unavailable Reason for Visit and Chief Complaint The Chief Complaint is: follow up for depression, anxiety, PTSD Problems Includes: Problems addressed during this encounter and other active Problems Current Visit Onset Date Resolved Date Provider Condmastero n Status Depression 08/04/2020 ANNI CORTES MD Ac tive Last Documented On 1 8:56AM ; [facility] Bipolar I Disorder 07/03/2020 ANNI ABEBE MD Active Last Documented On 1 2:16PM ; [facility] Generalized Anxiety Disorder 07/03/2020 ANNI CORTES MD Active Last Documented On 1 2:16PM ; [facility] Psychophysiological Insomnia 07/03/2020 ANNI CORTES MD Active Last Documented On 1 2:17PM ; [facility] Major Depression 07/03/2020 ANNI CORTES MD Active Last Documented On 1 2:16PM ; [facility] Plan of Treatment Instructions to patient Lose weight Last Documented On 1 9:28AM ; [facility] Education and Decision Aids were provided during visit for: Patient education about medi cation --- I educated patient on medication(s) and diagnosis. I reviewed the risks, benefits and side effects of patient's medications Last Documented On 1 9:06AM ; [facility] Discussed calming techniques such as breathing exercises and other relaxation techniques Last Documented On 9:06AM ; [facility] Counseling for nutrition/daniel ght management provided Last Documented On 9:28AM ; [facility] Assessments Includes: Assessments from this encounter Findings - Bipolar I disorder - Last Documented On 09/15/2020 8:57AM ; [facility] - Depression - Last Documented On 09/15/2020 8:57AM ; [facility] - Major depressive disorder - Last Documented On 09/15/2020 8:57AM ; [facility] - Psychophysiological insomnia - Last Documented On 09/15/2020 8:57AM ; [facility] - Generalized anxiety disorder - Last Documented On 09/15/2020 8:57AM ; [facility] Instructions Includes: Instructions from this encounter Instructions to patient Lose weight Last Documented On 9:28AM ; [facility] Education and Decision Aids were provided during visit for: Patient education about medi cation --- I educated patient on medication(s) and diagnosis. I reviewed the risks, benefits and side effects of patient's medications Last Documented On 9:06AM ; [facility] Discussed calming techniques such as breathing exercises and other relaxation techniques Last Documented On 9:06AM ; [facility] Counseling for nutrition/daniel ght management provided Last Documented On 9:28AM ; [facility] Medical Equipment - Implanted Devices [...] directed -- 1 tab at bedtime Pharmacy: [facility] ([facility]) - [address] , [facility], [id number] - Last Documented On 10:36AM By Fifi Cortes MD ; [facility] QUEtiapine Fumarate 25 MG Oral Tablet Provider: ANNI CORTES MD 30 day supply: 60 tablet, 3 refills Diagnosis: Generalized anxiety disorder as directed -- 1 tab in am a nd 1 tab at noon for anxiety Pharmacy: [facility] - [address] , [facility], [id number] - Last Documented On 10:44AM By Fifi Cortes MD ; [facility] Current Medications (continue as prescribed) SEROquel XR 200 MG Oral Tablet Extended Release 24 Hour 10/03/2020 Provider: ANNI CORTES MD Diagnosis: Bipolar disorder , unspecified as directed -- 1 tab at bedtime Last Documented On 10/03/2020 9:49AM By Fifi Cortes MD ; [facility] LORazepam 0.5 MG Oral Tablet 09/22/2020 Provider: ANNI CORTES MD Diagnosis: Panic disorder [ episodic paroxysmal anxiety] as directed -- 1 tab a day a s needed for anxiety Last Documented On 09/22/2020 6:31PM By Fifi Cortes MD ; [facility] QUEtiapine Fumarate 50 MG Oral Tablet 07/03/2020 Provider: ANNI CORTES MD Diagnosis: Bipolar disorder , unspecified One tablet at bed time Last Documented On 07/03/2020 3:17PM By Fifi Cortes MD ; [facility] Albuterol Sulfate HFA 108 (9 0 Base) MCG/ACT Inhalation Aerosol Solution 06/20/2020 Provider: Diagnosis: 1 -2 puffs q 4-6 hours allison Tilley NP Last Documented On 07/03/2020 1:52PM By DIANE BOWENS ; [facility] Past Medications on file Focalin 10 MG Oral Tablet 10/03/2020 - 11/02/2020 Provider: ANNI CORTES MD Diagnosis: Attention-defici t hyperactivity disorder, combined type 1 tablet every morning Last Documented On 10:32AM By Fifi Cortes MD ; [facility] Medications Administered Includes: Administered Medications [...] 2.2 Last Documented: On 08/08/2020 9:31AM ; [facility] Results Includes: Results discussed [...] 08/08/2020 Last Documented On 1 8:57AM ; [facility] Current nonsmoker 08/08/2020 Last Documented On 1 8:57AM ; [facility] Patient was born and raised in [place], [place]. He reported a complicated relationship with [...] sexual dysfunction. He [facility] night in [facility] for a [facility] violence charge. He enjoys video games and basketball. He is changing his nutritional habits due to recent kidney failure 07/03/2020 Last Documented On 1 9:05AM ; [facility] Single 07/03/2020 Last Documented On 1 9:05AM ; [facility] Non-smoker 07/03/2020 Last Documented On 1 9:05AM ; [facility] Drug use (Illicit)history of marijuana u se and dropping acid 07/03/2020 Last Documented On 1 9:05AM ; [facility] No tobacco use 07/03/2020 Last Documented On 9:05AM ; [facility] No work history reported - previoiusly w orked for [employer] 07/03/2020 Last Documented On 9:05AM ; [facility] Not using alcohol 07/03/2020 Last Documented On 9:05AM ; [facility] Occupation - currently works in a [employer] use 07/03/2020 Last Documented On 9:05AM ; [facility] The living environment is sa tisfactory - currently lives with [place], Anson, sisters, and his girlfriend, Xin 07/03/2020 Last Documented On 9:05AM ; [facility] Smoking status : Never smoker 07/03/2020 Last Documented On 9:05AM ; [facility] Procedures and Surgical History Includes: Procedures from this encounter Procedures Code Diagnosis Performing Provider Service L ocation Service Date education and instructions Last Documented On 9:06AM ; [facility] I discussed the risks, benef its and side effects of Quetiapine to the patient including the possibility of metabolic and motor side effects such as tardive dyskinesia Last Documented On 9:28AM ; [facility] I explained the rationale fo [...] treatment plan Last Documented On 9:06AM ; [facility] use of tobacco assessment performed 1000F Last Documented On 9:29AM ; [facility] patient screened for future fall risk - no recen t falls 3288F Last Documented On 9:29AM ; [facility] review of medications documented 1160F Last Documented On 9:28AM ; [facility] assessment of suicide risk performed - n ot suicidal Last Documented On 9:31AM ; [facility] screening for adult depressi on: impression and score - please see above treatment and PHQ score Last Documented On 9:29AM ; [facility] standardized depression screening: posit kathy for symptoms Last Documented On 9:29AM ; [facility] encouragement to exercise Last Documented On 9:28AM ; [facility] Clinical summary provided to patient Last Documented On 9:28AM ; [facility] PHQ-9: total score Last Documented On 9:28AM ; [facility] Surgical History Last Updated History of ear pressure equalization tub e - age 5 07/04/2020 Last Documented On 9:05AM ; [facility] Medical History Includes: Medical History addressed during this encounter Description Last Updated Primary Care Provider: Xin Tilley NP 10/03/2020 Last Documented On 9:05AM ; [facility] History of renal failure - 03/2020 -- du e to excessive use of Ibuprofen 07/04/2020 Last Documented On 9:05AM ; [facility] History of eczema - reaction to metal fr om button on blue jeans 07/03/2020 Last Documented On 9:05AM ; [facility] History of asthma - since age 5 07/03/19 21 Last Documented On 9:05AM ; [facility] Family History Includes: Family History addressed during this encounter Description Last Updated Maternal grandfather's history of combin ed drug and alcohol abuse 07/03/2020 Last Documented On 1 9:05AM ; [facility] Maternal history of drug abuse 1 Last Documented On 1 9:05AM ; [facility] Paternal uncle's history of combined narendra g and alcohol abuse 07/03/2020 Last Documented On 1 9:05AM ; [facility] Paternal aunt's history of combined drug and alcohol abuse 07/03/2020 Last Documented On 1 9:05AM ; [facility] Paternal grandfather's history of combin ed drug and alcohol abuse 07/03/2020 Last Documented On 1 9:05AM ; [facility] Paternal history of drug abuse - father overdosed 07/03/2020 Last Documented On 1 9:05AM ; [facility] Paternal grandfather's history of suicid e attempt 07/03/2020 Last Documented On 1 9:05AM ; [facility] Maternal grandmother's history of suicid e attempt 07/03/2020 Last Documented On 1 9:05AM ; [facility] Maternal grandmother's history of depres nathan 07/03/2020 Last Documented On 1 9:05AM ; [facility] Review of Systems Includes: Review [...] Last Documented On 10/02/2022 5:39PM ; [facility] Note: Imported from external source. Encounters Encounter Provider Location Date Check-In Time Check-Out Time Diagnosis GENERAL OFFICE VISIT ANNI CORTES MD [facility] 08/09/19 21 9:01AM 11:59PM Generalized Anxiety Disorder,Psycho physiological Insomnia,Major Depression,Bipo lar I Disorder,Depres nathan Insurance Includes: Active Insurance Policies Plan Name Member ID Group # Subscriber Relationship Effect kathy Dates - [facility] [id number] JAYSON MORALES JR Self Clinical Notes Includes: Clinical Notes from this encounter No Clinical Notes Recorded
--- OUTSIDE RECORDS SUMMARY | 2024-07-10 17:21 | XMS_ITS | Clinical Summary ---
Author Organization [facility] Address [address] [place] [address] Phone Care Team Providers Care Target Setter Name Role Phone Unavailable Unavailable Unavailable Reason for Visit and Chief Complaint [Patient Encounter] Problems Includes: Problems addressed during this encounter and other active Problems All Visits Onset Date Resolved Date Provider Condition S tatus Depression 08/04/2020 Active Last Documented On 3 5:53PM ; [facility] Bipolar I Disorder 07/03/2020 Active Last Documented On 3 5:53PM ; [facility] Generalized Anxiety Disorder 07/03/2020 Active Last Documented On 3 5:53PM ; [facility] Psychophysiological Insomnia 07/03/2020 Active Last Documented On 3 5:53PM ; [facility] Major Depression 07/03/2020 Active Last Documented On 3 5:53PM ; [facility] Plan of Treatment No Plan [...] 10/02/2022 5:39PM By Fifi Cortes MD ; [facility] LORazepam 0.5 MG TABS 09/22/2020 Provider: BHAVANA CORTES MD Diagnosis: Panic disorder [ episodic paroxysmal anxiety] as directed -- 1 tab a day a s needed for anxiety Last Documented On 10/02/2022 5:39PM By Fifi Cortes MD ; [facility] QUEtiapine Fumarate 100 MG OR TABS 08/08/2020 Provider: ANNI CORTES MD Diagnosis: Bipolar disorder , unspecified as directed -- 1 tab at bedtime Last Documented On 10/02/2022 5:39PM By Fifi Cortes MD ; [facility] QUEtiapine Fumarate 25 MG OR TABS 08/08/2020 Provider: ANNI CORTES MD Diagnosis: Generalized anxi ety disorder as directed -- 1 tab in am a nd 1 tab at noon for anxiety Last Documented On 10/02/2022 5:39PM By Fifi Cortes MD ; [facility] QUEtiapine Fumarate 50 MG OR TABS 07/03/2020 Provider: ANNI CORTES MD Diagnosis: Bipolar disorder , unspecified One tablet at bed time Last Documented On 10/02/2022 5:39PM By Fifi Cortes MD ; [facility] Albuterol Sulfate HFA 108 (90 Base) MCG/ACT IN AERS Provider: Diagnosis: 1 -2 puffs q 4-6 hours allison Tilley NP Last Documented On 10/02/2022 5:39PM By DIANE BOWENS ; [facility] Medications Administered Includes: Administered Medications [...] 2.2 Last Documented: On 10/02/2022 5:58PM ; [facility] Results Includes: Results discussed during [...] ve Last Documented On 10/02/2022 5:39PM ; [facility] Note: Imported from external source. Encounters Encounter Provider Location Date Check-In Time Check-Out Time Diagnosis [Patient Encounter] 08/08/2020 12:00AM 11:59PM Insurance Includes: Active Insurance Policies Plan Name Member ID Group # Subscriber Relationship Effect kathy Dates 1 - [facility] [id number] PATRICIA MORALES JR Self Clinical Notes Includes: Clinical Notes from this encounter No Clinical Notes Recorded
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
--- OUTSIDE RECORDS SUMMARY | 2024-07-10 17:21 | XMS_ITS ---
Author Organization [facility] Address [address] [place] [id number] Phone Care Team Providers Care Bar Tender Name Role Phone Unavailable Unavailable Unavailable Problems Includes: Active, inactive, and resolved Problems All Visits Onset Date Resolved Date Provider Condition S tatus Depression 08/04/2020 ANNI CORTES MD Ac tive Last Documented On 1 8:56AM ; [facility] Bipolar I Disorder 07/03/2020 ANNI ABEBE MD Active Last Documented On 1 2:16PM ; [facility] Generalized Anxiety Disorder 07/03/2020 ANNI CORTES MD Active Last Documented On 1 2:16PM ; [facility] Psychophysiological Insomnia 07/03/2020 ANNI CORTES MD Active Last Documented On 1 2:17PM ; [facility] Major Depression 07/03/2020 ANNI CORTES MD Active Last Documented On 1 2:16PM ; [facility] Plan of Treatment Instructions to patient Lose weight Last Documented On 1 9:15AM ; [facility] Lose weight Last Documented On 1 9:28AM ; [facility] Lose weight Last Documented On 1 2:31PM ; [facility] Education and Decision Aids were provided during visit for: Patient education about medi cation --- I educated patient on medication(s) and diagnosis. I reviewed the risks, benefits and side effects of patient's medications Last Documented On 1 9:05AM ; [facility] Discussed calming techniques such as breathing exercises and other relaxation techniques Last Documented On 1 9:05AM ; [facility] Counseling for nutrition/daniel ght management provided Last Documented On 1 9:15AM ; [facility] Discussed good sleep hygiene habits Last Documented On 1 9:15AM ; [facility] Patient education about medi cation --- I educated patient on medication(s) and diagnosis. I reviewed the risks, benefits and side effects of patient's medications Last Documented On 1 9:06AM ; [facility] Discussed calming techniques such as breathing exercises and other relaxation techniques Last Documented On 1 9:06AM ; [facility] Counseling for nutrition/daniel ght management provided Last Documented On 1 9:28AM ; [facility] Patient education about medi cation --- I educated patient on medication(s) and diagnosis. I reviewed the risks, benefits and side effects of patient's medications Last Documented On 1 1:49PM ; [facility] Discussed calming techniques such as breathing exercises and other relaxation techniques Last Documented On 1 1:49PM ; [facility] Counseling for nutrition/daniel ght management provided Last Documented On 1 2:31PM ; [facility] Assessments Includes: Assessments for all patient encounters Findings Encounter Date Bipolar I disorder FOLLOW UP with ANNI ORR MD 10/03/2020 Last Documented On 1 8:33AM ; [facility] Depression FOLLOW UP with ANNI ABEBE MD 10/03/2020 Last Documented On 1 8:33AM ; [facility] Generalized anxiety disorder FOLLOW UP with AUDI CORTES MD 10/03/2020 Last Documented On 1 8:33AM ; [facility] Major depressive disorder FOLLOW UP with ANNI CORTES MD 10/03/2020 Last Documented On 1 8:33AM ; [facility] Psychophysiological insomnia FOLLOW UP with AUDI CORTES MD 10/03/2020 Last Documented On 1 8:33AM ; [facility] Bipolar I disorder GENERAL OFFICE VISIT with MET TACHO CORTES MD 08/08/2020 Last Documented On 1 8:57AM ; [facility] Depression GENERAL OFFICE VISIT with BHAVANA CORTES MD 08/08/2020 Last Documented On 1 8:57AM ; [facility] Generalized anxiety disorder GENERAL OFF ICE VISIT with ANNI CORTES MD 08/08/2020 Last Documented On 1 8:57AM ; [facility] Major depressive disorder GENERAL OFFICE VISIT w abdiaziz ANNI CORTES MD 08/08/2020 Last Documented On 1 8:57AM ; [facility] Psychophysiological insomnia GENERAL OFF ICE VISIT with ANNI CORTES MD 08/08/2020 Last Documented On 1 8:57AM ; [facility] Bipolar I disorder NEW PATIENT VISIT with BHAVANA CORTES MD 07/03/2020 Last Documented On 1 9:10AM ; [facility] Generalized anxiety disorder NEW PATIENT VISIT w abdiaziz ANNI CORTES MD 07/03/2020 Last Documented On 1 9:10AM ; [facility] Major depressive disorder NEW PATIENT VISIT with ANNI CORTES MD 07/03/2020 Last Documented On 1 9:10AM ; [facility] Psychophysiological insomnia NEW PATIENT VISIT w abdiaziz ANNI CORTES MD 07/03/2020 Last Documented On 1 9:10AM ; [facility] Instructions Includes: Instructions for all patient encounters Instructions to patient Lose weight Last Documented On 1 9:15AM ; [facility] Lose weight Last Documented On 1 9:28AM ; [facility] Lose weight Last Documented On 1 2:31PM ; [facility] Education and Decision Aids were provided during visit for: Patient education about medi cation --- I educated patient on medication(s) and diagnosis. I reviewed the risks, benefits and side effects of patient's medications Last Documented On 1 9:05AM ; [facility] Discussed calming techniques such as breathing exercises and other relaxation techniques Last Documented On 1 9:05AM ; [facility] Counseling for nutrition/daniel ght management provided Last Documented On 1 9:15AM ; [facility] Discussed good sleep hygiene habits Last Documented On 1 9:15AM ; [facility] Patient education about medi cation --- I educated patient on medication(s) and diagnosis. I reviewed the risks, benefits and side effects of patient's medications Last Documented On 1 9:06AM ; [facility] Discussed calming techniques such as breathing exercises and other relaxation techniques Last Documented On 1 9:06AM ; [facility] Counseling for nutrition/daniel ght management provided Last Documented On 1 9:28AM ; [facility] Patient education about medi cation --- I educated patient on medication(s) and diagnosis. I reviewed the risks, benefits and side effects of patient's medications Last Documented On 1 1:49PM ; [facility] Discussed calming techniques such as breathing exercises and other relaxation techniques Last Documented On 1 1:49PM ; [facility] Counseling for nutrition/daniel ght management provided Last Documented On 1 2:31PM ; [facility] Medical Equipment - Implanted Devices [...] 10/03/2020 9:49AM By Fifi Cortes MD ; [facility] LORazepam 0.5 MG Oral Tablet 09/22/2020 Provider: ANNI CORTES MD Diagnosis: Panic disorder [ episodic paroxysmal anxiety] as directed -- 1 tab a day a s needed for anxiety Last Documented On 09/22/2020 6:31PM By Fifi Cortes MD ; [facility] QUEtiapine Fumarate 100 MG Oral Tablet 08/08/2020 Provider: ANNI CORTES MD Diagnosis: Bipolar disorder , unspecified as directed -- 1 tab at bedtime Last Documented On 10:36AM By Fifi Cortes MD ; [facility] QUEtiapine Fumarate 25 MG Oral Tablet 08/08/2020 Provider: ANNI CORTES MD Diagnosis: Generalized anxi ety disorder as directed -- 1 tab in am a nd 1 tab at noon for anxiety Last Documented On 10:44AM By Fifi Cortes MD ; [facility] QUEtiapine Fumarate 50 MG Oral Tablet 07/03/2020 Provider: ANNI CORTES MD Diagnosis: Bipolar disorder , unspecified One tablet at bed time Last Documented On 07/03/2020 3:17PM By Fifi Cortes MD ; [facility] Albuterol Sulfate HFA 108 (9 0 Base) MCG/ACT Inhalation Aerosol Solution 06/20/2020 Provider: Diagnosis: 1 -2 puffs q 4-6 hours allison Tilley NP Last Documented On 07/03/2020 1:52PM By DIANE BOWENS ; [facility] Past Medications on file Focalin 10 MG Oral Tablet 10/03/2020 - 11/02/2020 Provider: ANNI CORTES MD Diagnosis: Attention-defici t hyperactivity disorder, combined type 1 tablet every morning Last Documented On 1 10:32AM By Fifi Cortes MD ; [facility] LORazepam 0.5 MG Oral Tablet 08/11/2020 - 09/22/2020 Provider: ANNI CORTES MD Diagnosis: Panic disorder [episodic paroxysmal anxiety] as directed -- 1 tab a day a s needed for anxiety Last Documented On 09/22/2020 6:31PM By Fifi Cortes MD ; [facility] Escitalopram Oxalate 10 MG Oral Tablet 06/20/2020 - Provider: Diagnosis: 1 tab daily Xin Tilley NP Last Documented On 10/03/2020 7:58PM By Fifi Cortes MD ; [facility] Medications Administered Includes: Administered Medications [...] 10/03/2020 Last Documented On 1 8:33AM ; [facility] Current nonsmoker 08/08/2020 Last Documented On 1 8:57AM ; [facility] Patient was born and raised in [place], [place]. He reported a complicated relationship with [...] On 1 9:10AM ; [facility] Single 07/03/2020 Last Documented On 1 9:10AM ; [facility] Non-smoker 07/03/2020 Last Documented On 1 9:10AM ; [facility] Drug use (Illicit)history of marijuana u se and dropping acid 07/03/2020 Last Documented On 1 9:10AM ; [facility] No tobacco use 07/03/2020 Last Documented On 1 9:10AM ; [facility] No work history reported - previoiusly w orked for [employer] 07/03/2020 Last Documented On 1 9:10AM ; [facility] Not using alcohol 07/03/2020 Last Documented On 1 9:10AM ; [facility] Occupation - currently works in a [employer] use 07/03/2020 Last Documented On 1 9:10AM ; [facility] The living environment is sa tisfactory - currently lives with [place], Anson, sisters, and his girlfriend, Xin 07/03/2020 Last Documented On 1 9:10AM ; [facility] Smoking status : Never smoker 07/03/2020 Last Documented On 1 9:10AM ; [facility] Procedures and Surgical History Surgical History Last Updated History of ear pressure equalization tub e - age 5 07/04/2020 Last Documented On 1 9:10AM ; [facility] Medical History Includes: Medical History in patient's chart Description Last Updated Primary Care Provider: looking for new P CP as of 10/03/20 10/03/2020 Last Documented On 1 8:33AM ; [facility] History of herpes simplex - testing done for HSV I and II pending from 10/02/20 10/03/2020 Last Documented On 1 8:33AM ; [facility] No diagnosis of history of o bstructive sleep apnea - patient has never had a sleep study 10/03/2020 Last Documented On 1 8:33AM ; [facility] History of renal failure - 03/2020 -- du e to excessive use of Ibuprofen 07/04/2020 Last Documented On 1 9:10AM ; [facility] History of eczema - reaction to metal fr om button on blue jeans 07/03/2020 Last Documented On 1 9:10AM ; [facility] History of asthma - since age 5 07/03/19 Last Documented On 1 9:10AM ; [facility] Family History Includes: Family History in patient's chart Description Last Updated Maternal grandfather's history of combin ed drug and alcohol abuse 07/03/2020 Last Documented On 1 9:10AM ; [facility] Maternal history of drug abuse 1 Last Documented On 1 9:10AM ; [facility] Paternal uncle's history of combined narendra g and alcohol abuse 07/03/2020 Last Documented On 1 9:10AM ; [facility] Paternal aunt's history of combined drug and alcohol abuse 07/03/2020 Last Documented On 1 9:10AM ; [facility] Paternal grandfather's history of combin ed drug and alcohol abuse 07/03/2020 Last Documented On 1 9:10AM ; [facility] Paternal history of drug abuse - father overdosed 07/03/2020 Last Documented On 1 9:10AM ; [facility] Paternal grandfather's history of suicid e attempt 07/03/2020 Last Documented On 1 9:10AM ; [facility] Maternal grandmother's history of suicid e attempt 07/03/2020 Last Documented On 1 9:10AM ; [facility] Maternal grandmother's history of depres nathan 07/03/2020 Last Documented On 1 9:10AM ; [facility] Review of Systems Review of [...] ve Last Documented On 10/02/2022 5:39PM ; [facility] Note: Imported from external source. Insurance Includes: Active Insurance Policies Plan Name Member ID Group # Subscriber Relationship Effect kathy Dates 1 - [id number] [id number] PATRICIA MORALES JR [facility] Clinical Notes Includes: Signed Clinical Notes starting from 06/25/2022 No Clinical Notes Recorded
--- OUTSIDE RECORDS SUMMARY | 2024-07-10 17:21 | XMS_ITS | Clinical Summary ---
Author Organization [facility] Address [address] [place] [address] Phone Care Team Providers Care Pantograph Machine Operator Name Role Phone Mayur Raymond MD Primary Care Provider [phone] Allergies Active Allergy Reactions Criticality Noted Date [...] 4 Active fluticasone propionate (FLONASE) 50 mcg/spray [place], Suspension nasal inhaler Administer 2 Sprays in [...] up with pulmonology tomorrow, will wait to brass pickler medications until pulm appointment. Pt does have intermittent wheezing, chest tightness, SOB, resolved w albuterol. Continue to follow with relevant specialist. Assessment & Plan (01/05/2024 3:50 PM CDT): Will continue symbicort at this time, will switch albuterol to airsupra. Discussed side effects. Pt has follow up with pulmonology tomorrow, will wait to brass pickler medications until pulm appointment. Pt does have [...] mold 01/05/24: Currently on Singulair. Recommend daily [id number] allergy medication (Josiane, Claritin, Zyrtec) and daily Flonase. Assessment & Plan (01/05/2024 4:12 PM CDT): Currently on Singulair. Recommend daily sugd-hmc-[id number] allergy medication (Josiane, Claritin, Zyrtec) and daily [...] Department Care Team Description 07/03/2024 Patient Outreach [facility] [id number] [place] [id number] Divya Lynn Financial Assistance Program; Healthcare Access 06/28/2024 External Device Data [facility] ABSTRACTION Provider, Abstract 06/19/2024 External Device Data [place] ABSTRACTION Provider, Abstract 06/19/2024 External Device Data [place] ABSTRACTION Provider, Abstract 06/18/2024 Patient Outreach [facility] [address] [place] [phone] Divya Lynn Financial Assistance Program; Insurance Coverage 06/18/2024 Patient Outreach [facility] [id number] [place] [address] Divya Lynn Referral 06/17/2024 9:[address] SQL DEVELOPER - 06/17/2024 10:[address] SQL DEVELOPER Emergency [facility] Emergency Department [address] [place] [address] Mild asthma with exacerbation, unspecified [...] Meningococcal MCV4, Unspecif ied Formulation 02/19/2011 Novel [id number], All Formulations 05/27/2009 Pneumococcal 7-valent conjug ate [...] Comments Blood Pressure 126/102 06/17/2024 9:[address] SQL DEVELOPER Pulse 92 06/17/2024 10:[address] SQL DEVELOPER Temperature 36.7 ??C (98.1 ??F) 06/17/2024 8:05 PM CS T Respiratory Rate 17 06/17/2024 10:[address] SQL DEVELOPER Oxygen Saturation 98% 06/17/2024 10:[address] SQL DEVELOPER Inhaled Oxygen Concentration - - Weight 99.8 kg (220 lb) 06/17/2024 8:[address] SQL DEVELOPER Height 182.9 cm (6') 06/17/2024 8:[address] SQL DEVELOPER Body Mass Index 29.84 06/17/2024 8:[address] SQL DEVELOPER Plan of Treatment Upcoming Encounters Date Type Department Care Team (Late st Contact Info) Description 07/17/2024 11:[address] SQL DEVELOPER Office Visit [facility] Pulmonology - [facility] [address] [place] [address] Dwayne Vargas, [address] [place] [address] Health Maintenance Due Date Last [...] LATERAL 2 VW Stat 06/17/2024 10:[address] SQL DEVELOPER from Last 3 Months Results * XR CHEST PA AND LATERAL 2 VW (06/17/2024 10:[address] SQL DEVELOPER) Anatomical Region Laterality Modality Chest Computed Radiogr aphy 06/17/2024 10:[address] SQL DEVELOPER Impressions 06/17/2024 10:[address] SQL DEVELOPER IMPRESSION: ?? Chest within normal limits. ?? DICTATION LOCATION: Location [facility] 06/17/2024 10:[address] SQL DEVELOPER CHEST PA AND LATERAL VIEWS DATE: ??06/17/2024 [...] Chest within normal limits. DICTATION LOCATION: Location [address] [place] [address] Abdiel Luong PAIN MANAGEMENT PHYSICIAN DIAGNOSTIC IMAGING ORDERABLES F inal Result from Last 3 Months Insurance RX [employer] (INTERNAL) [facility] [employer] RX [place] CARE MANAGEMENT/CARE COORDINATION (INTERNAL) [employer] Commercial RX [employer] (INTERNAL) [employer] MEDICAID PENDING [place] Advance Directives For more information, please contact: [phone] * Full Code (Latest Code Status on File) Date Activated Date Inactivated Comments 12/16/2023 3:26 AM 12/17/2023 8:16 PM Care Teams Pantograph Machine Operator Relationship Specialty [place] [id number] [address] PCP - General Parks Recreation Coordinator 01/05/24
--- OUTSIDE RECORDS SUMMARY | 2024-07-10 17:21 | XMS_ITS | Clinical Summary ---
Author Organization [facility] Address [address] [place] [phone] Phone Care Team Providers Care Tumbler Machine Operator Name Role Phone Unavailable Unavailable Unavailable Reason for Visit and Chief Complaint The Chief Complaint is: depression, anxiety, PTSD Problems Includes: Problems addressed during this encounter and other active Problems Current Visit Onset Date Resolved Date Provider Conditio n Status Bipolar I Disorder 07/03/2020 ANNI ABEBE MD Active Last Documented On 1 2:16PM ; [facility] Generalized Anxiety Disorder 07/03/2020 ANNI CORTES MD Active Last Documented On 1 2:16PM ; [facility] Psychophysiological Insomnia 07/03/2020 ANNI CORTES MD Active Last Documented On 1 2:17PM ; [facility] Major Depression 07/03/2020 ANNI CORTES MD Active Last Documented On 1 2:16PM ; [facility] Past Visits Onset Date Resolved Date Provider Condition Status Depression 08/04/2020 ANNI CORTES MD Ac tive Last Documented On 1 8:56AM ; [facility] Plan of Treatment Instructions to patient Lose weight Last Documented On 1 2:31PM ; [facility] Education and Decision Aids were provided during visit for: Patient education about medi cation --- I educated patient on medication(s) and diagnosis. I reviewed the risks, benefits and side effects of patient's medications Last Documented On 1 1:49PM ; [facility] Discussed calming techniques such as breathing exercises and other relaxation techniques Last Documented On 1 1:49PM ; [facility] Counseling for nutrition/daniel ght management provided Last Documented On 1 2:31PM ; [facility] Assessments Includes: Assessments from this encounter Findings - Bipolar I disorder - Last Documented On 07/23/2020 9:10AM ; [facility] - Major depressive disorder - Last Documented On 07/23/2020 9:10AM ; [facility] - Psychophysiological insomnia - Last Documented On 07/23/2020 9:10AM ; [facility] - Generalized anxiety disorder - Last Documented On 07/23/2020 9:10AM ; [facility] AXIS I: Bipolar Disorder, most recent episode depressed, generalized anxiety disorder, panic disorder - Last Documented On 07/23/2020 9:10AM ; [facility] AXIS II: none - Last Documented On 07/23/2020 9:10AM ; [facility] AXIS III: Asthma - Last Documented On 07/23/2020 9:10AM ; [facility] AXIS IV: problems related to social environment - Last Documented On 07/23/2020 9:10AM ; [facility] AXIS V: 50 - Last Documented On 07/23/2020 9:10AM ; [facility] Instructions Includes: Instructions from this encounter Instructions to patient Lose weight Last Documented On 1 2:31PM ; [facility] Education and Decision Aids were provided during visit for: Patient education about medi cation --- I educated patient on medication(s) and diagnosis. I reviewed the risks, benefits and side effects of patient's medications Last Documented On 1 1:49PM ; [facility] Discussed calming techniques such as breathing exercises and other relaxation techniques Last Documented On 1 1:49PM ; [facility] Counseling for nutrition/daniel ght management provided Last Documented On 1 2:31PM ; [facility] Medical Equipment - Implanted Devices Includes: Current Devices No Medical Equipment Recorded Medications Includes: Medications discussed during this encounter and other current Medications New / Renewed during this visit ANNI CORTES MD on 07/03/2020 QUEtiapine Fumarate 50 MG Oral Tablet Provider: ANNI CORTES MD 30 day supply: 30 tablet, 1 refills Diagnosis: Bipolar disorder, unspecified One tablet at bed time [facility] - [id number] [facility] , [facility], [phone] - Last Documented On 07/03/2020 3:17PM By Fifi Cortes MD ; [facility] Current Medications (continue as prescribed) SEROquel XR 200 MG Oral Tablet Extended Release 24 Hour 10/03/2020 Provider: ANNI CORTES MD Diagnosis: Bipolar disorder , unspecified as directed -- 1 tab at bedtime Last Documented On 10/03/2020 9:49AM By Fifi Cortes MD ; [facility] LORazepam 0.5 MG Oral Tablet 09/22/2020 Provider: ANNI CORTES MD Diagnosis: Panic disorder [ episodic paroxysmal anxiety] as directed -- 1 tab a day a s needed for anxiety Last Documented On 09/22/2020 6:31PM By Fifi Cortes MD ; [facility] QUEtiapine Fumarate 100 MG Oral Tablet 08/08/2020 Provider: ANNI CORTES MD Diagnosis: Bipolar disorder , unspecified as directed -- 1 tab at bedtime Last Documented On 1 10:36AM By Fifi Cortes MD ; [facility] QUEtiapine Fumarate 25 MG Oral Tablet 08/08/2020 Provider: ANNI CORTES MD Diagnosis: Generalized anxi ety disorder as directed -- 1 tab in am a nd 1 tab at noon for anxiety Last Documented On 1 10:44AM By Fifi Cortes MD ; [facility] Albuterol Sulfate HFA 108 (9 0 Base) MCG/ACT Inhalation Aerosol Solution 06/20/2020 Provider: Diagnosis: 1 -2 puffs q 4-6 hours allison Tilley NP Last Documented On 07/03/2020 1:52PM By DIANE BOWENS ; [facility] Past Medications on file Focalin 10 MG Oral Tablet 10/03/2020 - 11/02/2020 Provider: ANNI CORTES MD Diagnosis: Attention-defici t hyperactivity disorder, combined type 1 tablet every morning Last Documented On 10:32AM By Fifi Cortes MD ; [facility] Medications Administered Includes: Administered Medications [...] 2.2 Last Documented: On 07/03/2020 2:32PM ; [facility] Results Includes: Results discussed during [...] 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 Some type [...] Updated Patient was born and raised in [place], [place]. He reported a complicated relationship with [...] Documented On 1 9:10AM ; [facility] Single 07/03/2020 Last Documented On 1 9:10AM ; [facility] Non-smoker 07/03/2020 Last Documented On 1 9:10AM ; [facility] Daily coffee consumption - n o coffee or tea, drinks 40 - 60 oz of soda daily 07/03/2020 Last Documented On 1 9:10AM ; [facility] Drug use (Illicit)history of marijuana u se and dropping acid 07/03/2020 Last Documented On 1 9:10AM ; [facility] No tobacco use 07/03/2020 Last Documented On 1 9:10AM ; [facility] No work history reported - previoiusly w orked for [employer] 07/03/2020 Last Documented On 1 9:10AM ; [facility] Not using alcohol 07/03/2020 Last Documented On 1 9:10AM ; [facility] Occupation - currently works in a [employer] use 07/03/2020 Last Documented On 1 9:10AM ; [facility] The living environment is sa tisfactory - currently lives with stepmamta, Anson, sisters, and his girlfriend, Xin 07/03/2020 Last Documented On 1 9:10AM ; [facility] Smoking status : Never smoker 07/03/2020 Last Documented On 1 9:10AM ; [facility] Procedures and Surgical History Includes: Procedures from this encounter Procedures Code Diagnosis Performing Provider Service L ocation Service Date education and instructions Last Documented On 1 1:49PM ; [facility] I explained the rationale fo [...] plan Last Documented On 1 1:49PM ; [facility] use of tobacco assessment performed 1000F Last Documented On 1 2:31PM ; [facility] patient screened for future fall risk - no recen t falls 3288F Last Documented On 1 2:31PM ; [facility] review of medications documented 1160F Last Documented On 1 2:31PM ; [facility] screening for adult depressi on: impression and score - please see above for treatment and PHQ score Last Documented On 1 2:31PM ; [facility] standardized depression screening: posit kathy for symptoms Last Documented On 1 2:31PM ; [facility] encouragement to exercise Last Documented On 1 2:31PM ; [facility] Clinical summary provided to patient Last Documented On 1 2:31PM ; [facility] PHQ-9: total score Last Documented On 1 2:31PM ; [facility] Surgical History Last Updated History of ear pressure equalization tub e - age 5 07/04/2020 Last Documented On 1 9:10AM ; [facility] Medical History Includes: Medical History addressed during this encounter Description Last Updated History of renal failure - 03/2020 -- du e to excessive use of Ibuprofen 07/04/2020 Last Documented On 1 9:10AM ; [facility] History of eczema - reaction to metal fr om button on blue jeans 07/03/2020 Last Documented On 1 9:10AM ; [facility] History of asthma - since age 5 07/03/19 21 Last Documented On 1 9:10AM ; [facility] Primary Care Provider: Xin Tilley NP 07/03/2020 Last Documented On 1 9:10AM ; [facility] Family History Includes: Family History addressed during this encounter Description Last Updated Maternal grandfather's history of combin ed drug and alcohol abuse 07/03/2020 Last Documented On 1 9:10AM ; [facility] Maternal history of drug abuse 1 Last Documented On 1 9:10AM ; [facility] Paternal uncle's history of combined narendra g and alcohol abuse 07/03/2020 Last Documented On 1 9:10AM ; [facility] Paternal aunt's history of combined drug and alcohol abuse 07/03/2020 Last Documented On 1 9:10AM ; [facility] Paternal grandfather's history of combin ed drug and alcohol abuse 07/03/2020 Last Documented On 1 9:10AM ; [facility] Paternal history of drug abuse - father overdosed 07/03/2020 Last Documented On 1 9:10AM ; [facility] Paternal grandfather's history of suicid e attempt 07/03/2020 Last Documented On 1 9:10AM ; [facility] Maternal grandmother's history of suicid e attempt 07/03/2020 Last Documented On 1 9:10AM ; [facility] Maternal grandmother's history of depres nathan 07/03/2020 Last Documented On 1 9:10AM ; [facility] Review of Systems Includes: Review [...] ve Last Documented On 10/02/2022 5:39PM ; [facility] Note: Imported from external source. Encounters Encounter Provider Location Date Check-In Time Check-Out Time Diagnosis NEW PATIENT VISIT ANNI CORTES MD [facility] 07/03/19 21 1:39PM 11:59PM Bipolar I Disorder,Gene ralized Anxiety Disorder,Kierra r Depression,Ps ychophysiolog ical Insomnia Insurance Includes: Active Insurance Policies Plan Name Member ID Group # Subscriber Relationship Effect kathy Dates 1 - [facility] [id number] JAYSON MORALES JR Self Clinical Notes Includes: Clinical Notes from this encounter No Clinical Notes Recorded
--- OUTSIDE RECORDS SUMMARY | 2024-07-10 17:22 | XMS_ITS | Clinical Summary ---
Author Organization [facility] Address [address] [place] [address] Phone Care Team Providers Care Analytical Lead Name Role Phone Unavailable Unavailable Unavailable Reason for Visit and Chief Complaint [Patient Encounter] Problems Includes: Problems addressed during this encounter and other active Problems All Visits Onset Date Resolved Date Provider Condition S tatus Depression 08/04/2020 Active Last Documented On 3 5:53PM ; [facility] Bipolar I Disorder 07/03/2020 Active Last Documented On 3 5:53PM ; [facility] Generalized Anxiety Disorder 07/03/2020 Active Last Documented On 3 5:53PM ; [facility] Psychophysiological Insomnia 07/03/2020 Active Last Documented On 3 5:53PM ; [facility] Major Depression 07/03/2020 Active Last Documented On 3 5:53PM ; [facility] Plan of Treatment No Plan of [...] On 10/02/2022 5:39PM By DIANE BOWENS ; [facility] Current Medications (continue as prescribed) SEROquel [...] 10/02/2022 5:39PM By Fifi Cortes MD ; [facility] QUEtiapine Fumarate 100 MG OR TABS 08/08/2020 Provider: ANNI CORTES MD Diagnosis: Bipolar disorder , unspecified as directed -- 1 tab at bedtime Last Documented On 10/02/2022 5:39PM By Fifi Cortes MD ; [facility] QUEtiapine Fumarate 25 MG OR TABS 08/08/2020 Provider: ANNI CORTES MD Diagnosis: Generalized anxi ety disorder as directed -- 1 tab in am a nd 1 tab at noon for anxiety Last Documented On 10/02/2022 5:39PM By Fifi Cortes MD ; [facility] QUEtiapine Fumarate 50 MG OR TABS 07/03/2020 Provider: ANNI CORTES MD Diagnosis: Bipolar disorder , unspecified One tablet at bed time Last Documented On 10/02/2022 5:39PM By Fifi Cortes MD ; [facility] Albuterol Sulfate HFA 108 (90 Base) MCG/ACT IN AERS Provider: Diagnosis: 1 -2 puffs q 4-6 hours allison Tilley NP Last Documented On 10/02/2022 5:39PM By DIANE BOWENS ; [facility] Medications Administered Includes: Administered [...] 2.2 Last Documented: On 10/02/2022 5:58PM ; [facility] Results Includes: Results discussed [...] Documented On 10/02/2022 5:39PM ; [facility] Note: Imported from external source. Encounters Encounter Provider Location Date Check-In Time Check-Out Time Diagnosis [Patient Encounter] 10/03/2020 12:00AM 11:59PM Insurance Includes: Active Insurance Policies Plan Name Member ID Group # Subscriber Relationship Effect kathy Dates - [facility] [id number] PATRICIA MORALES JR Self Clinical Notes Includes: Clinical Notes from this encounter No Clinical Notes Recorded
--- OUTSIDE RECORDS SUMMARY | 2024-07-10 17:22 | XMS_ITS | Clinical Summary ---
Author Organization [facility] Address [address] [place] [address] Phone Care Team Providers Care Button Attaching Machine Operator Name Role Phone VIRGINIE CARDONA [...] Active Last Documented On 04/27/2022 8:42PM ; [facility] Note: Unchanged Past Visits Onset Date Resolved Date Provider Condition Status Asthma Mild Intermittent with Exacerbation 04/27/2022 EARLENE CASTELLANO PA-C Active Last Documented On 04/27/2022 8:42PM ; [facility] Note: Unchanged Plan of Treatment - Return to the clinic if condition worsens or new symptoms arise - Last Documented On 05/23/2023 9:28AM ; [facility] - Follow-up visit in 1 month - Last Documented On 05/23/2023 9:28AM ; [facility] Assessments Includes: Assessments from this encounter Findings - [F39 - Unspecified mood [affective] disorder] Mood disorders, NOS --possible dx, will continue to monitor - Last Documented On 05/23/2023 9:28AM ; [facility] - [F32.A - Depression, unspecified] Depression - Last Documented On 05/23/2023 9:28AM ; [facility] - [G47.00 - Insomnia, unspecified] Insomnia due to stress - Last Documented On 05/23/2023 9:28AM ; [facility] - [F41.1 - Generalized anxiety disorder] Generalized anxiety disorder - Last Documented On 05/23/2023 9:28AM ; [facility] - [F41.0 - Panic disorder [episodic paroxysmal anxiety]] Panic disorder - Last Documented On 05/23/2023 9:28AM ; [facility] - [F43.10 - Post-traumatic stress disorder, unspecified] Post-traumatic stress disorder - Last Documented On 05/23/2023 9:28AM ; [facility] Medical Equipment - Implanted Devices Includes: Current Devices No Medical Equipment Recorded Medications Includes: Medications discussed during this encounter and other current Medications Discontinued / Stopped on this date AYDE RASCON [facility] on 04/05/2023 QUEtiapine Fumarate ER 50 MG Oral Tablet Extended Release 24 Hour Provider: AYDE RASCON [facility]- Diagnosis: Generalized anxi ety disorder Last Documented On 3 9:17AM By AYDE RASCON [facility] ; [facility] Sertraline HCl 100 MG Oral Tablet Provider: AYDE RASCON [facility]- Diagnosis: Post-traumatic s tress disorder, unspecified Last Documented On 3 9:17AM By AYDE RASCON [facility] ; [facility] New / Renewed during this visit AYDE RASCON [facility]- on 05/23/2023 QUEtiapine Fumarate 100 MG Oral Tablet Provider: AYDE RASCON [facility]- 30 day supply: 30 tablet, 1 refills Diagnosis: Insomnia, unspecified One tablet daily---dose increase Pharmacy: [facility] [address] [facility], [address] - Last Documented On 06/01/2023 2:06PM By VICENTE BOWENS ; [facility] Wellbutrin XL 150 MG Oral Tablet Extended Release 24 Hour Provider: AYDE RASCON [facility]- 30 day supply: 30 tablet, 1 refills Diagnosis: Depression, unspecified One tablet daily Pharmacy: [facility] - [facility] [facility], [address] - Last Documented On 06/21/2023 10:01AM By VICENTE BOWENS ; [facility] Current Medications (continue as prescribed) Albuterol Sulfate HFA 108 (9 0 Base) MCG/ACT Inhalation Aerosol Solution 06/02/2023 Provider: CHARLIE CASTELLANO PA-C Diagnosis: INHALE 2 PUFFS BY MOUTH EVERY 4 HOURS NEEDED Last Documented On 3 2:42PM By Earlene Castellano PA-C ; [facility] Advair Diskus 250-50 MCG/ACT Inhalation Aerosol Powder Breath Activated 06/22/2022 Provider: EARLENE Luque Diagnosis: Mild intermitten t asthma with (acute) exacerbation INHALE 1 PUFF BY MOUTH TWICE DAILY. RINSE MOUTH AFTER USE Last Documented On 3 8:11AM By Earlene Castellano PA-C ; [facility] Past Medications on file Sertraline HCl 100 MG Oral Tablet 06/28/2023 - 09/26/2023 Provider: AYDE VIDES [facility]- Diagnosis: Take 2 tabs PO daily (200mg) dose Last Documented On 4 12:06PM By AYDE RASCON [facility] ; [facility] Wellbutrin XL 300 MG Oral Tablet Extended Release 24 Hour 06/28/2023 - 08/27/2023 Provider: AYDE RASCON [facility] Diagnosis: Depression, unspecified One tablet daily--dose increase Last Documented On 4 12:06PM By AYDE RASCON [facility] ; [facility] hydrOXYzine Pamoate 25 MG Oral Capsule 06/28/2023 - 07/28/2023 Provider: AYDE RASCON [facility] Diagnosis: Panic disorder [episodic paroxysmal anxiety] 1 capsule PO TID PRN anxiety Last Documented On 4 12:06PM By AYDE RASCON [facility] ; [facility] QUEtiapine Fumarate 150 MG Oral Tablet 06/28/2023 - 08/27/2023 Provider: AYDE RASCON [facility] Diagnosis: Insomnia, unspec ified One tablet daily--dose increase Last Documented On 4 12:06PM By AYDE RASCON [facility] ; [facility] Medications Administered Includes: Administered [...] He continues going to anger management at [facility] which he finds helpful. He [...] Grandmother Ramya when he was age 16. Cultural/Jewish Influences: Denies Past psych DX: LYNDSEY, MDD, Bipolar, PTSD Psych HX: Inpatient HX for mental health: Denies Previous PHP/IOP: Denies ER visits HX for mental health: [facility] ER 01/2023 anxiety Rehab HX: Denies Outpatient Psychiatrist/PMHNP HX: Dr. Cortes in the past Counseling HX: Yudith Pierre in the past but not currently. Is in anger management at [facility] in [place] and parenting classes currently. Previous psych meds: [...] an addict and in and out of custodial. Father when he was age 13. His father had just gotten out of long-term but was still using drugs. Father said [...] Living Arrangements: Lives with Friend Chance in [place] and his 4-year-old daughter Marital status: Single. [...] virtual visit obtained when scheduled. 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 11/18/2022 Last Documented On 3 9:03AM ; [facility] Not recovering from substance abuse 11/04 Last Documented On 3 9:03AM ; [facility] Tobacco non-user 10/25/2022 Last Documented On 3 9:03AM ; [facility] Using marijuana 02/22/2022 Last Documented On 3 9:03AM ; [facility] Alcohol 07/20/2021 Last Documented On 3 9:03AM ; [facility] Amount of alcohol per day: N ot everyday but about 5 to 7 shots when i drink 07/20/2021 Last Documented On 3 9:03AM ; [facility] Drug use 07/20/2021 Last Documented On 3 9:03AM ; [facility] Frequency: Most days 07/20/2021 Last Documented On 3 9:03AM ; [facility] Type: Marijuana 07/20/2021 Last Documented On 3 9:03AM ; [facility] Smoking Status Unknown Procedures and Surgical History Includes: Procedures from this encounter Procedures Code Diagnosis Performing Provider Service L ocation Service Date regular exercise Last Documented On 3 9:03AM ; [facility] standardized depression screening: negative for symptoms 3351F Last Documented On 3 8:54AM ; [facility] review of medications documented 1160F Last Documented On 3 9:03AM ; [facility] assessment of suicide risk performed Last Documented On 3 8:54AM ; [facility] screening for adult depression: impressi on and score five Last Documented On 3 8:54AM ; [facility] Clinical summary provided to patient Last Documented On 3 9:03AM ; [facility] Medical History Includes: Medical History addressed during this encounter Description Last Updated No Vaccine history 01/04/2023 Last Documented On 3 9:03AM ; [facility] Not taking OTC medications 10/25/2022 Last Documented On 3 9:03AM ; [facility] Family History Includes: Family History addressed during this encounter Description Last Updated Maternal grandfather's history of alcoho lism 04/06/2023 Last Documented On 3 9:03AM ; [facility] Maternal grandmother's history of depres nathan 04/06/2023 Last Documented On 3 9:03AM ; [facility] Maternal grandfather's history of alcoho l use 04/06/2023 Last Documented On 3 9:03AM ; [facility] Paternal grandfather's history of substa nce use disorders 04/06/2023 Last Documented On 3 9:03AM ; [facility] Paternal history of substance use disord ers 04/06/2023 Last Documented On 3 9:03AM ; [facility] Maternal history of substance use disord ers 04/06/2023 Last Documented On 3 9:03AM ; [facility] Family history of stroke/paralysis 07/20 Last Documented On 3 9:03AM ; [facility] Maternal history of Arthritis 07/20/2021 Last Documented On 3 9:03AM ; [facility] Review of Systems Includes: [...] Check-Out Time Diagnosis TELEHEALTH AYDE RASCON PMHNP-BC DIRECTOR OF [employer]UDENT [employer]CIAL [employer]-BC [facility] 05/23/20 23 8:53AM 9:22AM Generalized Anxiety Disorder,Depre ssion,Insomnia Due To Stress,Post-tr aumatic Stress Disorder,Panic Disorder,Mood Disorders, Nos Insurance Includes: Active Insurance Policies Plan Name Member ID Group # Subscriber Relationship Effect kathy Dates 1 - [facility] [id number] PATRICIA MORALES JR Self Clinical Notes Includes: Clinical Notes from this encounter * Progress note Date Encounter Last Documented by 05/23/2023 TELEHEALTH Last documented on 05/23/2023; 9:28 AM, AYDE RASCON PMHNP-BC [employer]OR [employer]-BC; [facility] Active Problems & Conditions [...] He continues going to anger management at [facility] which he finds helpful. He [...] Grandmother Ramya when he was age 16. Cultural/Jewish Influences: Denies Past psych DX: LYNDSEY, MDD, Bipolar, PTSD Psych HX: Inpatient HX for mental health: Denies Previous PHP/IOP: Denies ER visits HX for mental health: [facility] ER 01/2023 anxiety Rehab HX: Denies Outpatient Psychiatrist/PMHNP HX: Dr. Cortes in the past Counseling HX: Yudith Pierre in the past but not currently. Is in anger management at [facility] in [place] and parenting classes currently. Previous psych meds: [...] an addict and in and out of custodial. Father when he was age 13. His father had just gotten out of long-term but was still using drugs. Father said [...] Living Arrangements: Lives with Friend Chance in [place] and his 4-year-old daughter Marital status: Single. [...] virtual visit obtained when scheduled. Originating site: [facility] Distant Site: Patient's Home Visit included: Ayde Rascon DIRECTOR [employer]UD[employer]-BC, PMHNP-BC and patient Vital signs self-reported by [...] daily Discussed ongoing cannabis use and explained custodial effect that psychoactive drugs have on brain [...]
--- OUTSIDE RECORDS SUMMARY | 2024-07-10 17:22 | XMS_ITS | Clinical Summary ---
Author Organization [facility] Address [address] [place] [address] Phone Care Team Providers Care Director Oracle Name Role Phone VIRGINIE CARDONA MD Primary [...] Active Last Documented On 04/27/2022 8:42PM ; [facility] Note: Unchanged Generalized Anxiety Disorder 04/27/2022 EARLENE CASTELLANO PA-C Active Last Documented On 04/27/2022 8:42PM ; [facility] Note: Unchanged Plan of Treatment Increase zoloft to 100mg daily. Monitor for side effects. Will also refer to psych as patient has extensive medication history. Continue current asthma regimen. Adding zpak today due to wheezing. RTC 6 months, sooner if needed. - Last Documented On 01/05/2023 8:42AM ; [facility] Pending Tests Order Diagnosis Results Due Ordering [facility] THYROID PANEL (TSH & FREE T4) 11/13/22 EARLENE Luque Last Documented On 4 3:18PM ; [facility] Lab VITAMIN B12 11/13/22 EARLENE JI PA-C Last Documented On 4 3:18PM ; [facility] Lab LIPID PANEL 11/13/22 EARLENE JI PA-C Last Documented On 4 3:18PM ; [facility] Lab CMP 11/13/22 EARLENE LU PA-C Last Documented On 4 3:18PM ; [facility] Lab CBC WITH DIFF 11/13/22 EARLENE DODGE PA-C Last Documented On 4 3:18PM ; [facility] Referrals To Diagnosis Psychiatrist FARTUN GIL [facility]- Generalized anxiety disorder Note: panic attacks triggeri ng asthma attacks Last Documented On 3 4:15PM ; [facility] Instructions to patient Intervention and counseling on cessation of tobacco use Last Documented On 3 2:31PM ; [facility] Assessments Includes: Assessments from this encounter Findings - [J45.21 - Mild intermittent asthma with (acute) exacerbation] Mild intermittent asthma with exacerbation - Last Documented On 01/05/2023 8:42AM ; [facility] - [F41.1 - Generalized anxiety disorder] Generalized anxiety disorder - Last Documented On 01/05/2023 8:42AM ; [facility] Instructions Includes: Instructions from this encounter Instructions to patient Intervention and counseling on cessation of tobacco use Last Documented On 3 2:31PM ; [facility] Medical Equipment - Implanted Devices Includes: Current Devices No Medical Equipment Recorded Medications Includes: Medications discussed during this encounter and other current Medications New / Renewed during this visit EARLENE CASTELLANO PA-C on 01/04/2023 Sertraline HCl 100 MG Oral Tablet Provider: EARLENE Luque 30 day supply: 30 tablet, 0 refills Diagnosis: Generalized anxiety disorder One tablet daily Pharmacy: [address], [phone] - Last Documented On 3 8:03AM By Earlene Castellano PA-C ; [facility] Azithromycin 250 MG Oral Tablet Provider: EARLENE CASTELLANO PA-C 5 day supply: 6 tablet, 0 refills Diagnosis: Mild intermittent asthma with (acute) exacerbation take 2 tablets on day 1, the n 1 tablet on days 2-5 Pharmacy: [address], [phone] - Last Documented On 04/05/2023 2:52PM By DANIEL BOWENS ; [facility] [...] Tablet 06/28/2023 - 09/26/2023 Provider: FARTUN VIDES [facility]- Diagnosis: Take 2 tabs PO daily (200mg) dose Last Documented On 4 12:06PM By FARTUN GIL [facility] ; [facility] Wellbutrin XL 300 MG Oral Tablet Extended Release 24 Hour 06/28/2023 - 08/27/2023 Provider: FARTUN GIL [facility] Diagnosis: Depression, unspecified One tablet daily--dose increase Last Documented On 4 12:06PM By FARTUN GIL [facility] ; [facility] hydrOXYzine Pamoate 25 MG Oral Capsule 06/28/2023 - 07/28/2023 Provider: FARTUN GIL [facility] Diagnosis: Panic disorder [episodic paroxysmal anxiety] 1 capsule PO TID PRN anxiety Last Documented On 4 12:06PM By FARTUN GIL [facility] ; [facility] QUEtiapine Fumarate 150 MG Oral Tablet 06/28/2023 - 08/27/2023 Provider: FARTUN GIL [facility] Diagnosis: Insomnia, unspec ified One tablet daily--dose increase Last Documented On 4 12:06PM By FARTUN SUN ; [facility] [...] 99 Last Documented: On 01/04/2023 2:30PM ; [facility] Results Includes: Results [...] 10/25/2022 Last Documented On 3 2:20PM ; [facility] Using marijuana 02/22/2022 Last Documented On 3 2:20PM ; [facility] [PHQ-2] Patient Health Questionnaire 2 i tem total score: 1 (Scale: 0-6) 07/20/2021 Last Documented On 3 2:20PM ; [facility] Alcohol 07/20/2021 Last Documented On 3 2:20PM ; [facility] Drug use 07/20/2021 Last Documented On 3 2:20PM ; [facility] Type: Marijuana 07/20/2021 Last Documented On 3 2:20PM ; [facility] Smoking Status Unknown Procedures and Surgical History Includes: Procedures from this encounter Procedures Code Diagnosis Performing Provider Service L ocation Service Date intervention and counseling on cessation of tobacco use 4000F Last Documented On 3 2:31PM ; [facility] use of tobacco assessment performed 1000F Last Documented On 3 2:31PM ; [facility] review of medications documented 1160F Last Documented On 3 2:31PM ; [facility] Medical History Includes: Medical History addressed during this encounter Description Last Updated No Vaccine history 01/04/2023 Last Documented On 3 8:42AM ; [facility] Exercise 07/20/2021 Last Documented On 3 2:20PM ; [facility] Family History Includes: Family History addressed during this encounter Description Last Updated Family history of stroke/paralysis 07/20 Last Documented On 3 2:20PM ; [facility] Maternal history of Arthritis 07/20/2021 Last Documented On 3 2:20PM ; [facility] Review of Systems Includes: Review of [...] Time Diagnosis PROBLEM VISIT EARLENE CASTELLANO PA-C [facility] 01/05/20 23 2:00PM 2:51PM Generalized Anxiety Disorder,Asthma Mild Intermittent with Exacerbation Insurance Includes: Active Insurance Policies Plan Name Member ID Group # Subscriber Relationship Effect kathy Dates 1 - [facility] [id number] PATRICIA MORALES JR Self Clinical Notes Includes: Clinical Notes from this encounter * Progress note Date Encounter Last Documented by 01/04/2023 PROBLEM VISIT Last documented on 01/05/2023; 8:42 AM, EARLENE CASTELLANO PA-C; [facility] [...]
--- OUTSIDE RECORDS SUMMARY | 2024-07-10 17:22 | XMS_ITS | Clinical Summary ---
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
--- OUTSIDE RECORDS SUMMARY | 2024-07-10 17:22 | XMS_ITS ---
Author Organization [facility] Address [address] [place] [address] Phone Care Team Providers Care Wound Care Coordinator Name Role Phone VIRGINIE CARDONA MD Primary Care Provider Problems Includes: Active, inactive, and resolved Problems All Visits Onset Date Resolved Date Provider Condition S tatus Asthma Mild Intermittent with Exacerbation 04/27/2022 EARLENE MIKE PA-C Active Last Documented On 04/27/2022 8:42PM ; [facility] Note: Unchanged Generalized Anxiety Disorder 04/27/2022 EARLENE BROWNINGC Active Last Documented On 04/27/2022 8:42PM ; [facility] Note: Unchanged Plan of Treatment Findings Encounter Date Ordered follow-up visit in 1 month TELE EALTH with FARTUN GIL PMHNP-BC INVESTIGATOR CASH SHORTAGE-BC 06/28/2023 Last Documented On 4 12:07PM ; [facility] Ordered return to the clinic if condition worsens or new symptoms arise TELEHEALTH with FARTUN GIL PMHNP-BC INVESTIGATOR CASH SHORTAGE-BC 06/28/2023 Last Documented On 4 12:07PM ; [facility] Ordered follow-up visit in 1 month TELE EALTH with FARTUN GIL PMHNP-BC INVESTIGATOR CASH SHORTAGE-BC 05/23/2023 Last Documented On 3 9:28AM ; [facility] Ordered return to the clinic if condition worsens or new symptoms arise TELEHEALTH with FARTUN GIL PMHNP-BC INVESTIGATOR CASH SHORTAGE-BC 05/23/2023 Last Documented On 3 9:28AM ; [facility] Ordered follow-up visit in 1 month PSYCH NEW PATIENT EXAM 18 YEARS AND OLDER with FARTUN GIL PMHNP-BC INVESTIGATOR CASH SHORTAGE-BC 04/05/2023 Last Documented On 3 9:35AM ; [facility] Ordered return to the clinic if condition worsens or new symptoms arise PSYCH NEW PATIENT EXAM 18 YEARS AND OLDER with FARTUN GIL PMHNP-BC INVESTIGATOR CASH SHORTAGE-BC 04/05/2023 Last Documented On 3 9:35AM ; [facility] Pt to use prescription as or dered. Purpose of and use of medication discussed. COVID SICK VISIT- ESTABLISHED PATIENT with MERCED COOPER INVESTIGATOR CASH SHORTAGE-C 10/25/2022 Last Documented On 3 7:18PM ; [facility] The options include close observation CO VID SICK VISIT- ESTABLISHED PATIENT with MERCED COOPER INVESTIGATOR CASH SHORTAGE-C 10/25/2022 Last Documented On 3 7:18PM ; [facility] Watch for signs/symptoms of infection, return to the clinic if seen COVID SICK VISIT- ESTABLISHED PATIENT with MERCED COOPER INVESTIGATOR CASH SHORTAGE-C 10/25/2022 Last Documented On 3 7:18PM ; [facility] Ordered follow-up visit in 1 -2 weeks with an office visit or sooner if symptoms persist or worsen COVID SICK VISIT- ESTABLISHED PATIENT with CARLOS A MANRIQUE INVESTIGATOR CASH SHORTAGE-BC 10/08/2022 Last Documented On 3 11:46AM ; [facility] Ordered patient to call if p roblem develops COVID SICK VISIT- ESTABLISHED PATIENT with CARLOS A MANRIQUE INVESTIGATOR CASH SHORTAGE-BC 10/08/2022 Last Documented On 3 11:46AM ; [facility] Ordered return to the clinic if condition worsens or new symptoms arise COVID SICK VISIT- ESTABLISHED PATIENT with CARLOS A MANRIQUE INVESTIGATOR CASH SHORTAGE-BC 10/08/2022 Last Documented On 3 11:46AM ; [facility] Pending Tests Order Diagnosis Results Due Ordering [facility] THYROID PANEL (TSH & FREE T4) 11/13/22 EARLENE Luque Last Documented On 4 3:18PM ; [facility] Lab VITAMIN B12 11/13/[address] V[address] PA-C Last Documented On 4 3:18PM ; [facility] Lab LIPID PANEL 11/13/22 EARLENE SHERMAN VELY PA-C Last Documented On 4 3:18PM ; [facility] Lab CMP 11/13/22 EARLENE AHMADI ALY PA-C Last Documented On 4 3:18PM ; [facility] Lab CBC WITH DIFF 11/13/22 EARLENE LUNAELY PA-C Last Documented On 4 3:18PM ; [facility] Referrals To Diagnosis [facility]iatrist [facility] [place] depressive disorder, recurrent, mild Last Documented On 3 2:06PM ; [facility] Counselor DELICIA RAY SALESPERSON WIGS Generalize tejinder anxiety disorder Last Documented On 2 2:28PM ; [facility] Psychiatrist FARTUN GIL PMHNP-BC INVESTIGATOR CASH SHORTAGE-BC Generalized anxiety disorder Note: panic attacks triggeri ng asthma attacks Last Documented On 3 4:15PM ; [facility] Instructions to patient Intervention and counseling on cessation of tobacco use Last Documented On 3 2:31PM ; [facility] Intervention and counseling on cessation of tobacco use Last Documented On 3 1:23PM ; [facility] Watch for signs/symptoms of infection, return to the clinic if seen Last Documented On 3 7:17PM ; [facility] Intervention and counseling on cessation of tobacco use Last Documented On 3 2:21PM ; [facility] Go to the emergency room if condition worsens Last Documented On 3 11:41AM ; [facility] Watch for signs/symptoms of infection Last Documented On 3 11:41AM ; [facility] Watch for signs/symptoms of infection, return to the clinic if seen Last Documented On 3 11:41AM ; [facility] Intervention and counseling on cessation of tobacco use Last Documented On 2 1:34PM ; [facility] Intervention and counseling on cessation of tobacco use Last Documented On 2 1:25PM ; [facility] Education and Decision Aids were provided during visit for: Patient education about anti biotics: need to finish even if feeling better Last Documented On 3 11:41AM ; [facility] Assessments Includes: Assessments for all patient encounters Findings Encounter Date [F39 - Unspecified mood [aff ective] disorder] mood disorders, NOS --possible dx, will continue to monitor TELEHEALTH with FARTUN Andrea ARCHERJEFFERY PMHNP-BC INVESTIGATOR CASH SHORTAGE-BC 06/28/2023 Last Documented On 4 12:07PM ; [facility] Depression TELEHEALTH with FARTUN Andrea [address] PMHNP-BC INVESTIGATOR CASH SHORTAGE-BC 06/28/2023 Last Documented On 4 12:07PM ; [facility] Generalized anxiety disorder TELEHEALTH with FARTUN A JEFFERY PMHNP-BC INVESTIGATOR CASH SHORTAGE-BC 06/28/2023 Last Documented On 4 12:07PM ; [facility] Insomnia due to stress TELEHEALTH with FARTUN Andrea JEFFERY PMHNP-BC INVESTIGATOR CASH SHORTAGE-BC 06/28/2023 Last Documented On 4 12:07PM ; [facility] Panic disorder TELEHEALTH with FARTUN Andrea [address] PMHNP-BC INVESTIGATOR CASH SHORTAGE-BC 06/28/2023 Last Documented On 4 12:07PM ; [facility] Post-traumatic stress disorder TELEHEALT H with FARTUN Andrea JEFFERY PMHNP-BC INVESTIGATOR CASH SHORTAGE-BC 06/28/2023 Last Documented On 4 12:07PM ; [facility] [F39 - Unspecified mood [aff ective] disorder] mood disorders, NOS --possible dx, will continue to monitor TELEHEALTH with FARTUN Andrea JEFFERY PMHNP-BC INVESTIGATOR CASH SHORTAGE-BC 05/23/2023 Last Documented On 3 9:28AM ; [facility] Depression TELEHEALTH with FARTUN Andrea [address] PMHNP-BC INVESTIGATOR CASH SHORTAGE-BC 05/23/2023 Last Documented On 3 9:28AM ; [facility] Generalized anxiety disorder TELEHEALTH with FARTUN A JEFFERY PMHNP-BC INVESTIGATOR CASH SHORTAGE-BC 05/23/2023 Last Documented On 3 9:28AM ; [facility] Insomnia due to stress TELEHEALTH with FARTUN GIL PMHNP-BC INVESTIGATOR CASH SHORTAGE-BC 05/23/2023 Last Documented On 3 9:28AM ; [facility] Panic disorder TELEHEALTH with FARTNU VIDES PMHNP-BC INVESTIGATOR CASH SHORTAGE- 05/23/2023 Last Documented On 3 9:28AM ; [facility] Post-traumatic stress disorder TELEHEALT H with FARTUN GIL PMHNP-BC [facility]- 05/23/2023 Last Documented On 3 9:28AM ; [facility] [F39 - Unspecified mood [aff ective] disorder] mood disorders, NOS --possible dx, will continue to monitor PSYCH NEW PATIENT EXAM 18 YEARS AND OLDER with FARTUN ARCHERGRAVE PMHNP-BC [facility] 04/05/2023 Last Documented On 3 9:35AM ; [facility] Depression PSYCH NEW PATIENT EX AM 18 YEARS AND OLDER with FARTUN ARCHERGRAVE PMHNP-BC [facility]- 04/05/2023 Last Documented On 3 9:35AM ; [facility] Generalized anxiety disorder PSYCH NEW P ATIENT EXAM 18 YEARS AND OLDER with FARTUN ARCHERGRAVE PMHNP-BC [facility] 04/05/2023 Last Documented On 3 9:35AM ; [facility] Insomnia due to stress PSYCH NEW PATIENT EXAM 18 YEARS AND OLDER with FARTUN Mendez JEFFERY PMHNP-BC [facility]- 04/05/2023 Last Documented On 3 9:35AM ; [facility] Panic disorder PSYCH NEW PATIENT EX AM 18 YEARS AND OLDER with FARTUN Mendez JEFFERY PMHNP-BC [facility]- 04/05/2023 Last Documented On 3 9:35AM ; [facility] Post-traumatic stress disorder PSYCH NEW PATIENT EXAM 18 YEARS AND OLDER with FARTUN Andrea JEFFERY PMHNP-BC [facility] 04/05/2023 Last Documented On 3 9:35AM ; [facility] Generalized anxiety disorder PROBLEM VISIT with EARLENE MIKE PA-C 01/04/2023 Last Documented On 3 8:42AM ; [facility] Mild intermittent asthma wit h exacerbation PROBLEM VISIT with EARLENE MIKE PA-C 01/04/2023 Last Documented On 3 8:42AM ; [facility] Generalized anxiety disorder CHECK UP with SHAE MIKE PA-C 11/18/2022 Last Documented On 3 1:39PM ; [facility] Mild intermittent asthma wit h exacerbation CHECK UP with EARLENE MIKE PA-C 11/18/2022 Last Documented On 3 1:39PM ; [facility] [S01.81XA - Laceration witho ut foreign body of other part of head, initial encounter] laceration of head without foreign body WALK IN PATIENT - ESTABLISHED PT with MAYA JACOBS [facility] 10/26/2022 Last Documented On 3 3:56PM ; [facility] [Viral intestinal infection, unspecified] gastroenteritis COVID SICK VISIT- ESTABLISHED PATIENT with MERCED COOPER INVESTIGATOR CASH SHORTAGE-C 10/25/2022 Last Documented On 3 7:18PM ; [facility] Generalized anxiety disorder CHECK UP with SHAE MIKE PA-C 10/14/2022 Last Documented On 3 4:25PM ; [facility] Mild intermittent asthma wit h exacerbation CHECK UP with EARLENE MIKE PA-C 10/14/2022 Last Documented On 3 4:25PM ; [facility] Bronchitis COVID SICK VISIT- ES TABLISHED PATIENT with CARLOS A MANRIQUE [facility] 10/08/2022 Last Documented On 3 11:46AM ; [facility] [Other specified anxiety dis orders] depression with anxiety [facility] FOLLOW UP with DELICIA RAY LCSW 04/22/2022 Last Documented On 2 2:45PM ; [facility] Generalized anxiety disorder CHECK UP with SHAE MIKE PA-C 04/21/2022 Last Documented On 2 8:43PM ; [facility] Mild intermittent asthma wit h exacerbation CHECK UP with EARLENE MIKE PA-C 04/21/2022 Last Documented On 2 8:43PM ; [facility] [Other specified anxiety dis orders] depression with anxiety [facility] ESTABLISHED with DELICIA RAY LCSW 03/31/2022 Last Documented On 2 2:09PM ; [facility] Instructions Includes: Instructions for all patient encounters Instructions to patient Intervention and counseling on cessation of tobacco use Last Documented On 3 2:31PM ; [facility] Intervention and counseling on cessation of tobacco use Last Documented On 3 1:23PM ; [facility] Watch for signs/symptoms of infection, return to the clinic if seen Last Documented On 3 7:17PM ; [facility] Intervention and counseling on cessation of tobacco use Last Documented On 3 2:21PM ; [facility] Go to the emergency room if condition worsens Last Documented On 3 11:41AM ; [facility] Watch for signs/symptoms of infection Last Documented On 3 11:41AM ; [facility] Watch for signs/symptoms of infection, return to the clinic if seen Last Documented On 3 11:41AM ; [facility] Intervention and counseling on cessation of tobacco use Last Documented On 2 1:34PM ; [facility] Intervention and counseling on cessation of tobacco use Last Documented On 2 1:25PM ; [facility] Education and Decision Aids were provided during visit for: Patient education about anti biotics: need to finish even if feeling better Last Documented On 3 11:41AM ; [facility] Medical Equipment - [...] 3 2:42PM By Earlene Mike PA-C ; [facility] Advair Diskus 250-50 MCG/ACT Inhalation Aerosol Powder Breath Activated 06/22/2022 Provider: EARLENE Luque Diagnosis: Mild intermitten t asthma with (acute) exacerbation INHALE 1 PUFF BY MOUTH TWICE DAILY. RINSE MOUTH AFTER USE Last Documented On 3 8:11AM By Earlene Mike PA-C ; [facility] Past Medications on file hydrOXYzine Pamoate 25 MG Oral Capsule 06/28/2023 - 06/28/2023 Provider: FARTUN GIL [facility] Diagnosis: Panic disorder [episodic paroxysmal anxiety] 1 capsule PO TID PRN anxiety Last Documented On 4 12:00PM By FARTUN GIL [facility] ; [facility] Wellbutrin XL 300 MG Oral Tablet Extended Release 24 Hour 06/28/2023 - 06/28/2023 Provider: FARTUN GIL [facility] Diagnosis: Depression, unspecified One tablet daily--dose increase Last Documented On 4 12:00PM By FARTUN GIL [facility] ; [facility] Sertraline HCl 100 MG Oral Tablet 06/28/2023 - 09/26/2023 Provider: FARTUN VIDES [facility] Diagnosis: Take 2 tabs PO daily (200mg) dose Last Documented On 4 12:06PM By FARTUN GIL [facility] ; [facility] Wellbutrin XL 300 MG Oral Tablet Extended Release 24 Hour 06/28/2023 - 08/27/2023 Provider: FARTUN GIL [facility] Diagnosis: Depression, unspecified One tablet daily--dose increase Last Documented On 4 12:06PM By FARTUN GIL [facility] ; [facility] hydrOXYzine Pamoate 25 MG Oral Capsule 06/28/2023 - 07/28/2023 Provider: FARTUN GIL [facility] Diagnosis: Panic disorder [episodic paroxysmal anxiety] 1 capsule PO TID PRN anxiety Last Documented On 4 12:06PM By FARTUN GIL [facility] ; [facility] QUEtiapine Fumarate 150 MG Oral Tablet 06/28/2023 - 08/27/2023 Provider: FARTUN GIL [facility] Diagnosis: Insomnia, unspec ified One tablet daily--dose increase Last Documented On 4 12:06PM By FARTUN GIL [facility] ; [facility] QUEtiapine Fumarate 150 MG Oral Tablet 06/28/2023 - 06/28/2023 Provider: FARTUN GIL [facility]- Diagnosis: Insomnia, unspec ified One tablet daily--dose increase Last Documented On 4 12:00PM By FARTUN GIL [facility] ; [facility] Wellbutrin XL 150 MG Oral Tablet Extended Release 24 Hour 06/21/2023 - 06/28/2023 Provider: FARTUN GIL [facility]- Diagnosis: Depression, unspecified One tablet daily Last Documented On 4 11:56AM By FARTUN GIL [facility] ; [facility] QUEtiapine Fumarate 100 MG Oral Tablet 06/01/2023 - 06/28/2023 Provider: FARTUN GIL [facility]- Diagnosis: Insomnia, unspec ified One tablet daily Last Documented On 4 11:59AM By FARTUN GIL [facility] ; [facility] Sertraline HCl 100 MG Oral Tablet 06/01/2023 - 06/28/2023 Provider: FARTUN VIDES [facility]- Diagnosis: TAKE 1 TABLET BY MOUTH DAILY Last Documented On 4 11:44AM By FARTUN GIL [facility] ; [facility] QUEtiapine Fumarate 100 MG Oral Tablet 05/23/2023 - 06/01/2023 Provider: FARTUN GIL [facility]- Diagnosis: Insomnia, unspec ified One tablet daily---dose increase Last Documented On 06/01/2023 2:06PM By VICENTE BOWENS ; [facility] Wellbutrin XL 150 MG Oral Tablet Extended Release 24 Hour 05/23/2023 - 06/21/2023 Provider: FARTUN GIL [facility]- Diagnosis: Depression, unspecified One tablet daily Last Documented On 06/21/2023 10:01AM By VICENTE BOWENS ; [facility] Sertraline HCl 100 MG Oral Tablet 05/04/2023 - 06/28/2023 Provider: FARTUN VIDES [facility] Diagnosis: Take 2 tabs PO daily (200mg) dose Last Documented On 4 11:59AM By FARTUN GIL [facility] ; [facility] QUEtiapine Fumarate ER 50 MG Oral Tablet Extended Release 24 Hour 04/05/2023 - 05/23/2023 Provider: FARTUN GIL [facility] Diagnosis: Generalized anxi ety disorder One tablet at bed time Last Documented On 3 9:17AM By FARTUN GIL [facility] ; [facility] Sertraline HCl 100 MG Oral Tablet 04/05/2023 - 05/23/2023 Provider: FARTUN GIL [facility] Diagnosis: Post-traumatic s tress disorder, unspecified Take 2 tabs PO once daily (2 00mg dose)---dose increase Last Documented On 3 9:17AM By FARTUN GIL [facility] ; [facility] Albuterol Sulfate HFA 108 (90 Base) MCG/ACT Inhalation Aerosol Solution 03/21/2023 - 06/02/2023 Provider: EARLENE Walker PA-C Diagnosis: INHALE 2 PUFFS BY MOUTH EVERY 4 HOURS NEEDED Last Documented On 3 2:36PM By Earlene Mike PA-C ; [facility] Sertraline HCl 100 MG Oral Tablet 01/05/2023 - 04/05/2023 Provider: EARLENE MIKE PA-C Diagnosis: Generalized anxi ety disorder TAKE 1 TABLET BY MOUTH DAILY Last Documented On 3 3:48PM By FARTUN GIL [facility] ; [facility] Sertraline HCl 100 MG Oral Tablet 01/04/2023 - 01/05/2023 Provider: EARLENE MIKE PA-C Diagnosis: Generalized anxi ety disorder One tablet daily Last Documented On 3 8:03AM By Earlene Mike PA-C ; [facility] Azithromycin 250 MG Oral Tablet 01/04/2023 - 04/05/2023 Provider: EARLENE MIKE PA-C Diagnosis: Mild intermitten t asthma with (acute) exacerbation take 2 tablets on day 1, the n 1 tablet on days 2-5 Last Documented On 04/05/2023 2:52PM By DANIEL BOWENS ; [facility] Sertraline HCl 50 MG Oral Tablet 11/18/2022 - 04/05/2023 Provider: EARLENE MIKE PA-C Diagnosis: Generalized anxi ety disorder One tablet daily Last Documented On 3 2:56PM By FARTUN GIL [facility] ; [facility] Ondansetron 4 MG Oral Tablet Disintegrating 10/25/2022 - 11/18/2022 Provider: MERCED SUNC Diagnosis: Viral intestinal infection, unspecified 1 every 6 hours as needed Last Documented On 3 1:37PM By Earlene Mike PA-C ; [facility] Sertraline HCl 25 MG Oral Tablet 10/14/2022 - 11/18/2022 Provider: EARLENE MIKE PA-C Diagnosis: Generalized anxi ety disorder One tablet daily Last Documented On 3 1:37PM By Earlene Mike PA-C ; [facility] Medrol 4 MG Oral Tablet Therapy Pack 10/08/2022 - 10/14/2022 Provider: CARLOS A MANRIQUE [facility] Diagnosis: Acute bronchitis , unspecified as directed Last Documented On 10/14/2022 2:16PM By Samantha BOWENS ; [facility] Zithromax Z-Valente 250 MG Oral Tablet 10/08/2022 - 10/14/2022 Provider: CARLOS A MANRIQUE [facility] Diagnosis: Acute bronchitis , unspecified as directed Last Documented On 10/14/2022 2:16PM By Samantha BOWENS ; [facility] Albuterol Sulfate HFA 108 (90 Base) MCG/ACT Inhalation Aerosol Solution 08/17/2022 - 06/02/2023 Provider: EARLENE MIKE PA-C Diagnosis: Mild intermitten t asthma with (acute) exacerbation INHALE 1 TO 2 PUFFS BY MOUTH EVERY 4 TO 6 HOURS NEEDED Last Documented On 06/02/2023 2:31PM By Kayla BOWENS ; [facility] Albuterol Sulfate HFA 108 (90 Base) MCG/ACT Inhalation Aerosol Solution 05/31/2022 - 08/17/2022 Provider: EARLENE MIKE PA-C Diagnosis: Mild intermitten t asthma with (acute) exacerbation INHALE 1 TO 2 PUFFS BY MOUTH EVERY 4 TO 6 HOURS NEEDED Last Documented On 08/17/2022 4:39PM By Mahendra BOWENS ; [facility] Lexapro 5 MG Oral Tablet 04/21/2022 - 10/14/2022 Provider: EARLENE Walker PA-C Diagnosis: Generalized anxi ety disorder One tablet daily Last Documented On 10/14/2022 2:20PM By Samantha BOWENS ; [facility] Advair Diskus 250-50 MCG/ACT Inhalation Aerosol Powder Breath Activated 04/21/2022 - 06/22/2022 Provider: EARLENE MIKE PA-C Diagnosis: Mild intermitten t asthma with (acute) exacerbation 1 inhalation twice daily. rinse mouth after Last Documented On 3 8:10AM By Earlene Mike PA-C ; [facility] busPIRone HCl 5 MG Oral Tablet 04/21/2022 - 10/14/2022 Provider: EARLENE MIKE PA-C Diagnosis: Generalized anxi ety disorder 1 tab twice daily Last Documented On 10/14/2022 2:20PM By Samantha BOWENS ; [facility] busPIRone HCl 5 MG Oral Tablet 03/24/2022 - 04/21/2022 Provider: EARLENE MIKE PA-C Diagnosis: Generalized anxi ety disorder 1 tab twice daily Last Documented On 2 4:34PM By Earlene Mike PA-C ; [facility] Albuterol Sulfate HFA 108 (90 Base) MCG/ACT Inhalation Aerosol Solution 03/24/2022 - 05/31/2022 Provider: EARLENE MIKE PA-C Diagnosis: Mild intermitten t asthma with (acute) exacerbation INHALE 1 TO 2 PUFFS BY MOUTH EVERY 4 TO 6 HOURS NEEDED Last Documented On 2 11:00PM By Earlene Mike PA-C ; [facility] Sertraline HCl 25 MG Oral Tablet 03/22/2022 - 03/24/2022 Provider: EARLENE MIKE PA-C Diagnosis: Generalized anxi ety disorder TAKE 1 TABLET BY MOUTH DAILY Last Documented On 2 1:29PM By Earlene Mike PA-C ; [facility] Sertraline HCl 25 MG Oral Tablet 02/22/2022 - 03/22/2022 Provider: EARLENE MIKE PA-C Diagnosis: Generalized anxi ety disorder One tablet daily Last Documented On 2 8:24AM By Earlene Mike PA-C ; [facility] Advair Diskus 250-50 MCG/ACT Inhalation Aerosol Powder Breath Activated 02/22/2022 - 04/21/2022 Provider: EARLENE MIKE PA-C Diagnosis: Mild intermitten t asthma with (acute) exacerbation 1 inhalation twice daily. rinse mouth after Last Documented On 2 4:34PM By Earlene Mike PA-C ; [facility] Azithromycin 250 MG Oral Tablet 02/22/2022 - 03/24/2022 Provider: EARLENE MIKE PA-C Diagnosis: Mild intermitten t asthma with (acute) exacerbation take 2 tablets on day 1, the n 1 tablet on days 2-5 Last Documented On 03/24/2022 1:16PM By Camila BOWENS ; [facility] Albuterol Sulfate (2.5 MG/3ML) 0.083% Inhalation Nebulization solution 02/22/2022 - 10/14/2022 Provider: EARLENE MIKE PA-C Diagnosis: Mild intermitten t asthma with (acute) exacerbation 3mL every 4-6 hours as needed Last Documented On 10/14/2022 2:16PM By Samantha BOWENS ; [facility] Albuterol Sulfate HFA 108 (90 Base) MCG/ACT Inhalation Aerosol Solution 02/22/2022 - 03/24/2022 Provider: EARLENE MIKE PA-C Diagnosis: Mild intermitten t asthma with (acute) exacerbation INHALE 1 TO 2 PUFFS BY MOUTH EVERY 4 TO 6 HOURS NEEDED Last Documented On 2 1:34PM By Earlene Mike PA-C ; [facility] Albuterol Sulfate HFA 108 (90 Base) MCG/ACT Inhalation Aerosol Solution 01/26/2022 - 02/22/2022 Provider: EARLENE MIKE PA-C Diagnosis: Mild intermitten t asthma with (acute) exacerbation INHALE 1 TO 2 PUFFS BY MOUTH EVERY 4 TO 6 HOURS NEEDED Last Documented On 2 1:49PM By Earlene Mike PA-C ; [facility] Albuterol Sulfate HFA 108 (90 Base) MCG/ACT Inhalation Aerosol Solution 11/24/2021 - 01/26/2022 Provider: CARLOS A TALBERT Diagnosis: Mild intermitten t asthma with (acute) exacerbation INHALE 1 TO 2 PUFFS BY MOUTH EVERY 4 TO 6 HOURS NEEDED Last Documented On 2 1:09PM By Earlene Mike PA-C ; [facility] Albuterol Sulfate HFA 108 (90 Base) MCG/ACT Inhalation Aerosol Solution 07/20/2021 - 11/24/2021 Provider: EARLENE MIKE PA-C Diagnosis: Mild intermitten t asthma with (acute) exacerbation inhale 1-2 puffs every 4-6 hours as needed Last Documented On 2 6:38AM By Carlos A TALBERT ; [facility] Medications Administered Includes: [...] 11/18/2022 Last Documented On 3 1:39PM ; [facility] Not recovering from substance abuse 11/04 Last Documented On 3 1:39PM ; [facility] Tobacco non-user 10/25/2022 Last Documented On 3 7:18PM ; [facility] Using marijuana 02/22/2022 Last Documented On 2 3:39PM ; [facility] Alcohol 07/20/2021 Last Documented On 2 10:30AM ; [facility] Amount of alcohol per day: N ot everyday but about 5 to 7 shots when i drink 07/20/2021 Last Documented On 2 10:30AM ; [facility] Drug use 07/20/2021 Last Documented On 2 10:30AM ; [facility] Frequency: Most days 07/20/2021 Last Documented On 2 10:30AM ; [facility] Type: Marijuana 07/20/2021 Last Documented On 2 10:30AM ; [facility] Smoking Status Unknown Medical History Includes: Medical History in patient's chart Description Last Updated No Vaccine history 01/04/2023 Last Documented On 3 8:42AM ; [facility] Not taking OTC medications 10/25/2022 Last Documented On 3 7:18PM ; [facility] Family History Includes: Family History in patient's chart Description Last Updated Maternal grandfather's history of alcoho lism 04/06/2023 Last Documented On 3 9:35AM ; [facility] Maternal grandmother's history of depres nathan 04/06/2023 Last Documented On 3 9:35AM ; [facility] Maternal grandfather's history of alcoho l use 04/06/2023 Last Documented On 3 9:35AM ; [facility] Paternal grandfather's history of substa nce use disorders 04/06/2023 Last Documented On 3 9:35AM ; [facility] Paternal history of substance use disord ers 04/06/2023 Last Documented On 3 9:35AM ; [facility] Maternal history of substance use disord ers 04/06/2023 Last Documented On 3 9:35AM ; [facility] Family history of stroke/paralysis 07/20 Last Documented On 2 10:30AM ; [facility] Maternal history of Arthritis 07/20/2021 Last Documented On 2 10:30AM ; [facility] Review of Systems Review of Systems [...] Time Diagnosis NO SHOW FARTUN ARCHERGRAVE PMHNP-BC INVESTIGATOR [facility] 4 06/28/2023 11:30AM 06/28/2023 11:59PM Insurance Includes: Active Insurance Policies Plan Name Member ID Group # Subscriber Relationship Effect kathy Dates 1 - [facility] [id number] PATRICIA MORALES Self Clinical Notes Includes: Signed Clinical Notes starting from 06/25/2022 No Clinical Notes Recorded
--- OUTSIDE RECORDS SUMMARY | 2024-07-10 17:22 | XMS_ITS | Referral Summary ---
Author Organization [facility] Address [address] [place] [address] Care Team Providers Care Marshmallow Machine Operator Name Role Phone Diego Mcleod MD Unavailable [phone] No, Physician Primary Care Provider [phone] Allergies Active Allergy Reactions Criticality Noted Date [...] 05/08/2020 Assessment & Plan (05/08/2020 3:31 PM [employer] SALESPERSON): Will continue with quarantine per health dept recommendations Will continue with prn inhaler Will report to office if not improving or if worsening Rib pain on right side 04/24/2020 Assessment & Plan (04/24/2020 1:53 PM [employer] SALESPERSON): Will evaluate further with labs and imaginig Advised him to report to er if worsening Sleep disturbance 04/24/2020 Assessment & Plan (06/20/2020 10:48 AM [employer] SALESPERSON): Refer for sleep study Discontinue tizanidine given 'muscle twitches'. Advised referral to neurology to evaluate further, but he wants to start with pulm/sleep study first and will let us know response. Assessment & Plan (04/24/2020 1:52 PM E[employer] SALESPERSON): Will refer for sleep study/evaluation RUQ abdominal pain 04/24/2020 Assessment & Plan (04/24/2020 1:53 PM [employer] SALESPERSON): Will evaluate further with abdominal US and labs. He was advised to report to er if worsening or if developing fevers/chills or n/v/d. Muscle spasm 04/24/2020 Assessment & Plan (04/24/2020 1:52 PM E[employer] SALESPERSON): Will give temporary supply of tizanidine. Advised no driving for six hours after taking as it may make him drowsy. Advised further evaluation with labs Hyperkalemia 03/29/2020 Acute renal failure (ARF) 03/29/2020 Assessment & Plan (04/09/2020 4:30 PM E[employer] SALESPERSON): We reviewed recent labs. Advised no nsaids. [...] 03/08/2020 Assessment & Plan (06/20/2020 10:47 AM ELECT[employer] SALESPERSON): Taper wellbutrin every other day x 5 days, then discontinue. Start lexapro when taper finished. Has appt pending with psychiatry that he will keep. Assessment & Plan (05/08/2020 3:32 PM [employer] SALESPERSON): Will taper celexa as he isn't pleased with it - 10mg daily x 7 days, then 10mg every other day x 7 days, then discontinue. Will start wellbutrin when taper is finished. We discussed increasing at week 3 pending response. He makes pact to report to er if having s/h ideations. Assessment & Plan (04/09/2020 4:31 PM ELECT[employer] SALESPERSON): Increase celexa. He missed appt with psychiatry [...] complication Assessment & Plan (06/20/2020 10:48 AM ELECT[employer] SALESPERSON): Add bid symbicort. Continue with prn proventil. Assessment & Plan (04/09/2020 4:30 PM ELECT[employer] SALESPERSON): Refill inhaler as needed Assessment & Plan [...] Dr. Vazquez's office F/U 2 months at [place] [facility] Assessment & Plan (04/24/2020 1:51 PM ELECT[employer] SALESPERSON): Add symbicort bid Continue with proventil hfa q6h prn wheezing/dyspnea Will waste picker prednisone today and start He was [...] on file Legal Sex Male 1:49 PM [employer] SALESPERSON Gender Identity Not on file Sexual Orientation [...] revised on 19. Testing performed by: [address] [address] Hep B core IgM Nonreactive Nonreactive [facility] ([facility]) Comment: Interpretive Data If HepB Core IgM Ab is reported as Equivocal, a new sample should be drawn in two weeks for testing. Current interpretive data was last revised on 19. Testing performed by: [facility], [address] [place] [address]., [address] Hep C Ab Nonreactive Nonreactive [facility] [...] last revised on 2019. Testing performed by: [address] [place] [address] HepBsAg Nonreactive Nonreactive [facility] ([facility]) Comment:Testing performed by : [facility], [address] [place] [address], [place]., [address] Blood specimen (specimen) 03/29/2020 10:19 AM CDT 03/29/2020 1:26 PM CDT Diego Mcleod MD LAB MICROBIOLOGY - GENERAL OR DERABLES Final Result [facility] [address] [facility] Department [place] [address] from Last 3 Months or Most Recently Relevant to Health Maintenance Insurance [facility] Advance Directives For more information, please contact: [phone] * Full Code (Latest Code Status on File) Date Activated Date Inactivated Comments 03/28/2020 8:31 PM 03/31/2020 5:29 PM Care Teams Marshmallow Machine Operator Relationship Specialty Start Date End Date No, Physician PCP - General 10/31/20 Diego Mcleod MD Consulting Physician Nephrology 03/31/20
--- OUTSIDE RECORDS SUMMARY | 2024-07-10 17:22 | XMS_ITS | Clinical Summary ---
Author Organization [facility] Address [address] [place] [phone] Phone Care Team Providers Care Gameplay Programmer Name Role Phone Unavailable Unavailable Unavailable Reason for Visit and Chief Complaint NO SHOW Problems Includes: Problems addressed during this encounter and other active Problems All Visits Onset Date Resolved Date Provider Condition S tatus Depression 08/04/2020 ANNI CORTES MD Ac tive Last Documented On 1 8:56AM ; [facility] Bipolar I Disorder 07/03/2020 ANNI ABEBE MD Active Last Documented On 1 2:16PM ; [facility] Generalized Anxiety Disorder 07/03/2020 ANNI CROTES MD Active Last Documented On 1 2:16PM ; [facility] Psychophysiological Insomnia 07/03/2020 ANNI CORTES MD Active Last Documented On 1 2:17PM ; [facility] Major Depression 07/03/2020 ANNI CORTES MD Active Last Documented On 1 2:16PM ; [facility] Plan of Treatment No Plan of [...] 10/03/2020 9:49AM By Fifi Cortes MD ; [facility] LORazepam 0.5 MG Oral Tablet 09/22/2020 Provider: ANNI CORTES MD Diagnosis: Panic disorder [ episodic paroxysmal anxiety] as directed -- 1 tab a day a s needed for anxiety Last Documented On 09/22/2020 6:31PM By Fifi Cortes MD ; [facility] QUEtiapine Fumarate 100 MG Oral Tablet 08/08/2020 Provider: ANNI CORTES MD Diagnosis: Bipolar disorder , unspecified as directed -- 1 tab at bedtime Last Documented On 1 10:36AM By Fifi Cortes MD ; [facility] QUEtiapine Fumarate 25 MG Oral Tablet 08/08/2020 Provider: ANNI CORTES MD Diagnosis: Generalized anxi ety disorder as directed -- 1 tab in am a nd 1 tab at noon for anxiety Last Documented On 10:44AM By Fifi Cortes MD ; [facility] QUEtiapine Fumarate 50 MG Oral Tablet 07/03/2020 Provider: ANNI CORTES MD Diagnosis: Bipolar disorder , unspecified One tablet at bed time Last Documented On 07/03/2020 3:17PM By Fifi Cortes MD ; [facility] Albuterol Sulfate HFA 108 (9 0 Base) MCG/ACT Inhalation Aerosol Solution 06/20/2020 Provider: Diagnosis: 1 -2 puffs q 4-6 hours allison Tilley NP Last Documented On 07/03/2020 1:52PM By DIANE BOWENS ; [facility] Medications Administered Includes: Administered Medications from [...] ve Last Documented On 10/02/2022 5:39PM ; [facility] Note: Imported from external source. Encounters Encounter Provider Location Date Check-In Time Check-Out Time Diagnosis NO SHOW ANNI CORTES MD [facility] 01/16/2021 2:30PM 11:59PM Insurance Includes: Active Insurance Policies Plan Name Member ID Group # Subscriber Relationship Effect kathy Dates 1 - [facility] [id number] PATRICIA MORALES Self Clinical Notes Includes: Clinical Notes from this encounter No Clinical Notes Recorded
--- OUTSIDE RECORDS SUMMARY | 2024-07-10 17:22 | XMS_ITS ---
Care Plan - [facility] Created on: July 10, 2024 PATRICIA MORALES JR : [id number] Sex: Male Author Organization [facility] Address [address] [place] [address] Phone Care Team Providers Care Clothing Supervisor Name Role Phone Unavailable Unavailable Unavailable
--- OUTSIDE RECORDS SUMMARY | 2024-07-10 17:22 | XMS_ITS | Clinical Summary ---
Author Organization [facility] Address [address] [place] [phone] Phone Care Team Providers Care Gerontological Nurse Practitioner Name Role Phone Unavailable Unavailable Unavailable Reason for Visit and Chief Complaint NO SHOW Problems Includes: Problems addressed during this encounter and other active Problems All Visits Onset Date Resolved Date Provider Condition S tatus Depression 08/04/2020 ANNI CORTES MD Ac tive Last Documented On 1 8:56AM ; [facility] Bipolar I Disorder 07/03/2020 ANNI ABEBE MD Active Last Documented On 1 2:16PM ; [facility] Generalized Anxiety Disorder 07/03/2020 ANNI CORTES MD Active Last Documented On 1 2:16PM ; [facility] Psychophysiological Insomnia 07/03/2020 ANNI CORTES MD Active Last Documented On 1 2:17PM ; [facility] Major Depression 07/03/2020 ANNI CORTES MD Active Last Documented On 1 2:16PM ; [facility] Plan of Treatment No Plan of Treatment [...] 10/03/2020 9:49AM By Fifi Cortes MD ; [facility] LORazepam 0.5 MG Oral Tablet 09/22/2020 Provider: ANNI CORTES MD Diagnosis: Panic disorder [ episodic paroxysmal anxiety] as directed -- 1 tab a day a s needed for anxiety Last Documented On 09/22/2020 6:31PM By Fifi Cortes MD ; [facility] QUEtiapine Fumarate 100 MG Oral Tablet 08/08/2020 Provider: ANNI CORTES MD Diagnosis: Bipolar disorder , unspecified as directed -- 1 tab at bedtime Last Documented On 1 10:36AM By Fifi Cortes MD ; [facility] QUEtiapine Fumarate 25 MG Oral Tablet 08/08/2020 Provider: ANNI CORTES MD Diagnosis: Generalized anxi ety disorder as directed -- 1 tab in am a nd 1 tab at noon for anxiety Last Documented On 10:44AM By Fifi Cortes MD ; [facility] QUEtiapine Fumarate 50 MG Oral Tablet 07/03/2020 Provider: ANNI CORTES MD Diagnosis: Bipolar disorder , unspecified One tablet at bed time Last Documented On 07/03/2020 3:17PM By Fifi Cortes MD ; [facility] Albuterol Sulfate HFA 108 (9 0 Base) MCG/ACT Inhalation Aerosol Solution 06/20/2020 Provider: Diagnosis: 1 -2 puffs q 4-6 hours allison Tilley NP Last Documented On 07/03/2020 1:52PM By DIANE BOWENS ; [facility] Medications Administered Includes: Administered Medications from this [...] Last Documented On 10/02/2022 5:39PM ; [facility] Note: Imported from external source. Encounters Encounter Provider Location Date Check-In Time Check-Out Time Diagnosis NO SHOW ANNI CORTES MD [facility] 11/14/2020 3:30PM 11:59PM Insurance Includes: Active Insurance Policies Plan Name Member ID Group # Subscriber Relationship Effect kathy Dates 1 - [facility] [id number] PATRICIA MORALES Self Clinical Notes Includes: Clinical Notes from this encounter No Clinical Notes Recorded
--- OUTSIDE RECORDS SUMMARY | 2024-07-10 17:22 | XMS_ITS ---
Care Plan - [facility] Created on: July 10, 2024 PATRICIA MORALES JR : 2000 Sex: Male Author Organization [facility] Address [address] [place] [address] Phone Care Team Providers Care Director Cost Name Role Phone VIRGINIE CARDONA MD Primary Care Provider
--- OUTSIDE RECORDS SUMMARY | 2024-07-10 17:22 | XMS_ITS | Clinical Summary ---
Author Organization [facility] Address [address] [place] [address] Phone Care Team Providers Care Breastfeeding Peer Counselor Name Role Phone VIRGINIE CARDONA MD [...] Active Last Documented On 04/27/2022 8:42PM ; [facility] Note: Unchanged Past Visits Onset Date Resolved Date Provider Condition Status Asthma Mild Intermittent with Exacerbation 04/27/2022 EARLENE CASTELLANO PA-C Active Last Documented On 04/27/2022 8:42PM ; [facility] Note: Unchanged Plan of Treatment - Return to the clinic if condition worsens or new symptoms arise - Last Documented On 04/06/2023 9:35AM ; [facility] - Follow-up visit in 1 month - Last Documented On 04/06/2023 9:35AM ; [facility]ive Time Spent caring for patient today: I personally spent a total of 70 minutes in medical discussion, documentation, and/or chart review as described in this note. - Last Documented On 04/06/2023 9:35AM ; [facility] Pending Tests Order Diagnosis Results Due Ordering Mc gutierrez In office procedures - *Clia Waived Labs Urine Drug Screen Encounter for therapeutic drug level monitoring 04/19/23 FARTUN GIL PMHNP-BC BLENDING SUPERVISOR-BC Last Documented On 9:35AM ; [facility] Assessments Includes: Assessments from this encounter Findings - [F39 - Unspecified mood [affective] disorder] Mood disorders, NOS --possible dx, will continue to monitor - Last Documented On 04/06/2023 9:35AM ; [facility] - [F32.A - Depression, unspecified] Depression - Last Documented On 04/06/2023 9:35AM ; [facility] - [G47.00 - Insomnia, unspecified] Insomnia due to stress - Last Documented On 04/06/2023 9:35AM ; [facility] - [F41.1 - Generalized anxiety disorder] Generalized anxiety disorder - Last Documented On 04/06/2023 9:35AM ; [facility] - [F41.0 - Panic disorder [episodic paroxysmal anxiety]] Panic disorder - Last Documented On 04/06/2023 9:35AM ; [facility] - [F43.10 - Post-traumatic stress disorder, unspecified] Post-traumatic stress disorder - Last Documented On 04/06/2023 9:35AM ; [facility] Medical Equipment - Implanted Devices Includes: Current Devices No Medical Equipment Recorded Medications Includes: Medications discussed during this encounter and other current Medications Discontinued / Stopped on this date EARLENE CASTELLANO PA-C on 01/05/2023 Sertraline HCl 100 MG Oral Tablet Provider: EARLENE Luque Diagnosis: Generalized anxi ety disorder Last Documented On 3 3:48PM By FARTUN ARIASROWENA ; [facility] Azithromycin 250 MG Oral Tablet Provider: EARLENE CASTELLANO PA-C Diagnosis: Mild intermitten t asthma with (acute) exacerbation Last Documented On 04/05/2023 2:52PM By DANIEL BOWENS ; [facility] Sertraline HCl 50 MG Oral Tablet Provider: EARLENE Luque Diagnosis: Generalized anxi ety disorder Last Documented On 3 2:56PM By FARTUN GUARDADO ; [facility] New / Renewed during this visit FARTUN GIL [facility] on 04/05/2023 QUEtiapine Fumarate ER 50 MG Oral Tablet Extended Release 24 Hour Provider: FARTUN LAZAROROWENA [facility] 30 day supply: 30 tablet, 1 refills Diagnosis: Generalized anxiety disorder One tablet at bed time Pharmacy: [facility] [place] [facility] - [address] , [facility], [phone] - Last Documented On 3 9:17AM By FARTUN ARIAS-ROWENA ; [facility] Sertraline HCl 100 MG Oral Tablet Provider: FARTUN KAT BLENDING SUPERVISOR- 30 day supply: 60 tablet, 1 refills Diagnosis: Post-traumatic stress disorder, unspecified Take 2 tabs PO once daily (2 00mg dose)---dose increase Pharmacy: [facility] - [address] , [facility], [address] - Last Documented On 3 9:17AM By FARTUN GUARDADO ; [facility] Current Medications (continue as prescribed) Albuterol Sulfate HFA 108 (9 0 Base) MCG/ACT Inhalation Aerosol Solution 06/02/2023 Provider: CHARLIE CASTELLANO PA-C Diagnosis: INHALE 2 PUFFS BY MOUTH EVERY 4 HOURS NEEDED Last Documented On 3 2:42PM By Earlene Castellano PA-C ; [facility] Advair Diskus 250-50 MCG/ACT Inhalation Aerosol Powder Breath Activated 06/22/2022 Provider: EARLENE Luque Diagnosis: Mild intermitten t asthma with (acute) exacerbation INHALE 1 PUFF BY MOUTH TWICE DAILY. RINSE MOUTH AFTER USE Last Documented On 3 8:11AM By Earlene Castellano PA-C ; [facility] Past Medications on file Sertraline HCl 100 MG Oral Tablet 06/28/2023 - 09/26/2023 Provider: FARTUN VIDES [facility]- BLENDING SUPERVISOR- Diagnosis: Take 2 tabs PO daily (200mg) dose Last Documented On 4 12:06PM By FARTUN ARIAS-ROWENA ; [facility] Wellbutrin XL 300 MG Oral Tablet Extended Release 24 Hour 06/28/2023 - 08/27/2023 Provider: FARTUN KAT BLENDING SUPERVISOR-BC Diagnosis: Depression, unspecified One tablet daily--dose increase Last Documented On 4 12:06PM By FARTUN GIL [facility] ; [facility] hydrOXYzine Pamoate 25 MG Oral Capsule 06/28/2023 - 07/28/2023 Provider: FARTUN GIL [facility] Diagnosis: Panic disorder [episodic paroxysmal anxiety] 1 capsule PO TID PRN anxiety Last Documented On 4 12:06PM By FARTUN JEFFERY [facility] ; [facility] QUEtiapine Fumarate 150 MG Oral Tablet 06/28/2023 - 08/27/2023 Provider: FARTUN GIL [facility] Diagnosis: Insomnia, unspec ified One tablet daily--dose increase Last Documented On 4 12:06PM By FARTUN JEFFERY [facility] ; [facility] Medications Administered Includes: Administered Medications from this encounter No Administered Medications Recorded Vital Signs Includes: Vital Signs from this encounter Vital Name 04/05/2023 02:48P Blood Pressure Sitting L 110/90 Pulse Rate-Sitting (bpm) 70 Respiration Rate (breaths/min) 21 Temp-Temporal 97.2 Height (in) 71.25 Weight (lb) 208 Body Mass Index 28.8 Body Surface Area 2.1 Oxygen Saturation (%) 100 Last Documented: On 04/05/2023 2:55PM ; [facility] Results Includes: Results discussed during this encounter Drugs of abuse screen [facility] Ordered by FARTUN GIL [facility] on 04/05/2023 Collected: Reported: 04/05/2023 15:11 Last Documented On 3 3:12PM ; [facility] Reviewed on 04/05/2023; All test results are final unless otherwise noted. Internal QC Acceptable YES N (Normal) Last Documented On 3 3:12PM ; [facility] Lot # & Exp. Date [id number] 04-27-24 N (Normal) Last Documented On 3 3:12PM ; [facility] Amphetamines NEGATIVE (NEG) N (Normal) Last Documented On 3 3:12PM ; [facility] Barbiturates NEGATIVE (neg) N (Normal) Last Documented On 3 3:12PM ; [facility] Benzodiazepines NEGATIVE (neg) N (Normal) Last Documented On 3 3:12PM ; [facility] Cocaine NEGATIVE (neg) N (Normal) Last Documented On 3 3:12PM ; [facility] Ecstasy NEGATIVE (Neg) N (Normal) Last Documented On 3 3:12PM ; [facility] Methamphetamines NEGATIVE (neg) N (Normal) Last Documented On 3 3:12PM ; [facility] Methadone NEGATIVE (Neg) N (Normal) Last Documented On 3 3:12PM ; [facility] Morphine NEGATIVE (Neg) N (Normal) Last Documented On 3 3:12PM ; [facility] Oxycodone NEGATIVE (Neg) N (Normal) Last Documented On 3 3:12PM ; [facility] Phencyclidine NEGATIVE (NEG) N (Normal) Last Documented On 3 3:12PM ; [facility] TCA/Tricyclic Antidepressants NEGATIVE (neg) N (Normal) Last Documented On 3 3:12PM ; [facility] Cannabis POSITIVE (neg) A (Abnormal) Last Documented On 3 3:12PM ; [facility] History of Present Illness Includes: History of [...] a tissue to use will use hand rock cutter or wash his hands as soon as [...] 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 Father when he was age 13. His [...] Grandmother Ramya when he was age 16. Cultural/Zoroastrian Influences: Denies Past psych DX: LYNDSEY, MDD, Bipolar, PTSD Psych HX: Inpatient HX for mental health: Denies Previous PHP/IOP: Denies ER visits HX for mental health: [facility] ER 01/2023 anxiety Rehab HX: Denies Outpatient Psychiatrist/PMHNP HX: Dr. Cortes in the past Counseling HX: Yudith Pierre in the past but not currently. Is in anger management at [facility] in [place] and parenting classes currently. Previous psych meds: [...] 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 Father when he was age 13. His [...] Living Arrangements: Lives with Friend Chance in [place] and his 4-year-old daughter Marital status: Single. [...] 11/18/2022 Last Documented On 3 2:47PM ; [facility] Not recovering from substance abuse 11/04 Last Documented On 3 2:47PM ; [facility] Tobacco non-user 10/25/2022 Last Documented On 3 2:47PM ; [facility] Using marijuana 02/22/2022 Last Documented On 3 2:47PM ; [facility] Alcohol 07/20/2021 Last Documented On 3 2:47PM ; [facility] Drug use 07/20/2021 Last Documented On 3 2:47PM ; [facility] Frequency: Most days 07/20/2021 Last Documented On 3 2:47PM ; [facility] Type: Marijuana 07/20/2021 Last Documented On 3 2:47PM ; [facility] Smoking Status Unknown Procedures and Surgical History Includes: Procedures from this encounter Procedures Code Diagnosis Performing Provider Service L ocation Service Date regular exercise Last Documented On 3 2:57PM ; [facility] review of medications documented 1160F Last Documented On 3 2:55PM ; [facility] Clinical summary provided to patient Last Documented On 3 2:57PM ; [facility] Mood Disorder Questionnaire -NEGATIVE 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 Last Documented On 3 4:13PM ; [facility] Medical History Includes: Medical History addressed during this encounter Description Last Updated Not taking OTC medications 10/25/2022 Last Documented On 3 2:47PM ; [facility] Family History Includes: Family History addressed during this encounter Description Last Updated Maternal grandfather's history of alcoho lism 04/06/2023 Last Documented On 3 9:35AM ; [facility] Maternal grandmother's history of depres nathan 04/06/2023 Last Documented On 3 9:35AM ; [facility] Maternal grandfather's history of alcoho l use 04/06/2023 Last Documented On 3 9:35AM ; [facility] Paternal grandfather's history of substa nce use disorders 04/06/2023 Last Documented On 3 9:35AM ; [facility] Paternal history of substance use disord ers 04/06/2023 Last Documented On 3 9:35AM ; [facility] Maternal history of substance use disord ers 04/06/2023 Last Documented On 3 9:35AM ; [facility] Family history of stroke/paralysis 07/20 Last Documented On 3 2:47PM ; [facility] Maternal history of Arthritis 07/20/2021 Last Documented On 3 2:47PM ; [facility] Review of Systems Includes: Review of Systems [...] EXAM 18 YEARS AND OLDER FARTUN GIL [facility] 04/05/20 23 2:35PM 3:56PM Generalized Anxiety Disorder,Depre ssion,Post-tra umatic Stress Disorder,Mood Disorders, Nos,Panic Disorder,Insom sheron Due To Stress Insurance Includes: Active Insurance Policies Plan Name Member ID Group # Subscriber Relationship Effect kathy Dates 1 - [facility] [id number] PATRICIA MORALES Self Clinical Notes Includes: Clinical Notes from this encounter * Progress note Date Encounter Last Documented by 04/05/2023 PSYCH NEW PATIENT EX AM 18 YEARS AND OLDER Last documented on 04/06/2023; 9:35 AM, FARTUN GIL [facility]; [facility] Active Problems & Conditions [...] a tissue to use will use hand rock cutter or wash his hands as soon as [...] 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 Father when he was age 13. His [...] Grandmother Ramya when he was age 16. Cultural/Zoroastrian Influences: Denies Past psych DX: LYNDSEY, MDD, Bipolar, PTSD Psych HX: Inpatient HX for mental health: Denies Previous PHP/IOP: Denies ER visits HX for mental health: [facility] ER 01/2023 anxiety Rehab HX: Denies Outpatient Psychiatrist/PMHNP HX: Dr. Cortes in the past Counseling HX: Yudith Pierre in the past but not currently. Is in anger management at [facility] in [place] and parenting classes currently. Previous psych meds: [...] 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 Father when he was age 13. His [...] Living Arrangements: Lives with Friend Chance in [place] and his 4-year-old daughter Marital status: Single. [...] YES Normal Lot # & Exp. Date [id number] 04-27-24 Normal Amphetamines NEGATIVE Normal Barbiturates NEGATIVE [...] night Discussed ongoing cannabis use and explained exterminator helper termite effect that psychoactive drugs have on brain [...]
--- OUTSIDE RECORDS SUMMARY | 2024-07-10 17:22 | XMS_ITS | Clinical Summary ---
Author Organization [facility] Address [address] [place] [address] Care Team Providers Care Biofuels Processing Technician Name Role Phone Diego Mcleod MD Unavailable [phone] No, Physician Primary Care Provider [phone] Allergies Active Allergy Reactions Criticality Noted Date [...] 05/08/2020 Assessment & Plan (05/08/2020 3:31 PM CHRONIC SPECIALIST): Will continue with quarantine per health dept recommendations Will continue with prn inhaler Will report to office if not improving or if worsening Rib pain on right side 04/24/2020 Assessment & Plan (04/24/2020 1:53 PM CHRONIC SPECIALIST): Will evaluate further with labs and imaginig Advised him to report to er if worsening Sleep disturbance 04/24/2020 Assessment & Plan (06/20/2020 10:48 AM CHRONIC SPECIALIST): Refer for sleep study Discontinue tizanidine given 'muscle twitches'. Advised referral to neurology to evaluate further, but he wants to start with pulm/sleep study first and will let us know response. Assessment & Plan (04/24/2020 1:52 PM CHRONIC SPECIALIST): Will refer for sleep study/evaluation RUQ abdominal pain 04/24/2020 Assessment & Plan (04/24/2020 1:53 PM CHRONIC SPECIALIST): Will evaluate further with abdominal US and labs. He was advised to report to er if worsening or if developing fevers/chills or n/v/d. Muscle spasm 04/24/2020 Assessment & Plan (04/24/2020 1:52 PM CHRONIC SPECIALIST): Will give temporary supply of tizanidine. Advised no driving for six hours after taking as it may make him drowsy. Advised further evaluation with labs Hyperkalemia 03/29/2020 Acute renal failure (ARF) 03/29/2020 Assessment & Plan (04/09/2020 4:30 PM CHRONIC SPECIALIST): We reviewed recent labs. Advised no nsaids. [...] 03/08/2020 Assessment & Plan (06/20/2020 10:47 AM CHRONIC SPECIALIST): Taper wellbutrin every other day x 5 days, then discontinue. Start lexapro when taper finished. Has appt pending with psychiatry that he will keep. Assessment & Plan (05/08/2020 3:32 PM CHRONIC SPECIALIST): Will taper celexa as he isn't pleased with it - 10mg daily x 7 days, then 10mg every other day x 7 days, then discontinue. Will start wellbutrin when taper is finished. We discussed increasing at week 3 pending response. He makes pact to report to er if having s/h ideations. Assessment & Plan (04/09/2020 4:31 PM CHRONIC SPECIALIST): Increase celexa. He missed appt with psychiatry [...] complication Assessment & Plan (06/20/2020 10:48 AM CHRONIC SPECIALIST): Add bid symbicort. Continue with prn proventil. Assessment & Plan (04/09/2020 4:30 PM CHRONIC SPECIALIST): Refill inhaler as needed Assessment & Plan [...] Dr. 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 Testing performed by: [address] [address] Hep B core IgM Nonreactive Nonreactive C SHAISTAER FANNY (JENN) Comment: Interpretive Data If HepB Core IgM Ab is reported as Equivocal, a new sample should be drawn in two weeks for testing. Current interpretive data was last revised on 19. Testing performed by: , [address] [place] [address]., [id number] Hep C Ab Nonreactive Nonreactive AV[facility] ESCOBEDO [...] last revised on 2019. Testing performed by: , [address] [place] [address]., [address] HepBsAg Nonreactive Nonreactive AVNI ESCOBEDO (JENN) Comment:Testing performed by : [address] [address] Blood specimen (specimen) 03/29/2020 10:19 AM CDT 03/29/2020 1:26 PM CDT Diego Mcleod MD LAB MICROBIOLOGY - GENERAL OR DERABLES Final Result [facility] ESCOBEDO (JENN) [address] [facility] [place] [address] from Last 3 Months or Most Recently Relevant to Health Maintenance Insurance [facility] Advance Directives For more information, please contact: [phone] * Full Code (Latest Code Status on File) Date Activated Date Inactivated Comments 03/28/2020 8:31 PM 03/31/2020 5:29 PM Care Teams Biofuels Processing Technician Relationship Specialty Start Date End Date No, Physician PCP - General 10/31/20 Diego Mcleod MD Consulting Physician Nephrology 03/31/20
--- OUTSIDE RECORDS SUMMARY | 2024-07-10 17:22 | XMS_ITS | Clinical Summary ---
Author Organization [facility] Address [address] [place] [address] Phone Care Team Providers Care Utility Worker Production Name Role Phone Unavailable Unavailable Unavailable Reason for Visit and Chief Complaint [Patient Encounter] Problems Includes: Problems addressed during this encounter and other active Problems All Visits Onset Date Resolved Date Provider Condition S tatus Depression 08/04/2020 Active Last Documented On 3 5:53PM ; [facility] Bipolar I Disorder 07/03/2020 Active Last Documented On 3 5:53PM ; [facility] Generalized Anxiety Disorder 07/03/2020 Active Last Documented On 3 5:53PM ; [facility] Psychophysiological Insomnia 07/03/2020 Active Last Documented On 3 5:53PM ; [facility] Major Depression 07/03/2020 Active Last Documented On 3 5:53PM ; [facility] Plan of Treatment No [...] 10/02/2022 5:39PM By Fifi Cortes MD ; [facility] LORazepam 0.5 MG TABS 09/22/2020 Provider: BHAVANA CORTES MD Diagnosis: Panic disorder [ episodic paroxysmal anxiety] as directed -- 1 tab a day a s needed for anxiety Last Documented On 10/02/2022 5:39PM By Fifi Cortes MD ; [facility] QUEtiapine Fumarate 100 MG OR TABS 08/08/2020 Provider: ANNI CORTES MD Diagnosis: Bipolar disorder , unspecified as directed -- 1 tab at bedtime Last Documented On 10/02/2022 5:39PM By Fifi Cortes MD ; [facility] QUEtiapine Fumarate 25 MG OR TABS 08/08/2020 Provider: ANNI CORTES MD Diagnosis: Generalized anxi ety disorder as directed -- 1 tab in am a nd 1 tab at noon for anxiety Last Documented On 10/02/2022 5:39PM By Fifi Cortes MD ; [facility] QUEtiapine Fumarate 50 MG OR TABS 07/03/2020 Provider: ANNI CORTES MD Diagnosis: Bipolar disorder , unspecified One tablet at bed time Last Documented On 10/02/2022 5:39PM By Fifi Cortes MD ; [facility] Albuterol Sulfate HFA 108 (90 Base) MCG/ACT IN AERS Provider: Diagnosis: 1 -2 puffs q 4-6 hours allison Tilley NP Last Documented On 10/02/2022 5:39PM By DIANE BOWENS ; [facility] Medications Administered Includes: Administered [...] 2.2 Last Documented: On 10/02/2022 5:58PM ; [facility] Results Includes: Results discussed during this encounter [...] ve Last Documented On 10/02/2022 5:39PM ; [facility] Note: Imported from external source. Encounters Encounter Provider Location Date Check-In Time Check-Out Time Diagnosis [Patient Encounter] 07/03/2020 12:00AM 11:59PM Insurance Includes: Active Insurance Policies Plan Name Member ID Group # Subscriber Relationship Effect kathy Dates 1 - [facility] [id number] PATRICIA MORALES JR Self Clinical Notes Includes: Clinical Notes from this encounter No Clinical Notes Recorded
== END 2024-07-10 17:23 | disposition left against medical advice (07) ==
DX: Z53.21 Procedure and treatment not carried out due to patient leaving prior to being seen by health care provider (principal)
CPT/HCPCS: 99199